=== PATIENT | female | born 1940 | race Caucasian/White ===

== ENCOUNTER 2022-10-02 09:31 | Emergency (ER) | payer MEDICARE, SELFPAY ==
[2022-10-02 09:56] VITALS: BP 177/88; PULSE 92; RESP 18; TEMP 36.1; O2SAT 98; BMI 34.9
[2022-10-02 13:45] VITALS: BP 218/84; PULSE 88; RESP 18; O2SAT 98
[2022-10-02 15:19] VITALS: BP 207/90; PULSE 72; RESP 17; O2SAT 97
--- NOTE | 2022-10-02 15:29 | ED.EXTPRO ---
HPI - Extremity Problem General Chief complaint: Extremity Problem Stated complaint: left foot injury Time Seen by Provider: 10/02/22 12:32 Source: patient and RN notes reviewed Mode of arrival: ambulatory Limitations: no limitations History of Present Illness HPI Narrative: This is a 82-year-old female presenting to the emergency department for evaluation of left foot pain since yesterday. Patient had a slip and fall and landed onto her left leg. Patient denies hitting head or LOC. she was able to weightbear however reports weight-bearing is extremely painful. She was unable to sleep secondary to the pain. Denies history of foot fractures or ankle problems in the past. Patient denies any fevers, chills She has been taking Tylenol at home without any relief. No other complaints or concerns at this time. MD Complaint: extremity pain and extremity swelling Onset (ago): day(s) Pain Consistency: constant Location: left Quality: aching Radiation: none Relieving factors: nothing Exacerbating factors: nothing Associated symptoms: denies other symptoms Related Data Previous Rx's Medication Instructions Recorded tramadol 50 mg tablet 25 mg PO Q6H PRN pain #10 tabs 10/02/22 Allergies Allergy/AdvReac Type Severity Reaction Status Date / Time No Known Allergies Allergy Verified 10/02/22 09:56 Review of Systems Review of Systems: Yes all other systems are reviewed and are negative Physical Exam Vital Signs: Vital Signs: Last Vital Signs Temp 97 F 10/02/22 09:56 Pulse 72 10/02/22 15:19 Resp 17 10/02/22 15:19 BP 207/90 H 10/02/22 15:19 Pulse Ox 97 10/02/22 15:19 O2 Del Method Room Air 10/02/22 15:19 BMI result Body Mass Index 34.9 General: Awake, alert, and oriented X3. No acute distress. HEENT: Normal inspection CVS: Normal heart rate and rhythm. Pulses normal. Respiratory: No respiratory distress Skin: Warm, dry, no rashes noted to exposed skin. Normal skin color. Normal skin turgor. Extremities: Left dorsal aspect is edematous, with exquisite tenderness along the left 3rd, 4th, 5th metatarsals. There is also tenderness along 3rd 4th and 5th tarsals. DP pulses 2+. Patient has mild tenderness palpation along the anterior left knee, pain with valgus strain. No patellar step-off or deformity. Neuro: Oriented X 3. No motor deficit. No sensory deficit. Medications Administered Discontinued Medications Generic Name Dose Route Start Last Admin Trade Name Phillip PRN Reason Stop Dose Admin Acetaminophen 975 mg 10/02/22 15:21 10/02/22 15:47 Acetaminophen 325 Mg Tablet PO 10/02/22 15:22 Not Given ONCE ONE Metoprolol Tartrate 12.5 mg 10/02/22 13:56 10/02/22 14:03 Metoprolol Tartrate 12.5 Mg Halftab PO 10/02/22 13:57 12.5 mg ONCE ONE Administration Protocol Tramadol HCl 25 mg 10/02/22 15:30 10/02/22 15:33 Tramadol Hcl 50 Mg Tablet PO 10/02/22 15:31 25 mg ONCE ONE Administration Medical Decision Making Medical Decision Making MDM Narrative: This is a 82-year-old female presenting to the emergency department with complaints of left foot pain since yesterday. Patient had a slip and fall at home and landed onto her foot. X-rays were obtained revealing an acute nondisplaced intra-articular fracture of the lateral base of the 5th proximal phalanx, acute avulsion fracture of the dorsal talar head, as well as a linear focus of ossification. Symptoms consistent with multiple fractures, patient was placed in a short-leg splint, advised to non-weight bear per orthopedic SID Carpenter, and to follow-up outpatient. Patient with hypertension, patient given metoprolol dose as she did not take her medication at home, patient is asymptomatic without any chest pain or shortness of breath, denies headaches or blurred vision. Patient hypertension likely due to pain as well. Patient medicated with tramadol and department, advised to continue with Tylenol. Patient understands and agrees with plan. Patient stable for discharge. Differential Diagnosis Differential Diagnoses: The differential diagnosis associated with the presentation includes Fracture, contusion, dislocation, sprain Consult Healthcare Provider Management of the patient was discussed with: Real Estate Paralegal Stacy Carpenter PA-C, orthopedics. Radiology Impression Discussion of test interpretation with radiology: I have reviewed the radiologist's reading. Radiologist Impression: [address] [address] XRay Report Signed Patient: Dorinda Gale MR#: [id number] : 1940 Acct:[id number] Age/Sex: 82 / F ADM Date: 10/02/22 Loc: HO.ED Attending Dr: Ordering Physician: Clarissa Cramer Date of Service: 10/02/22 Procedure(s): XR knee LT 2V Accession Number(s): [id number] cc: Clarissa Cramer~ Examination: Left ankle and left knee. Clinical indications: Pain. COMPARISON: None. TECHNIQUE: Left knee 2 views and left ankle 3 views. FINDINGS: Left knee: There is mild reduction in patellofemoral and medial compartment joint space with mild anterior superior patellar enthesophytes. No joint effusion or loose body seen. Mild chondrocalcinosis of the menisci is noted. Left ankle: There is moderate bimalleolar and left lower leg soft tissue edema. No visible acute fracture or dislocation seen. Ankle mortise and subtalar joints are normal. XR/XR knee LT 2V IMPRESSION: 1.? Mild degenerative changes medial and patellofemoral compartment left knee. No visible acute fracture or dislocation seen. 2.? Moderate bimalleolar soft tissue and lower leg edema. No acute fracture or dislocation seen. ? Dictated By: Bennie Walsh EXAMINATION: XR FOOT, LEFT CLINICAL INFORMATION: Pain at heel and top of foot, status post fall? COMPARISON: None available.? TECHNIQUE: 3 views of the left foot. FINDINGS: Bones are diffusely osteopenic. There are enthesophytes of the calcaneus. Also, there is a linear, 1.2 cm long focus of ossific density near region of plantar aponeurosis insertion. Query if there is any history of plantar fasciitis. The chronicity of this abnormality is uncertain. There are no comparison exams. Given history of pain at the heel, correlation with specific site of pain may be helpful. This could represent a recent avulsion fracture. An ossific density of 0.4 cm thickness projecting dorsal to the talar head is suspicious for acute avulsion fracture. Soft tissues of the foot are swollen. A curvilinear calcification lateral to the fifth metatarsophalangeal joint likely represents chronic capsular calcification. An acute intra-articular fracture of the lateral base of the fifth proximal phalanx is present. There appears to be chronic truncation of the tuft of the 5th distal phalanx. Mild osteoarthrosis of multiple interphalangeal joints. There are peripheral vascular calcifications. XR/XR foot LT 2V IMPRESSION: *? Acute, nondisplaced intra-articular fracture of the lateral base of the 5th proximal phalanx. *? Acute avulsion fracture of the dorsal talar head. *? The linear focus of ossification near region of calcaneal insertion of the plantar aponeurosis is of uncertain chronicity. If there is any significant acute pain in this location, then recent avulsion fracture would be suspected. Dictated By: Giacomo Irene MD Prescription Management I considered prescription management with: Pain Medication Chronic Conditions Patient?s care impacted by: Diabetes Discharge Plan Discharge Clinical Impression: Closed fracture of phalanx of fifth toe, Closed fracture of head of left talus Patient Disposition: Home, Self-Care Instructions: Foot Fracture in Adults (ED) Additional Instructions: You have multiple fractures in your foot. Please stay in splint until you are seen by Orthopedics. Call tomorrow to make an appointment. Please take prescribed medication as directed. Please be advised that this can cause drowsiness, do not drink alcohol or drive while taking this. Only take for severe pain. If any new or worsening symptoms occur please return for re-evaluation. Prescriptions: New tramadol 50 mg tablet 25 mg PO Q6H PRN (Reason: pain) Qty: 10 0RF Referrals: [facility] [place] [facility] Sur[facility] [Provider Group] Discharge Date/Time: 10/02/22 15:49
== END 2022-10-02 15:49 | disposition home or self-care (01) ==
PROVIDERS: Emergency Provider Emergency Medicine; PCP Registered Nurse
DX: S92.502A Displaced unspecified fracture of left lesser toe(s), initial encounter for closed fracture (principal); S92.122A Displaced fracture of body of left talus, initial encounter for closed fracture; M79.605 Pain in left leg; W01.10XA Fall on same level from slipping, tripping and stumbling with subsequent striking against unspecified object, initial encounter; Y93.9 Activity, unspecified; Y92.9 Unspecified place or not applicable; Y99.9 Unspecified external cause status
CPT/HCPCS: 29515; 73560; 73610; 73620; 99283

== ENCOUNTER 2022-10-13 15:02 | Outpatient (REF) | payer MEDICARE, SELFPAY ==
--- NOTE | ~2022-10-13 | XR_ITS ---
EXAMINATION: XR ANKLE RIGHT CLINICAL INFORMATION: Pain in unspecified ankle and joints of unspecified right foot. COMPARISON: Left knee and ankle 10/02/2022. TECHNIQUE: Right tibia/fibula 2 views and left ankle 3 views. FINDINGS: Right ankle: Eudqsjel-wr-lsvnrw soft tissue swelling and edema involving the right lower leg and ankle. Bones are diffusely demineralized. Ankle mortise is unremarkable. There is a large plantar calcaneal spur. Vascular calcifications at the plantar aspect of the foot. Moderate degenerative changes in the midfoot. Tiny calcific/ossific fragment medial to the medial malleolus of indeterminate age and etiology. Right lower leg: Yirblogs-op-otqkoj soft tissue swelling and edema involving the right lower leg and ankle. Bones are diffusely demineralized. No displaced fracture of the tibia/fibula. Moderate degenerative changes with chondrocalcinosis in the medial and lateral compartments of the knee. Moderate medial knee joint space narrowing and small marginal osteophytes. Small posterior patellar osteophytes and quadriceps enthesophyte. XR/XR tibia fibula RT 2V IMPRESSION: Moderate degenerative changes, right knee. Large right plantar calcaneal spur. Moderate degenerative changes in the midfoot. Tiny calcific/ossific fragment medial to the medial malleolus of indeterminate age and etiology. Recommend follow-up imaging in 10-14 days if fracture is suspected.
--- NOTE | ~2022-10-13 | XR_ITS ---
EXAMINATION: XR ANKLE RIGHT CLINICAL INFORMATION: Pain in unspecified ankle and joints of unspecified right foot. COMPARISON: Left knee and ankle 10/02/2022. TECHNIQUE: Right tibia/fibula 2 views and left ankle 3 views. FINDINGS: Right ankle: Ogiqapuo-zc-kmlrkt soft tissue swelling and edema involving the right lower leg and ankle. Bones are diffusely demineralized. Ankle mortise is unremarkable. There is a large plantar calcaneal spur. Vascular calcifications at the plantar aspect of the foot. Moderate degenerative changes in the midfoot. Tiny calcific/ossific fragment medial to the medial malleolus of indeterminate age and etiology. Right lower leg: Wxuejrqr-bi-paanel soft tissue swelling and edema involving the right lower leg and ankle. Bones are diffusely demineralized. No displaced fracture of the tibia/fibula. Moderate degenerative changes with chondrocalcinosis in the medial and lateral compartments of the knee. Moderate medial knee joint space narrowing and small marginal osteophytes. Small posterior patellar osteophytes and quadriceps enthesophyte. XR/XR ankle RT min 3V IMPRESSION: Moderate degenerative changes, right knee. Large right plantar calcaneal spur. Moderate degenerative changes in the midfoot. Tiny calcific/ossific fragment medial to the medial malleolus of indeterminate age and etiology. Recommend follow-up imaging in 10-14 days if fracture is suspected.
== END 2022-10-13 15:03 | disposition home or self-care (01) ==
LOC: HO.HOSX 15:02
PROVIDERS: PCP Registered Nurse; Visit Provider Physician Assistant
DX: S90.01XA Contusion of right ankle, initial encounter (principal); S93.402A Sprain of unspecified ligament of left ankle, initial encounter; S92.352A Displaced fracture of fifth metatarsal bone, left foot, initial encounter for closed fracture; Z91.81 History of falling
CPT/HCPCS: 73590; 73610; 99202

== ENCOUNTER 2022-10-13 15:02 | Outpatient (AMB) | payer MEDICARE, SELFPAY ==
--- NOTE | 2022-10-13 15:07 | A.OFFVIS_ITS ---
Intake Intake Visit Reasons: FC - Closed phalanx of the fifth toe Intake Note: Dorinda is a 82 year old female who presents today for a fracture care for her - Patient had a slip and fall and landed onto her left leg. Allergies No Known Allergies Allergy (Verified 10/02/22 09:56) HPI FC - Closed phalanx of the fifth toe HPI Details 82-year-old female who presents in the office today, as a new patient, for an evaluation of left foot pain. The patient presented to the ED on 10/02/2022 status post a slip and fall. X-rays were obtained. She was placed in a splint and referred to orthopedics. She states she went down to check her new drive way after soaking her feet, when on the way back she stopped on her la nding and fell. She states she injured the left ankle and foot. She also injured the right lower extremity at the area of the tibia/fibia and right ankle. She was found to have a left 5th toe fracture and possible avulsion fracture of the lateral malleolus. She was placed in a posterior splint. The right lower extremity was not examined at that time due to her not having any complaints of pain. Patient has a history of Rheumatoid arthritis. Review of Systems Const All systems reviewed & are unremarkable except as noted in HPI and below Physical Exam Const General: cooperative and no acute distress Orientation/consciousness: patient oriented x3 HEENT Head: Yes normal to inspection, Yes normocephalic and Yes atraumatic Eyes General: appearance normal, both eyes and all related structures Resp Effort & Inspection: normal respiratory effort and able to speak in complete sentences Cardio Rate: regular rate Peripheral pulses: Peripheral pulses 2+ throughout GI Palpation (GI): Soft to palpation Skin Lesions: no lesions Rashes: no rashes Neuro General: patient oriented x3 Extrem Other: Left foot: Resolving ecchymosis at the base of the toes. Able to dorsiflex and plantarflex. Slight difficulty with pronation and supinate due to stiffness. No tenderness to palpation lateral malleolus. Slight tenderness to palpation medial malleolus. Negative anterior drawer. Sensation intact. Pedal pulse intact. Right ankle: Pain with tibia/fibula squeeze. Notable ecchymosis proximal 3rd of the anterior aspect of the tibia. Roughly the size of a golf ball with mild ecchymosis. Patient is able to demonstrate dorsiflexion, plantar flexion, pronation and supination. Negative anterior drawer. Sensation intact. Pedal Pulse intact. Psych Mental Status: mental status grossly normal Assessment & Plan Assessment & Plan (1) Contusion of right ankle: Code(s): S90.01XA - Contusion of right ankle, initial encounter (2) Left ankle sprain: Code(s): S93.402A - Sprain of unspecified ligament of left ankle, initial encounter (3) Fracture of fifth metatarsal bone of left foot: Code(s): S92.352A - Displaced fracture of fifth metatarsal bone, left foot, initial encounter for closed fracture Plan Ms. Gale is a 82-year-old female who presents in the office today, as a new patient, for an evaluation of left foot pain. The patient presented to the ED on 10/02/2022 status post a slip and fall. X-rays were obtained. She was placed in a splint and referred to orthopedics. She states she went down to check her new drive way after soaking her feet, when on the way back she stopped on her landing and fell. She states she injured the left ankle and foot. She also injured the right lower extremity at the area of the tibia/fibia and right ankle. She was found to have a left 5th toe fracture and possible avulsion fracture of the lateral malleolus. She was placed in a posterior splint. The right lower extremity was not examined at that time due to her not having any complaints of pain. Patient has a history of Rheumatoid arthritis. She will discontinue the use of the splint. She will be placed in short walking boot, off the shelf. She can weight bear as tolerated. She can take the boot off while sitting down and when she goes to bed. After 2 weeks she needs to come out of the boot. She will be referred to physical therapy to work on ROM and strengthening. She can take OTC Tylenol for the pain. She will follow up in 4 weeks, or sooner if needed. X-rays of the right tib/fib which were obtained while in the office today and were reviewed by , Shilpa Hernandez PA-C, revealed no acute fracture or dislocation. X-rays of the right ankle which were obtained while in the office today and were reviewed by , Shilpa Hernandez PA-C, revealed no acute fracture or dislocation. X-rays of the left foot, obtained on 10/03/2022, revealed: * Acute, nondisplaced intra-articular fracture of the lateral base of the 5th proximal phalanx. * Acute avulsion fracture of the dorsal talar head. * The linear focus of ossification near region of calcaneal insertion of the plantar aponeurosis is of uncertain chronicity. If there is any significant acute pain in this location, then recent avulsion fracture would be suspected. Orders: Orders XR tibia fibula RT 2V Today S80.10XA - Contusion of unspecified lower leg, initial encounter XR ankle RT min 3V Today M25.579 - Pain in unspecified ankle and joints of unspecified foot Patient Instructions: Scribed for Shilpa Hernandez PA-C by Rizwana Taylor medical director of hospice, on 10/13/2022 at 3:26 pm, EST. Your attestation Coding Level of Care Code New Pt Level 4 (92539) Diagnoses Contusion of right ankle S90.01XA Left ankle sprain S93.402A Fracture of fifth metatarsal bone of left foot S92.352A
== END 2022-10-13 16:05 | disposition home or self-care (01) ==
PROVIDERS: PCP Registered Nurse; Visit Provider Physician Assistant
DX: S90.01XA Contusion of right ankle, initial encounter (principal); S93.402A Sprain of unspecified ligament of left ankle, initial encounter; S92.355A Nondisplaced fracture of fifth metatarsal bone, left foot, initial encounter for closed fracture
CPT/HCPCS: 99204

== ENCOUNTER 2022-11-10 10:32 | Outpatient (REF) | payer MEDICARE, SELFPAY | END 2022-11-10 10:33 | disposition home or self-care (01) | LOC: HO.HOSX 10:32 | PROVIDERS: Visit Provider Physician Assistant | DX: Z13.89 Encounter for screening for other disorder (principal) ==

== ENCOUNTER 2022-11-22 07:21 | Outpatient (REF) | payer MEDICARE, SELFPAY | END 2022-11-22 07:22 | disposition home or self-care (01) | LOC: HO.HOSX 07:21 | PROVIDERS: Visit Provider Physician Assistant | DX: Z13.89 Encounter for screening for other disorder (principal) ==

== ENCOUNTER 2023-02-27 14:42 | Outpatient (AMB) | payer MEDICARE, SELFPAY ==
[2023-02-27 15:08] VITALS: BP 180/80; PULSE 81; BMI 36.2
--- NOTE | 2023-02-27 15:08 | HO.NEPHOV_ITS ---
HPI HPI Comments History of Present Illness Details I had the privilege of seeing Dorinda in follow-up of her chronic kidney disease, hypertension and hypercalcemia. She has been followed by me for at least 15 years but happened to see 1 and other physician in another office recently. She wants me to take over her care. Her medications were changed by that provider which she was unhappy about. She does not want to take any other new medications given. She feels she has side effects from it and does not understand why the changes were made. She does not have any chest pain, shortness of breath, nausea, vomiting, diarrhea, pedal edema, urinary symptoms. She is avoiding nonsteroidal anti-inflammatory medications and is trying to keep up with good hydration. [facility] Medical History (Updated 03/06/23 @ 09:30 by Aldo Bush MD) Hypertension Chronic kidney disease Surgical History (Updated 02/27/23 @ 15:19 by Kathleen Ghosh MA) History of tubal ligation History of kidney removal Status post carotid surgery Family History Brother Cancer Mother Heart attack Social History (Updated 02/27/23 @ 15:20 by Kathleen Ghosh MA) Alcohol intake: former Patient Tobacco Use Status: Former Tobacco user Vital Signs 02/27/23 15:08 Height 5 ft 5 in Weight 217 lb 8 oz BMI 36.2 BP 180/80 H Blood Pressure Location Rt brachial Position Sitting Pulse 81 Pulse Source Pulse Oximeter Physical Exam Vital Signs: Last Vital Signs Pulse 81 02/27/23 15:08 BP 180/80 H 02/27/23 15:08 BMI result Body Mass Index 36.2 Const General: comfortable and no acute distress Orientation/consciousness: patient oriented x3 HEENT Head: Yes normocephalic Mouth: Normal oral and palatal mucosa present Eyes EOM: EOMs intact bilaterally Neck Neck: Yes supple Resp Auscultation: clear to auscultation bilaterally Cardio Jugular venous distension: no JVD Rate: regular rate GI Palpation (GI): Soft to palpation Auscultation: normal bowel sounds General: Yes no CVA tenderness Back/Spine/Pelvis Back: no CVA tenderness Skin General skin exam: no rashes or lesions noted Neuro General: patient oriented x3 and moves all extremities Extrem General: Yes no pedal edema Assessment & Plan Assessment & Plan (1) CKD (chronic kidney disease) stage 3, GFR 30-59 ml/min: Code(s): N18.30 - Chronic kidney disease, stage 3 unspecified (2) Hypertension: Code(s): I10 - Essential (primary) hypertension Qualifiers: Hypertension type: primary hypertension Qualified Code(s): I10 - Essential (primary) hypertension (3) Hypercalcemia: Code(s): E83.52 - Hypercalcemia (4) Primary hyperparathyroidism: Code(s): E21.0 - Primary hyperparathyroidism Plan Dorinda has chronic kidney disease and longstanding hypertension. Blood pressure recheck in my office by me was at goal. Her volume status is optimal. She was prescribed cinacalcet which she does not want to take. She had experienced some side effects from it. Some of her blood pressure medications were changed including initiation of doxazosin which she does not want to continue. I agreed to the decision and put her back on her old medication regimen. I however s tarted repeat blood work.. All her questions and concerns were addressed promptly. She is going to follow-up with me in a week. Time spent retrieving data, documentation and patient encounter 23 minutes. Follow-up given. Coding Level of Care Code Est Pt Level 4 (31040) Diagnoses CKD (chronic kidney disease) stage 3, GFR 30-59 ml/min N18.30 Primary hypertension I10 Hypertension type: primary hypertension Hypercalcemia E83.52 Primary hyperparathyroidism E21.0 Results Reviewed Nephrology Results: No Data to Display
== END 2023-02-27 15:48 | disposition home or self-care (01) ==
PROVIDERS: PCP Registered Nurse; Visit Provider Internal Medicine Nephrology
DX: I12.9 Hypertensive chronic kidney disease with stage 1 through stage 4 chronic kidney disease, or unspecified chronic kidney disease (principal); N18.30 Chronic kidney disease, stage 3 unspecified; E21.0 Primary hyperparathyroidism
CPT/HCPCS: 99214

== ENCOUNTER → 2023-02-27 14:42 | Outpatient (BNVA) | payer MEDICARE, SELFPAY | PROVIDERS: PCP Registered Nurse; Visit Provider Internal Medicine Nephrology | DX: I12.9 Hypertensive chronic kidney disease with stage 1 through stage 4 chronic kidney disease, or unspecified chronic kidney disease (principal); N18.30 Chronic kidney disease, stage 3 unspecified; E83.52 Hypercalcemia | CPT/HCPCS: 99212 ==

== ENCOUNTER 2023-03-09 11:06 | Outpatient (AMB) | payer MEDICARE, SELFPAY ==
[2023-03-09 11:11] VITALS: BP 150/80; PULSE 88; O2SAT 98; BMI 36.1
--- NOTE | 2023-03-09 11:11 | HO.NEPHOV ---
HPI HPI Comments History of Present Illness Details I had the privilege of seeing Dorinda in follow-up of her chronic kidney disease, hypertension and hypercalcemia. She is currently not taking doxazosin or cinacalcet. Side effects she felt from these medications have gone now. She has been having increased tiredness and sleepiness when she takes hydralazine and metoprolol. As a result she had been cutting back on the dose of metoprolol. She does not have any chest pain, shortness of breath, nausea, vomiting, diarrhea, pedal edema, urinary symptoms. She is avoiding nonsteroidal anti-inflammatory medications and is trying to keep up with good hydration [facility] Medical History (Updated 03/09/23 @ 19:16 by Aldo Bush MD) Hypertension Chronic kidney disease Surgical History History of tubal ligation History of kidney removal Status post carotid surgery Family History Brother Cancer Mother Heart attack Social History Alcohol intake: former Patient Tobacco Use Status: Former Tobacco user Vital Signs 03/09/23 11:11 Height 5 ft 5 in Weight 217 lb 2 oz BMI 36.1 BP 150/80 H Blood Pressure Location Lt brachial Position Sitting Pulse 88 Pulse Source Pulse Oximeter Pulse Oximetry (%) 98 Oxygen Delivery Method Room Air Physical Exam Vital Signs: Last Vital Signs Pulse 88 03/09/23 11:11 BP 150/80 H 03/09/23 11:11 Pulse Ox 98 03/09/23 11:11 Oxygen Delivery Method Room Air 03/09/23 11:11 BMI result Body Mass Index 36.1 Const General: comfortable and no acute distress Orientation/consciousness: patient oriented x3 HEENT Head: Yes normocephalic Mouth: Normal oral and palatal mucosa present Eyes EOM: EOMs intact bilaterally Neck Neck: Yes supple Resp Auscultation: clear to auscultation bilaterally Cardio Jugular venous distension: no JVD Rate: regular rate GI Palpation (GI): Soft to palpation Auscultation: normal bowel sounds General: Yes no CVA tenderness Back/Spine/Pelvis Back: no CVA tenderness Skin General skin exam: no rashes or lesions noted Neuro General: patient oriented x3 and moves all extremities Extrem General: Yes no pedal edema Assessment & Plan Assessment & Plan (1) CKD (chronic kidney disease) stage 3, GFR 30-59 ml/min: Code(s): N18.30 - Chronic kidney disease, stage 3 unspecified Qualifiers: Chronic kidney disease stage 3 subtype: stage 3b (GFR 30-44) Qualified Code(s): N18.32 - Chronic kidney disease, stage 3b (2) Primary hyperparathyroidism: Code(s): E21.0 - Primary hyperparathyroidism (3) Hypercalcemia: Code(s): E83.52 - Hypercalcemia (4) Hypertension: Code(s): I10 - Essential (primary) hypertension Qualifiers: Hypertension type: primary hypertension Qualified Code(s): I10 - Essential (primary) hypertension Plan Dorinda has chronic kidney disease and longstanding hypertension. Blood pressure recheck in my office by me was at goal. Her volume status is optimal. I asked her to hold hydralazine given her symptoms suggestive of hypotensive episodes. She should continue to take metoprolol for now. She has a follow up with Dr Jean. She is going to reach out to me with her BP readings. She is on Jardiance. I did not change any other medications today but ordered repeat blood work.. All her questions and concerns were addressed promptly. She is going to follow-up with me in a few weeks. Follow-up given Orders: Orders Electrolytes Today E21.0 - Primary hyperparathyroidism, E83.52 - Hypercalcemia, I10 - Essential (primary) hypertension, N18.30 - Chronic kidney disease, stage 3 unspecified Blood Urea Nitrogen Today E21.0 - Primary hyperparathyroidism, E83.52 - Hypercalcemia, I10 - Essential (primary) hypertension, N18.30 - Chronic kidney disease, stage 3 unspecified Creatinine Today E21.0 - Primary hyperparathyroidism, E83.52 - Hypercalcemia, I10 - Essential (primary) hypertension, N18.30 - Chronic kidney disease, stage 3 unspecified Calcium Today E21.0 - Primary hyperparathyroidism, E83.52 - Hypercalcemia, I10 - Essential (primary) hypertension, N18.30 - Chronic kidney disease, stage 3 unspecified Coding Level of Care Code Est Pt Level 3 (93073) Diagnoses Stage 3b chronic kidney disease N18.32 Chronic kidney disease stage 3 subtype: stage 3b (GFR 30-44) Primary hyperparathyroidism E21.0 Hypercalcemia E83.52 Primary hypertension I10 Hypertension type: primary hypertension Results Reviewed Nephrology Results: No Data to Display
== END 2023-03-09 11:53 | disposition home or self-care (01) ==
PROVIDERS: PCP Registered Nurse; Visit Provider Internal Medicine Nephrology
DX: I12.9 Hypertensive chronic kidney disease with stage 1 through stage 4 chronic kidney disease, or unspecified chronic kidney disease (principal); N18.32 Chronic kidney disease, stage 3b; E21.0 Primary hyperparathyroidism
CPT/HCPCS: 99213

== ENCOUNTER → 2023-03-09 11:06 | Outpatient (BNVA) | payer MEDICARE, SELFPAY | PROVIDERS: PCP Registered Nurse; Visit Provider Internal Medicine Nephrology | DX: I12.9 Hypertensive chronic kidney disease with stage 1 through stage 4 chronic kidney disease, or unspecified chronic kidney disease (principal); N18.32 Chronic kidney disease, stage 3b; E21.0 Primary hyperparathyroidism; E83.52 Hypercalcemia | CPT/HCPCS: 99212 ==

== ENCOUNTER 2023-04-20 14:17 | Outpatient (AMB) | payer MEDICARE, SELFPAY ==
--- NOTE | 2023-04-20 14:40 | HO.NEPHOV ---
HPI HPI Comments History of Present Illness Details I had the privilege of seeing Dorinda in follow-up of her chronic kidney disease, hypertension and hypercalcemia. She is currently not taking doxazosin or cinacalcet. Side effects she felt from these medications have gone now. She had been having increased tiredness and sleepiness when she takes hydralazine and metoprolol. As a result she had cut back on the dose of metoprolol. She does not have any chest pain, shortness of breath, nausea, vomiting, diarrhea, pedal edema, urinary symptoms. She is avoiding nonsteroidal anti-inflammatory medications and is trying to keep up with good hydration. She has been having cough and upper respiratory symptoms which had been productive. [facility] Medical History (Updated 05/01/23 @ 20:40 by Aldo Bush MD) Hypertension Chronic kidney disease Surgical History History of tubal ligation History of kidney removal Status post carotid surgery Family History Brother Cancer Mother Heart attack Social History Alcohol intake: former Patient Tobacco Use Status: Former Tobacco user Vital Signs 04/20/23 14:45 04/20/23 15:36 Height 5 ft 5 in Weight 217 lb 6 oz BMI 36.2 BP 150/98 H 128/80 Blood Pressure Location Lt brachial Position Sitting Pulse 70 Pulse Source Pulse Oximeter Pulse Oximetry (%) 97 Oxygen Delivery Method Room Air Physical Exam Vital Signs: Last Vital Signs Pulse 70 04/20/23 14:45 BP 128/80 04/20/23 15:36 Pulse Ox 97 04/20/23 14:45 Oxygen Delivery Method Room Air 04/20/23 14:45 BMI result Body Mass Index 36.2 Const General: comfortable and no acute distress Orientation/consciousness: patient oriented x3 HEENT Head: Yes normocephalic Mouth: Normal oral and palatal mucosa present Eyes EOM: EOMs intact bilaterally Neck Neck: Yes supple Resp Auscultation: clear to auscultation bilaterally Cardio Jugular venous distension: no JVD Rate: regular rate GI Palpation (GI): Soft to palpation Auscultation: normal bowel sounds General: Yes no CVA tenderness Back/Spine/Pelvis Back: no CVA tenderness Skin General skin exam: no rashes or lesions noted Neuro General: patient oriented x3 and moves all extremities Extrem General: Yes no pedal edema Assessment & Plan Assessment & Plan (1) Primary hyperparathyroidism: Code(s): E21.0 - Primary hyperparathyroidism (2) CKD (chronic kidney disease) stage 3, GFR 30-59 ml/min: Code(s): N18.30 - Chronic kidney disease, stage 3 unspecified Qualifiers: Chronic kidney disease stage 3 subtype: stage 3b (GFR 30-44) Qualified Code(s): N18.32 - Chronic kidney disease, stage 3b (3) Hypercalcemia: Code(s): E83.52 - Hypercalcemia (4) Hypertension: Code(s): I10 - Essential (primary) hypertension Qualifiers: Hypertension type: primary hypertension Qualified Code(s): I10 - Essential (primary) hypertension (5) LRTI (lower respiratory tract infection): Code(s): J22 - Unspecified acute lower respiratory infection Plan Dorinda has chronic kidney disease and longstanding hypertension. Blood pressure recheck in my office by me was at goal. Her volume status is optimal. I asked her to hold hydralazine given her symptoms suggestive of hypotensive episodes in the past when she takes it. She should continue to take metoprolol for now. She has a follow up with Dr Jean. She is going to reach out to me with her BP readings. She is on Jardiance. I took the liberty to prescribe her Augmentin for 7 days. I did not change any other medications today but ordered repeat blood work.. All her questions and concerns were addressed promptly. She is going to follow-up with me . Follow-up given Orders: Orders Electrolytes 04/20/23 N18.30 - Chronic kidney disease, stage 3 unspecified, E83.52 - Hypercalcemia, I10 - Essential (primary) hypertension, E21.0 - Primary hyperparathyroidism Blood Urea Nitrogen 04/20/23 N18.30 - Chronic kidney disease, stage 3 unspecified, E83.52 - Hypercalcemia, I10 - Essential (primary) hypertension, E21.0 - Primary hyperparathyroidism Creatinine 04/20/23 N18.30 - Chronic kidney disease, stage 3 unspecified, E83.52 - Hypercalcemia, I10 - Essential (primary) hypertension, E21.0 - Primary hyperparathyroidism Phosphorus 04/20/23 N18.30 - Chronic kidney disease, stage 3 unspecified, E83.52 - Hypercalcemia, I10 - Essential (primary) hypertension, E21.0 - Primary hyperparathyroidism Calcium 04/20/23 N18.30 - Chronic kidney disease, stage 3 unspecified, E83.52 - Hypercalcemia, I10 - Essential (primary) hypertension, E21.0 - Primary hyperparathyroidism Vitamin D 25-OH Total 04/20/23 N18.30 - Chronic kidney disease, stage 3 unspecified, E83.52 - Hypercalcemia, I10 - Essential (primary) hypertension, E21.0 - Primary hyperparathyroidism Parathyroid Hormone Intact 04/20/23 N18.30 - Chronic kidney disease, stage 3 unspecified, E83.52 - Hypercalcemia, I10 - Essential (primary) hypertension, E21.0 - Primary hyperparathyroidism Medications: New amoxicillin-pot clavulanate 500-125 mg (Augmentin) 1 tab PO BID 14 tabs 0RF 7 days Coding Level of Care Code Est Pt Level 4 (37122) Diagnoses Primary hyperparathyroidism E21.0 Stage 3b chronic kidney disease N18.32 Chronic kidney disease stage 3 subtype: stage 3b (GFR 30-44) Hypercalcemia E83.52 Primary hypertension I10 Hypertension type: primary hypertension LRTI (lower respiratory tract infection) J22 Results Reviewed Nephrology Results: No Data to Display
[2023-04-20 14:45] VITALS: BP 150/98; PULSE 70; O2SAT 97; BMI 36.2
[2023-04-20 15:36] VITALS: BP 128/80
== END 2023-04-20 15:38 | disposition home or self-care (01) ==
PROVIDERS: PCP Registered Nurse; Visit Provider Internal Medicine Nephrology
DX: E21.0 Primary hyperparathyroidism (principal); N18.32 Chronic kidney disease, stage 3b; E83.52 Hypercalcemia; I10 Essential (primary) hypertension; J22 Unspecified acute lower respiratory infection
CPT/HCPCS: 99214

== ENCOUNTER → 2023-04-20 14:17 | Outpatient (BNVA) | payer MEDICARE, SELFPAY | PROVIDERS: PCP Registered Nurse; Visit Provider Internal Medicine Nephrology | DX: I12.9 Hypertensive chronic kidney disease with stage 1 through stage 4 chronic kidney disease, or unspecified chronic kidney disease (principal); N18.32 Chronic kidney disease, stage 3b; E21.0 Primary hyperparathyroidism; E83.52 Hypercalcemia; J22 Unspecified acute lower respiratory infection | CPT/HCPCS: 99212 ==

== ENCOUNTER 2023-07-27 10:30 | Outpatient (REF) | payer MEDICARE, SELFPAY ==
[2023-07-27 17:43] LABS: Anion Gap 15 (12-20); Blood Urea Nitrogen 37 mg/dL (9-16); Calcium 10.9 mg/dL (8.4-10.2); Carbon Dioxide 16 mmol/L (22-29); Chloride 111 mmol/L (96-108); Estimated Glomerular Filt Rate 22; Phosphorus 3.3 mg/dL (2.7-4.5); Potassium 4.4 mmol/L (3.3-5.1); Sodium 138 mmol/L (135-145)
[2023-07-27 17:51] LABS: Vitamin D 25-OH Total 33.4 ng/mL (>30)
[2023-07-28 06:11] LABS: Parathyroid Hormone Intact 669.9 pg/mL (8.7-77.1)
== END 2023-07-27 10:31 | disposition home or self-care (01) ==
LOC: HO.HKASLDS 10:30
PROVIDERS: PCP Registered Nurse; Visit Provider Internal Medicine Nephrology
DX: E21.0 Primary hyperparathyroidism (principal); I12.9 Hypertensive chronic kidney disease with stage 1 through stage 4 chronic kidney disease, or unspecified chronic kidney disease; N18.32 Chronic kidney disease, stage 3b
CPT/HCPCS: 36415; 80051; 82306; 82310; 82565; 83970; 84100; 84520; 99212

== ENCOUNTER 2023-07-27 10:30 | Outpatient (AMB) | payer MEDICARE, SELFPAY ==
[2023-07-27 10:46] VITALS: BP 150/88; PULSE 79; O2SAT 96; BMI 37.1
--- NOTE | 2023-07-27 10:46 | HO.NEPHOV_ITS ---
Vital Signs 07/27/23 10:46 Height 5 ft 5 in Weight 223 lb BMI 37.1 BP 150/88 H Blood Pressure Location Rt brachial Position Sitting Pulse 79 Pulse Source Pulse Oximeter Pulse Oximetry (%) 96 Oxygen Delivery Method Room Air Intake Visit Reasons: 3 mon follow up/ Confirmed Regional Marketing Director Required: No Accompanied by: Self / Same As Patient Allergies No Known Allergies Allergy (Verified 07/27/23 10:49) HPI Comments Details: I had the privilege of seeing Dorinda in follow-up of her chronic kidney disease, hypertension and hypercalcemia. She had been having increased tiredness and sleepiness when she takes hydralazine and metoprolol. As a result she had cut back on the dose of metoprolol. She has restarted hydralazine 10 mg bid. She does not have any chest pain, shortness of breath, nausea, vomiting, diarrhea, pedal edema, urinary symptoms. She is avoiding nonsteroidal anti-inflammatory medications and is trying to keep up with good hydration. [facility] Medical History (Updated 05/01/23 @ 20:40 by Aldo Bush MD) Hypertension Chronic kidney disease Surgical History History of tubal ligation History of kidney removal Status post carotid surgery Family History Brother Cancer Mother Heart attack Social History Alcohol intake: former Patient Tobacco Use Status: Former Tobacco user Physical Exam Vital Signs: Last Vital Signs Pulse 79 07/27/23 10:46 BP 150/88 H 07/27/23 10:46 Pulse Ox 96 07/27/23 10:46 Oxygen Delivery Method Room Air 07/27/23 10:46 BMI result Body Mass Index 37.1 Const General: comfortable and no acute distress Orientation/consciousness: patient oriented x3 HEENT Head: Yes normocephalic Mouth: Normal oral and palatal mucosa present Eyes EOM: EOMs intact bilaterally Neck Neck: Yes supple Resp Auscultation: clear to auscultation bilaterally Cardio Jugular venous distension: no JVD Rate: regular rate GI Palpation (GI): Soft to palpation Auscultation: normal bowel sounds General: Yes no CVA tenderness Back/Spine/Pelvis Back: no CVA tenderness Skin General skin exam: no rashes or lesions noted Neuro General: patient oriented x3 and moves all extremities Results Reviewed Nephrology Results: No Data to Display Assessment & Plan Assessment & Plan (1) Primary hyperparathyroidism: Code(s): E21.0 - Primary hyperparathyroidism Category: Medical (2) Hypercalcemia: Code(s): E83.52 - Hypercalcemia Category: Medical (3) Hypertension: Code(s): I10 - Essential (primary) hypertension Category: Medical Qualifiers: Hypertension type: primary hypertension Qualified Code(s): I10 - Essential (primary) hypertension (4) CKD (chronic kidney disease) stage 3, GFR 30-59 ml/min: Code(s): N18.30 - Chronic kidney disease, stage 3 unspecified Category: Medical Qualifiers: Chronic kidney disease stage 3 subtype: stage 3b (GFR 30-44) Qualified Code(s): N18.32 - Chronic kidney disease, stage 3b Plan Dorinda has chronic kidney disease and longstanding hypertension. She should continue to take metoprolol for now. I asked her to c/w hydralazine. I started Imdur 30 mg daily. She is on Jardiance. She may need more diuretics. I did not change any other medications today. All her questions and concerns were addressed promptly. She is going to follow-up with me . Follow-up given Medications: New isosorbide mononitrate ER 30 mg PO QAM 30 tabs 1RF Coding Level of Care Code Est Pt Level 4 (05901) Diagnoses Primary hyperparathyroidism E21.0 Hypercalcemia E83.52 Primary hypertension I10 Hypertension type: primary hypertension Stage 3b chronic kidney disease N18.32 Chronic kidney disease stage 3 subtype: stage 3b (GFR 30-44)
== END 2023-07-27 11:19 | disposition home or self-care (01) ==
PROVIDERS: PCP Registered Nurse; Visit Provider Internal Medicine Nephrology
DX: I12.9 Hypertensive chronic kidney disease with stage 1 through stage 4 chronic kidney disease, or unspecified chronic kidney disease (principal); N18.32 Chronic kidney disease, stage 3b; E83.52 Hypercalcemia
CPT/HCPCS: 99214

== ENCOUNTER 2023-08-10 10:18 | Outpatient (AMB) | payer MEDICARE, SELFPAY ==
--- NOTE | 2023-08-10 10:21 | HO.NEPHOV ---
Vital Signs 08/10/23 10:28 Height 5 ft 5 in Weight 222 lb 4 oz BMI 37.0 BP 144/50 H Blood Pressure Location Rt brachial Position Sitting Pulse 73 Pulse Source Pulse Oximeter Pulse Oximetry (%) 96 Oxygen Delivery Method Room Air Intake Visit Reasons: 2 wks follow up/ Confirmed Mobility Architect Required: No Accompanied by: Self / Same As Patient Allergies No Known Allergies Allergy (Verified 08/10/23 10:30) HPI Comments Details: I had the privilege of seeing Dorinda in follow-up of her chronic kidney disease, hypertension and hypercalcemia. Her BP medications were adjusted recently. She does not have any chest pain, shortness of breath, nausea, vomiting, diarrhea, worsening pedal edema, urinary symptoms. She is avoiding nonsteroidal anti-inflammatory medications and is trying to keep up with good hydration. [facility] Medical History (Updated 08/10/23 @ 10:56 by Aldo Bush MD) Hypertension Chronic kidney disease Surgical History History of tubal ligation History of kidney removal Status post carotid surgery Family History Brother Cancer Mother Heart attack Social History Alcohol intake: former Patient Tobacco Use Status: Former Tobacco user Physical Exam Const General: comfortable and no acute distress Orientation/consciousness: patient oriented x3 HEENT Head: Yes normocephalic Mouth: Normal oral and palatal mucosa present Eyes EOM: EOMs intact bilaterally Neck Neck: Yes supple Resp Auscultation: clear to auscultation bilaterally Cardio Jugular venous distension: no JVD Rate: regular rate GI Palpation (GI): Soft to palpation Auscultation: normal bowel sounds General: Yes no CVA tenderness Back/Spine/Pelvis Back: no CVA tenderness Skin General skin exam: no rashes or lesions noted Neuro General: patient oriented x3 and moves all extremities Extrem General: Yes edema Results Reviewed Nephrology Results: Sodium 138 mmol/L (135-145) 07/27/23 Potassium 4.4 mmol/L (3.3-5.1) 07/27/23 Chloride 111 mmol/L (96-108) H 07/27/23 Carbon Dioxide 16 mmol/L (22-29) L 07/27/23 BUN 37 mg/dL (9-16) H 07/27/23 Creatinine 2.15 mg/dL (0.5-1.4) H 07/27/23 Calcium 10.9 mg/dL (8.4-10.2) H 07/27/23 Phosphorus 3.3 mg/dL (2.7-4.5) 07/27/23 PTH Intact 669.9 pg/mL (8.7-77.1) H 07/27/23 Assessment & Plan Assessment & Plan (1) CKD (chronic kidney disease) stage 3, GFR 30-59 ml/min: Code(s): N18.30 - Chronic kidney disease, stage 3 unspecified Category: Medical Qualifiers: Chronic kidney disease stage 3 subtype: stage 3b (GFR 30-44) Qualified Code(s): N18.32 - Chronic kidney disease, stage 3b (2) Hypertension: Code(s): I10 - Essential (primary) hypertension Category: Medical Qualifiers: Hypertension type: primary hypertension Qualified Code(s): I10 - Essential (primary) hypertension (3) Hypercalcemia: Code(s): E83.52 - Hypercalcemia Category: Medical (4) Primary hyperparathyroidism: Code(s): E21.0 - Primary hyperparathyroidism Category: Medical (5) Metabolic acidosis: Code(s): E87.20 - Acidosis, unspecified Category: Medical Plan Dorinda has chronic kidney disease and longstanding hypertension. She should continue to take metoprolol for now. I asked her to c/w hydralazine. I increased her Imdur to 60 mg daily. I started her on NaHCO3 650 mg bid. She is on Jardiance. She may need more diuretics. I will add sensipar with time. I did not change any other medications today. All her questions and concerns were addressed promptly. She is going to follow-up with me . Follow-up given Orders: Orders Creatinine Today E21.0 - Primary hyperparathyroidism, E83.52 - Hypercalcemia, E87.20 - Acidosis, unspecified, I10 - Essential (primary) hypertension, N18.32 - Chronic kidney disease, stage 3b Electrolytes Today E21.0 - Primary hyperparathyroidism, E83.52 - Hypercalcemia, E87.20 - Acidosis, unspecified, I10 - Essential (primary) hypertension, N18.32 - Chronic kidney disease, stage 3b Blood Urea Nitrogen Today E21.0 - Primary hyperparathyroidism, E83.52 - Hypercalcemia, E87.20 - Acidosis, unspecified, I10 - Essential (primary) hypertension, N18.32 - Chronic kidney disease, stage 3b Medications: Changed From sodium bicarbonate 650 mg PO DAILY 30 tabs 1RF stomach upset To sodium bicarbonate 650 mg PO BID 30 days 60 tabs 1RF stomach upset Coding Level of Care Code Est Pt Level 4 (91309) Diagnoses Stage 3b chronic kidney disease N18.32 Chronic kidney disease stage 3 subtype: stage 3b (GFR 30-44) Primary hypertension I10 Hypertension type: primary hypertension Hypercalcemia E83.52 Primary hyperparathyroidism E21.0 Metabolic acidosis E87.20
[2023-08-10 10:28] VITALS: BP 144/50; PULSE 73; O2SAT 96; BMI 37.0
== END 2023-08-10 11:01 | disposition home or self-care (01) ==
PROVIDERS: PCP Registered Nurse; Visit Provider Internal Medicine Nephrology
DX: N18.32 Chronic kidney disease, stage 3b (principal); I10 Essential (primary) hypertension; E83.52 Hypercalcemia; E21.0 Primary hyperparathyroidism; E87.20 Acidosis, unspecified
CPT/HCPCS: 99214

== ENCOUNTER → 2023-08-10 10:18 | Outpatient (BNVA) | payer MEDICARE, SELFPAY | PROVIDERS: PCP Registered Nurse; Visit Provider Internal Medicine Nephrology | DX: I12.9 Hypertensive chronic kidney disease with stage 1 through stage 4 chronic kidney disease, or unspecified chronic kidney disease (principal); N18.32 Chronic kidney disease, stage 3b; E83.52 Hypercalcemia; E21.0 Primary hyperparathyroidism; E87.20 Acidosis, unspecified; Z79.899 Other long term (current) drug therapy | CPT/HCPCS: 99212 ==

== ENCOUNTER 2023-09-07 10:27 | Outpatient (AMB) | payer MEDICARE, SELFPAY ==
[2023-09-07 10:38] VITALS: BP 128/70; PULSE 89; O2SAT 97; BMI 36.5
--- NOTE | 2023-09-07 10:38 | HO.NEPHOV_ITS ---
Vital Signs 09/07/23 10:38 Height 5 ft 5 in Weight 219 lb 6 oz BMI 36.5 BP 128/70 Blood Pressure Location Lt brachial Position Sitting Pulse 89 Pulse Source Pulse Oximeter Pulse Oximetry (%) 97 Oxygen Delivery Method Room Air Intake Visit Reasons: 2 wks follow up/ Conf Neurosurgery Spine Physician Required: No Accompanied by: Self / Same As Patient Allergies No Known Allergies Allergy (Verified 09/07/23 10:40) HPI Comments Details: I had the privilege of seeing Dorinda in follow-up of her chronic kidney disease, hypertension and hypercalcemia. Her BP medications were adjusted recently. She had intra articular injection in her left knee. She does not have any chest pain, shortness of breath, nausea, vomiting, diarrhea, worsening pedal edema, urinary symptoms. She is avoiding nonsteroidal anti-inflammatory medications and is trying to keep up with good hydration. [facility] Medical History (Updated 08/10/23 @ 10:56 by Aldo Bush MD) Hypertension Chronic kidney disease Surgical History History of tubal ligation History of kidney removal Status post carotid surgery Family History Brother Cancer Mother Heart attack Social History Alcohol intake: former Patient Tobacco Use Status: Former Tobacco user Review of Systems Const All systems reviewed & are unremarkable except as noted in HPI and below Physical Exam Vital Signs: Last Vital Signs Pulse 89 09/07/23 10:38 BP 152/70 H 09/07/23 10:38 Pulse Ox 97 09/07/23 10:38 Oxygen Delivery Method Room Air 09/07/23 10:38 BMI result Body Mass Index 36.5 Const General: comfortable and no acute distress Orientation/consciousness: patient oriented x3 HEENT Head: Yes normocephalic Mouth: Normal oral and palatal mucosa present Eyes EOM: EOMs intact bilaterally Neck Neck: Yes supple Resp Auscultation: clear to auscultation bilaterally Cardio Jugular venous distension: no JVD Rate: regular rate GI Palpation (GI): Soft to palpation Auscultation: normal bowel sounds General: Yes no CVA tenderness Back/Spine/Pelvis Back: no CVA tenderness Skin General skin exam: no rashes or lesions noted Neuro General: patient oriented x3 and moves all extremities Extrem General: Yes no pedal edema Results Reviewed Nephrology Results: Sodium 138 mmol/L (135-145) 07/27/23 Potassium 4.4 mmol/L (3.3-5.1) 07/27/23 Chloride 111 mmol/L (96-108) H 07/27/23 Carbon Dioxide 16 mmol/L (22-29) L 07/27/23 BUN 37 mg/dL (9-16) H 07/27/23 Creatinine 2.15 mg/dL (0.5-1.4) H 07/27/23 Calcium 10.9 mg/dL (8.4-10.2) H 07/27/23 Phosphorus 3.3 mg/dL (2.7-4.5) 07/27/23 PTH Intact 669.9 pg/mL (8.7-77.1) H 07/27/23 Assessment & Plan Assessment & Plan (1) Metabolic acidosis: Code(s): E87.20 - Acidosis, unspecified Category: Medical (2) Primary hyperparathyroidism: Code(s): E21.0 - Primary hyperparathyroidism Category: Medical (3) Hypercalcemia: Code(s): E83.52 - Hypercalcemia Category: Medical (4) Hypertension: Code(s): I10 - Essential (primary) hypertension Category: Medical Qualifiers: Hypertension type: primary hypertension Qualified Code(s): I10 - Essential (primary) hypertension (5) CKD (chronic kidney disease) stage 3, GFR 30-59 ml/min: Code(s): N18.30 - Chronic kidney disease, stage 3 unspecified Category: Medical Qualifiers: Chronic kidney disease stage 3 subtype: stage 3b (GFR 30-44) Qualified Code(s): N18.32 - Chronic kidney disease, stage 3b Plan Dorinda has chronic kidney disease and longstanding hypertension. She should continue to take metoprolol for now. I asked her to c/w hydralazine and Imdur . I increased her NaHCO3 to 650 mg bid. She is on Jardiance. I will add sensipar with time. I did not change any other medications today. All her questions and concerns were addressed promptly. She is going to follow-up with me . Follow-up given Orders: Orders Electrolytes Today E21.0 - Primary hyperparathyroidism, E83.52 - Hypercalcemia, E87.20 - Acidosis, unspecified, I10 - Essential (primary) hypertension, N18.32 - Chronic kidney disease, stage 3b Creatinine Today E21.0 - Primary hyperparathyroidism, E83.52 - Hypercalcemia, E87.20 - Acidosis, unspecified, I10 - Essential (primary) hypertension, N18.32 - Chronic kidney disease, stage 3b Blood Urea Nitrogen Today E21.0 - Primary hyperparathyroidism, E83.52 - Hypercalcemia, E87.20 - Acidosis, unspecified, I10 - Essential (primary) hypertension, N18.32 - Chronic kidney disease, stage 3b Coding Level of Care Code Est Pt Level 4 (53999) Diagnoses Metabolic acidosis E87.20 Primary hyperparathyroidism E21.0 Hypercalcemia E83.52 Primary hypertension I10 Hypertension type: primary hypertension Stage 3b chronic kidney disease N18.32 Chronic kidney disease stage 3 subtype: stage 3b (GFR 30-44)
== END 2023-09-07 11:17 | disposition home or self-care (01) ==
PROVIDERS: PCP Registered Nurse; Visit Provider Internal Medicine Nephrology
DX: I12.9 Hypertensive chronic kidney disease with stage 1 through stage 4 chronic kidney disease, or unspecified chronic kidney disease (principal); N18.32 Chronic kidney disease, stage 3b; E21.0 Primary hyperparathyroidism; E87.21 Acute metabolic acidosis
CPT/HCPCS: 99214

== ENCOUNTER → 2023-09-07 10:27 | Outpatient (BNVA) | payer MEDICARE, SELFPAY | PROVIDERS: PCP Registered Nurse; Visit Provider Internal Medicine Nephrology | DX: I12.9 Hypertensive chronic kidney disease with stage 1 through stage 4 chronic kidney disease, or unspecified chronic kidney disease (principal); N18.32 Chronic kidney disease, stage 3b; E83.52 Hypercalcemia; E87.20 Acidosis, unspecified | CPT/HCPCS: 99212 ==

== ENCOUNTER 2023-11-09 10:43 | Outpatient (AMB) | payer MEDICARE, SELFPAY ==
[2023-11-09 11:29] VITALS: BP 130/80; BMI 37.1
--- NOTE | 2023-11-09 11:29 | HO.NEPHOV_ITS ---
Vital Signs 11/09/23 11:29 Height 5 ft 5 in Weight 223 lb 2 oz BMI 37.1 BP 130/80 Blood Pressure Location Lt brachial Position Sitting Intake Visit Reasons: 2 mon follow up/ Conf Surgical Coder Required: No Accompanied by: Self / Same As Patient Allergies No Known Allergies Allergy (Verified 11/09/23 11:31) HPI Comments Details: I had the privilege of seeing Dorinda in follow-up of her chronic kidney disease, hypertension and hypercalcemia. Her BP medications were adjusted recently. She does not have any chest pain, shortness of breath, nausea, vomiting, diarrhea, worsening pedal edema, urinary symptoms. She is avoiding nonsteroidal anti- inflammatory medications and is trying to keep up with good hydration. She had light headedness and diarrhea yesterday. She has been having edema since she is taking increase in NaHCO3. [facility] Medical History (Updated 08/10/23 @ 10:56 by Aldo Bush MD) Hypertension Chronic kidney disease Surgical History History of tubal ligation History of kidney removal Status post carotid surgery Family History Brother Cancer Mother Heart attack Social History Alcohol intake: former Patient Tobacco Use Status: Former Tobacco user Physical Exam Const General: comfortable and no acute distress Orientation/consciousness: patient oriented x3 HEENT Head: Yes normocephalic Mouth: Normal oral and palatal mucosa present Eyes EOM: EOMs intact bilaterally Neck Neck: Yes supple Resp Auscultation: clear to auscultation bilaterally Cardio Jugular venous distension: no JVD Rate: regular rate GI Palpation (GI): Soft to palpation Auscultation: normal bowel sounds General: Yes no CVA tenderness Back/Spine/Pelvis Back: no CVA tenderness Skin General skin exam: no rashes or lesions noted Neuro General: patient oriented x3 and moves all extremities Extrem General: Yes no pedal edema Results Reviewed Nephrology Results: Sodium 138 mmol/L (135-145) 07/27/23 Potassium 4.4 mmol/L (3.3-5.1) 07/27/23 Chloride 111 mmol/L (96-108) H 07/27/23 Carbon Dioxide 16 mmol/L (22-29) L 07/27/23 BUN 37 mg/dL (9-16) H 07/27/23 Creatinine 2.15 mg/dL (0.5-1.4) H 07/27/23 Calcium 10.9 mg/dL (8.4-10.2) H 07/27/23 Phosphorus 3.3 mg/dL (2.7-4.5) 07/27/23 PTH Intact 669.9 pg/mL (8.7-77.1) H 07/27/23 Assessment & Plan Assessment & Plan (1) Primary hyperparathyroidism: Code(s): E21.0 - Primary hyperparathyroidism Category: Medical (2) Hypercalcemia: Code(s): E83.52 - Hypercalcemia Category: Medical (3) Hypertension: Code(s): I10 - Essential (primary) hypertension Category: Medical Qualifiers: Hypertension type: primary hypertension Qualified Code(s): I10 - Essential (primary) hypertension (4) CKD (chronic kidney disease) stage 3, GFR 30-59 ml/min: Code(s): N18.30 - Chronic kidney disease, stage 3 unspecified Category: Medical Qualifiers: Chronic kidney disease stage 3 subtype: stage 3b (GFR 30-44) Qualified Code(s): N18.32 - Chronic kidney disease, stage 3b Magi Seth has chronic kidney disease and longstanding hypertension. She should continue to take metoprolol for now. I asked her to c/w hydralazine and Imdur . I increased her NaHCO3 to 1300 mg bid. She is on Jardiance. I started sensipar 30 mg three times a week. I did increase her lasix to 80 mg alternating with 40 mg every other day.I did not change any other medications today. All her questions and concerns were addressed promptly. She is going to follow-up with me . Follow-up given Orders: Orders Creatinine Today E21.0 - Primary hyperparathyroidism, E83.52 - Hypercalcemia, I10 - Essential (primary) hypertension, N18.32 - Chronic kidney disease, stage 3b Blood Urea Nitrogen Today E21.0 - Primary hyperparathyroidism, E83.52 - Hyper calcemia, I10 - Essential (primary) hypertension, N18.32 - Chronic kidney disease, stage 3b Electrolytes Today E21.0 - Primary hyperparathyroidism, E83.52 - Hypercalcemia, I10 - Essential (primary) hypertension, N18.32 - Chronic kidney disease, stage 3b Calcium Today E21.0 - Primary hyperparathyroidism, E83.52 - Hypercalcemia, I10 - Essential (primary) hypertension, N18.32 - Chronic kidney disease, stage 3b Parathyroid Hormone Intact Today E21.0 - Primary hyperparathyroidism, E83.52 - Hypercalcemia, I10 - Essential (primary) hypertension, N18.32 - Chronic kidney disease, stage 3b Medications: New cinacalcet (Sensipar) 30 mg orally three times a week; 14 tabs 4RF Changed From sodium bicarbonate 650 mg PO BID 30 days 60 tabs 5RF stomach upset To sodium bicarbonate 1,300 mg (2 x 650 mg) PO TID 30 days 180 tabs 5RF stomach upset Coding Level of Care Code Est Pt Level 4 (36524) Diagnoses Primary hyperparathyroidism E21.0 Hypercalcemia E83.52 Primary hypertension I10 Hypertension type: primary hypertension Stage 3b chronic kidney disease N18.32 Chronic kidney disease stage 3 subtype: stage 3b (GFR 30-44)
== END 2023-11-09 11:51 | disposition home or self-care (01) ==
PROVIDERS: PCP Registered Nurse; Visit Provider Internal Medicine Nephrology
DX: I12.9 Hypertensive chronic kidney disease with stage 1 through stage 4 chronic kidney disease, or unspecified chronic kidney disease (principal); N18.32 Chronic kidney disease, stage 3b; E21.0 Primary hyperparathyroidism
CPT/HCPCS: 99214

== ENCOUNTER → 2023-11-09 10:43 | Outpatient (BNVA) | payer MEDICARE, SELFPAY | PROVIDERS: PCP Registered Nurse; Visit Provider Internal Medicine Nephrology | DX: I12.9 Hypertensive chronic kidney disease with stage 1 through stage 4 chronic kidney disease, or unspecified chronic kidney disease (principal); N18.32 Chronic kidney disease, stage 3b; E21.0 Primary hyperparathyroidism; E83.52 Hypercalcemia; Z79.899 Other long term (current) drug therapy | CPT/HCPCS: 99212 ==

== ENCOUNTER 2023-11-20 10:54 | Emergency (ER) | payer MEDICARE, SELFPAY ==
[2023-11-20] VITALS (11 sets, daily range): BP systolic 192–226; BP diastolic 60–88; PULSE 25–38; RESP 12–19; TEMP 36.3–36.8; O2SAT 92–95; BMI 41.6
--- NOTE | ~2023-11-20 | XR_ITS ---
EXAMINATION: XR CHEST CLINICAL INFORMATION: Dyspnea on exertion. COMPARISON: None available. TECHNIQUE: Frontal view of the chest was obtained. FINDINGS: EKG leads overlie the chest. Cardiac silhouette is borderline enlarged. No consolidation, pneumothorax, or pleural effusion. Mild pulmonary venous congestion. Bones are osteopenic. Osteoarthritis is present in the acromioclavicular and glenohumeral joints. Degenerative disc disease in the thoracic spine. XR/XR chest 1V IMPRESSION: Mild pulmonary venous congestion. No acute pulmonary findings. Electronically signed by: Lino León MD 11/20/2023 03:26 PM EDT
--- NOTE | 2023-11-20 11:11 | ED.GENADULT ---
HPI - General Adult General Chief complaint: General Medical Stated complaint: high bp pain all over bs over 300 Time Seen by Provider: 11/20/23 11:19 History of Present Illness ED Provider: Toni MCNAMARA narrative: The patient is an 83-year-old woman with chronic kidney disease. Recently she has had outpatient blood work that shows a metabolic acidosis with a low carbon dioxide on her basic metabolic panel. Her filter press operator, Dr. Sharif, has prescribed sodium carbonate. The patient has had an elevated calcium and an elevated PTH and has been started on Sensipar. Over the past 2 weeks the patient has been feeling episodes of weakness and has been experiencing worsening peripheral edema and dyspnea on exertion. Yesterday she was able to walk with a walker but today she seemed very weak and her son drove her to the hospital. No fever, sweats, chills. The patient has recently been increased furosemide dosage. She is taking alternating doses of 40 mg daily and 80 mg daily. Related Data Home Medications ?Medication ?Instructions ?Recorded ?Confirmed albuterol sulfate 90 mcg/actuation 2 puff inhalation Q6H PRN 02/27/23 aerosol inhaler aspirin 81 mg tablet,delayed 81 mg PO DAILY 02/27/23 release cholecalciferol (vitamin D3) 25 25 mcg PO DAILY 02/27/23 mcg (1,000 unit) capsule empagliflozin 10 mg tablet 10 mg PO QAM 02/27/23 (Jardiance) ezetimibe 10 mg tablet 10 mg PO DAILY 02/27/23 furosemide 40 mg tablet 40 mg PO DAILY 02/27/23 glipizide 10 mg tablet, extended 10 mg PO BID 02/27/23 release 24 hr metoprolol tartrate 25 mg tablet 12.5 mg PO BID 02/27/23 repaglinide 1 mg tablet 1 mg PO DAILY 02/27/23 umeclidinium 62.5 mcg/actuation 1 inh inhalation DAILY 02/27/23 blister powder for inhalation (Incruse Ellipta) vitamin B complex 1 tab PO DAILY 02/27/23 docusate sodium 100 mg capsule 200 mg PO DAILY 07/27/23 hydralazine 25 mg tablet 25 mg PO BID 08/10/23 Previous Rx's ?Medication ?Instructions ?Recorded isosorbide mononitrate 30 mg 60 mg (2 x 30 mg) PO QAM 90 days 09/18/23 tablet,extended release 24 hr #180 tabs cinacalcet 30 mg tablet (Sensipar) 30 mg PO .COMPLEX #14 tabs 11/09/23 sodium bicarbonate 650 mg tablet 1,300 mg (2 x 650 mg) PO TID 11/09/23 stomach upset 30 days #180 tabs Allergies Allergy/AdvReac Type Severity Reaction Status Date / Time No Known Allergies Allergy Verified 11/20/23 11:15 [facility] Past Medical History Medical History (Updated 11/20/23 @ 16:08 by Haroldo Muñoz MD) Hypertension Chronic kidney disease Surgical History History of tubal ligation History of kidney removal Status post carotid surgery Family History Family History Brother Cancer Mother Heart attack Social History Social History Alcohol intake: former Patient Tobacco Use Status: Former Tobacco user Smoked in Last 30 Days: No Use of substances other than those prescribed or required for medical reasons: No Advance Directives: Yes Advance Directives Information Provided: No Advance Directives on File: No Do you have a plan to hurt others: No Plan Physical Exam ED Vital Signs: Vital Signs - 24 hr 11/20/23 11:10 11/20/23 11:38 11/20/23 12:00 Temperature 97.3 F Pulse Rate 30 L 30 L 28 L Respiratory Rate 18 18 19 Blood Pressure 226/60 H Pulse Oximetry 95 93 94 Oxygen Delivery Method Room Air Room Air Room Air 11/20/23 13:28 11/20/23 14:19 11/20/23 14:53 Temperature Pulse Rate 25 L 26 L Respiratory Rate 18 15 Blood Pressure 210/68 H 210/68 H 198/88 H Pulse Oximetry 95 94 Oxygen Delivery Method Room Air Room Air 11/20/23 14:58 11/20/23 16:00 11/20/23 16:15 Temperature Pulse Rate 26 L 31 L 36 L Respiratory Rate Blood Pressure 198/80 H 192/60 H 192/60 H Pulse Oximetry Oxygen Delivery Method 11/20/23 16:25 Temperature Pulse Rate 38 L Respiratory Rate Blood Pressure 192/60 H Pulse Oximetry Oxygen Delivery Method BMI result Body Mass Index 41.6 Const Other: The patient is a large woman (BMI 41) who was awake and alert. With movement she seems short of breath but at rest she seems comfortable. She does not seem in pain. HENMT Other: Face is symmetrical. Mucous membranes moist. Airway clear Eyes General: appearance normal, both eyes and all related structures Conjunctivae: conjunctivae normal EOM: EOMs intact bilaterally Neck Other: No evident JVD. Resp Other: No increased work of breathing at rest. With movement she becomes tachypneic. No definite crackles on exam. Lungs sound clear. Cardio Rate: bradycardic Rhythm: regular rhythm Heart sounds: S1 normal heart sound present and S2 normal heart sound present GI Other: Abdomen is soft and nontender Skin General skin exam: no rashes or lesions noted Neuro Other: The patient is awake and alert, oriented with a normal mental status. Cranial nerves are grossly intact. She moves her extremities normally. Extrem Other: The patient has thick, edematous legs which are only slightly pitting Course Course Course Narrative: RME performed by Becki Lim PA-C. Patient is an 83 year old assigned female at presenting to the emergency department with weakness, elevated blood sugar, and elevated blood pressure. Patient states she has felt generally unwell over the last few days with uncontrolled sugars and blood pressures. Detailed physical exam and review of systems are deferred to the primary mill roller. EKG, labs, imaging, and swabs ordered. wedding day coordinator aware of patient. Medications Administered Generic Name Dose Route Start Last Admin Trade Name Freq PRN Reason Stop Dose Admin Dopamine HCl/Dextrose 400 mg in 250 mls @ 0 mls/hr 11/20/23 14:30 11/20/23 16:25 Dopamine Hcl/D5w IVCONT 5 mcg/kg/min .Q0M DEANDRA 18.71 mls/hr Titration Protocol Per Protocol Discontinued Medications Generic Name Dose Route Start Last Admin Trade Name Freq PRN Reason Stop Dose Admin Furosemide 80 mg 11/20/23 14:06 11/20/23 14:19 Furosemide 100 Mg/10 Ml Vial IVPUSH 11/20/23 14:07 80 mg ONCE ONE Administration Protocol Medical Decision Making Medical Decision Making [facility] Narrative: Patient is an 83-year-old woman with a history of chronic kidney disease who has recently had problems with hypercalcemia. She has had NaHCO3 added to her regimen additionally she has had her furosemide increased and she has been started on Sensipar for hypercalcemia associated with an elevated PTH. It seems as though she has had worsening symptoms over the last 2 weeks of intermittent by private vehicle and was found to be hypertensive and bradycardic. EKG shows complete heart block with a heart rate in the 30s. Patient is hypertensive. She is edematous. I think she is fluid overloaded. Discussed with Dr. Haile of Cardiology who felt that the patient has complete heart block would likely need a dual chamber pacer and therefore contacted [facility] for possible transfer. In the meantime the patient was given 80 mg of furosemide IV and also started on a dopamine drip as her heart rate was going down as low as 22 beats per minute (although she maintained her blood pressure). I also spoke to Dr. Akhtar of cardiology at [facility]. He will be the accepting doctor. The patient will be transferred to the cardiac intensive care unit. Just prior to transport to [facility] the patient became acutely uncomfortable with a sense of inability to void. A bladder scan was done that showed a bladder volume of 575 mL. The patient was persuaded with some difficulty to accept an indwelling urinary catheter. During this period of time she developed some kind of brief idioventricular rhythm with a heart rate of 100-110. This was a transient arrhythmia that resolved after the discomfort of her urinary retention has been relieved with a urinary catheter. Lab Data 11/20/23 11:31 11/20/23 11:30 Labs: Lab Results 11/20/23 11/20/23 11/20/23 Range/Units 11:30 11:31 11:35 WBC 8.3 (4.8-10.8) X10*3/uL RBC 4.09 L (4.20-5.50) X10*6/uL Hgb 12.4 (12.0-16.0) g/dl Hct 37.5 (37.0-47.0) % MCV 91.7 (80.0-98.0) fL MCH 30.3 (27.0-33.0) pg MCHC 33.1 (31.0-35.0) g/dl RDW 13.5 (11.0-16.0) % Plt Count 175 (160-400) X10*3/uL MPV 11.2 (9.4-12.3) fL Immature Gran % (Auto) 0.6 H (0.0-0.4) % Neut % (Auto) 84.3 H (45-73) % Lymph % (Auto) 7.8 L (20-40) % [place] % (Auto) 5.8 (2-11) % Eos % (Auto) 1.3 (0-4) % Baso % (Auto) 0.2 (0-2) % Lymph # (Auto) 0.7 L (1.2-4.9) X10*3/uL [place] # (Auto) 0.5 (0.1-1.2) X10*3/uL Eos # (Auto) 0.1 (0.0-0.4) X10*3/uL Baso # (Auto) 0.0 (0.0-0.2) X10*3/uL Abs Immat Gran (auto) 0.05 H (0.00-0.03) X10*3/uL Absolute Neuts (auto) 7.0 (2.0-8.3) x10*3/uL Absolute Nucleated RBC 0.000 (0.0-0.012) X10*3/uL Nucleated RBC % (auto) 0.0 (0.0-0.2) /100WBC PT 12.8 (11.1-13.3) SEC INR 1.1 (0.9-1.1) VBG pH (7.32-7.43) VBG pCO2 mmHg VBG pO2 mmHg VBG HCO3 (22-26) mmol/L VBG O2 Saturation % VBG Base Excess mmol/L Sodium 141 (135-145) mmol/L Potassium 4.3 (3.3-5.1) mmol/L Chloride 111 H (96-108) mmol/L Carbon Dioxide 18 L (22-29) mmol/L Anion Gap 16 (12-20) BUN 57 H (9-16) mg/dL Creatinine 3.00 H (0.5-1.4) mg/dL Estim Creat Clear Calc 15.6 Estimated GFR 15 Random Glucose 316 H (60-115) mg/dL Calcium 10.8 H (8.4-10.2) mg/dL Magnesium 2.2 (1.6-2.6) mg/dL Total Bilirubin 0.5 (0.0-1.0) mg/dL Direct Bilirubin 0.2 (0.0-0.5) mg/dL AST 12 (5-31) U/L ALT 9 (0-31) U/L Alkaline Phosphatase 113 (39-117) U/L Troponin I High Sens 18.1 H (<3.5-17.0) ng/L C-Reactive Protein 0.45 (< or = 0.50) mg/dL B-Natriuretic Peptide 642 H (<100) pg/mL Total Protein 6.6 (6.5-8.0) g/dL Albumin 4.0 (3.5-5.0) g/dL Ethyl Alcohol < 10 mg/dL Influenza Type A (PCR) NEGATIVE (Negative) Influenza Type B (PCR) NEGATIVE (Negative) RSV RNA Qual (PCR) NEGATIVE (Negative) SARS-CoV-2 RNA (RT-PCR) NEGATIVE (Negative) 11/20/23 Range/Units 11:37 WBC (4.8-10.8) X10*3/uL RBC (4.20-5.50) X10*6/uL Hgb (12.0-16.0) g/dl Hct (37.0-47.0) % MCV (80.0-98.0) fL MCH (27.0-33.0) pg MCHC (31.0-35.0) g/dl RDW (11.0-16.0) % Plt Count (160-400) X10*3/uL MPV (9.4-12.3) fL Immature Gran % (Auto) (0.0-0.4) % Neut % (Auto) (45-73) % Lymph % (Auto) (20-40) % [place] % (Auto) (2-11) % Eos % (Auto) (0-4) % Baso % (Auto) (0-2) % Lymph # (Auto) (1.2-4.9) X10*3/uL [place] # (Auto) (0.1-1.2) X10*3/uL Eos # (Auto) (0.0-0.4) X10*3/uL Baso # (Auto) (0.0-0.2) X10*3/uL Abs Immat Gran (auto) (0.00-0.03) X10*3/uL Absolute Neuts (auto) (2.0-8.3) x10*3/uL Absolute Nucleated RBC (0.0-0.012) X10*3/uL Nucleated RBC % (auto) (0.0-0.2) /100WBC PT (11.1-13.3) SEC INR (0.9-1.1) VBG pH 7.37 (7.32-7.43) VBG pCO2 30 mmHg VBG pO2 44 mmHg VBG HCO3 18 L (22-26) mmol/L VBG O2 Saturation 69.0 % VBG Base Excess -5.8 mmol/L Sodium (135-145) mmol/L Potassium (3.3-5.1) mmol/L Chloride (96-108) mmol/L Carbon Dioxide (22-29) mmol/L Anion Gap (12-20) BUN (9-16) mg/dL Creatinine (0.5-1.4) mg/dL Estim Creat Clear Calc Estimated GFR Random Glucose (60-115) mg/dL Calcium (8.4-10.2) mg/dL Magnesium (1.6-2.6) mg/dL Total Bilirubin (0.0-1.0) mg/dL Direct Bilirubin (0.0-0.5) mg/dL AST (5-31) U/L ALT (0-31) U/L Alkaline Phosphatase (39-117) U/L Troponin I High Sens (<3.5-17.0) ng/L C-Reactive Protein (< or = 0.50) mg/dL B-Natriuretic Peptide (<100) pg/mL Total Protein (6.5-8.0) g/dL Albumin (3.5-5.0) g/dL Ethyl Alcohol mg/dL Influenza Type A (PCR) (Negative) Influenza Type B (PCR) (Negative) RSV RNA Qual (PCR) (Negative) SARS-CoV-2 RNA (RT-PCR) (Negative) Critical Care Time Critical Care Time Critical Care Time: Yes Total Critical Care Time: 60 Attestation: The patient was critically ill with a high probability of imminent or life-threatening deterioration. ?I spent greater than 30 minutes of discontinuous time evaluating the patient, delivering critical care at the bedside, discussing evaluating data with consultants. ?Critical care time does not include time spent performing separately billable procedures or teaching. ?Time spent performing critical care with 60 minutes. Discharge Plan Discharge Clinical Impression: Complete heart block, Hypercalcemia, Bradycardia with less than 30 beats per minute, Anasarca Patient Disposition: [facility] Prescriptions: No Action isosorbide mononitrate 30 mg tablet extended release 24 hr 60 mg PO QAM 90 Days Qty: 180 4RF repaglinide 1 mg tablet 1 mg PO DAILY metoprolol tartrate 25 mg tablet 12.5 mg PO BID Incruse Ellipta 62.5 mcg/actuation blister with device 1 inh inhalation DAILY glipizide 10 mg tablet extended release 24hr 10 mg PO BID ezetimibe 10 mg tablet 10 mg PO DAILY furosemide 40 mg tablet 40 mg PO DAILY albuterol sulfate 90 mcg/actuation HFA aerosol inhaler 2 puff inhalation Q6H PRN Jardiance 10 mg tablet 10 mg PO QAM cholecalciferol (vitamin D3) 25 mcg (1,000 unit) capsule 25 mcg PO DAILY vitamin B complex Tablet 1 tab PO DAILY aspirin 81 mg tablet,delayed release (DR/EC) 81 mg PO DAILY docusate sodium 100 mg capsule 200 mg PO DAILY hydralazine 25 mg tablet 25 mg PO BID sodium bicarbonate 650 mg tablet 1,300 mg PO TID 30 Days Qty: 180 5RF cinacalcet [Sensipar] 30 mg tablet 30 mg PO .COMPLEX Qty: 14 4RF Rx Instructions: 30 mg orally three times a week; Print Language: Swedish
--- NOTE | 2023-11-20 11:12 | ECG_ITS ---
Test Reason : LOW HEART RATE Blood Pressure : / mmHG Vent. Rate : 031 BPM Atrial Rate : 036 BPM P-R Int : 000 ms QRS Dur : 140 ms QT Int : 576 ms P-R-T Axes : 037 -48 000 degrees QTc Int : 413 ms Sinus bradycardia with 2nd degree SA block (Mobitz I) Right bundle branch block Left anterior fascicular block Bifascicular block Minimal voltage criteria for LVH, may be normal variant ( R in aVL ) Abnormal ECG No previous ECGs available Referred By: Becki Lim Electronically Signed By:RAFA PALMER
[2023-11-20 11:37] LABS: MANUAL DIFF FLAG NO
[2023-11-20 11:40] LABS: Basophils Percent Auto 0.2 % (0-2); Eosinophils Absolute Auto 0.1 X10*3/uL (0.0-0.4); Eosinophils Percent Auto 1.3 % (0-4); Hematocrit 37.5 % (37.0-47.0); Hemoglobin 12.4 g/dl (12.0-16.0); Imm Gran Abs Auto 0.05 X10*3/uL (0.00-0.03); Imm Gran Pct Auto 0.6 % (0.0-0.4); Lymphocytes Absolute Auto 0.7 X10*3/uL (1.2-4.9); Lymphocytes Percent Auto 7.8 % (20-40); Mean Corpuscular HGB Conc 33.1 g/dl (31.0-35.0); Mean Corpuscular Hemoglobin 30.3 pg (27.0-33.0); Mean Corpuscular Volume 91.7 fL (80.0-98.0); Mean Platelet Volume 11.2 fL (9.4-12.3); Monocytes Absolute Auto 0.5 X10*3/uL (0.1-1.2); Monocytes Percent Auto 5.8 % (2-11); Neutrophils Percent Auto 84.3 % (45-73); Platelet Count 175 X10*3/uL (160-400); Red Blood Count 4.09 X10*6/uL (4.20-5.50); Red Cell Distribution Width 13.5 % (11.0-16.0); White Blood Count 8.3 X10*3/uL (4.8-10.8)
[2023-11-20 11:41] LABS: Venous Blood Gas Refer to POC result
[2023-11-20 11:41] LABS: VBG Base Excess -5.8 mmol/L; VBG HCO3 18 mmol/L (22-26); VBG pCO2 30 mmHg; VBG pH 7.37 (7.32-7.43); VBG pO2 44 mmHg
[2023-11-20 11:48] LABS: INTERNATIONAL NORM RATIO 1.1 (0.9-1.1); Prothrombin Time 12.8 SEC (11.1-13.3)
--- NOTE | 2023-11-20 11:53 | PC.NURSE ---
Pt presents to ED via home with complaints of low HR, unable to obtain BP, along with bilat leg pain for the past couple of days. HR found to be 30, appears to be in a block. BP taken manually X2 due to being unable to obtain, noted to be significantly hypertensive. Alert and oriented, breathing slightly labored, skin pale. Bilat 18G IV access obtained. Pacer pads placed.
[2023-11-20 11:56] LABS: Alanine Aminotransferase 9 U/L (0-31); Alkaline Phosphatase 113 U/L (39-117); Anion Gap 16 (12-20); Aspartate Amino Transferase 12 U/L (5-31); Bilirubin Direct 0.2 mg/dL (0.0-0.5); Bilirubin Total 0.5 mg/dL (0.0-1.0); Blood Urea Nitrogen 57 mg/dL (9-16); C Reactive Protein 0.45 mg/dL (< or = 0.50); Calcium 10.8 mg/dL (8.4-10.2); Carbon Dioxide 18 mmol/L (22-29); Chloride 111 mmol/L (96-108); Creatinine Clr Calc Pharmacy 15.6; Estimated Glomerular Filt Rate 15; Glucose Random 316 mg/dL (60-115); Potassium 4.3 mmol/L (3.3-5.1); Sodium 141 mmol/L (135-145); Total Protein 6.6 g/dL (6.5-8.0)
[2023-11-20 11:59] LABS: Magnesium 2.2 mg/dL (1.6-2.6)
[2023-11-20 12:00] LABS: B Type Natriuretic Peptide 642 pg/mL (<100)
[2023-11-20 12:03] LABS: Troponin-I High Sensitivity 18.1 ng/L (<3.5-17.0)
[2023-11-20 12:07] LABS: Ethanol < 10 mg/dL
[2023-11-20 12:22] LABS: Influenza A PCR NEGATIVE (Negative); Influenza B PCR NEGATIVE (Negative); Resp Syncy Virus RNA Qual PCR NEGATIVE (Negative); SARS COV2 PCR INHOUSE NEGATIVE (Negative)
[2023-11-20] MEDS: Furosemide 100 MG/10 ML VIAL 80 MG IVPUSH (14:19)
[2023-11-20] MEDS: DOPamine HCL/D5W 400 MG/250 ML PLAST..BAG 18.71 MG IVCONT (14:58)
--- NOTE | 2023-11-20 16:38 | PC.NURSE ---
Pt used call christianson, reports full urinary bladder. Bladder scan per MD orders revealed bladder full with >575 ml urine. Porras catheter ordered, 16 Kiswahili urinary catheter inserted by this RN. Just prior to insertion, pt became acutely distressed and began hyperventilating complaining of chest discomfort. Pulse was initially bradycardic at 20s-30s, but during this episode, increased to 105 bpm with wide QRS complex on monitoring analyst. Pulse oximeter indicated oxygen saturation of 88% on room air. Placed on simple face mask with immediate improvement. 775 ml of clear yellow urine drained into Porras bag. EMS arrived during this episode. RN to RN report given to Alyssa JON at [facility]. Admitting to [place] [id number], Room [address] Akhtar.
== END 2023-11-20 16:51 | disposition short-term general hospital (02) ==
PROVIDERS: Physician Assistant Medical; Emergency Provider Emergency Medicine; PCP Registered Nurse
DX: I44.2 Atrioventricular block, complete (principal); E83.52 Hypercalcemia; R00.1 Bradycardia, unspecified; R06.02 Shortness of breath; R60.1 Generalized edema; R11.0 Nausea; E87.20 Acidosis, unspecified; I45.10 Unspecified right bundle-branch block; E66.9 Obesity, unspecified; I10 Essential (primary) hypertension; I49.9 Cardiac arrhythmia, unspecified; Z03.818 Encounter for observation for suspected exposure to other biological agents ruled out; Z79.899 Other long term (current) drug therapy; Z87.891 Personal history of nicotine dependence; Z51.81 Encounter for therapeutic drug level monitoring; Z68.41 Body mass index [BMI] 40.0-44.9, adult
CPT/HCPCS: 0241U; 36415; 51702; 51798; 71045; 80048; 80076; 80307; 82803; 83735; 83880; 84484; 85025; 85610; 86140; 93005; 96361; 96374; 99285; 99291; J1265; J1940

== ENCOUNTER 2023-12-08 13:15 | Outpatient (AMB) | payer MEDICARE, SELFPAY ==
[2023-12-08 13:30] VITALS: BP 142/68; PULSE 67; BMI 37.8
--- NOTE | 2023-12-08 13:30 | AM.OFFVISNUR ---
Vital Signs 12/08/23 13:30 Height 5 ft 4 in Weight 220 lb 7.396 oz BMI 37.8 Intake Visit Reasons: Wound check post pacer Allergies No Known Allergies Allergy (Verified 11/20/23 11:15)
--- NOTE | 2023-12-08 13:36 | AM.OFFVISNUR ---
Vital Signs 12/08/23 13:30 Height 5 ft 4 in Weight 220 lb 7.396 oz BMI 37.8 BP 142/68 H Blood Pressure Location Lt brachial Position Sitting Pulse 67 Pulse Source Pulse Oximeter Intake Visit Reasons: Wound check post pacer Health Unit Clerk Required: No Accompanied by: Self / Same As Patient Allergies No Known Allergies Allergy (Verified 12/08/23 14:35) Medication List - Last Reconciled 12/08/23 by Olga Rodgers NP albuterol sulfate 90 mcg/actuation 2 puffs inhalation Q6H PRN aspirin 81 mg PO DAILY cholecalciferol (vitamin D3) 25 mcg PO DAILY empagliflozin (Jardiance) 10 mg PO QAM ezetimibe 10 mg PO DAILY PRN furosemide 40 mg PO DAILY furosemide 80 mg PO Q OTHER DAY glipizide ER 10 mg PO ONCE hydralazine 25 mg PO BID isosorbide mononitrate ER 60 mg (2 x 30 mg) PO QAM 90 days metoprolol tartrate 12.5 mg PO BID repaglinide 1 mg PO DAILY sodium bicarbonate 1,300 mg (2 x 650 mg) PO TID 30 days umeclidinium 62.5 mcg/actuation (Incruse Ellipta) 1 inh inhalation DAILY vitamin B complex 1 tab PO DAILY Do you need a note to return to daycare/school/sports/work: No Nursing Note pt will be a new patient for dr blanco pt is here for wound ck Assessment & Plan Assessment & Plan (1) Pacemaker: Comment: Medtronic dual chamber pacemaker. placed 11/21/[address] Silva for complete heart block. Serial number [id number]! Code(s): Z95.0 - Presence of cardiac pacemaker Category: Medical (2) Visit for wound check: Code(s): Z51.89 - Encounter for other specified aftercare Plan Patient has medtronic pacemaker placement on right pectoral. Placed on 11/21/[address] Silva due to complete heart block rate in the 20-30s. She has the remote montior at bedside. She denies any fever, chills, odor, tenderness, or drainage.Site has mild swelling, without erythema, odor, drainage. Reviewed signs and symptoms of infections. Discussed how remote monitoring works. She has bilateral leg edema +1. Has not taken any furosemide due to doctors appts for a few days. Orders: Orders Basic Metabolic Panel Today R60.0 - Localized edema B Type Natriuretic Peptide Today R60.0 - Localized edema
== END 2023-12-08 14:16 | disposition home or self-care (01) ==
PROVIDERS: PCP Registered Nurse; Visit Provider Nurse Practitioner
DX: Z95.0 Presence of cardiac pacemaker (principal); Z51.89 Encounter for other specified aftercare

== ENCOUNTER → 2023-12-08 13:15 | Outpatient (BNVA) | payer MEDICARE, SELFPAY | PROVIDERS: PCP Registered Nurse; Visit Provider Nurse Practitioner | DX: R60.0 Localized edema (principal); Z48.812 Encounter for surgical aftercare following surgery on the circulatory system; Z95.0 Presence of cardiac pacemaker | CPT/HCPCS: 99211 ==

== ENCOUNTER → 2023-12-21 23:59 | Outpatient (BNV) | payer MEDICARE, SELFPAY ==
--- NOTE | 2023-12-26 11:44 | A.OFFVIS_ITS ---
Intake Visit Reasons: Remote device check- Medtronic Allergies No Known Allergies Allergy (Verified 12/08/23 14:35) [facility] Medical History (Updated 12/08/23 @ 14:37 by Olga Rodgers NP) Edema leg Hypertension Chronic kidney disease Surgical History History of tubal ligation History of kidney removal Status post carotid surgery Family History Brother Cancer Mother Heart attack Social History Alcohol intake: former Patient Tobacco Use Status: Former Tobacco user Office Procedures Cardiac Device Check Cardiac Device Check Details: Remote pacemaker report generated 12/21/2023. Pacemaker function is adequate. Patient ventricularly pacer dependent [id number] Cardiac Device Interrogation, pacemaker Procedure code (CPT) selection complete Assessment & Plan Assessment & Plan (1) Pacemaker: Comment: Medtronic dual chamber pacemaker. placed 11/21/[address] Silva for complete heart block. Serial number [id number]! Code(s): Z95.0 - Presence of cardiac pacemaker Category: Medical Plan: See above Coding Level of Care Code Procedure Only Diagnoses Pacemaker Z95.0 CPT Codes Cardiac Device Check - Cardiac Device 12: [id number] Cardiac Device Interrogation, pacemaker ([id number])
== END ==
PROVIDERS: PCP Registered Nurse; Visit Provider Internal Medicine Cardiovascular Disease
DX: I44.2 Atrioventricular block, complete (principal); Z95.0 Presence of cardiac pacemaker
CPT/HCPCS: 93294

== ENCOUNTER 2024-01-02 11:21 | Outpatient (AMB) | payer MEDICARE, SELFPAY ==
--- NOTE | 2024-01-02 11:26 | HO.NEPHOV_ITS ---
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 She recently had hypertensive urgency and complete heart block with development of RADHA. She had permanent pacemaker. Her BP medications were adjusted recently. She does not have any chest pain, shortness of breath, nausea, vomiting, diarrhea, worsening pedal edema, urinary symptoms. She is avoiding nonsteroidal anti-inflammatory medications and is trying to keep up with good hydration. Her serum creatinine had gone up to 3 but improved to 2.6 prior to [place] [facility] [place] [facility] Medical History (Updated 12/08/23 @ 14:37 by Olga Rodgers NP) Edema leg Hypertension Chronic kidney disease Surgical History History of tubal ligation History of kidney removal Status post carotid surgery Family History Brother Cancer Mother Heart attack Social History Alcohol intake: former Patient Tobacco Use Status: Former Tobacco user Review of Systems Const All systems reviewed & are unremarkable except as noted in HPI and below Physical Exam Vital Signs: Last Vital Signs Pulse 75 01/02/24 11:30 BP 140/80 H 01/02/24 11:30 Pulse Ox 97 01/02/24 11:30 Oxygen Delivery Method Room Air 01/02/24 11:30 BMI result Body Mass Index 38.2 Const General: comfortable and no acute distress Orientation/consciousness: patient oriented x3 HEENT Head: Yes normocephalic Mouth: Normal oral and palatal mucosa present Eyes EOM: EOMs intact bilaterally Neck Neck: Yes supple Resp Auscultation: clear to auscultation bilaterally Cardio Jugular venous distension: no JVD Rate: regular rate GI Palpation (GI): Soft to palpation Auscultation: normal bowel sounds General: Yes no CVA tenderness Back/Spine/Pelvis Back: no CVA tenderness Skin General skin exam: no rashes or lesions noted Neuro General: patient oriented x3 and moves all extremities Extrem General: Yes no pedal edema Results Reviewed Nephrology Results: Hgb 12.4 g/dl (12.0-16.0) 11/20/23 WBC 8.3 X10*3/uL (4.8-10.8) 11/20/23 Plt Count 175 X10*3/uL (160-400) 11/20/23 Sodium 141 mmol/L (135-145) 11/20/23 Potassium 4.3 mmol/L (3.3-5.1) 11/20/23 Chloride 111 mmol/L (96-108) H 11/20/23 Carbon Dioxide 18 mmol/L (22-29) L 11/20/23 BUN 57 mg/dL (9-16) H 11/20/23 Creatinine 3.00 mg/dL (0.5-1.4) H 11/20/23 Calcium 10.8 mg/dL (8.4-10.2) H 11/20/23 Phosphorus 3.3 mg/dL (2.7-4.5) 07/27/23 PTH Intact 669.9 pg/mL (8.7-77.1) H 07/27/23 Assessment & Plan Assessment & Plan (1) Metabolic acidosis: Code(s): E87.20 - Acidosis, unspecified Category: Medical (2) Primary hyperparathyroidism: Code(s): E21.0 - Primary hyperparathyroidism Category: Medical (3) Hypercalcemia: Code(s): E83.52 - Hypercalcemia Category: Medical (4) CKD (chronic kidney disease) stage 3, GFR 30-59 ml/min: Code(s): N18.30 - Chronic kidney disease, stage 3 unspecified Category: Medical Qualifiers: Chronic kidney disease stage 3 subtype: stage 3b (GFR 30-44) Qualified Code(s): N18.32 - Chronic kidney disease, stage 3b (5) Hypertension: Code(s): I10 - Essential (primary) hypertension Category: Medical Qualifiers: Hypertension type: primary hypertension Qualified Code(s): I10 - Essential (primary) hypertension Plan Dorinda has chronic kidney disease and longstanding hypertension. She has a new PPM. She is on metoprolol, hydralazine and Imdur . She is not taking amlodipine, she is hypervolemic. I increased her Lasix to 80 mg daily until her swelling has improved. When that happens she can cut back on Lasix to 80 mg alternating with 40 mg every other day. She can continue 650 mg p.o. of NaHCO3 t.i.d.. She is on Jardiance. All her questions and concerns were addressed promptly. She will need initiation of cinacalcet which I am planning to do it 3 times a week with time. Follow-up given Orders: Orders Blood Urea Nitrogen 1 Month E21.0 - Primary hyperparathyroidism, E83.52 - Hypercalcemia, E87.20 - Acidosis, unspecified, I10 - Essential (primary) hypertension, N18.32 - Chronic kidney disease, stage 3b Creatinine 1 Month E21.0 - Primary hyperparathyroidism, E83.52 - Hypercalcemia, E87.20 - Acidosis, unspecified, I10 - Essential (primary) hypertension, N18.32 - Chronic kidney disease, stage 3b Electrolytes 1 Month E21.0 - Primary hyperparathyroidism, E83.52 - Hypercalcemia, E87.20 - Acidosis, unspecified, I10 - Essential (primary) hypertension, N18.32 - Chronic kidney disease, stage 3b Medications: Changed From furosemide 80 mg PO Q OTHER DAY To furosemide 80 mg (2 x 40 mg) PO DAILY 60 tabs 6RF 30 days From sodium bicarbonate 1,300 mg (2 x 650 mg) PO TID 30 days 180 tabs 5RF stomach upset To sodium bicarbonate 650 mg PO TID 90 tabs 5RF stomach upset 30 days Coding Level of Care Code Est Pt Level 4 (67799) Diagnoses Metabolic acidosis E87.20 Primary hyperparathyroidism E21.0 Hypercalcemia E83.52 Stage 3b chronic kidney disease N18.32 Chronic kidney disease stage 3 subtype: stage 3b (GFR 30-44) Primary hypertension I10 Hypertension type: primary hypertension
[2024-01-02 11:30] VITALS: BP 140/80; PULSE 75; O2SAT 97; BMI 38.2
== END 2024-01-02 11:56 | disposition home or self-care (01) ==
PROVIDERS: PCP Registered Nurse; Visit Provider Internal Medicine Nephrology
DX: E87.20 Acidosis, unspecified (principal); E21.0 Primary hyperparathyroidism; N18.32 Chronic kidney disease, stage 3b; I10 Essential (primary) hypertension
CPT/HCPCS: 99214

== ENCOUNTER → 2024-01-02 11:21 | Outpatient (BNVA) | payer MEDICARE, SELFPAY | PROVIDERS: PCP Registered Nurse; Visit Provider Internal Medicine Nephrology | DX: I12.9 Hypertensive chronic kidney disease with stage 1 through stage 4 chronic kidney disease, or unspecified chronic kidney disease (principal); N18.32 Chronic kidney disease, stage 3b; E83.52 Hypercalcemia; E87.20 Acidosis, unspecified; E21.0 Primary hyperparathyroidism | CPT/HCPCS: 99212 ==

== ENCOUNTER 2024-02-06 10:45 | Outpatient (AMB) | payer MEDICARE, SELFPAY ==
--- NOTE | 2024-02-06 11:01 | HO.NEPHOV_ITS ---
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 She has H/O hypertensive urgency and complete heart block with development of RADHA. She had permanent pacemaker. Her BP medications were adjusted . She does not have any chest pain, shortness of breath, nausea, vomiting, diarrhea, worsening pedal edema, urinary symptoms. She is avoiding nonsteroidal anti-inflammatory medications and is trying to keep up with good hydration. Her serum creatinine had gone up to 3 but improved to 2.6 prior to D/C from [facility] [place]. Her lab work from last week not available at the time of this visit [facility] Medical History (Updated 12/08/23 @ 14:37 by Olga Rodgers NP) Edema leg Hypertension Chronic kidney disease Surgical History History of tubal ligation History of kidney removal Status post carotid surgery Family History Brother Cancer Mother Heart attack Social History Alcohol intake: former Patient Tobacco Use Status: Former Tobacco user Review of Systems Const All systems reviewed & are unremarkable except as noted in HPI and below Physical Exam Vital Signs: Last Vital Signs Pulse 94 02/06/24 11:02 BP 132/62 02/06/24 11:02 Pulse Ox 95 02/06/24 11:02 Oxygen Delivery Method Room Air 02/06/24 11:02 BMI result Body Mass Index 37.9 Const General: comfortable and no acute distress Orientation/consciousness: patient oriented x3 HEENT Head: Yes normocephalic Mouth: Normal oral and palatal mucosa present Eyes EOM: EOMs intact bilaterally Neck Neck: Yes supple Resp Auscultation: clear to auscultation bilaterally Cardio Jugular venous distension: no JVD Rate: regular rate GI Palpation (GI): Soft to palpation Auscultation: normal bowel sounds General: Yes no CVA tenderness Back/Spine/Pelvis Back: no CVA tenderness Skin General skin exam: no rashes or lesions noted Neuro General: patient oriented x3 and moves all extremities Extrem General: Yes no pedal edema Results Reviewed Nephrology Results: Hgb 12.4 g/dl (12.0-16.0) 11/20/23 WBC 8.3 X10*3/uL (4.8-10.8) 11/20/23 Plt Count 175 X10*3/uL (160-400) 11/20/23 Sodium 141 mmol/L (135-145) 11/20/23 Potassium 4.3 mmol/L (3.3-5.1) 11/20/23 Chloride 111 mmol/L (96-108) H 11/20/23 Carbon Dioxide 18 mmol/L (22-29) L 11/20/23 BUN 57 mg/dL (9-16) H 11/20/23 Creatinine 3.00 mg/dL (0.5-1.4) H 11/20/23 Calcium 10.8 mg/dL (8.4-10.2) H 11/20/23 Assessment & Plan Assessment & Plan (1) CKD (chronic kidney disease) stage 3, GFR 30-59 ml/min: Code(s): N18.30 - Chronic kidney disease, stage 3 unspecified Category: Medical Qualifiers: Chronic kidney disease stage 3 subtype: stage 3b (GFR 30-44) Qualified Code(s): N18.32 - Chronic kidney disease, stage 3b (2) Hypertension: Code(s): I10 - Essential (primary) hypertension Category: Medical Qualifiers: Hypertension type: primary hypertension Qualified Code(s): I10 - Essential (primary) hypertension (3) Hypercalcemia: Code(s): E83.52 - Hypercalcemia Category: Medical (4) Primary hyperparathyroidism: Code(s): E21.0 - Primary hyperparathyroidism Category: Medical Plan Dorinda has chronic kidney disease and longstanding hypertension. She has a new PPM. She is on metoprolol, hydralazine and Imdur . She is not taking amlodipine, she is hypervolemic. She is on lasix. She can continue 650 mg p.o. of NaHCO3 t.i.d.. She is on Jardiance. All her questions and concerns were addressed promptly. She will need initiation of cinacalcet which I am planning to do it 3 times a week with time. Follow-up given Orders: Orders Blood Urea Nitrogen 1 Month E21.0 - Primary hyperparathyroidism, E83.52 - Hypercalcemia, I10 - Essential (primary) hypertension, N18.32 - Chronic kidney disease, stage 3b Creatinine 1 Month E21.0 - Primary hyperparathyroidism, E83.52 - Hypercalcemia, I10 - Essential (primary) hypertension, N18.32 - Chronic kidney disease, stage 3b Electrolytes 1 Month E21.0 - Primary hyperparathyroidism, E83.52 - Hypercalcemia, I10 - Essential (primary) hypertension, N18.32 - Chronic kidney disease, stage 3b Calcium 1 Month E21.0 - Primary hyperparathyroidism, E83.52 - Hypercalcemia, I10 - Essential (primary) hypertension, N18.32 - Chronic kidney disease, stage 3b Coding Level of Care Code Est Pt Level 4 (82720) Diagnoses Stage 3b chronic kidney disease N18.32 Chronic kidney disease stage 3 subtype: stage 3b (GFR 30-44) Primary hypertension I10 Hypertension type: primary hypertension Hypercalcemia E83.52 Primary hyperparathyroidism E21.0
[2024-02-06 11:02] VITALS: BP 132/62; PULSE 94; O2SAT 95; BMI 37.9
== END 2024-02-06 11:40 | disposition home or self-care (01) ==
PROVIDERS: PCP Registered Nurse; Visit Provider Internal Medicine Nephrology
DX: N18.32 Chronic kidney disease, stage 3b (principal); I10 Essential (primary) hypertension; E21.0 Primary hyperparathyroidism
CPT/HCPCS: 99214

== ENCOUNTER → 2024-02-06 10:45 | Outpatient (BNVA) | payer MEDICARE, SELFPAY | PROVIDERS: PCP Registered Nurse; Visit Provider Internal Medicine Nephrology | DX: I12.9 Hypertensive chronic kidney disease with stage 1 through stage 4 chronic kidney disease, or unspecified chronic kidney disease (principal); N18.32 Chronic kidney disease, stage 3b; E83.52 Hypercalcemia; E21.0 Primary hyperparathyroidism | CPT/HCPCS: 99212 ==

== ENCOUNTER 2024-02-27 11:13 | Outpatient (AMB) | payer MEDICARE, SELFPAY ==
--- NOTE | 2024-02-27 11:14 | A.OFFVIS_ITS ---
Vital Signs 02/27/24 11:16 Height 5 ft 4 in Weight 213 lb 13.574 oz BMI 36.7 BP 160/92 H Blood Pressure Location Lt brachial Position Sitting Pulse 92 Intake Visit Reasons: CAN TESTER/ [facility]/ new Medtronic pacer Intake Note: Follow-up [facility] with New pacermaker Insurance Compliance Analyst Required: No Allergies No Known Allergies Allergy (Verified 02/06/24 11:02) Medication List - Last Reconciled 02/27/24 by Yosvany Haile MD albuterol sulfate 90 mcg/actuation 2 puffs inhalation Q6H PRN aspirin 81 mg PO DAILY cholecalciferol (vitamin D3) 25 mcg PO DAILY empagliflozin (Jardiance) 10 mg PO QAM furosemide 20 mg PO BID glipizide ER 10 mg PO ONCE hydralazine 25 mg PO BID isosorbide mononitrate ER 60 mg (2 x 30 mg) PO QAM 90 days mometasone 50 mcg/actuation 2 sprays intranasal DAILY repaglinide 1 mg PO DAILY sodium bicarbonate 650 mg PO TID 30 days umeclidinium 62.5 mcg/actuation (Incruse Ellipta) 1 inh inhalation BEDTIME vitamin B complex 1 tab PO DAILY HPI Comments Details: Thank you for referring Finn in cardiology consultation today for management of pacemaker. Pleasant 84 year female who presents here with a daughter has prior history of hypertension, chronic kidney disease recently presented emergency room in October with worsening symptoms of dizziness and fatigue and shortness of breath and was noted to have fluid overload diffusely and was noted to be in advanced AV block complete heart block and was referred to [facility]. 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 Silva. She had an echocardiogram done at [facility] which showed low normal LV ejection fraction with moderate to severe LVH without major valvular abnormality. She also had significantly elevated right atrial pressures on echocardiogram. Since then she has been started on Lasix 20 mg b.i.d. as well as Jardiance. She also has been prescribed hydralazine 25 mg b.i.d. for blood pressure control. Despite that she says at home her blood pressure remains elevated. She continues to have leg swelling. However she says her shortness of breath has improved and overall leg swelling has improved. Abdominal distention has improved. She denies any exertional chest pain but he is limited in activity and has exertional shortness of breath. Denies any clear orthopnea, PND. No prolonged palpitation irregular heartbeat. Comes for further evaluation for her pacemaker and what appears to be heart failure syndrome. [facility] Medical History (HFpEF) heart failure with preserved ejection fraction Edema leg Hypertension Chronic kidney disease Surgical History History of tubal ligation History of kidney removal Status post carotid surgery Family History Brother Cancer Mother Heart attack Social History Alcohol intake: former Patient Tobacco Use Status: Former Tobacco user Review of Systems Const Denies chills, Denies daytime sleepiness, Denies fatigue, Denies fever(s), Denies frequent falls, Denies poor appetite, Denies snoring, Denies stops breathing during sleep, Denies weakness, Denies weight gain and Denies weight loss Eyes Denies loss of vision ENT Denies dizziness and Denies hearing loss Card Denies chest pain, Denies claudication, Denies leg edema, Denies lightheadedness, Denies palpitations, Denies dyspnea, Denies dyspnea on exertion and Denies orthopnea Resp Denies cough, Denies excessive phlegm production, Denies dyspnea, Denies dyspnea on exertion, Denies snoring and Denies wheezing GI Denies abdominal pain, Denies hematochezia, Denies change in bowel habits, Denies nausea and Denies vomiting Denies urinary frequency and Denies dysuria Musc Denies arthralgias, Denies muscle weakness, Denies numbness and Denies other (frequent falls) Skin/Breast Denies nail changes and Denies rash Neuro Denies Abnormal speech present, Denies dizziness, Denies frequent falls, Denies loss of vision, Denies memory loss, Denies numbness and Denies weakness Psych Denies depression and Denies memory loss Endo Denies fatigue and Denies palpitations Joseph/Lymph Reports easy bruising and Reports other (anemia) Aller/Immun Denies wheezing Physical Exam Vital Signs: Last Vital Signs Pulse 92 02/27/24 11:16 BP 160/92 H 02/27/24 11:16 BMI result Body Mass Index 36.7 Const General: cooperative, comfortable, no acute distress, alert and awake Nutritional Appearance: obese Orientation/consciousness: patient oriented x3 Limitations: ambulation with walker HEENT Head: Yes normocephalic and Yes atraumatic Neck Neck: Yes trachea midline, Yes supple and Yes JVD Resp Effort & Inspection: normal respiratory effort Auscultation: clear to auscultation bilaterally, no rales and no wheezes Cardio Jugular venous distension: JVD Palpation: normal PMI Rate: regular rate Rhythm: regular rhythm Heart sounds: S1 normal heart sound present, S2 normal heart sound present, no click, no gallops and no murmurs GI Auscultation: normal bowel sounds Skin General skin exam: no rashes or lesions noted Neuro General: patient oriented x3 and no focal motor deficits Speech: No Abnormal speech present Extrem General: No clubbing, No cyanosis and Yes edema Psych Appearance: grossly normal Office Procedures Cardiac Device Check Cardiac Device Check Details: Dual-chamber Medtronic pacemaker in place. Programmed in DDD at 60 beats per minute. Atrial pacing 10% time. Ventricular pacing 100% of the time. Patient activity listed at 03:00 hours a day. No arrhythmias noted. Atrial ventricular sensing is adequate. Pacing lead impedance is adequate. Battery life is at about 10 years. Atrial ventricular pacing thresholds adequate and reprogrammed to enhance battery life. [id number]-[id number] Cardiac Device Check, pacemaker dual lead Procedure code (CPT) selection complete Assessment & Plan Assessment & Plan (1) (HFpEF) heart failure with preserved ejection fraction: Code(s): I50.30 - Unspecified diastolic (congestive) heart failure Category: Medical Plan: Patient with heart failure preserved ejection fraction, currently still appears to be fluid overloaded although she says she has improved significantly. Will recheck BNP and BNP. She was predominantly right heart failure symptoms although appears to be related to significant left ventricular hypertrophy on echocardiogram question infiltrative disease. Will need further workup for the same. Will also need workup for ischemic heart disease given her prior vascular disease with multiple risk factors. For now given that she is still fluid overloaded will change her diuretic to bumetanide 2 mg daily. Daily weight monitoring avoidance of salt loading was discussed. Follow-up blood work in 2 weeks time. Continue Jardiance as neurohormonal modulator. Continue aggressive blood pressure control which is currently not well optimized. At this point time advised to increase hydralazine to 50 mg b.i.d.. Advised to monitor blood pressure at home maintain a log. Goal blood pressure less than 130/84. Low- salt diet was discussed. Advised to maintain activity level as tolerated. Will also suggest a PYP scan to rule out cardiac amyloidosis if she has no significant ischemia on myocardial perfusion imaging. (2) Pacemaker: Comment: Medtronic dual chamber pacemaker. placed 11/21/[address] Silva for complete heart block. Serial number [id number]! Code(s): Z95.0 - Presence of cardiac pacemaker Category: Medical Plan: Cardiac pacemaker in-situ with complete heart block. Etiology of heart block is unclear. Question ischemic heart disease question infiltrative heart disease. Will obtain workup for the same. Pacemaker is working well currently. Will follow remotely here every 3 months. Follow up in the clinic in 6 weeks time (3) Hypertension: Code(s): I10 - Essential (primary) hypertension Category: Medical Qualifiers: Hypertension type: primary hypertension Qualified Code(s): I10 - Essential (primary) hypertension Plan: Hypertension which is currently not well optimized advised to monitor blood pressure at home maintain a log. Increase hydralazine to 50 mg b.i.d.. Advise low-salt diet. Consider renal duplex to rule out renal artery stenosis given her vascular disease predisposition as well as chronic kidney disease. Will follow up in the clinic in 6 weeks time, sooner p.r.n.. Thank you for allowing me to partake in his care Orders: Orders B Type Natriuretic Peptide 02/27/24 I50.30 - Unspecified diastolic (congestive) heart failure Basic Metabolic Panel 02/27/24 I50.30 - Unspecified diastolic (congestive) heart failure Basic Metabolic Panel 02/27/24 I50.30 - Unspecified diastolic (congestive) heart failure NM PYP Card Amyld SPECT w CT 4 Weeks I50.30 - Unspecified diastolic (congestive) heart failure B Type Natriuretic Peptide 02/27/24 I50.30 - Unspecified diastolic (congestive) heart failure CA lexiscan stress w niels 1 Week I50.30 - Unspecified diastolic (congestive) heart failure Medications: New hydralazine 50 mg PO BID 60 tabs 3RF bumetanide 2 mg PO DAILY 40 tabs 4RF Coding Level of Care Code New Pt Level 4 (67741) Complex EM visit Add On G2211 Diagnoses (HFpEF) heart failure with preserved ejection fraction I50.30 Pacemaker Z95.0 Primary hypertension I10 Hypertension type: primary hypertension CPT Codes Cardiac Device Check - Cardiac Device 2: 10171-EV Cardiac Device Check, pacemaker dual lead ([id number])
[2024-02-27 11:16] VITALS: BP 160/92; PULSE 92; BMI 36.7
--- OUTSIDE RECORDS SUMMARY | 2024-03-05 13:20 | XMS_ITS | Continuity of Care Document ---
Author Organization [facility] [address] [place] [address] Phone [phone] Social History Type Date Description Comments Sex Unknown Medical Devices Description No Information Available Encounters Description No Information Available Assessments Description No Information Available Plan of Treatment No Information Available Functional Status Description No Information Available Mental Status Description No Information Available Referrals Description No Information Available
== END 2024-02-27 12:59 | disposition home or self-care (01) ==
PROVIDERS: PCP Registered Nurse; Visit Provider Internal Medicine Cardiovascular Disease
DX: I11.0 Hypertensive heart disease with heart failure (principal); I50.30 Unspecified diastolic (congestive) heart failure; Z95.0 Presence of cardiac pacemaker
CPT/HCPCS: 93280; 99214; G2211

== ENCOUNTER 2024-02-27 11:13 | Outpatient (REF) | payer MEDICARE, SELFPAY ==
[2024-02-27 13:18] LABS: Anion Gap 11 (12-20); Blood Urea Nitrogen 51 mg/dL (9-16); Calcium 10.9 mg/dL (8.4-10.2); Carbon Dioxide 21 mmol/L (22-29); Chloride 113 mmol/L (96-108); Estimated Glomerular Filt Rate 19; Glucose Random 229 mg/dL (60-115); Potassium 4.7 mmol/L (3.3-5.1); Sodium 140 mmol/L (135-145)
[2024-02-27 13:20] LABS: B Type Natriuretic Peptide 206 pg/mL (<100)
[2024-02-27 13:30] LABS: Parathyroid Hormone Intact 693.5 pg/mL (8.7-77.1)
--- OUTSIDE RECORDS SUMMARY | 2024-03-05 13:40 | XMS_ITS | Continuity of Care Document ---
Author Organization [facility] [address] [place] [address] Phone [phone] Social History Type Date Description Comments Sex Unknown Medical Devices Description No Information Available Encounters Description No Information Available Assessments Description No Information Available Plan of Treatment No Information Available Functional Status Description No Information Available Mental Status Description No Information Available Referrals Description No Information Available
== END 2024-02-27 11:14 | disposition home or self-care (01) ==
LOC: HO.LAB 11:13
PROVIDERS: Nurse Practitioner; PCP Registered Nurse; Referring Provider Internal Medicine Nephrology; Visit Provider Internal Medicine Cardiovascular Disease
DX: I50.30 Unspecified diastolic (congestive) heart failure (principal); Z95.0 Presence of cardiac pacemaker; I10 Essential (primary) hypertension; R60.0 Localized edema; E83.52 Hypercalcemia; N18.32 Chronic kidney disease, stage 3b
CPT/HCPCS: 36415; 80048; 83880; 83970; 93280; 99212

== ENCOUNTER 2024-03-05 14:09 | Outpatient (AMB) | payer MEDICARE, SELFPAY ==
--- NOTE | 2024-03-05 14:32 | HO.NEPHOV_ITS ---
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 She has H/O hypertensive urgency and complete heart block with development of RADHA. She had permanent pacemaker. Her BP medications had been adjusted . She does not have any chest pain, shortness of breath, nausea, vomiting, diarrhea, worsening pedal edema, urinary symptoms. She is avoiding nonsteroidal anti-inflammatory medications and is trying to keep up with good hydration. Her serum creatinine had gone up to 3 but improved to 2.3. Her edema improved with Bumex. Her blood sugars are down to 200 PFSH Medical History (HFpEF) heart failure with preserved ejection fraction Edema leg Hypertension Chronic kidney disease Surgical History History of tubal ligation History of kidney removal Status post carotid surgery Family History Brother Cancer Mother Heart attack Social History Alcohol intake: former Patient Tobacco Use Status: Former Tobacco user Review of Systems Const All systems reviewed & are unremarkable except as noted in HPI and below Physical Exam Const General: comfortable and no acute distress Orientation/consciousness: patient oriented x3 HEENT Head: Yes normocephalic Mouth: Normal oral and palatal mucosa present Eyes EOM: EOMs intact bilaterally Neck Neck: Yes supple Resp Auscultation: clear to auscultation bilaterally Cardio Jugular venous distension: no JVD Rate: regular rate GI Palpation (GI): Soft to palpation Auscultation: normal bowel sounds General: Yes no CVA tenderness Back/Spine/Pelvis Back: no CVA tenderness Skin General skin exam: no rashes or lesions noted Neuro General: patient oriented x3 and moves all extremities Extrem General: Yes no pedal edema Results Reviewed Nephrology Results: Hgb 12.4 g/dl (12.0-16.0) 11/20/23 WBC 8.3 X10*3/uL (4.8-10.8) 11/20/23 Plt Count 175 X10*3/uL (160-400) 11/20/23 Sodium 140 mmol/L (135-145) 02/27/24 Potassium 4.7 mmol/L (3.3-5.1) 02/27/24 Chloride 113 mmol/L (96-108) H 02/27/24 Carbon Dioxide 21 mmol/L (22-29) L 02/27/24 BUN 51 mg/dL (9-16) H 02/27/24 Creatinine 2.39 mg/dL (0.5-1.4) H 02/27/24 Calcium 10.9 mg/dL (8.4-10.2) H 02/27/24 PTH Intact 693.5 pg/mL (8.7-77.1) H 02/27/24 Assessment & Plan Assessment & Plan (1) Metabolic acidosis: Code(s): E87.20 - Acidosis, unspecified Category: Medical (2) Primary hyperparathyroidism: Code(s): E21.0 - Primary hyperparathyroidism Category: Medical (3) Hypercalcemia: Code(s): E83.52 - Hypercalcemia Category: Medical (4) Hypertension: Code(s): I10 - Essential (primary) hypertension Category: Medical Qualifiers: Hypertension type: primary hypertension Qualified Code(s): I10 - Essential (primary) hypertension (5) CKD (chronic kidney disease) stage 3, GFR 30-59 ml/min: Code(s): N18.30 - Chronic kidney disease, stage 3 unspecified Category: Medical Qualifiers: Chronic kidney disease stage 3 subtype: stage 3b (GFR 30-44) Qualified Code(s): N18.32 - Chronic kidney disease, stage 3b Magi Seth has chronic kidney disease and longstanding hypertension. She has a new PPM. She is on metoprolol, hydralazine and Imdur . She is not taking amlodipine, she is hypervolemic. She is on bumex. She can continue 650 mg p.o. of NaHCO3 t.i.d.. She is on Jardiance. We have to watch calcium given she is on thiazide ( has primary hyperparathyroidism) All her questions and concerns were addressed promptly. She will need initiation of cinacalcet which I am planning to do it 3 times a week with time. Follow-up given Orders: Orders Blood Urea Nitrogen 6 Weeks E21.0 - Primary hyperparathyroidism, E83.52 - Hypercalcemia, E87.20 - Acidosis, unspecified, I10 - Essential (primary) hypertension, N18.32 - Chronic kidney disease, stage 3b Electrolytes 6 Weeks E21.0 - Primary hyperparathyroidism, E83.52 - Hypercalcemia, E87.20 - Acidosis, unspecified, I10 - Essential (primary) hypertension, N18.32 - Chronic kidney disease, stage 3b Calcium 6 Weeks E21.0 - Primary hyperparathyroidism, E83.52 - Hypercalcemia, E87.20 - Acidosis, unspecified, I10 - Essential (primary) hypertension, N18.32 - Chronic kidney disease, stage 3b Creatinine 6 Weeks E21.0 - Primary hyperparathyroidism, E83.52 - Hypercalcemia, E87.20 - Acidosis, unspecified, I10 - Essential (primary) hypertension, N18.32 - Chronic kidney disease, stage 3b Coding Level of Care Code Est Pt Level 4 (70403) Diagnoses Metabolic acidosis E87.20 Primary hyperparathyroidism E21.0 Hypercalcemia E83.52 Primary hypertension I10 Hypertension type: primary hypertension Stage 3b chronic kidney disease N18.32 Chronic kidney disease stage 3 subtype: stage 3b (GFR 30-44)
[2024-03-05 14:34] VITALS: BP 130/70; BMI 36.8
--- OUTSIDE RECORDS SUMMARY | 2024-03-06 22:01 | XMS_ITS | Continuity of Care Document ---
Author Organization [facility] [address] [facility] [address] [place] [address] Phone [phone] Social History Type Date Description Comments Sex Unknown Medical Devices Description No Information Available Encounters Description No Information Available Assessments Description No Information Available Plan of Treatment No Information Available Functional Status Description No Information Available Mental Status Description No Information Available Referrals Description No Information Available
== END 2024-03-05 14:59 | disposition home or self-care (01) ==
PROVIDERS: PCP Registered Nurse; Visit Provider Internal Medicine Nephrology
DX: E87.20 Acidosis, unspecified (principal); E21.0 Primary hyperparathyroidism; I10 Essential (primary) hypertension; N18.32 Chronic kidney disease, stage 3b
CPT/HCPCS: 99214

== ENCOUNTER → 2024-03-05 14:09 | Outpatient (BNVA) | payer MEDICARE, SELFPAY | PROVIDERS: PCP Registered Nurse; Visit Provider Internal Medicine Nephrology | DX: I12.9 Hypertensive chronic kidney disease with stage 1 through stage 4 chronic kidney disease, or unspecified chronic kidney disease (principal); N18.32 Chronic kidney disease, stage 3b; E87.20 Acidosis, unspecified; E21.0 Primary hyperparathyroidism; E83.52 Hypercalcemia | CPT/HCPCS: 99212 ==

== ENCOUNTER → 2024-03-21 23:59 | Outpatient (BNV) | payer MEDICARE, SELFPAY ==
--- NOTE | 2024-03-25 16:43 | MHC.OFFVIS ---
Intake Visit Reasons: Remote device check- Medtronic Allergies No Known Allergies Allergy (Verified 03/05/24 14:32) [facility] Medical History (HFpEF) heart failure with preserved ejection fraction Edema leg Hypertension Chronic kidney disease Surgical History History of tubal ligation History of kidney removal Status post carotid surgery Family History Brother Cancer Mother Heart attack Social History Alcohol intake: former Patient Tobacco Use Status: Former Tobacco user Office Procedures Cardiac Device Check Cardiac Device Check Details: Remote pacemaker report generated 03/21/2024. Pacemaker function is adequate [id number] Cardiac Device Interrogation, pacemaker Procedure code (CPT) selection complete Assessment & Plan Assessment & Plan (1) Pacemaker: Comment: Medtronic dual chamber pacemaker. placed 11/21/[address] Silva for complete heart block. Serial number [id number]! Code(s): Z95.0 - Presence of cardiac pacemaker Category: Medical Plan: See above Coding Level of Care Code Procedure Only Diagnoses Pacemaker Z95.0 CPT Codes Cardiac Device Check - Cardiac Device 12: [id number] Cardiac Device Interrogation, pacemaker ([id number])
== END ==
PROVIDERS: PCP Registered Nurse; Visit Provider Internal Medicine Cardiovascular Disease
DX: I44.2 Atrioventricular block, complete (principal); Z95.0 Presence of cardiac pacemaker
CPT/HCPCS: 93294

== ENCOUNTER 2024-04-25 12:51 | Outpatient (REF) | payer MEDICARE, SELFPAY ==
[2024-04-25 16:24] LABS: Anion Gap 15 (12-20); Blood Urea Nitrogen 56 mg/dL (9-16); Calcium 10.7 mg/dL (8.4-10.2); Carbon Dioxide 22 mmol/L (22-29); Chloride 106 mmol/L (96-108); Estimated Glomerular Filt Rate 17; Potassium 3.8 mmol/L (3.3-5.1); Sodium 139 mmol/L (135-145)
--- OUTSIDE RECORDS SUMMARY | 2024-04-25 16:38 | XMS_ITS | Encounter Summary ---
Author Organization [facility] Address [address] [facility] [address] [place] [address] Phone Care Team Providers Care Cream Separator Operator Name Role Phone Neida Gabriel DNP Primary Care Provider [phone] Reason for Visit * Reason Comments Med Refill Encounter Details Date Type Department Care Team (Late st Contact Info) Description 05/25/2022 Refill [facility] [address] [place] [id number] Aldo Bush MD Social History Tobacco Use Types Packs/Day Years Used Date Smoking Tobacco: Former Smokeless Tobacco: Never Alcohol Use Standard Drinks/Week Comments No 0 (1 standard drink = 0.6 oz pur e alcohol) Comments Unknown Sex and Gender Information Value Date Recorded Sex Assigned at Not on file Legal Sex Female 5:06 PM EST Gender Identity Not on file Sexual Orientation Not on file documented as of this encounter Plan of Treatment Not on file documented as of this encounter Visit Diagnoses Not on filedocumented in this encounter Care Teams Cream Separator Operator Relationship Specialty Start Date End Date Neida Gabriel DNP [address] [facility] [address] [place] [address] PCP - General Nurse Practitioner 11/22/21 documented as of this encounter
--- OUTSIDE RECORDS SUMMARY | 2024-04-25 16:38 | XMS_ITS ---
Author Organization [facility] Address [address] [place] [phone] Care Team Providers Care Psychotherapist Counselor Name Role Phone SUSANNE STEINER Primary Care Provider [phone] REASON FOR VISIT Rx for Glucometer MEDICATIONS Medication SIG (Take, Route, Frequency, Duration) Notes Start Date End Date Status One Touch/One Touch II Starter - as directed In Vitro for 100 days 04/08/2024 Active One Touch Delica Lancets - as directed for 100 days 04/08/2024 Active Encounters Encounter Location Date Provider Diagnosis [address] [id number] 04/04/2024 SUSANNE STEINER PLAN OF TREATMENT Medication Medication Name Sig Start Date Stop Date Notes One Touch/One Touch II Start er - as directed In Vitro for 100 days 04/08/2024 One Touch Delica Lancets - as directed for 100 days 2024 Next Appt Details Provider Name:SUSANNE Fowler, 06/03/2024 11:00:00 AM, [address] [place] [address], [id number], Provider Name:SUSANNE Fowler, 06/05/2024 01:30:00 PM, [address] [place] [address], [phone], Progress Notes * LEONARD TERANOB:[birth year] (84 yo F)Acc No.[id number]:04/04/2024 Patient:??CHAO TERAN :1940?Age:84 Y?Sex:Fe male Address:[address] [place] [address], [place] [address] * Refills?? Start One Touch/One Touch II Starter Kit, -, 1, as directed In Vitro, 100 days, Refills=0 Start One Touch Delica Lancets Miscellaneous, -, 200, as directed, 100 days, Refills=3 * true * Date:??
--- OUTSIDE RECORDS SUMMARY | 2024-04-25 16:38 | XMS_ITS ---
Author Organization [id number], [facility] Address [address] [place] [address] [phone] Care Team Providers Care Receivable Clerk Name Role Phone SUSANNE GABRIEL Primary Care Provider ALLERGIES Allergen (clinical drug ingredient) Drug/Non Drug Allergy documented on EMR Reaction Allergy Type Onset Date Status Substance with 9-jcftwno-2-methylgluta ryl-coenzyme A reductase inhibitor mechanism of action (substance) Statins gastritis Drug Allergy Active RESULTS Component Value Reference Range Notes HEMOGLOBIN A1c (496) Reviewed date:04/04/2024 12:18:17 PM Interpretation: Performing Lab:NL2, [facility] [id number] Yamile Thakur Notes/Report: FASTING: NO FASTING:NO HEMOGLOBIN A1c 9.7 <5.7 % of total Hgb For someone without known diabetes, a hemoglobin A1c value of 6.5% or greater indicates that they may have diabetes and this should be confirmed with a follow-up test. For someone with known diabetes, a value <7% indicates that their diabetes is well controlled and a value greater than or equal to 7% indicates suboptimal control. A1c targets should be individualized based on duration of diabetes, age, comorbid conditions, and other considerations. Currently, no consensus exists regarding use of hemoglobin A1c for diagnosis of diabetes for children. REASON FOR VISIT f/u meds MEDICATIONS Medication SIG (Take, Route, Frequency, Duration) Notes Start Date End Date Status Clopidogrel Bisulfate 75 MG Oral CLOPIDOGREL 75 MG TABLET 11/30/2020 Not-Taking Estradiol 0.1 MG/GM 1 gram vaginally daily for 14 days, then decrease frequency to twice weekly Vaginal once a day as directed for 90 days 11/30/2022 Not-Taking hydrALAZINE HCl 10 MG 1 tablet with food Orally Twice a day Not-Taking Azelastine-Flutica sone 137-50 MCG/ACT 1 spray in each nostril Nasally Twice a day for 30 days 06/21/2023 Not-Taking Azelastine HCl 137 MCG/SPRAY 1 puff in each nostril Nasally Twice a day for 90 days 06/21/2023 Not-Taking amLODIPine Besylate 10 MG 1 tablet Orally Once a day Not-Taking Ezetimibe 10 MG TAKE 1 TABLET BY MOUTH EVERY DAY for 90 Not-Taking Cinacalcet HCl 30 MG 1 tablet with food or after a meal Orally Once a day Not-Taking Tylenol 325 MG 1 tablet as needed Orally every 4 hrs PRN Not-Taking Metoprolol Tartrate 25 MG 1/2 tab Orally Twice a day for 90 days Not-Taking Jardiance 25 MG 1 tablet Orally Once a day Not-Taking Metoprolol Tartrate 25 MG 1/2 tab Orally Twice a day for 30 days 12/04/2023 Not-Taking cloNIDine HCl 0.1 MG 1 tablet Orally once a day at bedtime for 30 days 12/04/2023 Not-Taking Furosemide 20 MG TAKE 2 TABLETS BY MOUTH EVERY DAY for 90 Active glipiZIDE ER 10 MG 1 tablet daily for 90 days Active Vitamin D 25 MCG (1000 UT) 1 tablet Orally Once a day Active INCRUSE ELLIPTA 62.5MCG ORAL INH 30 INHALE 1 PUFF BY MOUTH EVERY 24 HOURS DOSES SHOULD BE TAKEN AT LEAST 24 HOURS APART INCRUSE ELLIPTA 62.5MCG ORAL INH 30 *Reorder from [facility] for eRx and Interaction Alerts* 11/02/2021 Active hydrALAZINE HCl 25 MG TAKE 1 TABLET BY MOUTH TWICE DAILY WITH FOOD for 90 Active Repaglinide 1 MG TAKE 1 TABLET BY MOUTH DAILY Orally Once a day for 90 days Active Vitamin B Complex - as directed Orally Active Sodium Bicarbonate 650 MG 1 tablet Orally Three times a day Active Aspirin 81 81 MG 1 tablet Orally Once a day Active Albuterol Sulfate HFA 108 (90 Base) MCG/ACT 1 puff as needed Inhalation every 4 hrs Active Lactulose 10 GM/15ML 15 mL Orally once a day for 30 days 04/03/2024 05/03/2024 Active Isosorbide Mononitrate ER 30 MG 1 tablet in the morning Orally Once a day Active PROBLEMS Problem Type ICD Code Onset Dates Problem Status W/U Status Risk SNOMED Code Notes Problem Type 2 diabetes mellitus with diabetic chronic kidney disease (E11.22) Active confirmed Diabetic renal disease (883457839) VITAL SIGNS Blood pressure systolic 142 mm Hg 04/03/19 25 Blood pressure diastolic 78 mm Hg 025 Heart Rate 92 /min 04/03/2024 Oximetry 97 % 04/03/2024 Weight 206.2 lbs 04/03/2024 Weight-kg 93.53 kg 04/03/2024 Height 65 in 04/03/2024 Height-cm 165.10 cm 04/03/2024 BMI 34.31 kg/m2 04/03/2024 Encounters Encounter Location Date Provider Diagnosis [address] [id number] 04/03/2024 SUSANNE GABRIEL Type 2 diabetes mellitus with diabetic chronic kidney disease E11.22 ; Essential (primary) hypertension I10 and Constipation, unspecified constipation type K59.00 ASSESSMENTS Encounter Date Diagnosis Assessment Notes Treatment Notes Treatment Clinical Notes Section Notes 04/03/2024 Type 2 diabetes mellitus with diabetic chronic kidney disease (ICD-10 - E11.22) Jardiance samples given today, doing really well. Notes her kidney function has improved (under care of Dr. Sharif) and will be seeing him beginning of Apr. We will obtain A1C today while here. No changes made today 04/03/2024 Essential (primary) hypertension (ICD-10 - I10) Condition is stable and well controlled on current treatment. No changes made, medication(s) refilled as indicated 04/03/2024 Constipation, unspecified constipation type (ICD-10 - K59.00) Discussed importance of bowel health Increase water and fiber in diet Start Lactulose 15 mL daily until f/u 04/03/2024 Other Total time spen t with patient 44 minutes which includes face to face visit, education and coordination of care. PLAN OF TREATMENT Medication Medication Name Sig Start Date Stop Date Notes Lactulose 10 GM/15ML 15 mL Orally once a day for 30 days 0 04/03/2024 05/03/2024 Treatment Notes Assessment Notes Type 2 diabetes mellitus wit h diabetic chronic kidney disease Jardiance samples given today, doing really well. Notes her kidney function has improved (under care of Dr. Sharif) and will be seeing him beginning of Apr. We will obtain A1C today while here. No changes made today Essential (primary) hypertension Conditi on is stable and well controlled on current treatment. No changes made, medication(s) refilled as indicated Constipation, unspecified constipation t pramodbrock Discussed importance of bowel health Increase water and fiber in diet Start Lactulose 15 mL daily until f/u Other Total time spent wit h patient 44 minutes which includes face to face visit, education and coordination of care. Next Appt Details Follow Up: 2 Months, Reason: f/u meds Provider Name:SUSANNE Fowler, 06/03/2024 11:00:00 AM, [address] [place] [address], [phone], Provider Name:SUSANNE Fowler, 06/05/2024 01:30:00 PM, [address] [place] [address], [phone], Progress Notes * LEONARD TERANOB:[birth year] (84 yo F)Acc No.[id number]:04/03/2024 Progress Notes Patient:??CHAO TERAN Provider:??Susanne Gabriel DNP :1940?Age:84 Y?Sex:Fe male Date:04/03/2024 Address:[address] [place], [place] [id number] Subjective: * Chief Complaints: * ?F/u meds * HPI: ?Patient Care Team:?Assembling Fabricator:??Dr. Yosvany Haile MD.?Overhead Line Worker:??Dr. Sharif...?.?Nuclear Physicist:???[facility]...?.?Surgeon:??Dr. Browne (foot)...?Visit info:? Mehnaz presents today for f/u med review. ? - She is c/o Isosorbide Mononitrate causing light headedness, despite changing dose to PM per Dr. Sharif recommendation. When takes as night, she doesn't get light headed, but is up voiding every 45 min. ? - She also notes taking the Sodium Bicarbonate about twice daily, and when remembers, will take before bed. ? - Requesting FMLA forms for daughter to help w/care/appt. (brought in for completion). ? - Questioning if BS readings are causing the light-headed feeling? She is in need of new glucometer, so hasn't been able to effectively monitor. She was discharged from hospital post Pacemaker and was only given Rx for 1/d, wondering if she should be taking BID? - Difficulty having BM - has tried Dulculax without significant relief. Has tried Miralax, but only temporary relief. Looking for recommendations to keep more regular . ? - Hair loss - falling out all over the place. * ROS:?all systems reviewed and are non-contributory unless specified in the HPI. * Medical History:?? * Fresh Meat Grader History:?Menstrual history: ?Age of Menarche:??13 ?Age of Menopause:??36 * OB History:? History:?Total pregnancies:??4 ?Full-term pregnancies:??4 * Surgical History:??Tubal lig ation Lt kidney removed Pacemaker 10/2023 * Hospitalization/Major Diagno stic Procedure:?? * Family History:??Father: dec eased, Unknown health concerns.??Mother: , Heart Attack .??Brother: , Unknown CA - lower leg.?? * Social History:?Migrated Social History:?Migrated Social History: Smoking Status:Former smoker, [[id number]], 20 yrs ago quit. ?Drugs/Alcohol:?Do you drink alcohol?: No. ?Lives in [place] with daughter. * Medications:??TakingIsosorbi de Mononitrate ER 30 MG Tablet Extended Release 24 Hour 1 tablet in the morning Orally Once a day Sodium Bicarbonate 650 MG Tablet 1 tablet Orally Three times a day 1950mg dailyAspirin 81 81 MG Tablet Delayed Release 1 tablet Orally Once a day Albuterol Sulfate HFA 108 (90 Base) MCG/ACT Aerosol Solution 1 puff as needed Inhalation every 4 hrs Vitamin B Complex - Tablet as directed Orally Vitamin D 25 MCG (1000 UT) Tablet 1 tablet Orally Once a day INCRUSE ELLIPTA 62.5MCG ORAL INH 30 INHALE 1 PUFF BY MOUTH EVERY 24 HOURS DOSES SHOULD BE TAKEN AT LEAST 24 HOURS APART , Notes to Pharmacist: INCRUSE ELLIPTA 62.5MCG ORAL INH 30 *Reorder from [facility] for eRx and Interaction Alerts*hydrALAZINE HCl 25 MG Tablet TAKE 1 TABLET BY MOUTH TWICE DAILY WITH FOOD Repaglinide 1 MG Tablet TAKE 1 TABLET BY MOUTH DAILY Orally Once a day Furosemide 20 MG Tablet TAKE 2 TABLETS BY MOUTH EVERY DAY glipiZIDE ER 10 MG Tablet Extended Release 24 Hour 1 tablet daily Taking Isosorbide Mononitrate ER 30 MG Tablet Extended Release 24 Hour 1 tablet in the morning Orally Once a day Taking Sodium Bicarbonate 650 MG Tablet 1 tablet Orally Three times a day 1950mg dailyTaking Aspirin 81 81 MG Tablet Delayed Release 1 tablet Orally Once a day Taking Albuterol Sulfate HFA 108 (90 Base) MCG/ACT Aerosol Solution 1 puff as needed Inhalation every 4 hrs Taking Vitamin B Complex - Tablet as directed Orally Taking Vitamin D 25 MCG (1000 UT) Tablet 1 tablet Orally Once a day Taking INCRUSE ELLIPTA 62.5MCG ORAL INH 30 INHALE 1 PUFF BY MOUTH EVERY 24 HOURS DOSES SHOULD BE TAKEN AT LEAST 24 HOURS APART , Notes to Pharmacist: INCRUSE ELLIPTA 62.5MCG ORAL INH 30 *Reorder from [facility] for eRx and Interaction Alerts*Taking hydrALAZINE HCl 25 MG Tablet TAKE 1 TABLET BY MOUTH TWICE DAILY WITH FOOD Taking Repaglinide 1 MG Tablet TAKE 1 TABLET BY MOUTH DAILY Orally Once a day Taking Furosemide 20 MG Tablet TAKE 2 TABLETS BY MOUTH EVERY DAY Taking glipiZIDE ER 10 MG Tablet Extended Release 24 Hour 1 tablet daily Not-TakingMetoprolol Tartrate 25 MG Tablet 1/2 tab Orally Twice a day cloNIDine HCl 0.1 MG Tablet 1 tablet Orally once a day at bedtime Jardiance 25 MG Tablet 1 tablet Orally Once a day amLODIPine Besylate 10 MG Tablet 1 tablet Orally Once a day Ezetimibe 10 MG Tablet TAKE 1 TABLET BY MOUTH EVERY DAY Cinacalcet HCl 30 MG Tablet 1 tablet with food or after a meal Orally Once a day Tylenol 325 MG Tablet 1 tablet as needed Orally every 4 hrs , Notes to Pharmacist: PRNMetoprolol Tartrate 25 MG Tablet 1/2 tab Orally Twice a day hydrALAZINE HCl 10 MG Tablet 1 tablet with food Orally Twice a day Azelastine-Fluticasone 137-50 MCG/ACT Suspension 1 spray in each nostril Nasally Twice a day Azelastine HCl 137 MCG/SPRAY Solution 1 puff in each nostril Nasally Twice a day Estradiol 0.1 MG/GM Cream 1 gram vaginally daily for 14 days, then decrease frequency to twice weekly Vaginal once a day as directed Clopidogrel Bisulfate 75 MG Tablet Oral , Notes to Pharmacist: CLOPIDOGREL 75 MG TABLETNot-Taking Metoprolol Tartrate 25 MG Tablet 1/2 tab Orally Twice a day Not-Taking cloNIDine HCl 0.1 MG Tablet 1 tablet Orally once a day at bedtime Not-Taking Jardiance 25 MG Tablet 1 tablet Orally Once a day Not-Taking amLODIPine Besylate 10 MG Tablet 1 tablet Orally Once a day Not-Taking Ezetimibe 10 MG Tablet TAKE 1 TABLET BY MOUTH EVERY DAY Not-Taking Cinacalcet HCl 30 MG Tablet 1 tablet with food or after a meal Orally Once a day Not-Taking Tylenol 325 MG Tablet 1 tablet as needed Orally every 4 hrs , Notes to Pharmacist: PRNNot-Taking Metoprolol Tartrate 25 MG Tablet 1/2 tab Orally Twice a day Not-Taking hydrALAZINE HCl 10 MG Tablet 1 tablet with food Orally Twice a day Not-Taking Azelastine-Fluticasone 137-50 MCG/ACT Suspension 1 spray in each nostril Nasally Twice a day Not-Taking Azelastine HCl 137 MCG/SPRAY Solution 1 puff in each nostril Nasally Twice a day Not-Taking Estradiol 0.1 MG/GM Cream 1 gram vaginally daily for 14 days, then decrease frequency to twice weekly Vaginal once a day as directed Not-Taking Clopidogrel Bisulfate 75 MG Tablet Oral , Notes to Pharmacist: CLOPIDOGREL 75 MG TABLETDiscontinuedFurosemide 40 MG Tablet 1 tablet Orally Twice a day Medication List reviewed and reconciled with the patientDiscontinued Furosemide 40 MG Tablet 1 tablet Orally Twice a day Medication List reviewed and reconciled with the patient * Allergies:??Statins: gastrit is - Allergy Objective: * Vitals:??BP: 142/78 mm Hg, H R: 92 /min, Oxygen sat %: 97 %, Wt: 206.2 lbs, Wt- k.53 kg, Ht: 65 in, Ht-cm: 165.10 cm, BMI: 34.31 Index, Body Surface Area: 2.07. * Examination: ?General Examination: ?General appearance:??alert, pleasant, well-nourished and in no acute distress.?Head:??normocephalic, atraumatic.?Neck / thyroid:??supple, FROM.?Skin:??with no suspicious skin lesions.?Heart:??S1 and S2 are normal and no S3 and S4 gallop.?Lungs:??clear to auscultation bilaterally, with good air movement and no rales, rhonchi or wheezes.?Abdomen:??non-tender no signs of ascites.?Extremities:??full range of motion.?Neurologic:??nonfocal.?Psych:??alert and oriented x 3.? Assessment: * Assessment: 1.??Type 2 diabetes mellitus with diabetic chronic kidney disease - E11.22 (Primary)??2.??Essential (primary) hypertension - I10??3.??Constipation, unspecified constipation type - K59.00?? Plan: * Treatment: 2.??Essential (primary) hype rtension?? Notes: Condition is stable and well controlled on current treatment. No changes made, medication(s) refilled as indicated? 3.??Constipation, unspecifie d constipation type?? Start Lactulose Solution, 10 GM/15ML, 15 mL, Orally, once a day, 30 days, 450 ML, Refills 1.? Notes: Discussed importance of bowel health Increase water and fiber in diet Start Lactulose 15 mL daily until f/u ? 4.??Others?? Notes: Total time spent with patient 44 minutes which includes face to face visit, education and coordination of care.? * Procedure Codes:?? * Preventive Medicine:?Last CPE: 2021 @ [facility] ?DEXA: Yes, 2021 ?Colonoscopy: Yes, [facility] date, Dr Kuo, normal per pt ?Endoscopy: Yes, Dr Kuo ?Covid Vac: Yes & 1 booster ?Flu Vac: Yes ?PV: Yes, within 4 yrs ?Shingles Vac: No. * Follow Up:??2 Months (Reason : f/u meds) * Billing Information: * Visit Code:?? 46094 Office Visit, Est Pt., Level 5. * Procedure Codes:?? * Sign off status: Completed true * Provider:??Susanne Gabriel DNP Date:??0 04/03/2024 History and Physical Notes * HPI (History of Present Illness) Category Sub-Category Detail Notes Category Not es Patient Care Team Assembling Fabricator: Dr. Yosvany Haile MD Surgeon: Dr. Browne (foot).. Overhead Line Worker: Dr. Sharif... Nuclear Physicist: [facility]... Examination Category Sub-Category Detail Notes Category Not es General Examination General appearance: alert, p leasant, well-nourished and in no acute distress Head: normocephalic, atrau matic Neck / thyroid: supple, FROM Heart: S1 and S2 are normal and no S3 and S4 gallop Lungs: clear to auscultatio n bilaterally, with good air movement and no rales, rhonchi or wheezes Abdomen: non-tender no signs of ascites Neurologic: nonfocal Skin: with no suspicious s kin lesions Extremities: full range of motion Psych: alert and oriented x 3
--- OUTSIDE RECORDS SUMMARY | 2024-04-25 16:39 | XMS_ITS | Clinical Summary ---
Author Organization [facility] Address [address] [facility] [address] [place] [address] Phone Care Team Providers Care Price Analyst Name Role Phone Neida Gabriel STEPHANIE Primary Care Provider Allergies Active Allergy Reactions Criticality Noted Date Comments Celecoxib 04/19/2021 Other reaction(s): HEART PALPITATIONS Chocolate 04/19/2021 Ciprofloxacin 04/19/2021 Clindamycin 04/19/2021 Ranitidine 04/19/2021 Statins 11/23/2016 Medications B Complex Vitamins (VITAMIN B COMPLEX PO) Take 1 capsule by mouth 1 (one) time each day Active albuterol HFA (PROVENTIL HFA;VENTOLIN HFA) 108 (90 Base) MCG/ACT inhaler 1 puff by Other route Active glipiZIDE (GLUCOTROL XL) 10 MG 24 hr tablet Take 1 tablet by mouth in the morning and 1 tablet in the evening. Active ezetimibe (ZETIA) 10 MG tablet Take 1 tablet by mouth 1 (one) time each day 08/04/2020 Active repaglinide (PRANDIN) 1 MG tablet Take 1 tablet by mouth 1 (one) time each day 08/19/2020 Active aspirin (ST MARY) 81 MG EC tablet Take 81 mg by mouth 1 (one) time each day Active metoprolol tartrate 25 MG tablet Take 12.5 mg by mouth in the morning and 12.5 mg in the evening. Another half added. Active Empagliflozin (Jardiance) 10 MG tablet Take 1 tablet by mouth 1 (one) time each day Active hydrALAZINE (APRESOLINE) 10 MG tablet Take 5 mg by mouth 1 (one) time each day Another half added Active furosemide (LASIX) 20 MG tablet Take 20 mg by mouth 1 (one) time each day Active Incruse Ellipta 62.5 MCG/ACT aerosol powder INHALE 1 PUFF INTO THE LUNGS EVERY 24 HOURS DOSES SHOULD BE TAKEN AT LEAST 24 HOURS APART 10/30/2022 Active cholecalciferol (VITAMIN D-3) 25 MCG (1000 UT) capsule Take 1,000 Units by mouth 1 (one) time each day Active cinacalcet (Sensipar) 30 MG tablet Take 1 tablet (30 mg total) by mouth 1 (one) time each day 30 tablet 5 02/14/2023 Active doxazosin (Cardura) 2 MG tablet Take 1 tablet (2 mg total) by mouth every night 30 tablet 5 02/14/2023 Active Active Problems Problem Noted Date Diagnosed Date Stage 3b chronic kidney disease 11/15/2022 Anemia 04/19/2021 Chronic kidney disease 04/19/2021 Hypertensive disorder 04/19/2021 Benign essential hypertension 08/20/2020 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 Resolved Problems Problem Noted Date Diagnosed Date Resolved Date Allergic rhinitis 04/19/2021 04/19/2021 Anxiety 04/19/2021 04/19/2021 Asthma 04/19/2021 04/19/2021 Bifascicular block 04/19/2021 Carotid artery stenosis 04/19/202103/28 Chronic obstructive pulmonary disease 04/19/2021 04/19/2021 Ex-cigarette smoker 04/19/2021 04/19/19 22 Hypercalcemia 04/19/2021 04/19/2021 Hyperlipidemia 04/19/2021 04/19/2021 Hypercholesterolemia 04/19/2021 022 Hypertriglyceridemia 04/19/2021 022 Interstitial pulmonary disease 04/19/2021 04/19/2021 Obesity 04/19/2021 04/19/2021 Osteoarthritis 04/19/2021 04/19/2021 Type 2 diabetes mellitus 04/19/2021 Urinary incontinence 04/19/2021 022 Primary hyperparathyroidism 08/20/2020 04/19/2021 Gastrointestinal hemorrhage 11/19/2018 04/19/2021 Pain of knee region 11/30/2016 04/19/19 22 Immunizations Name Administration Dates Next Due Pfizer SARS-COV-2 12/23/2020,05/18/2020,04/29/19 21 Pneumococcal Conjugate 13-Valent 01/22/2019,01/25 Pneumococcal Polysaccharide 02/27/2017, 0 Family History Medical History Relation Comments Hypertension Father Hypertension Mother Relation Status Comments Father Mother Social History Tobacco Use Types Packs/Day Years Used Date Smoking Tobacco: Former Smokeless Tobacco: Never Tobacco Cessation:Counseling Given: Not Answered Alcohol Use Standard Drinks/Week Comments No 0 (1 standard drink = 0.6 oz pur e alcohol) Comments Unknown Sex and Gender Information Value Date Recorded Sex Assigned at Not on file Legal Sex Female 5:06 PM EST Gender Identity Not on file Sexual Orientation Not on file Last Filed Vital Signs Vital Sign Reading Time Taken Comments Blood Pressure 148/90 02/14/2023 4:10 PM EST Pulse 99 02/14/2023 4:10 PM EST Temperature - - Respiratory Rate - - Oxygen Saturation 99% 02/14/2023 4:10 PM EST Inhaled Oxygen Concentration - - Weight 97.5 kg (215 lb) 02/14/2023 4:10 PM EST Height 170.2 cm (5' 7 ) 07/19/2019 12:00 PM EDT Body Mass Index 33.67 07/19/2019 12:00 PM EDT Plan of Treatment Health Maintenance Due Date Last Done Comments Diabetes: Hemoglobin A1C 11/15/2022 Diabetes: Ophthalmology Exam 11/15/2022 Diabetes: Pedal Pulse Checked 11/15/2022 Diabetes: Sensory Foot Exam 11/15/2022 Diabetes: Visual Foot Exam 11/15/2022 Influenza Vaccine (#1) 2023 Pneumococcal Vaccine: 65+ Years Completed 01/22/2019, 02/27/2017, 02/08/2016, Additional history exists Hepatitis B Vaccine Aged Out No longe r eligible based on patient's age to complete this topic Insurance [facility] MEDICARE [facility] MEDICARE Care Teams Price Analyst Relationship Specialty Start Date End Date Neida Gabriel DNP [address] [facility], [place] [address] PCP - General Nurse Practitioner 11/22/21
--- OUTSIDE RECORDS SUMMARY | 2024-04-25 16:39 | XMS_ITS | Clinical Summary ---
Author Organization [facility] Address [address] [place] [address] Care Team Providers Care Qa Lead Name Role Phone Smith Padgett MD Primary Care Provider [phone] Allergies Active Allergy Reactions Criticality Noted Date Comments Statins 11/23/2016 Medications Medication Sig Dispensed Refills Start Date End Date Status lisinopril (PRINIVIL,ZESTRIL) tablet 10 mg Take 10 mg by mouth daily. 0 Active metFORMIN (GLUCOPHAGE) tablet 500 mg Take 500 mg by mouth 2 (two) times a day with meals. 0 Active Mometasone Furoate (ASMANEX HFA IN) Inhale into the lungs. 0 Active MONTELUKAST SODIUM PO Take by mouth. 0 Active albuterol (PROVENTIL HFA;VENTOLIN HFA) 108 (90 BASE) MCG/ACT inhaler Inhale 2 puffs into the lungs every 6 (six) hours as needed for wheezing. 0 Active SITagliptin Phosphate (JANUVIA PO) Take by mouth. 0 Active Active Problems Problem Noted Date Diagnosed Date Chronic pain of left knee 12/07/2016 Chronic pain of left knee 11/30/2016 Resolved Problems Problem Noted Date Diagnosed Date Resolved Date Chronic pain of right upper extremity 12/08/2017 12/08/2017 Family History Medical History Relation Name Comments Hypertension Father Hypertension Mother Relation Name Status Comments Father Mother Social History Tobacco Use Types Packs/Day Years Used Date Smoking Tobacco: Former Alcohol Use Standard Drinks/Week Comments No 0 (1 standard drink = 0.6 oz pur e alcohol) Sex and Gender Information Value Date Recorded Sex Assigned at Not on file Gender Identity Not on file Sexual Orientation Not on file Plan of Treatment Health Maintenance Due Date Last Done Comments COVID-19 Vaccine (#1) 1940 Depression Screening 1953 Preventative Health Evaluation 1959 DTap / Tdap / Td (1 - Tdap) 02/19/1960 Shingrix-Zoster Vaccine (1 of 2) 1991 Fall Risk Assessment 2006 Osteoporosis Screening (DEXA Scan) 2006 Pneumococcal Vaccine (1 of 1 - PCV) 2006 RSV Adult > 60+ Yrs or Pregn ant (1 - 1-dose 75+ series) 02/19/2016 Influenza Vaccine (#1) 2023 Hepatitis B Vaccines Aged Out No long er eligible based on patient's age to complete this topic RSV Ped < 20 months Aged Out No longe r eligible based on patient's age to complete this topic Care Teams Qa Lead Relationship Specialty Start Date End Date Smith Padgett MD [address] [address] PCP - General Internal Medicine 11/04/16
--- OUTSIDE RECORDS SUMMARY | 2024-04-25 16:39 | XMS_ITS | Data Portability ---
Author Organization SID Mendoza camille [address] Address [address] [place] [address] Assessment No assessment recorded. Plan of Treatment Reminders Order Date Submit Date Provider Last Modified By Organization Details Last Modified Time Details Appointments None recorded. Lab None recorded. Referral None recorded. Procedures None recorded. Surgeries None recorded. Imaging None recorded. Medication Orders cephalexin 500 mg capsule 2022 023 [id number], [address], [place], [id number], 18:51:14 Patient TargetsNo targets recorded. Patient Instructions Encounter Date Encounter Id Patient Instructions Last Modified By Organization Details Last Modified Time 04/19/2022 [id number] foot pain: care instructions Not available 04/19/2022 18:51:06 diabetic foot ulcer: care instructions Not available 04/19/2022 18:53:16 Reason for Referral None Reported. Problems Name Problem SNOMED Code Status Onset Date Resolution Date Notes Provider Name and Address Organization Details Recorded Time Diabetes mellitus 74660108 Active 2022 SID Syed [facility] 3 18:22:16 Chronic obstructive pulmonary disease 36329454 Active 2022 EDGARDO mendes PA [facility] 3 18:22:36 Hypertensive disorder 42005740 Active 2022 EDGARDO mendes PA [facility] 3 18:22:59 Heart disease 42064070 Active 2022 SID Syed [facility] 3 18:23:20 Renal failure syndrome 55723118 Active 2022 EDGARDO FERNANDO cinthya [facility] 3 18:23:28 Malignant tumor of kidney 352247499 Active 2022 EDGARDO TRUONGARA cinthya, [facility] 3 18:24:29 Problem Notes None recorded. Procedures Surgical History Date Name Laterality Status Provider Name and Address Organization Details Recorded Time kidney excision completed EDGARDO KING [facility] 04/19/2022 18:24:42 Xcapsl ctrc rmvl cplx wo ecp completed EDGARDO KING [facility] 04/19/2022 18:26:47 Imaging Results None recorded. Procedure Notes None recorded. Medical Equipment None Reported. Medications Name Sig Start Date Stop Date Status Note LastModified by Organization Details LastModified Time hydralazine 10 mg tablet TAKE 1 TABLET BY MOUTH TWICE DAILY active Not Available Not Available No t Available glipizide ER 10 mg tablet, extended release 24 hr TAKE 1 TABLET BY MOUTH TWICE DAILY active Not Available Not Available No t Available ketorolac 0.5 % eye drops active Not Available Not Available Not Available sodium bicarbonate 650 mg tablet active Not Available Not Availabl e Not Available cephalexin 500 mg capsule Take 1 capsule every 8 hours by oral route for 10 days. 2022 active Not Available Not Available Not Avai lable montelukast 10 mg tablet TAKE 1 TABLET BY MOUTH AT BEDTIME active Not Available Not Available No t Available furosemide 20 mg tablet active Not Available Not Available No t Available albuterol sulfate HFA 90 mcg/actuation aerosol inhaler INHALE 2 PUFFS INTO THE LUNGS EVERY 6 HOURS NEEDED FOR WHEEZING AND SHORTNESS OF BREATH active Not Available Not Available No t Available repaglinide 1 mg tablet TAKE 1 TABLET BY MOUTH DAILY active Not Available Not Available No t Available neomycin 3.5 mg/g-polymyxi n B 10,000 unit/g-dexame th 0.1 % eye oint APPLY 1/4 INCH STRIP TO AFFECTED EYELID THREE TIMES DAILY FOR 1 WEEK active Not Available Not Available No t Available ezetimibe 10 mg tablet TAKE 1 TABLET BY MOUTH DAILY active Not Available Not Available No t Available metoprolol tartrate 25 mg tablet TAKE 1/2 TABLET BY MOUTH EVERY AFTERNOON active Not Available Not Available No t Available Flovent Diskus 250 mcg/actuation powder for inhalation INHALE 1 PUFF BY MOUTH TWICE DAILY active Not Available Not Available No t Available Anoro Ellipta 62.5 mcg-25 mcg/actuation powder for inhalation INHALE 1 PUFF INTO THE LUNGS EVERY 24 HOURS active Not Available Not Available No t Available Jardiance 10 mg tablet TAKE 1 TABLET BY MOUTH EVERY DAY active Not Available Not Available No t Available Incruse Ellipta 62.5 mcg/actuation powder for inhalation INHALE 1 PUFF BY MOUTH EVERY 24 HOURS DOSES SHOULD BE TAKEN AT LEAST 24 HOURS APART active Not Available Not Available No t Available BinaxNOW COVID-19 Ag Self Test kit TEST DIRECTED TODAY active Not Available Not Available No t Available Vitals Date Recorded Body height Provider Name an d Address Organization Details Last Updated DateTime 04/19/2022 157.48 cm EDGARDO KING PA - [facility] 04/19/2022 18:24:51 Date Recorded Body mass index (BMI) Body weight Provider Name and Address Organization Details Last Updated DateTime 04/19/2022 39.5 kg/m2 08558.95 g EDGARDO KING PA - [facility] 04/19/2022 18:25:00 Date Recorded Body temperature Provider Name a nd Address Organization Details Last Updated DateTime 04/19/2022 96.4 [degF] EDGARDO KING PA - [facility] 04/19/2022 18:25:52 Date Recorded Respiratory rate Provider Name a nd Address Organization Details Last Updated DateTime 04/19/2022 18 /min EDGARDO KING PA - [facility] 04/19/2022 18:25:55 Date Recorded Heart rate Provider Name an d Address Organization Details Last Updated DateTime 04/19/2022 85 /min EDGARDO KING PA - [facility] 04/19/2022 18:25:58 Date Recorded Oxygen saturation Oxygen saturation in Arterial blood by Pulse oximetry Provider Name and Address Organization Details Last Updated DateTime 04/19/2022 99 % 99 % EDGARDO KING PA - [facility] 04/19/2022 18:26:02 Date Recorded Systolic blood pressure Diastolic blood pressure Provider Name and Address Organization Details Last Updated DateTime 04/19/2022 200 mm[Hg] 99 mm[Hg] EDGARDO KING PA - [facility] 04/19/2022 18:26:39 Date Recorded Systolic blood pressure Diastolic blood pressure Provider Name and Address Organization Details Last Updated DateTime 04/19/2022 185 mm[Hg] 100 mm[Hg] Martha Jacob MD [address] [place], [address], [place] - [facility] 04/19/2022 18:46:36 Social History Question Answer Notes LastModified by Organizat ion Details LastModified Time What Is Your Level Of Alcohol Consumption? None Information not available 04/19/2022 Are You Currently Employed? No Information not available 04/19/2022 Have You Had Direct Contact, Or Contact During Intimacy, With Monkeypox Rash, Scabs, Or Body Fluids From A Person With Monkeypox? No Information not available 04/19/2022 Do You Use Any Illicit Or Recreational Drugs? No Information not available 04/19/2022 Have You Recently Traveled Abroad? No Information not available 04/19/2022 Are You Currently In School? No Information not available 04/19/2022 Do You Or Have You Ever Used Any Other Forms Of Tobacco Or Nicotine? No Information not available 04/19/2022 Sex: Unknown Functional Status None recorded. Mental Status None recorded. Family History Relationship Description Onset Age of this Age Resolved Age Notes LastModified by Organization Details LastModified Time Father No current problems or disability Not available 03/28 18:23:41 Mother No current problems or disability Not available 03/28 18:23:41 Medical History No medical history recorded. Gynecological HistoryNo gynecological history recorded. Obstetrics History GPAL:G 0 P 0 0 0 0 Immunizations Vaccine Type Date Status Note Provider Nam e and Address Organization Details Recorded Time pneumococcal polysaccharide PPV23 7 completed EDGARDO mendes, PA - [facility] 04/19/2022 18:19:20 Influenza, split virus, trivalent, preservative 8 completed EDGARDO ALBERTND null, PA - [facility] 04/19/2022 18:19:20 COVID-19, mRNA, LNP-S, PF, 30 mcg/0.3 mL dose 1 completed EDGARDO ALBERTND null, PA - [facility] 04/19/2022 18:19:20 COVID-19, mRNA, LNP-S, PF, 30 mcg/0.3 mL dose 1 completed EDGARDO ALBERTND null, PA - [facility] 04/19/2022 18:19:20 Influenza, high-dose, quadrivalent, PF 1 completed EDGARDO KING null, PA - [facility] 04/19/2022 18:19:20 Pneumococcal conjugate PCV 13 9 completed EDGARDO ALBERTND null, PA - [facility] 04/19/2022 18:19:20 COVID-19, mRNA, LNP-S, PF, 30 mcg/0.3 mL dose 1 completed EDGARDO KING null, PA - [facility] 04/19/2022 18:19:20 Influenza, adjuvanted, quadrivalent, PF 2 completed EDGARDO ALBERTND null, PA - [facility] 04/19/2022 18:19:20 Influenza, split virus, trivalent, preservative 7 completed EDGARDO KING null, PA - [facility] 04/19/2022 18:19:20 Influenza, split virus, trivalent, preservative 9 completed EDGARDO ALBERTND null, PA - [facility] 04/19/2022 18:19:20 Past Encounters Encounter ID Performer Location Encounter Start Date Encounter Closed Date Diagnosis/Indication Diagnosis SNOMED-CT Code Diagnosis ICD10 Code Diagnosis Note [id number] [address] [address] 07/24/2016 10:36:51 07/24/2016 11:55:48 [id number] [address] [place] [address] 06/05/2016 14:33:22 06/05/2016 15:53:13 [id number] [address] [place] [address] 01/26/2017 10:23:14 01/26/2017 11:17:11 [id number] [address] [facility] [address] 12/03/2015 10:36:54 12/03/2015 11:05:12 [id number] [address] [facility] [address] 07/17/2016 10:40:47 07/17/2016 11:55:10 [id number] [address] [facility] [address] 12/06/2015 11:33:08 12/06/2015 12:41:09 [id number] [address] [facility] [address] 11/30/2016 11:03:47 11/30/2016 12:56:29 [id number] [address] [facility] [address] 05/30/2019 11:33:59 05/30/2019 12:13:40 [id number] Martha Jacob MD [address] [place] [address] 04/19/2022 17:06:03 04/19/2022 18:56:24 Diabetic foot ulcer 006100947 E13.621 There is Callous formation over a foot ulcer and will need to see Podiatry for Debridemen t and assessment for Osteomylet is Essential hypertension 01559440 I10 Patient aware that this is dangerous and signs AMA for ER evaluation . Has appnt for 3 days from now with PCP Health Concerns Section Related Observation LastModified by Organization Detai ls LastModified Time None Recorded Concern Status LastModified by Organization Details LastModified Time None Recorded Advance Directives Directive None Recorded Payers Encounter Date Sequence Insurance Name Policy Number Policy Garza Covered Member ID Garza Member ID Guarantor Name 07/24/2016 1 [place] [facility] Dorinda [address]ati [address] Becky [id number] [address] Becky 07/24/2016 2 [facility] (MEDICARE SUPPLEMENT) Dorinda [address] Becky [id number] Dorinda [address]ati [address] Becky 11/30/2016 1 [place]ARE [place]: [facility] Dorinda [address] Becky [id number] [address] Becky 11/30/2016 2 [facility] (MEDICARE SUPPLEMENT) Dor[address] Becky [id number] Dorinda Prajapati [address] Becky 01/26/2017 1 [place]: [facility] Dorinda [address] Becky [id number] [address] Becky 01/26/2017 2 [facility] (MEDICARE SUPPLEMENT) Dorinda [address] Becky [id number] Dorinda [address]ap[address] Becky 05/30/2019 1 [place]: [facility] Dorinda [address] Becky [id number] [address] Becky 05/30/2019 2 [facility] (MEDICARE SUPPLEMENT) Dor[address] Becky [id number] Dorinda [address] Becky 04/19/2022 [facility] (MEDICARE REPLACEMENT/A DVANTAGE - PPO) [id number] Becky [id number] [address] Becky Notes Date Note Type Note Provider Name and Address Organization Details Recorded Time 04/19/2022 text/html Foot/Ankle UCReported bypatient.Locatio n:right; lateral Problemswelling; pain non traumatic Severity:severe Associated Symptoms:no numbness;swelling ;redness;warmth Martha Jacob MD [address] [facility] [place], [address], [place] - [facility] 04/19/2022 18:53:19 OBGyn Episode No OBEpisode recorded.
== END 2024-04-25 12:52 | disposition home or self-care (01) ==
LOC: HO.HMGCLDS 12:51
PROVIDERS: PCP Registered Nurse; Visit Provider Internal Medicine Nephrology
DX: E87.20 Acidosis, unspecified (principal); E21.0 Primary hyperparathyroidism; E83.52 Hypercalcemia; I10 Essential (primary) hypertension; N18.32 Chronic kidney disease, stage 3b
CPT/HCPCS: 36415; 80051; 82310; 82565; 84520

== ENCOUNTER 2024-05-02 10:56 | Outpatient (AMB) | payer MEDICARE, SELFPAY ==
--- OUTSIDE RECORDS SUMMARY | 2024-05-02 10:57 | XMS_ITS | Clinical Summary ---
Author Organization [facility] Address [address] [facility] [address] [place] [address] Phone Care Team Providers Care Patient Manager Name Role Phone Neida Gabriel STEPHANIE Primary Care Provider [phone] Allergies Active Allergy Reactions Criticality Noted Date [...] patient's age to complete this topic Insurance [facility] MEDICARE [facility] MEDICARE Care Teams Patient Manager Relationship Specialty Start Date End Date Neida Gabriel DNP [address] [facility], [place] [address] PCP - General Nurse Practitioner 11/22/21
--- OUTSIDE RECORDS SUMMARY | 2024-05-02 10:57 | XMS_ITS | Encounter Summary ---
Author Organization [facility] Address [address] [facility] [address] [place] [address] Phone Care Team Providers Care Mogul Operator Name Role Phone Neida Gabriel DNP Primary Care Provider [phone] Reason for Visit * Reason Comments Med Refill Encounter Details Date Type Department Care Team (Late st Contact Info) Description 05/25/2022 Refill [facility] [address] [place] [id number] Aldo Bush MD Social History Tobacco Use [...] on filedocumented in this encounter Care Teams Mogul Operator Relationship Specialty Start Date End Date Neida Gabriel DNP [address] [facility] [address] [place] [address] PCP - General Nurse Practitioner 11/22/21 documented as of this encounter
--- OUTSIDE RECORDS SUMMARY | 2024-05-02 10:58 | XMS_ITS | Clinical Summary ---
Author Organization [facility] Address [address] [place] [address] Care Team Providers Care Quality Analyst Name Role Phone Smith Padgett MD Primary Care Provider [phone] Allergies Active Allergy Reactions Criticality Noted Date [...] age to complete this topic Care Teams Quality Analyst Relationship Specialty Start Date End Date Smith Padgett MD [address] [address] PCP - General Internal Medicine 11/04/16
--- OUTSIDE RECORDS SUMMARY | 2024-05-02 10:58 | XMS_ITS | Data Portability ---
Author Organization SID Mendoza [facility] [address] Address [address] [place] [address] Assessment No assessment recorded. Plan of Treatment Reminders Order Date Submit Date Provider Last Modified By Organization Details Last Modified Time Details Appointments None recorded. Lab None recorded. Referral None recorded. Procedures None recorded. Surgeries None recorded. Imaging None recorded. Medication Orders cephalexin 500 mg capsule 2022 023 [id number], [address] [place], [place], [id number], 18:51:14 Patient TargetsNo targets recorded. Patient Instructions Encounter Date Encounter Id Patient Instructions Last Modified By Organization Details Last Modified Time 04/19/2022 [id number] foot pain: care instructions Not available 04/19/2022 18:51:06 diabetic foot ulcer: care instructions Not available 04/19/2022 18:53:16 Reason for Referral None Reported. Problems Name Problem SNOMED Code Status Onset Date Resolution Date Notes Provider Name and Address Organization Details Recorded Time Diabetes mellitus 87712156 Active 2022 SID Syed [facility] 3 18:22:16 Chronic obstructive pulmonary disease 10400199 Active 2022 EDGARDO mendes PA [facility] 3 18:22:36 Hypertensive disorder 66011574 Active 2022 EDGARDO mendes PA [facility] 3 18:22:59 Heart disease 23189827 Active 2022 SID Syed [facility] 3 18:23:20 Renal failure syndrome 01768525 Active 2022 EDGARDO FERNANDO cinthya [facility] 3 18:23:28 Malignant tumor of kidney 657236725 Active 2022 EDGARDO TRUONGARA cinthya, [facility] 18:24:29 Problem Notes None recorded. Procedures Surgical History Date Name Laterality Status Provider Name and Address Organization Details Recorded Time kidney excision completed EDGARDO KING [facility] 04/19/2022 18:24:42 Xcapsl ctrc rmvl cplx wo ecp completed EDGARDO KING [facility] 04/19/2022 18:26:47 Imaging Results None recorded. [...] t Available Vitals Date Recorded Body height Body mass index (BMI) Body weight Body temperature Respiratory rate Heart rate Oxygen saturation Oxygen saturation in Arterial blood by Pulse oximetry Systolic blood pressure Diastolic blood pressure Provider Name and Address Organization Details Last Updated DateTime 157.48 cm 39.5 kg/m2 84606.9 5 g 96.4 [degF] 18 /min 85 /min 99 % 99 % 200 mm[Hg] 99 mm[Hg] EDGARDO KING PA - [facility] 18:26:39 Date Recorded Systolic blood pressure Diastolic blood pressure Provider Name and Address Organization Details Last Updated DateTime 04/19/2022 185 mm[Hg] 100 mm[Hg] Martha Jacob MD [address] [facility] [place], [address], PA - [facility] 04/19/2022 18:46:36 Social [...] Time pneumococcal polysaccharide PPV23 7 completed EDGARDO KING null, PA - [facility] 04/19/2022 18:19:20 Influenza, split virus, trivalent, preservative 8 completed EDGARDO KING null, PA - [facility] [...] Pneumococcal conjugate PCV 13 9 completed EDGARDO KING null, PA - [facility] 04/19/2022 18:19:20 COVID-19, mRNA, LNP-S, PF, 30 mcg/0.3 mL dose 1 completed EDGARDO KING null, PA - [facility] 04/19/2022 18:19:20 Influenza, adjuvanted, quadrivalent, PF 2 completed EDGARDO KING null, PA - [facility] 04/19/2022 18:19:20 Influenza, split virus, trivalent, preservative 7 completed EDGARDO KING null, PA - [facility] 04/19/2022 18:19:20 Influenza, split virus, trivalent, preservative 9 completed EDGARDO KING null, PA - [facility] 04/19/2022 18:19:20 Past Encounters Encounter ID Performer Location Encounter Start Date Encounter Closed Date Diagnosis/Indication Diagnosis SNOMED-CT Code Diagnosis ICD10 Code Diagnosis Note [id number] [address] [place] [address] 07/24/2016 10:36:51 07/24/2016 11:55:48 [id number] [address] [place] [address] 06/05/2016 14:33:22 06/05/2016 15:53:13 [id number] [address] [place] [address] 01/26/2017 10:23:14 01/26/2017 11:17:11 [id number] [address] [place] [address] 12/03/2015 10:36:54 12/03/2015 11:05:12 [id number] [address] [place] [address] 07/17/2016 10:40:47 07/17/2016 11:55:10 [id number] [address] [place] [address] 12/06/2015 11:33:08 12/06/2015 12:41:09 [id number] [address] [place] [address] 11/30/2016 11:03:47 11/30/2016 12:56:29 [id number] [address] [place] [address] 05/30/2019 11:33:59 05/30/2019 12:13:40 [id number] Martha Jacob MD [address] [place] [address] 04/19/2022 17:06:03 04/19/2022 18:56:24 Diabetic foot ulcer 572957646 E13.621 There is Callous formation over a foot ulcer and will need to see Podiatry for Debridemen t and assessment for Osteomylet is Essential hypertension 35730335 I10 Patient aware that this is dangerous [...] Guarantor Name 07/24/2016 1 [place]: [employer] Dorinda Nelsone [id number] Dorinda [address]japati [address] Becky 07/24/2016 2 [facility] (MEDICARE SUPPLEMENT) Dorinda Nelsone [id number] Dorinda [address] [facility] Becky 11/30/2016 1 MEDIC[place]: [employer] Dorinda Yang Becky [id number] Dorinda [address] Becky 11/30/2016 2 [facility] (MEDICARE SUPPLEMENT) Dorinda [address] [facility] Becky [id number] Dorinda [address]ati [facility] Becky 01/26/2017 1 MEDICARE [place]: [employer] Dorinda [address] [facility] Becky [id number] [address] Becky 01/26/2017 2 [facility] (MEDICARE SUPPLEMENT) Dor[address] [facility] Becky [id number] Dorinda [address]j[facility] Becky 05/30/2019 1 MEDICARE [place]: [employer] Dorinda [address] Becky [id number] [address] Becky 05/30/2019 2 [facility] (MEDICARE SUPPLEMENT) Dorinda Gaviria [id number] Dorinda Gaviria 04/19/2022 [facility] (MEDICARE REPLACEMENT/A DVANTAGE - PPO) [id number] Dorinda Gaviria [id number] Dorinda Gaviria Notes Date Note Type Note Provider Name and Address Organization Details Recorded Time 04/19/2022 text/html Foot/Ankle UCReported bypatient.Locatio n:right; lateral Problemswelling; pain non traumatic Severity:severe Associated Symptoms:no numbness;swelling ;redness;warmth Martha Jacob MD [address] [place], [address], [place] - [facility] 04/19/2022 18:53:19 OBGyn Episode No OBEpisode recorded.
--- NOTE | 2024-05-02 11:04 | HO.NEPHOV ---
Intake Visit Reasons: 2mon follow up w/labs/ Conf Allergies No Known Allergies Allergy (Verified 03/05/24 14:32) PFSH Medical History (HFpEF) heart failure with preserved ejection fraction Edema leg Hypertension Chronic kidney disease Surgical History History of tubal ligation History of kidney removal Status post carotid surgery Family History Brother Cancer Mother Heart attack Social History Alcohol intake: former Patient Tobacco Use Status: Former Tobacco user Results Reviewed Nephrology Results: Sodium 139 mmol/L (135-145) 04/25/24 Potassium 3.8 mmol/L (3.3-5.1) 04/25/24 Chloride 106 mmol/L (96-108) 04/25/24 Carbon Dioxide 22 mmol/L (22-29) 04/25/24 BUN 56 mg/dL (9-16) H 04/25/24 Creatinine 2.73 mg/dL (0.5-1.4) H 04/25/24 Calcium 10.7 mg/dL (8.4-10.2) H 04/25/24 PTH Intact 693.5 pg/mL (8.7-77.1) H 02/27/24 Coding
--- NOTE | 2024-05-02 11:10 | HO.NEPHOV ---
Vital Signs 05/02/24 11:16 Height 5 ft 4 in Weight 211 lb BMI 36.2 BP 140/82 H Blood Pressure Location Lt brachial Position Sitting Pulse 96 Pulse Source Pulse Oximeter Pulse Oximetry (%) 96 Oxygen Delivery Method Room Air Intake Visit Reasons: 2mon follow up w/labs/ Conf Java Spring Developer Required: No Accompanied by: Self / Same As Patient Allergies No Known Allergies Allergy (Verified 05/02/24 11:15) PFSH Medical History (HFpEF) heart failure with preserved ejection fraction Edema leg Hypertension Chronic kidney disease Surgical History History of tubal ligation History of kidney removal Status post carotid surgery Family History Brother Cancer Mother Heart attack Social History Alcohol intake: former Patient Tobacco Use Status: Former Tobacco user Results Reviewed Nephrology Results: Sodium 139 mmol/L (135-145) 04/25/24 Potassium 3.8 mmol/L (3.3-5.1) 04/25/24 Chloride 106 mmol/L (96-108) 04/25/24 Carbon Dioxide 22 mmol/L (22-29) 04/25/24 BUN 56 mg/dL (9-16) H 04/25/24 Creatinine 2.73 mg/dL (0.5-1.4) H 04/25/24 Calcium 10.7 mg/dL (8.4-10.2) H 04/25/24 PTH Intact 693.5 pg/mL (8.7-77.1) H 02/27/24 Coding
[2024-05-02 11:16] VITALS: BP 140/82; PULSE 96; O2SAT 96; BMI 36.2
--- NOTE | 2024-05-02 11:34 | HO.NEPHOV ---
Vital Signs 05/02/24 11:16 Height 5 ft 4 in Weight 211 lb BMI 36.2 BP 140/82 H Blood Pressure Location Lt brachial Position Sitting Pulse 96 Pulse Source Pulse Oximeter Pulse Oximetry (%) 96 Oxygen Delivery Method Room Air Intake Visit Reasons: 2mon follow up w/labs/ Conf Allergies No Known Allergies Allergy (Verified 05/02/24 11:15) Medication List - Last Reconciled 05/02/24 by Aldo Bush MD albuterol sulfate 90 mcg/actuation 2 puffs inhalation Q6H PRN aspirin 81 mg PO DAILY bumetanide 1 mg PO DAILY cholecalciferol (vitamin D3) 25 mcg PO DAILY empagliflozin (Jardiance) 10 mg PO QAM glipizide ER 10 mg PO DAILY hydralazine 50 mg PO BID isosorbide mononitrate ER 60 mg (2 x 30 mg) PO QAM 90 days mometasone 50 mcg/actuation 2 sprays intranasal DAILY repaglinide 1 mg PO DAILY sodium bicarbonate 650 mg PO TID 30 days umeclidinium 62.5 mcg/actuation (Incruse Ellipta) 1 inh inhalation BEDTIME vitamin B complex 1 tab PO DAILY HPI Comments Details: Dorinda was seen in follow-up of her chronic kidney disease, hypertension and hypercalcemia. She has H/O hypertensive urgency and complete heart block with development of RADHA. She had permanent pacemaker. Her BP medications had been adjusted . She does not have any chest pain, shortness of breath, nausea, vomiting, diarrhea, worsening pedal edema, urinary symptoms. She is avoiding nonsteroidal anti-inflammatory medications and is trying to keep up with good hydration. Her serum creatinine had gone up marginally. [facility] Medical History (HFpEF) heart failure with preserved ejection fraction Edema leg Hypertension Chronic kidney disease Surgical History History of tubal ligation History of kidney removal Status post carotid surgery Family History Brother Cancer Mother Heart attack Social History Alcohol intake: former Patient Tobacco Use Status: Former Tobacco user Review of Systems Const All systems reviewed & are unremarkable except as noted in HPI and below Physical Exam Vital Signs: Last Vital Signs Pulse 96 05/02/24 11:16 BP 140/82 H 05/02/24 11:16 Pulse Ox 96 05/02/24 11:16 Oxygen Delivery Method Room Air 05/02/24 11:16 BMI result Body Mass Index 36.2 Const General: comfortable and no acute distress Orientation/consciousness: patient oriented x3 HEENT Head: Yes normocephalic Mouth: Normal oral and palatal mucosa present Eyes EOM: EOMs intact bilaterally Neck Neck: Yes supple Resp Auscultation: clear to auscultation bilaterally Cardio Jugular venous distension: no JVD Rate: regular rate GI Palpation (GI): Soft to palpation Auscultation: normal bowel sounds General: Yes no CVA tenderness Back/Spine/Pelvis Back: no CVA tenderness Skin General skin exam: no rashes or lesions noted Neuro General: patient oriented x3 and moves all extremities Extrem General: Yes no pedal edema Results Reviewed Nephrology Results: Sodium 139 mmol/L (135-145) 04/25/24 Potassium 3.8 mmol/L (3.3-5.1) 04/25/24 Chloride 106 mmol/L (96-108) 04/25/24 Carbon Dioxide 22 mmol/L (22-29) 04/25/24 BUN 56 mg/dL (9-16) H 04/25/24 Creatinine 2.73 mg/dL (0.5-1.4) H 04/25/24 Calcium 10.7 mg/dL (8.4-10.2) H 04/25/24 PTH Intact 693.5 pg/mL (8.7-77.1) H 02/27/24 Assessment & Plan Assessment & Plan (1) Primary hyperparathyroidism: Code(s): E21.0 - Primary hyperparathyroidism Category: Medical (2) Hypercalcemia: Code(s): E83.52 - Hypercalcemia Category: Medical (3) Hypertension: Code(s): I10 - Essential (primary) hypertension Category: Medical Qualifiers: Hypertension type: primary hypertension Qualified Code(s): I10 - Essential (primary) hypertension (4) CKD (chronic kidney disease) stage 3, GFR 30-59 ml/min: Code(s): N18.30 - Chronic kidney disease, stage 3 unspecified Category: Medical Qualifiers: Chronic kidney disease stage 3 subtype: stage 3b (GFR 30-44) Qualified Code(s): N18.32 - Chronic kidney disease, stage 3b (5) Cellulitis: Code(s): L03.90 - Cellulitis, unspecified Category: Medical Qualifiers: Site of cellulitis: extremity Site of cellulitis of extremity: lower extremity Laterality: right Qualified Code(s): L03.115 - Cellulitis of right lower limb Magi Seth has chronic kidney disease and longstanding hypertension. She has a new PPM. She is on metoprolol, hydralazine and Imdur . She is not taking amlodipine, she is hypervolemic. She should continue Bumetanide 1 mg AM. She can continue 650 mg p.o. of NaHCO3 b.i.d.. She is on Jardiance. I started her on cinacalcet 30 mg three times a week. I also prescribed Doxycycline for right leg cellulitis. All her questions and concerns were addressed promptly. Follow-up given Orders: Orders Electrolytes 2 Months E21.0 - Primary hyperparathyroidism, E83.52 - Hypercalcemia, I10 - Essential (primary) hypertension, N18.32 - Chronic kidney disease, stage 3b Parathyroid Hormone Intact 2 Months E21.0 - Primary hyperparathyroidism, E83.52 - Hypercalcemia, I10 - Essential (primary) hypertension, N18.32 - Chronic kidney disease, stage 3b Calcium 2 Months E21.0 - Primary hyperparathyroidism, E83.52 - Hypercalcemia, I10 - Essential (primary) hypertension, N18.32 - Chronic kidney disease, stage 3b Creatinine 2 Months E21.0 - Primary hyperparathyroidism, E83.52 - Hypercalcemia, I10 - Essential (primary) hypertension, N18.32 - Chronic kidney disease, stage 3b Blood Urea Nitrogen 2 Months E21.0 - Primary hyperparathyroidism, E83.52 - Hypercalcemia, I10 - Essential (primary) hypertension, N18.32 - Chronic kidney disease, stage 3b Medications: New cinacalcet 30 mg PO .3 times a week 14 tabs 4RF doxycycline hyclate 100 mg PO BID 14 caps 0RF Changed From bumetanide 1 mg PO DAILY To bumetanide 1 mg PO DAILY 30 tabs 4RF Coding Level of Care Code Est Pt Level 4 (10153) Diagnoses Primary hyperparathyroidism E21.0 Hypercalcemia E83.52 Primary hypertension I10 Hypertension type: primary hypertension Stage 3b chronic kidney disease N18.32 Chronic kidney disease stage 3 subtype: stage 3b (GFR 30-44) Cellulitis of right lower extremity L03.115 Site of cellulitis: extremity Site of cellulitis of extremity: lower extremity Laterality: right
== END 2024-05-02 11:52 | disposition home or self-care (01) ==
LOC: HO.HKAS 10:56
PROVIDERS: PCP Registered Nurse; Visit Provider Internal Medicine Nephrology
DX: E21.0 Primary hyperparathyroidism (principal); I10 Essential (primary) hypertension; N18.32 Chronic kidney disease, stage 3b; L03.115 Cellulitis of right lower limb
CPT/HCPCS: 99214

== ENCOUNTER → 2024-05-02 10:56 | Outpatient (BNVA) | payer MEDICARE, SELFPAY | PROVIDERS: PCP Registered Nurse; Visit Provider Internal Medicine Nephrology | DX: I12.9 Hypertensive chronic kidney disease with stage 1 through stage 4 chronic kidney disease, or unspecified chronic kidney disease (principal); N18.32 Chronic kidney disease, stage 3b; E21.0 Primary hyperparathyroidism; L03.115 Cellulitis of right lower limb; Z95.0 Presence of cardiac pacemaker | CPT/HCPCS: 99212 ==

== ENCOUNTER 2024-06-10 12:17 | Outpatient (AMB) | payer MEDICARE, SELFPAY ==
[2024-06-10 12:25] VITALS: BP 144/80; PULSE 67; TEMP 36.7; O2SAT 96; BMI 36.7
--- NOTE | 2024-06-10 12:25 | MHC.PC.OV ---
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 - EST CARE Intake Note: patient is here to est care Neuropsychology Director Required: No Accompanied by: Self / Same As Patient Allergies No Known Allergies Allergy (Verified 06/10/24 13:09) Medication List - Last Reconciled 06/10/24 by DAVID Grissom- albuterol sulfate 90 mcg/actuation 2 puffs inhalation Q6H PRN aspirin 81 mg PO DAILY blood sugar diagnostic (GITRuch Ultra Test strips) As directed blood-glucose meter (GITRuch Ultra2 Meter) As directed bumetanide 1 mg PO DAILY cholecalciferol (vitamin D3) 25 mcg PO DAILY cinacalcet 30 mg PO .3 times a week empagliflozin (Jardiance) 10 mg PO QAM furosemide 20 mg PO DAILY glipizide ER 10 mg PO DAILY hydralazine 50 mg PO BID isosorbide mononitrate ER 30 mg PO QAM lactulose 15 mL PO DAILY lancets (TapHomeTouch Delica Plus Lancet) As directed linaclotide (Linzess) 72 mcg PO DAILY 30 days mometasone 50 mcg/actuation 2 sprays intranasal DAILY repaglinide 1 mg PO DAILY sodium bicarbonate 650 mg PO BID umeclidinium 62.5 mcg/actuation (Incruse Ellipta) 1 inh inhalation BEDTIME vitamin B complex 1 tab PO DAILY Tobacco use date assessed: 06/10/24 Fall risk assessment: No Falls in past year Last assessed Fall Risk: 06/10/24 Dental Screening Dental Screen Date: 06/10/24 Did you have a dental visit in the last 12 months?: Yes Did you have a dental problem in the last 6 months where you did not have access to dental care?: No Was dental information given to patient?: Patient has dentist HPI ENVIRONMENTAL COMPLIANCE MANAGER - EST CARE HPI Details Chief Complaint History of Present Illness This is a new pt i'm meeting today, with a very complex and extensive HX, with multiple chronic conditions. he patient is an 84-year-old female presenting with uncontrolled Type 2 Diabetes Mellitus, with a current A1c level of 9.7%. The condition has been challenging to manage, prompting consideration of medication adjustments, including increasing glipizide to twice a day and elevating Jardiance to 25 mg daily since previous treatments have been inadequate. She also deals with chronic constipation, not alleviated by MiraLAX or stool softeners, and has not yet tried lactulose as advised. Her medical history includes persistent bilateral lower extremity edema, with various diuretic adjustments having been ineffective; this is complicated by prior use of amlodipine which exacerbated the edema. Social History Health Maintenance Review of Systems denies any CP, increased sob, n/v, FIELDS, N/V, fevers, chills, orthopnea. Physical Exam General: Cooperative, healthy appearing, comfortable, no acute distress and well developed, obese noted, using walker Orientation: Patient oriented x3 Head: Normal to inspection Ears: Hearing grossly normal bilaterally Nose: Normal external nose present Face and sinus: Normal facial exam Eyes: Appearance normal, both eyes and all related structures Neck: Normal visual inspection and Yes full ROM Respiratory: Normal respiratory effort and able to speak in complete sentences. Clear to auscultation bilaterally Cardiovascular: Regular rate and rhythm. Normal S1 and S2 GI: Normal to inspection. Soft to palpation and nontender Neuro: Patient oriented x3 Extremities: Extensive edema to her bilateral lower extremities, probably +2 Results Plan I will optimize her medication regimen by increasing her glipizide ER dosage to twice daily and raising Jardiance to 25 mg daily to address her uncontrolled diabetes mellitus. The patient will begin a trial of Linzess for constipation management, as preceding therapies were unhelpful. Continued use of bumetanide and furosemide is indicated to manage her bilateral lower extremity edema. It's crucial for her to maintain scheduled appointments with both her infection control rn and dispatcher refinery to ensure comprehensive care for her complex health needs. Discussion Notes Patient Instructions - Increase glipizide ER to 10 mg twice daily. - Increase Jardiance dosage to 25 mg daily. - Start taking prescribed Linzess for constipation. - Report any dizziness or unexpected symptoms. - Continue using a walker for mobility. - Maintain current diuretic regimen with bumetanide and furosemide. - Attend follow-up appointments with infection control rn and dispatcher refinery as scheduled. - Monitor for any adverse effects or new symptoms and contact the clinic if needed. - Seek immediate care for any worsening of your symptoms or other urgent concerns. [facility] Medical History (HFpEF) heart failure with preserved ejection fraction Edema leg Hypertension Chronic kidney disease Surgical History History of tubal ligation History of kidney removal Status post carotid surgery Family History Brother Cancer Mother Heart attack Social History Alcohol intake: former Patient Tobacco Use Status: Former Tobacco user e-Cigarette/Vaping Use: Never Used service: No Current occupational status: unemployed and retired Cognitive needs: No Hearing needs: No Vision needs: No Questionnaire PHQ-9 Over the last 2 weeks, how often have you been bothered by any of the following problems? 1. Little interest or pleasure in doing things: nearly every day 2. Feeling down, depressed, or hopeless: not at all 3. Trouble falling or staying asleep, or sleeping too much: several days 4. Feeling tired or having little energy: several days 5. Poor appetite or overeating: not at all 6. Feeling bad about yourself - or that you are a failure or have let yourself or your family down: not at all 7. Trouble concentrating on things, such as reading the newspaper or watching television: not at all 8. Moving or speaking so slowly that other people could have noticed. Or the opposite - being so fidgety or restless that you have been moving around a lot more than usual: not at all 9. Thoughts that you would be better off or of hurting yourself in some way: not at all Total score: 5 Depression Screening Interpretation: Negative Depression Screening Done: Yes 85659 - PHQ-9 Billing: Yes Source: Developed by Drs. Mike Cartagena, Sonal Jensen, Phong Armendariz and colleagues, with an educational amrit from [employer]. Thrive Questionnaire Date Thrive assessed: 06/10/24 I am a: Parent/Caregiver What is your living situation today?: I have a steady place to live Within the past 12 months, did the food you bought not last and you didn't have the money to get more?: Never true Within the past 12 months, did you worry whether your food would run out before you got money to buy more?: Never true Do you have trouble paying for medicines?: No Do you have trouble getting transportation to medical appointments?: No Do you have trouble paying your heating and electricity bill?: No Do you have trouble taking care of your child, family member or friend?: I choose not to answer this question Do you have trouble with day-to-day activities such as bathing, preparing meals, shopping, managing finances, etc.?: No Are you currently unemployed and looking for a job?: No Are you interested in more education?: No Please select the resources that you would like help with: None Currently or been in a relationship where the following occur: No concerns reported THRIVE Score: 0 AUDIT C Alcohol Use Questionnaire (AUDIT-C) 1. How often do you have a drink containing alcohol?: Never 3. How often do you have six or more drinks on one occasion?: Never Total Score: 0 Score Reviewed/Action Taken: Yes DARCI-7 AMB Questionnaire DARCI-7 Date DARCI - 7 assessed: 06/10/24 Feeling nervous, anxious, or on edge: 0 = Not at all Not being able to stop or control worryin = Not at all Worrying too much about different things: 1 = Several days Trouble relaxin = Not at all Being so restless that it is hard to sit still: 0 = Not at all Becoming easily annoyed or irritable: 0 = Not at all Feeling afraid as if something awful might happen: 0 = Not at all Total DARCI-7 score (0-4 normal; 5-9 mild; 10-14 moderate; 15-21 severe): 1 Source: Developed by Drs. Mike Cartagena, Sonal Jensen, Phong Armendariz and colleagues, with an educational amrit from [employer]. DARCI-7 Assessment Billing DARCI-7 Assessment Tool: DARCI-7 Assessment 14820 Physical exam (Primary Care) Vital Signs: Last Vital Signs Temp 98.0 F 06/10/24 12:25 Pulse 67 06/10/24 12:25 BP 144/80 H 06/10/24 12:25 Pulse Ox 96 06/10/24 12:25 BMI result Body Mass Index 36.7 Tobacco/Smoking Status: Tobacco use Status Tobacco use date assessed 06/10/24 06/10/24 12:28 Patient Tobacco Use Status Former Tobacco user 06/10/24 12:28 e-Cigarette/Vaping Use Never Used 06/10/24 12:28 PHQ-9: PHQ-9 Score PHQ-9: Total score 5 06/10/24 12:28 Depression Screening Interpretation: Negative Thrive Assessment: Date of Thrive Assessment Date Thrive assessed 06/10/24 06/10/24 12:28 Currently or been in a relationship where the following occur: No concerns reported Coding Level of Care Code New Pt Level 4 (22208) Diagnoses Uncontrolled diabetes mellitus with hyperglycemia E11.65 (HFpEF) heart failure with preserved ejection fraction I50.30 Constipation K59.00 Additional Codes DARCI-7 Assessment Billing - DARCI-7 Assessment Tool: DARCI-7 Assessment 28767 ([id number]) PHQ-9 - 38411 - PHQ-9 Billing: Yes ([id number]) Assessment & Plan Assessment & Plan (1) Uncontrolled diabetes mellitus with hyperglycemia: Code(s): E11.65 - Type 2 diabetes mellitus with hyperglycemia Category: Medical (2) (HFpEF) heart failure with preserved ejection fraction: Code(s): I50.30 - Unspecified diastolic (congestive) heart failure Category: Medical (3) Constipation: Code(s): K59.00 - Constipation, unspecified Category: Medical Plan . Orders: Orders B Type Natriuretic Peptide Today MENDY Grissom .65 - Type 2 diabetes mellitus with hyperglycemia, I50.30 - Unspecified diastolic (congestive) heart failure Complete Blood Count Auto Diff Today MENDY Grissom .65 - Type 2 diabetes mellitus with hyperglycemia Comprehensive [place]. Panel Fast Today MENDY Grissom .65 - Type 2 diabetes mellitus with hyperglycemia TSH reflex Free T4 Today MENDY Grissom . - Type 2 diabetes mellitus with hyperglycemia UA CC w/rflx Micro + Cult Today MENDY Grissom - Type 2 diabetes mellitus with hyperglycemia Lipid Panel Today MENDY Grissom . - Type 2 diabetes mellitus with hyperglycemia Referrals Endocrinology Referral MENDY Grissom E11.65 - Type 2 diabetes mellitus with hyperglycemia Medications: New furosemide 20 mg PO DAILY MENDY Grissom linaclotide (Linzess) 72 mcg PO DAILY 30 days 30 caps 1RF MENDY Grissom Changed From isosorbide mononitrate ER 60 mg (2 x 30 mg) PO QAM 90 days 180 tabs 4RF To isosorbide mononitrate ER 30 mg PO QAM Aldo Bush MD From sodium bicarbonate 650 mg PO TID 30 days 90 tabs 5RF stomach upset To sodium bicarbonate 650 mg PO BID stomach upset Aldo Bush MD
--- OUTSIDE RECORDS SUMMARY | 2024-06-10 14:25 | XMS_ITS | Encounter Summary ---
Author Organization [facility] Address [address] [facility] [address] [place] [address] Phone Care Team Providers Care Nougat Candy Maker Helper Name Role Phone Neida Gabriel DNP Primary Care Provider [phone] Reason for Visit * Reason Comments Med Refill Encounter Details Date Type Department Care Team (Late st Contact Info) Description 05/25/2022 Refill [facility] [address] [place] [phone] Aldo Bush MD Social History Tobacco Use [...] on filedocumented in this encounter Care Teams Nougat Candy Maker Helper Relationship Specialty Start Date End Date Neida Gabriel DNP [address] [facility] [address] [place] [address] PCP - General Nurse Practitioner 11/22/21 documented as of this encounter
--- OUTSIDE RECORDS SUMMARY | 2024-06-10 14:25 | XMS_ITS ---
Author Organization [facility], [facility] Address [address] [place] [phone] Care Team Providers Care Bush Regenerator Name Role Phone SUSANNE GABIREL Primary Care Provider [phone] REASON FOR VISIT 6/M CPE Encounters Encounter Location Date Provider Diagnosis [facility], [address] [phone] 06/05/2024 SUSANNE GABRIEL PLAN OF TREATMENT No Information Progress Notes * LEONARD TERANOB:[birth year] (84 yo F)Acc No.[id number]:06/05/2024 Progress Note Patient:??CHAO TERAN Provider:??Susanne Gabriel DNP :1940?Age:84 Y?Sex:Fe male Date:06/05/2024 Address:[address] [place], [place] [phone] Subjective: * Chief Complaints: * ?1. 6/M CPE. * Medical History:?? Objective: Assessment: Plan: * Treatment: Care Plan: * Problems:?? * Billing Information: * Visit Code:?? * Procedure Codes:?? * Sign off status: Pending * Provider:??Susanne Gabriel DNP Date:??0 06/05/2024
--- OUTSIDE RECORDS SUMMARY | 2024-06-10 14:25 | XMS_ITS | Continuity of Care Document ---
Author Organization [facility] [address] [facility] [address] [place] [address] Phone [phone] Social History Type Date Description Comments Sex Unknown Medical Devices Description No Information Available Encounters Description No Information Available Assessments Description No Information Available Plan of Treatment No Information Available Functional Status Description No Information Available Mental Status Description No Information Available Referrals Description No Information Available
--- OUTSIDE RECORDS SUMMARY | 2024-06-10 14:26 | XMS_ITS ---
Author Organization [facility], [facility] Address [address] [place] [phone] Care Team Providers Care Embedded Software Manager Name Role Phone SUSANNE STEINER Primary Care Provider REASON FOR VISIT Refills Encounters Encounter Location Date Provider Diagnosis [facility], [address] [phone] 04/08/2024 SUSANNE STEINER PLAN OF TREATMENT No Information Progress Notes * KEYON TERANEDOB:[birth year] (84 yo F)Acc No.[id number]:04/08/2024 Patient:??CHAO TERAN :1940?Age:84 Y?Sex:Fe male Address:[address] [place] [id number] * true * Date:??
--- OUTSIDE RECORDS SUMMARY | 2024-06-10 14:26 | XMS_ITS ---
Author Organization [facility], [facility] Address [address] [place] [phone] Care Team Providers Care Wares Sorter Name Role Phone SUSANNE GABRIEL Primary Care Provider REASON FOR VISIT f/u labs, 2M wellness Encounters Encounter Location Date Provider Diagnosis [facility], [address] [phone] 06/03/2024 SUSANNE GABRIEL PLAN OF TREATMENT No Information Progress Notes * LEONARD TERANOB:[birth year] (84 yo F)Acc No.[id number]:06/03/2024 Progress Notes Patient:??CHAO TERAN Provider:??Susanne Gabriel DNP :1940?Age:84 Y?Sex:Fe male Date:06/03/2024 Address:[address] [place], [place] [phone] Subjective: * Chief Complaints: * ?1. f/u labs, 2M wellne ss. * Medical History:?? Objective: Assessment: Plan: * Treatment: * Billing Information: * Visit Code:?? * Procedure Codes:?? * Sign off status: Pending * Provider:??Susanne Gabriel DNP Date:??0 06/03/2024
--- OUTSIDE RECORDS SUMMARY | 2024-06-10 14:26 | XMS_ITS | Clinical Summary ---
Author Organization [facility] Address [address] [place] [address] Care Team Providers Care Heating And Refrigeration Inspector Name Role Phone Smith Padgett MD Primary Care Provider Allergies Active Allergy Reactions [...] age to complete this topic Care Teams Heating And Refrigeration Inspector Relationship Specialty Start Date End Date Smith Padgett MD [address] [phone] PCP - General Internal Medicine 11/04/16
--- OUTSIDE RECORDS SUMMARY | 2024-06-10 14:26 | XMS_ITS | Data Portability ---
Author Organization [facility]za [facility] [id number] Address [address] [place] [address] Assessment No assessment recorded. Plan of Treatment Reminders Order Date Submit Date Provider Last Modified By Organization Details Last Modified Time Details Appointments None recorded. Lab None recorded. Referral None recorded. Procedures None recorded. Surgeries None recorded. Imaging None recorded. Medication Orders cephalexin 500 mg capsule 2022 023 [id number], [address] [place], [place], [phone], 18:51:14 Patient TargetsNo targets recorded. Patient Instructions Encounter Date Encounter Id Patient Instructions Last Modified By Organization Details Last Modified Time 04/19/2022 [id number] foot pain: care instructions Not available 04/19/2022 18:51:06 diabetic foot ulcer: care instructions Not available 04/19/2022 18:53:16 Reason for Referral None Reported. Problems Name Problem SNOMED Code Status Onset Date Resolution Date Notes Provider Name and Address Organization Details Recorded Time Diabetes mellitus 27807709 Active 2022 SID Syed [facility] 3 18:22:16 Chronic obstructive pulmonary disease 56522141 Active 2022 EDGARDO mendes PA [facility] 3 18:22:36 Hypertensive disorder 68209579 Active 2022 EDGARDO mendes PA [facility] 3 18:22:59 Heart disease 24140800 Active 2022 SID Syed [facility] 3 18:23:20 Renal failure syndrome 96697885 Active 2022 EDGARDO FERNANDO c[facility]ya [facility] 18:23:28 Malignant tumor of kidney 292554180 Active 2022 EDGARDO TRUONGARA cinthya, [facility] 18:24:29 Problem Notes None recorded. Procedures Surgical History Date Name Laterality Status Provider Name and Address Organization Details Recorded Time kidney excision completed EDGARDO KING [facility] 04/19/2022 18:24:42 Xcapsl ctrc rmvl cplx wo ecp completed EDGARDO KING [facility] 04/19/2022 18:26:47 Imaging Results None recorded. [...] Last Updated DateTime 157.48 cm 39.5 kg/m2 25591.9 5 g 96.4 [degF] 18 /min 85 /min 99 % 99 % 200 mm[Hg] 99 mm[Hg] EDGARDO KING PA - [facility] 18:26:39 Date Recorded Systolic blood pressure Diastolic blood pressure Provider Name and Address Organization Details Last Updated DateTime 04/19/2022 185 mm[Hg] 100 mm[Hg] Martha Jacob MD [address] [facility] [place], [address], [place] - [facility] 04/19/2022 18:46:36 Social [...] SNOMED-CT Code Diagnosis ICD10 Code Diagnosis Note [id number] [address] [place] [address] 07/24/2016 10:36:51 07/24/2016 11:55:48 [id number] [address] [place] [address] 06/05/2016 14:33:22 06/05/2016 15:53:13 [id number] [address] [place] [address] 01/26/2017 10:23:14 01/26/2017 11:17:11 [id number] [address] [place] [address] 12/03/2015 10:36:54 12/03/2015 11:05:12 [id number] [address] [place] [address] 07/17/2016 10:40:47 07/17/2016 11:55:10 [id number] [address] [place] [address] 12/06/2015 11:33:08 12/06/2015 12:41:09 [id number] [address] [place] [address] 11/30/2016 11:03:47 11/30/2016 12:56:29 [id number] [address] [place] [address] 05/30/2019 11:33:59 05/30/2019 12:13:40 [id number] Martha Jacob MD [address] [place] [address] 04/19/2022 17:06:03 04/19/2022 18:56:24 Diabetic foot ulcer [id number] E13.621 There is Callous formation over a foot ulcer and will need to see Podiatry for Debridemen t and assessment for Osteomylet is Essential hypertension 70863491 I10 Patient aware that this is dangerous [...] Member ID Guarantor Name 07/24/2016 1 [place] [employer] Dorinda Nelsone [id number] Becky 07/24/2016 2 [facility] (MEDICARE SUPPLEMENT) Dorinda Nelsone [id number] Becky 11/30/2016 1 [place] [employer] Dorinda [address] Becky [id number] [address] Becky 11/30/2016 2 [facility] (MEDICARE SUPPLEMENT) [address] Becky [id number] Becky 01/26/2017 1 [place] [employer] Dorinda Yang Becky [id number] [address] Becky 01/26/2017 2 [facility] (MEDICARE SUPPLEMENT) Dorinda [address] Becky [id number] Dorinda Gaviria 05/30/2019 1 [place] [employer] Dorinda Gaviria [id number] Dorinda Gaviria 05/30/2019 2 [facility] (MEDICARE SUPPLEMENT) Dorinda Gaviria [id number] Dorinda Gaviria 04/19/2022 [facility] (MEDICARE REPLACEMENT/A DVANTAGE - PPO) [id number] Dorinda Gaviria [id number] Dorinda Gaviria Notes Date Note Type Note Provider Name and Address Organization Details Recorded Time 04/19/2022 text/html Foot/Ankle UCReported bypatient.Locatio n:right; lateral Problemswelling; pain non traumatic Severity:severe Associated Symptoms:no numbness;swelling ;redness;warmth Martha Jacob MD [address] [place] [address] [place], [address], [place] - [facility] 04/19/2022 18:53:19 OBGyn Episode No OBEpisode recorded.
--- OUTSIDE RECORDS SUMMARY | 2024-06-10 14:26 | XMS_ITS | Clinical Summary ---
Author Organization [facility] Address [address] [facility] [address] [place] [address] Phone Care Team Providers Care Fur Dresser Name Role Phone Neida Gabriel STEPHANIE Primary Care Provider [phone] Allergies Active Allergy Reactions Criticality Noted Date [...] patient's age to complete this topic Insurance [facility] MEDICARE [facility] MEDICARE Care Teams Fur Dresser Relationship Specialty Start Date End Date Neida Gabriel DNP [address] [facility] [place] [address] PCP - General Nurse Practitioner 11/22/21
== END 2024-06-10 13:50 | disposition home or self-care (01) ==
LOC: HO.HMCC 12:18
PROVIDERS: PCP Registered Nurse; Visit Provider Nurse Practitioner Family
DX: E11.65 Type 2 diabetes mellitus with hyperglycemia (principal); I50.30 Unspecified diastolic (congestive) heart failure; K59.00 Constipation, unspecified; Z13.9 Encounter for screening, unspecified

== ENCOUNTER → 2024-06-10 12:17 | Outpatient (BNVA) | payer MEDICARE, SELFPAY | PROVIDERS: PCP Registered Nurse; Visit Provider Nurse Practitioner Family | DX: E11.65 Type 2 diabetes mellitus with hyperglycemia (principal); I50.30 Unspecified diastolic (congestive) heart failure; K59.00 Constipation, unspecified | CPT/HCPCS: 83036; 96127; 99202 ==

== ENCOUNTER → 2024-06-20 23:59 | Outpatient (BNV) | payer MEDICARE, SELFPAY ==
--- NOTE | 2024-06-26 13:14 | MHC.OFFVIS ---
Intake Visit Reasons: Remote device check- Medtronic Allergies No Known Allergies Allergy (Verified 06/10/24 13:09) [facility] Medical History (HFpEF) heart failure with preserved ejection fraction Edema leg Hypertension Chronic kidney disease Surgical History History of tubal ligation History of kidney removal Status post carotid surgery Family History Brother Cancer Mother Heart attack Social History Alcohol intake: former Patient Tobacco Use Status: Former Tobacco user e-Cigarette/Vaping Use: Never Used service: No Current occupational status: unemployed and retired Cognitive needs: No Hearing needs: No Vision needs: No Office Procedures Cardiac Device Check Cardiac Device Check Details: Remote pacemaker report generated 06/20/2024. Pacemaker function is adequate 64257-Aodqro Cardiac Device Interrogation, pacemaker Procedure code (CPT) selection complete Assessment & Plan Assessment & Plan (1) Pacemaker: Comment: Medtronic dual chamber pacemaker. placed 11/21/[address] Silva for complete heart block. Serial number [id number]! Code(s): Z95.0 - Presence of cardiac pacemaker Category: Medical Plan: See above Coding Level of Care Code Procedure Only Diagnoses Pacemaker Z95.0 CPT Codes Cardiac Device Check - Cardiac Device 12: 12521-Nmhnfq Cardiac Device Interrogation, pacemaker ([id number])
== END ==
PROVIDERS: PCP Nurse Practitioner Family; Visit Provider Internal Medicine Cardiovascular Disease
DX: I44.2 Atrioventricular block, complete (principal); Z95.0 Presence of cardiac pacemaker
CPT/HCPCS: 93294

== ENCOUNTER 2024-06-21 11:42 | Outpatient (REF) | payer MEDICARE, SELFPAY ==
[2024-06-21 13:43] LABS: Anion Gap 14 (12-20); Blood Urea Nitrogen 59 mg/dL (9-16); Calcium 10.4 mg/dL (8.4-10.2); Carbon Dioxide 19 mmol/L (22-29); Chloride 110 mmol/L (96-108); Estimated Glomerular Filt Rate 19; Potassium 3.9 mmol/L (3.3-5.1); Sodium 139 mmol/L (135-145)
[2024-06-21 14:24] LABS: Parathyroid Hormone Intact 617.3 pg/mL (8.7-77.1)
== END 2024-06-21 11:43 | disposition home or self-care (01) ==
LOC: HO.HMGCLDS 11:42
PROVIDERS: PCP Nurse Practitioner Family; Visit Provider Internal Medicine Nephrology
DX: E21.0 Primary hyperparathyroidism (principal); I10 Essential (primary) hypertension; N18.32 Chronic kidney disease, stage 3b
CPT/HCPCS: 36415; 80051; 82310; 82565; 83970; 84520

== ENCOUNTER 2024-07-01 10:37 | Outpatient (AMB) | payer MEDICARE, SELFPAY ==
--- NOTE | 2024-07-01 10:40 | A.OFFVIS_ITS ---
Vital Signs 07/01/24 10:41 Height 5 ft 4 in Weight 211 lb 10.3 oz BMI 36.3 BP 120/82 Blood Pressure Location Lt brachial Position Sitting Pulse 87 Intake Visit Reasons: Follow up post testing Intake Note: Follow-up labs Medtronic check c/o sob with activity refused stress test Director Of Cardiac Rehabilitation Required: No Allergies No Known Allergies Allergy (Verified 06/10/24 13:09) Medication List - Last Reconciled 07/01/24 by Yosvany Haile MD albuterol sulfate 90 mcg/actuation 2 puffs inhalation Q6H PRN aspirin 81 mg PO DAILY blood sugar diagnostic ([employer] Ultra Test strips) As directed blood-glucose meter ([employer] Ultra2 Meter) As directed bumetanide 1 mg PO DAILY cholecalciferol (vitamin D3) 25 mcg PO DAILY cinacalcet 30 mg PO .3 times a week empagliflozin (Jardiance) 10 mg PO QAM furosemide 20 mg PO DAILY glipizide ER 10 mg PO DAILY hydralazine 50 mg PO BID isosorbide mononitrate ER 30 mg PO QAM lactulose 15 mL PO DAILY lancets (The PointTouch Delica Plus Lancet) As directed linaclotide (Linzess) 72 mcg PO DAILY 30 days mometasone 50 mcg/actuation 2 sprays intranasal DAILY repaglinide 1 mg PO DAILY sodium bicarbonate 650 mg PO BID umeclidinium 62.5 mcg/actuation (Incruse Ellipta) 1 inh inhalation BEDTIME vitamin B complex 1 tab PO DAILY HPI Comments Details: Dorinda comes for follow-up. She did not undergo a stress testing and/or testing for amyloidosis since we last saw her. Her blood pressure is better controlled on current medications. She takes diuretics and modifies his as per her daily activities which is fine. She was intubated and lightheadedness. She says leg edema significantly improved. She was no orthopnea, PND or abdominal distension. She was chronic kidney disease, followed by Nephrology. She denies any prolonged palpitation irregular heartbeat. No lightheadedness, syncope. [facility] Medical History (HFpEF) heart failure with preserved ejection fraction Edema leg Hypertension Chronic kidney disease Surgical History History of tubal ligation History of kidney removal Status post carotid surgery Family History Brother Cancer Mother Heart attack Social History Alcohol intake: former Patient Tobacco Use Status: Former Tobacco user e-Cigarette/Vaping Use: Never Used service: No Current occupational status: unemployed and retired Cognitive needs: No Hearing needs: No Vision needs: No Review of Systems Const Denies chills, Denies fatigue, Denies fever(s), Denies frequent falls, Denies weakness, Denies weight gain and Denies weight loss ENT Denies dizziness Card Denies chest pain, Denies leg edema, Denies lightheadedness, Denies palpitations, Reports dyspnea, Reports dyspnea on exertion, Reports orthopnea and Denies other (loss of consciousness) Resp Denies cough, Reports dyspnea and Reports dyspnea on exertion GI Denies hematochezia and Denies change in stool character Musc Denies abnormal gait, Denies muscle weakness, Denies numbness, Denies radiating pain into limb and Denies tingling Neuro Denies Abnormal speech present, Denies abnormal gait, Denies dizziness, Denies frequent falls, Denies numbness, Denies tingling and Denies weakness Endo Denies fatigue and Denies palpitations Physical Exam Vital Signs: Last Vital Signs Pulse 87 07/01/24 10:41 BP 120/82 07/01/24 10:41 BMI result Body Mass Index 36.3 Const General: cooperative, comfortable, no acute distress, alert and awake Nutritional Appearance: obese Orientation/consciousness: patient oriented x3 Limitations: ambulation with walker HEENT Head: Yes normocephalic and Yes atraumatic Neck Neck: Yes trachea midline, Yes supple and Yes JVD Resp Effort & Inspection: normal respiratory effort Auscultation: clear to auscultation bilaterally, no rales and no wheezes Cardio Jugular venous distension: JVD Palpation: normal PMI Rate: regular rate Rhythm: regular rhythm Heart sounds: S1 normal heart sound present, S2 normal heart sound present, no click, no gallops and no murmurs GI Auscultation: normal bowel sounds Skin General skin exam: no rashes or lesions noted Neuro General: patient oriented x3 and no focal motor deficits Speech: No Abnormal speech present Extrem General: No clubbing, No cyanosis and Yes edema Psych Appearance: grossly normal Office Procedures Cardiac Device Check Cardiac Device Check Details: Dual-chamber Medtronic pacemaker in place. Reprogrammed from DDD to DDDR. Battery life is excellent. Atrial sensing is excellent. Ventricular sensing could not be checked. Ventricular pacing 100% time. Atrial ventricular pacing thresholds excellent and reprogrammed to enhance battery life. Pacing lead impedance is stable 56679-CM Cardiac Device Check, pacemaker dual lead Procedure code (CPT) selection complete Assessment & Plan Assessment & Plan (1) (HFpEF) heart failure with preserved ejection fraction: Code(s): I50.30 - Unspecified diastolic (congestive) heart failure Category: Medical Plan: Heart failure with preserved ejection fraction with moderate to severe increase LV wall thickness. Could be hypertensive in nature. She does have multiple comorbidities including advanced age, chronic kidney disease. Clinically she appears to be euvolemic and well compensated current diuretic dose. Importance of diuretic regimen was discussed with her. Daily weight monitoring avoidance salt loading was discussed additional diuretics as need be. Continue Jardiance 10 mg for heart failure management as well as neurohormonal modulation. Continue aggressive blood pressure control which is on today's exam is well optimized. Importance of good blood pressure control was discussed. She does have exertional shortness of breath and advised to pursue ischemic workup as this may alter her prognostic evaluation. Also suggest PYP scan to evaluate for amyloidosis. She will think about it. (2) Pacemaker: Comment: Medtronic dual chamber pacemaker. placed 11/21/[address] Silva for complete heart block. Serial number [id number]! Code(s): Z95.0 - Presence of cardiac pacemaker Category: Medical Plan: Cardiac pacemaker in-situ for complete heart block. Pacemaker is working well. Follow remotely every 3 months. Follow up in the clinic in 6 months time. Follow up in the clinic in 6 months time, sooner p.r.n.. Thank you for allowing me to partake in his care Medications: Changed From bumetanide 1 mg PO DAILY 30 tabs 4RF To bumetanide 1 mg PO DAILY Coding Level of Care Code Est Pt Level 4 (54917) Complex EM visit Add On G2211 Diagnoses (HFpEF) heart failure with preserved ejection fraction I50.30 Pacemaker Z95.0 CPT Codes Cardiac Device Check - Cardiac Device 2: 84238-ED Cardiac Device Check, pacemaker dual lead ([id number])
[2024-07-01 10:41] VITALS: BP 120/82; PULSE 87; BMI 36.3
--- OUTSIDE RECORDS SUMMARY | 2024-07-01 12:33 | XMS_ITS | Patient Health Record ---
Author Organization [facility] [employer] Address [address] [place] [phone] Care Team Providers Care Abattoir Manager Name Role Phone SUSANNE GABRIEL Primary Care Provider ALLERGIES Allergen (clinical drug ingredient) Drug/Non Drug Allergy documented on EMR Reaction Allergy Type Onset Date Status Substance with 0-myzfcdk-0-methylgluta ryl-coenzyme A reductase inhibitor mechanism of action (substance) Statins gastritis Drug Allergy Active RESULTS Component Value Reference Range Notes HEMOGLOBIN A1c (496) Reviewed date:04/04/2024 12:18:17 PM Interpretation: Performing Lab:NL2, [facility] [id number] [place], [place] [id number] Yamile Thakur Notes/Report: FASTING:NO FASTING: NO HEMOGLOBIN A1c 9.7 <5.7 % of total [...] diagnosis of diabetes for children. REASON FOR REFERRAL No Information MEDICATIONS Medication SIG (Take, Route, Frequency, Duration) Notes Start Date End Date Status Metoprolol Tartrate 25 MG 1/2 tab Orally Twice a day for 30 days 12/04/2023 Not-Taking cloNIDine HCl 0.1 MG 1 tablet Orally once a day at bedtime for 30 days 12/04/2023 Not-Taking hydrALAZINE HCl 25 MG TAKE 1 TABLET BY MOUTH TWICE DAILY WITH FOOD for 90 Active Repaglinide 1 MG TAKE 1 TABLET BY MOUTH DAILY Orally Once a day for 90 days Active Furosemide 20 MG TAKE 2 TABLETS BY MOUTH EVERY DAY for 90 Active glipiZIDE ER 10 MG 1 tablet daily for 90 days Active One Touch/One Touch II Starter - as directed In Vitro for 100 days 04/08/2024 Active amLODIPine Besylate 10 MG 1 tablet Orally Once a day Not-Taking Ezetimibe 10 MG TAKE 1 TABLET BY MOUTH EVERY DAY for 90 Not-Taking Cinacalcet HCl 30 MG 1 tablet with food or after a meal Orally Once a day Not-Taking Tylenol 325 MG 1 tablet as needed Orally every 4 hrs PRN Not-Taking Jardiance 25 MG 1 tablet Orally Once a day Not-Taking Sodium Bicarbonate 650 MG 1 tablet Orally Three times a day Active Estradiol 0.1 MG/GM 1 gram vaginally daily for 14 days, then decrease frequency to twice weekly Vaginal once a day as directed for 90 days 11/30/2022 Not-Taking Aspirin 81 81 MG 1 tablet Orally Once a day Active Albuterol Sulfate HFA 108 (90 Base) MCG/ACT 1 puff as needed Inhalation every 4 hrs Active Metoprolol Tartrate 25 MG 1/2 tab Orally Twice a day for 90 days Not-Taking hydrALAZINE HCl 10 MG 1 tablet with food Orally Twice a day Not-Taking Azelastine-Fluticas one 137-50 MCG/ACT 1 spray in each nostril Nasally Twice a day for 30 days 06/21/2023 Not-Taking Isosorbide Mononitrate ER 30 MG 1 tablet in the morning Orally Once a day Active Azelastine HCl 137 MCG/SPRAY 1 puff in each nostril Nasally Twice a day for 90 days 06/21/2023 Not-Taking Vitamin B Complex - as directed Orally Active Vitamin D 25 MCG (1000 UT) 1 tablet Orally Once a day Active One Touch Delica Lancets - as directed for 100 days 04/08/2024 Active INCRUSE ELLIPTA 62.5MCG ORAL INH 30 INHALE 1 PUFF BY MOUTH EVERY 24 HOURS DOSES SHOULD BE TAKEN AT LEAST 24 HOURS APART INCRUSE ELLIPTA 62.5MCG ORAL INH 30 *Reorder from [employer] for eRx and Interaction Alerts* 11/02/2021 Active Clopidogrel Bisulfate 75 MG Oral CLOPIDOGREL 75 MG TABLET 11/30/2020 Not-Taking PROBLEMS Problem Type ICD Code Onset Dates Problem Status W/U Status Risk SNOMED Code Notes Problem Type 2 diabetes mellitus with diabetic chronic kidney disease (E11.22) Active confirmed Diabetic renal disease (154808670) Problem Mixed hyperlipidemia (E78.2) Active confirmed Mixed hyperlipi demia (498601144) Problem Hypercalcemia (E83.52) Active confirmed Hypercalcemia (52103733) Problem Essential (primary) hypertension (I10) Active confirmed Essential hypertension (16183077) Problem Unspecified systolic (congestive) heart failure (I50.20) Active confirmed Systolic he art failure (377908086) Problem Chronic sinusitis, unspecified (J32.9) Active confirmed Chronic sinusitis (28825019) Problem Unspecified asthma, uncomplicated (J45.909) Active confirmed Uncomplicated a sthma (disorder) (273726521) Problem Abnormal metabolic state due to diabetes mellitus (E11.9) Active confirmed Abnormal metabo lic state due to diabetes mellitus (101451356) Problem Hypercholesteremia (E78.00) Active confirmed hypercholestero lemia (disorder) (86512248) Problem Dyspareunia in female (N94.10) Active confirmed Pain in fema le genitalia on intercourse (23871919) Problem Constipation, unspecified constipation type (K59.00) Active confirmed Constipation (64303085) Problem Arthritis (M19.90) Active confirmed Art hritis (0148842) VITAL SIGNS Heart Rate 92 /min 04/03/2024 Height-cm 165.10 cm 04/03/2024 Oximetry 97 % 04/03/2024 Blood pressure diastolic 78 mm Hg 04/03/2024 Weight-kg 93.53 kg 04/03/2024 Height 65 in 04/03/2024 Blood pressure systolic 142 mm Hg 04/03/2024 Weight 206.2 lbs 04/03/2024 BMI 34.31 kg/m2 04/03/2024 Encounters Encounter Location Date Provider Diagnosis [address] [place] [id number] 08/22/2023 SUSANNE GABRIEL [facility], [address] [id number] 12/04/2023 SUSANNE GABRIEL Medicare annual well ness visit, subsequent Z00.00 ; Depression screening Z13.31 ; Encounter for screening examination for mental health and behavioral disorders, unspecified Z13.30 ; Advance directive discussed with patient Z71.89 ; Mixed hyperlipidemia E78.2 ; Edema, peripheral R60.9 ; Essential (primary) hypertension I10 ; Unspecified systolic (congestive) heart failure I50.20 and Abnormal metabolic state due to diabetes mellitus E11.[address] [id number] 02/27/[address] [id number] 06/03/[address] [id number] 06/05/[address] [id number] 07/12/2023 [facility] Essential (primary) hypertension I10 ; Unspecified systolic (congestive) heart failure I50.20 and Constipation, unspecified constipation type K59.[address] [id number] 08/24/2023 [facility] Unspecified systolic (congestive) heart failure I50.20 ; Arthritis M19.90 and Hypercholesteremia E78.[address] [id number] 01/09/2024 [facility] Unspecified systolic (congestive) heart failure I50.20 ; Essential (primary) hypertension I10 and Abnormal metabolic state due to diabetes mellitus E11.[address] [id number] 04/03/2024 [facility] Type 2 diabetes willie itus with diabetic chronic kidney disease E11.22 ; Essential (primary) hypertension I10 and Constipation, unspecified constipation type K59.[address] [id number] 07/05/[address] [id number] 10/02/[address] [id number] 11/14/[address] [id number] 12/04/2023 [facility] [address] [facility] [facility] [place] [id number] 02/09/2024 [address]USANNE [address] [place] [id number] 03/05/2024 [address] [place] [id number] 04/04/2024 SUSANNE [facility], [address] [place], [place] [id number] 04/08/2024 SUSANNE GABRIEL ASSESSMENTS Encounter Date Diagnosis Assessment Notes Treatment Notes Treatment Clinical Notes Section Notes 07/12/2023 Essential (primary) hypertension (ICD-10 - I10) pt only taking 10mg of hydralazine BID. increase hydralazine dose. F/u if pt has worsening muscle/joint aching (history) 07/12/2023 Unspecified systolic (congestive) heart failure (ICD-10 - I50.20) + 2 BLE, rhonchi to LLL. resume furosemide and jardiance together daily. can seperate administration times if pt has appointments/nee ds to leave house. 08/24/2023 Unspecified systolic (congestive) heart failure (ICD-10 - I50.20) just saw Dr. Gallegos's will be following up with him in 6 weeks, will plan on seeing her for CPE shortly thereafter-he did start her on isorsibide and sodium tabs. She will see Dr. Jean as well but not sure she will stay, we will discuss at her CPE 12/04/2023 Medicare annual wellness visit, subsequent (ICD-10 - Z00.00) Recently had pacemaker implanted. Recovering well, did not have a great experience there. We discussed short and terminal computer operator health goals. Exam today was without concerns, states feels safe at home. Reports having working CO2 and Smoke detectors. Encouraged to wear sunscreen. Reports wearing seatbelt when driving or as a passenger. Encourage regular exercise of moderate intensity 30 min 5x/week., Well Visit, Over 65: Care Instructions material was published, Well Visit, Over 65: Care Instructions material was published, Nutrition for Older Adults: Care Instructions material was published 12/04/2023 Depression screening (ICD-10 - Z13.31) PHQ9 Score: 8 moderate risk for major depressive disorder, she states she is at baseline and feels this is acceptable, much of this is related to QOL and her medical conditions She was told she would be referred to 01/09/2024 Unspecified systolic (congestive) heart failure (ICD-10 - I50.20) 04/03/2024 Type 2 diabetes mellitus with diabetic [...] No changes made, medication(s) refilled as indicated 01/09/2024 Essential (primary) hypertension (ICD-10 - I10) 12/04/2023 Encounter for screening examination for mental health and behavioral disorders, unspecified (ICD-10 - Z13.30) CAGE Questions Adapted to Include Drug Use (CAGE-AID) 1. Have you ever felt you ought to cut down on your drinking or drug use? N 2. Have people annoyed you by criticizing your drinking or drug use? N 3. Have you felt bad or guilty about your drinking or drug use? N 4. Have you ever had a drink or used drugs first thing in the morning to steady your nerves or to get rid of a hangover (eye-roof tiler)? N Total Score: 0 Scoring: Item responses on the CAGE questions are scored 0 for no and 1 for yes answers, with a higher score being an indication of alcohol problems. A total score of two or greater is considered clinically significant. 07/12/2023 Constipation, unspecified constipation type (ICD-10 - K59.00) discussed okay to take colace daily, in morning or at night as long as pt is keeping up with PO hydration 08/24/2023 Arthritis (ICD-10 - M19.90) Condition is stable and well controlled on current treatment. No changes made, medication(s) refilled as indicated 08/24/2023 Hypercholesteremia (ICD-10 - E78.00) Condition is stable and well controlled on current treatment. No changes made, medication(s) refilled as indicated 12/04/2023 Advance directive discussed with patient (ICD-10 - Z71.89) Advance Directives: Care Instructions material was published 04/03/2024 Constipation, unspecified constipation type (ICD-10 - K59.00) Discussed importance of bowel health Increase water and fiber in diet Start Lactulose 15 mL daily until f/u 01/09/2024 Abnormal metabolic state due to diabetes mellitus (ICD-10 - E11.9) 12/04/2023 Mixed hyperlipidemia (ICD-10 - E78.2) Condition is stable and well controlled on current treatment. No changes made, medication(s) refilled as indicated, High Cholesterol: Care Instructions material was published 12/04/2023 Edema, peripheral (ICD-10 - R60.9) [place] [facility] [place], they started her on amlodipine but this had already been trialed in the past and caused her edema so we d/c this prior, she states no one asked her about her medications. She will be seeing Dr. Shairf in December with labs, I would like this to be moved up as I don't think she can wait until 12/04/2023 Essential (primary) hypertension (ICD-10 - I10) Was [place] [facility] [place], they d/c'd her metoprolol and started amlodipine. Unfortunately, she had a reaction to amlodipine previously and it was discontinued by this video games storywriter. She will be seeing a new rehabilitation team lead at [facility] on Monday. I will d/c the amlodipine today as she has signficant ankle edema and cannot wear shoes. I will restart the metoprolol 12.5 mg until she sees cardiology on Monday and they can determine if appropriate. Her BP today is elevated and she is taking all of her other medications as prescribed. She did not take her furosemide since she was coming here and would have had to deal with incontinence of urine. This is likely contributing to her edema but given her previous experience with amlodipine this is the best course of action for now. 12/04/2023 Unspecified systolic (congestive) heart failure (ICD-10 - I50.20) 12/04/2023 Abnormal metabolic state due to diabetes mellitus (ICD-10 - E11.9) 12/04/2023 Other Advance Directives: Care Instructions material was published, Learning About [employer] [place] material was published 07/12/2023 Other Keisha PizarroN, TANK BUILDER HELPER student saw the patient and formulated the note under direct supervision of Dr. Susanne Gabriel, DNP. Total time spent with patient 27 minutes which includes face to face visit, education and coordination of care. Total time spent with patient 32 minutes which includes face to face visit, education and coordination of care. 08/24/2023 Other Total time spen t with patient 20 minutes which includes face to face visit, education and coordination of care. 01/09/2024 Other Well controlled, recently saw cardiology for f/u s/p pacemaker implant-healing well no concerns. She sees pulmonary in February Saw Dr. Sharif a couple weeks ago (see note in pt docs), no changes made. Renal function is stable. Dorinda will be seen here every 2 months for f/u Total time spent with patient 40 minutes which includes face to face visit, education and coordination of care. 04/03/2024 Other Total time spen t with patient 44 minutes which includes face to face visit, education and coordination of care. PLAN OF TREATMENT No Information Insurance Providers Payer Name Payer Address Payer Phone Subscriber Number Group Number Insured Name Patient Relationship to Insured Coverage Start Date Coverage End Date [facility] [address] [address] [place] [address] [id number] DORINDA TERAN Self - patient is the insured MEDICAL (GENERAL) HISTORY Medical History History ICD Code Lt kidney CA (removed) Arthritis - hands Dentures - Partial, top Depression HTN Urine Incontinence Cataract - Lt. Sinus infections Type 2 Diabetes Surgical History Surgery Date(Month/Year) Tubal ligation Lt kidney removed Pacemaker 10/2023
--- OUTSIDE RECORDS SUMMARY | 2024-07-01 12:33 | XMS_ITS | Clinical Summary ---
Author Organization [facility] Address [address] [facility] [address] [place] [address] Phone Care Team Providers Care Transit Clerk Name Role Phone Neida Gabriel STEPHANIE Primary [...] Diabetes: Visual Foot Exam 11/15/2022 Influenza Vaccine (Season Ended) 2024 Pneumococcal Vaccine: 65+ Years Completed 01/22/2019, 02/27/2017, 02/08/2016, Additional history exists Hepatitis B Vaccine Aged Out No longe r eligible based on patient's age to complete this topic Insurance [facility] MEDICARE [facility] MEDICARE Care Teams Transit Clerk Relationship Specialty Start Date End Date Neida Gabriel DNP [address] [facility] [place] [address] PCP - General Nurse Practitioner 11/22/21
--- OUTSIDE RECORDS SUMMARY | 2024-07-01 12:33 | XMS_ITS ---
Author Organization [facility], [facility] Address [address] [place] [phone] Care Team Providers Care Poultryman Name Role Phone SUSANNE GABRIEL Primary Care Provider [phone] REASON FOR VISIT f/u labs, 2M wellness Encounters Encounter Location Date Provider Diagnosis [facility], [address] [id number] 06/03/2024 SUSANNE GABRIEL PLAN OF TREATMENT No Information Progress Notes * LEONARD TERANOB:[birth year] (84 yo F)Acc No.[id number]:06/03/2024 Progress Notes Patient:??CHAO TERAN Provider:??Susanne Gabriel DNP :1940?Age:84 Y?Sex:Fe male Date:06/03/2024 Address:[address] [place], [place] [phone] Subjective: * Chief Complaints: * ?1. f/u labs, 2M wellne ss. * Medical History:?? Objective: Assessment: Plan: * Treatment: * Billing Information: * Visit Code:?? * Procedure Codes:?? * Sign off status: Pending * Provider:??Susanne Gabriel DNP Date:??0 06/03/2024
--- OUTSIDE RECORDS SUMMARY | 2024-07-01 12:33 | XMS_ITS | Data Portability ---
Author Organization [facility] [id number] Address [address] [place] [address] Assessment No assessment recorded. Plan of Treatment Reminders Order Date Submit Date Provider Last Modified By Organization Details Last Modified Time Details Appointments None recorded. Lab None recorded. Referral None recorded. Procedures None recorded. Surgeries None recorded. Imaging None recorded. Medication Orders cephalexin 500 mg capsule 2022 0[address] [id number], [address] [place], [place], [id number], 18:51:14 Patient TargetsNo targets recorded. Patient Instructions Encounter Date Encounter Id Patient Instructions Last Modified By Organization Details Last Modified Time 04/19/2022 [id number] foot pain: care instructions Not available 04/19/2022 18:51:06 diabetic foot ulcer: care instructions Not available 04/19/2022 18:53:16 Reason for Referral None Reported. Problems Name Problem SNOMED Code Status Onset Date Resolution Date Notes Provider Name and Address Organization Details Recorded Time Diabetes mellitus 17476833 Active 2022 SID Syed [facility] 3 18:22:16 Chronic obstructive pulmonary disease 84773352 Active 2022 EDGARDO mendes [place] [facility] 3 18:22:36 Hypertensive disorder 53787694 Active 2022 EDGARDO mendes [place] [facility] 3 18:22:59 Heart disease 35697348 Active 2022 SID Syed [facility] 3 18:23:20 Renal failure syndrome 45626805 Active 2022 EDGARDO FERNANDO cinthya [facility] 18:23:28 Malignant tumor of kidney 847026704 Active 2022 EDGARDO TRUONGARA cinthya, [facility] 18:24:29 Problem Notes None recorded. Procedures Surgical History Date Name Laterality Status Provider Name and Address Organization Details Recorded Time kidney excision completed EDGARDO KING [facility] 04/19/2022 18:24:42 Xcapsl ctrc rmvl cplx wo ecp completed EDGARDO KING [facility] 04/19/2022 18:26:47 Imaging Results None recorded. Procedure [...] Last Updated DateTime 157.48 cm 39.5 kg/m2 58070.9 5 g 96.4 [degF] 18 /min 85 /min 99 % 99 % 200 mm[Hg] 99 mm[Hg] EDGARDO KING [place] - [facility] 18:26:39 Date Recorded Systolic blood pressure Diastolic blood pressure Provider Name and Address Organization Details Last Updated DateTime 04/19/2022 185 mm[Hg] 100 mm[Hg] Martha Jacob MD [address] [facility] [place], [address], [place] - [facility] 04/19/2022 18:46:36 Social [...] SNOMED-CT Code Diagnosis ICD10 Code Diagnosis Note [id number] [address] [place] [address] 07/24/2016 10:36:51 07/24/2016 11:55:48 [id number] [address] [place] [address] 06/05/2016 14:33:22 06/05/2016 15:53:13 [id number] [address] [place] [address] 01/26/2017 10:23:14 01/26/2017 11:17:11 [id number] [address] [place] [address] 12/03/2015 10:36:54 12/03/2015 11:05:12 [id number] [address] [place] [address] 07/17/2016 10:40:47 07/17/2016 11:55:10 [id number] [address] [place] [address] 12/06/2015 11:33:08 12/06/2015 12:41:09 [id number] [address] [place] [address] 11/30/2016 11:03:47 11/30/2016 12:56:29 [id number] [address] [place] [address] 05/30/2019 11:33:59 05/30/2019 12:13:40 [id number] Martha Jacob MD [address] [place] [address] 04/19/2022 17:06:03 04/19/2022 18:56:24 Diabetic foot ulcer 352015240 E13.621 There is Callous formation over a foot ulcer and will need to see Podiatry for Debridemen t and assessment for Osteomylet is Essential hypertension 68483301 I10 Patient aware that this is dangerous [...] Member ID Guarantor Name 07/24/2016 1 [place]: [employer] Dorinda Nelsone [id number] Becky 07/24/2016 2 [facility] (MEDICARE SUPPLEMENT) Dorinda Nelsone [id number] Becky 11/30/2016 1 [place] Dor[address] Becky [id number] Becky 11/30/2016 2 [facility] (MEDICARE SUPPLEMENT) [address] Becky [id number] Becky 01/26/2017 1 [place] [employer] Dornida Yang Becky [id number] Becky 01/26/2017 2 [facility] (MEDICARE SUPPLEMENT) [address] Becky [id number] Dorinda Gaviria 05/30/2019 1 [place] Dorinda Gaviria [id number] Dorinda Gaviria 05/30/2019 2 [facility] (MEDICARE SUPPLEMENT) Dorinda Gaviria [id number] Dorinda Gaviria 04/19/2022 [facility] (MEDICARE REPLACEMENT/A DVANTAGE - PPO) [id number] Dorinda Gaviria [id number] Dorinda Gaviria Notes Date Note Type Note Provider Name and Address Organization Details Recorded Time 04/19/2022 text/html Foot/Ankle UCReported bypatient.Locatio n:right; lateral Problemswelling; pain non traumatic Severity:severe Associated Symptoms:no numbness;swelling ;redness;warmth Martha Jacob MD [address] [place] [address] [place], [address], [place] - [facility] 04/19/2022 18:53:19 OBGyn Episode No OBEpisode recorded.
--- OUTSIDE RECORDS SUMMARY | 2024-07-01 12:33 | XMS_ITS | Continuity of Care Document ---
Author Organization [facility] [address] [facility] [address] [place] [address] Phone [phone] Social History Type Date Description Comments Sex Unknown Medical Devices Description No Information Available Encounters Description No Information Available Assessments Description No Information Available Plan of Treatment No Information Available Functional Status Description No Information Available Mental Status Description No Information Available Referrals Description No Information Available
--- OUTSIDE RECORDS SUMMARY | 2024-07-01 12:33 | XMS_ITS ---
Author Organization [facility], [facility] Address [address] [place] [phone] Care Team Providers Care Small Battery Plate Assembler Name Role Phone SUSANNE STEINER Primary Care Provider REASON FOR VISIT Refills Encounters Encounter Location Date Provider Diagnosis [facility], [address] [phone] 04/08/2024 SUSANNE STEINER PLAN OF TREATMENT No Information Progress Notes * KEYON TERANEDOB:[birth year] (84 yo F)Acc No.[id number]:04/08/2024 Patient:??CHAO TERAN :1940?Age:84 Y?Sex:Fe male Address:[address] [place] [id number] * true * Date:??
--- OUTSIDE RECORDS SUMMARY | 2024-07-01 12:33 | XMS_ITS | Clinical Summary ---
Author Organization [facility] Address [address] [place] [address] Care Team Providers Care Pulp Mill Operator Name Role Phone Smith Padgett MD Primary Care Provider [phone] Allergies Active Allergy Reactions Criticality Noted Date [...] age to complete this topic Care Teams Pulp Mill Operator Relationship Specialty Start Date End Date Smith Padgett MD [address] [address] PCP - General Internal Medicine 11/04/16
--- OUTSIDE RECORDS SUMMARY | 2024-07-01 12:33 | XMS_ITS | Encounter Summary ---
Author Organization [facility] Address [address] [facility] [address] [place] [address] Phone Care Team Providers Care Welfare Eligibility Worker Name Role Phone Neida Gabriel DNP Primary Care Provider [phone] Reason for Visit * Reason Comments Med Refill Encounter Details Date Type Department Care Team (Late st Contact Info) Description 05/25/2022 Refill [facility] [address] [place] [phone] Aldo Bush MD Social History Tobacco Use [...] on filedocumented in this encounter Care Teams Welfare Eligibility Worker Relationship Specialty Start Date End Date Neida Gabriel DNP [address] [facility] 3 [place] [address] PCP - General Nurse Practitioner 11/22/21 documented as of this encounter
--- OUTSIDE RECORDS SUMMARY | 2024-07-01 12:33 | XMS_ITS ---
Author Organization [facility], [facility] Address [address] [place] [phone] Care Team Providers Care Machine Coil Assembler Name Role Phone SUSANNE GABRIEL Primary Care Provider [phone] REASON FOR VISIT 6/M CPE Encounters Encounter Location Date Provider Diagnosis [facility], [address] [phone] 06/05/2024 SUSANNE GABRIEL PLAN OF TREATMENT No Information Progress Notes * LEONARD TERANOB:[birth year] (84 yo F)Acc No.[id number]:06/05/2024 Progress Note Patient:??CHAO TERAN Provider:??Susanne Gabriel DNP :1940?Age:84 Y?Sex:Fe male Date:06/05/2024 Address:[address] [place], [place] [phone] Subjective: * Chief Complaints: * ?1. 6/M CPE. * Medical History:?? Objective: Assessment: Plan: * Treatment: Care Plan: * Problems:?? * Billing Information: * Visit Code:?? * Procedure Codes:?? * Sign off status: Pending * Provider:??Susanne Gabriel DNP Date:??0 06/05/2024
== END 2024-07-01 11:18 | disposition home or self-care (01) ==
PROVIDERS: PCP Registered Nurse; Visit Provider Internal Medicine Cardiovascular Disease
DX: I50.30 Unspecified diastolic (congestive) heart failure (principal); Z95.0 Presence of cardiac pacemaker
CPT/HCPCS: 93280; 99214; G2211

== ENCOUNTER → 2024-07-01 10:37 | Outpatient (BNVA) | payer MEDICARE, SELFPAY | PROVIDERS: PCP Registered Nurse; Visit Provider Internal Medicine Cardiovascular Disease | DX: I50.30 Unspecified diastolic (congestive) heart failure (principal); Z45.018 Encounter for adjustment and management of other part of cardiac pacemaker | CPT/HCPCS: 93280; 99212 ==

== ENCOUNTER 2024-07-02 11:42 | Outpatient (AMB) | payer MEDICARE, SELFPAY ==
--- NOTE | 2024-07-02 11:57 | HO.NEPHOV_ITS ---
Vital Signs 07/02/24 11:58 Height 5 ft 11 in Weight 212 lb BMI 29.6 BP 132/60 Blood Pressure Location Lt brachial Position Sitting Pulse 85 Pulse Source Pulse Oximeter Pulse Oximetry (%) 96 Oxygen Delivery Method Room Air Intake Visit Reasons: 2mon follow up w/labs-Conf Accompanied by: Self / Same As Patient Allergies No Known Allergies Allergy (Verified 07/02/24 11:57) HPI Comments Details: Dorinda was seen in follow-up of her chronic kidney disease, hypertension and hypercalcemia. She has H/O hypertensive urgency and complete heart block with development of RADHA which has resolved . She had permanent pacemaker. Her BP is at goal . She does not have any chest pain, shortness of breath, nausea, vomiting, diarrhea, worsening pedal edema, urinary symptoms. She is avoiding nonsteroidal anti-inflammatory medications and is trying to keep up with good hydration. Her serum creatinine is back to baseline. [facility] Medical History (HFpEF) heart failure with preserved ejection fraction Edema leg Hypertension Chronic kidney disease Surgical History History of tubal ligation History of kidney removal Status post carotid surgery Family History Brother Cancer Mother Heart attack Social History Alcohol intake: former Patient Tobacco Use Status: Former Tobacco user e-Cigarette/Vaping Use: Never Used service: No Current occupational status: unemployed and retired Cognitive needs: No Hearing needs: No Vision needs: No Review of Systems Const All systems reviewed & are unremarkable except as noted in HPI and below Physical Exam Vital Signs: Last Vital Signs Pulse 85 07/02/24 11:58 BP 132/60 07/02/24 11:58 Pulse Ox 96 07/02/24 11:58 Oxygen Delivery Method Room Air 07/02/24 11:58 BMI result Body Mass Index 29.6 Const General: comfortable and no acute distress Orientation/consciousness: patient oriented x3 HEENT Head: Yes normocephalic Mouth: Normal oral and palatal mucosa present Eyes EOM: EOMs intact bilaterally Neck Neck: Yes supple Resp Auscultation: clear to auscultation bilaterally Cardio Jugular venous distension: no JVD Rate: regular rate GI Palpation (GI): Soft to palpation Auscultation: normal bowel sounds General: Yes no CVA tenderness Back/Spine/Pelvis Back: no CVA tenderness Skin General skin exam: no rashes or lesions noted Neuro General: patient oriented x3 and moves all extremities Extrem General: Yes no pedal edema Results Reviewed Nephrology Results: Sodium 139 mmol/L (135-145) 06/21/24 Potassium 3.9 mmol/L (3.3-5.1) 06/21/24 Chloride 110 mmol/L (96-108) H 06/21/24 Carbon Dioxide 19 mmol/L (22-29) L 06/21/24 BUN 59 mg/dL (9-16) H 06/21/24 Creatinine 2.39 mg/dL (0.5-1.4) H 06/21/24 Calcium 10.4 mg/dL (8.4-10.2) H 06/21/24 PTH Intact 617.3 pg/mL (8.7-77.1) H 06/21/24 Assessment & Plan Assessment & Plan (1) Metabolic acidosis: Code(s): E87.20 - Acidosis, unspecified Category: Medical (2) Primary hyperparathyroidism: Code(s): E21.0 - Primary hyperparathyroidism Category: Medical (3) Hypercalcemia: Code(s): E83.52 - Hypercalcemia Category: Medical (4) Hypertension: Code(s): I10 - Essential (primary) hypertension Category: Medical Qualifiers: Hypertension type: primary hypertension Qualified Code(s): I10 - Essential (primary) hypertension (5) CKD (chronic kidney disease) stage 3, GFR 30-59 ml/min: Code(s): N18.30 - Chronic kidney disease, stage 3 unspecified Category: Medical Qualifiers: Chronic kidney disease stage 3 subtype: stage 3b (GFR 30-44) Qualified Code(s): N18.32 - Chronic kidney disease, stage 3b Magi Seth has chronic kidney disease and longstanding hypertension. She has a new PPM. She is on metoprolol, hydralazine and Imdur . She should continue Bumetanide 1 mg AM. She can continue 650 mg p.o. of NaHCO3 b.i.d.. She is on Jardiance. She can continue on cinacalcet 60 mg three times a week. All her questions and concerns were addressed promptly. Follow-up given Orders: Orders Creatinine 3 Months E21.0 - Primary hyperparathyroidism, E83.52 - Hypercalcemia, E87.20 - Acidosis, unspecified, I10 - Essential (primary) hypertension, N18.32 - Chronic kidney disease, stage 3b Calcium 3 Months E21.0 - Primary hyperparathyroidism, E83.52 - Hypercalcemia, E87.20 - Acidosis, unspecified, I10 - Essential (primary) hypertension, N18.32 - Chronic kidney disease, stage 3b Parathyroid Hormone Intact 3 Months E21.0 - Primary hyperparathyroidism, E83.52 - Hypercalcemia, E87.20 - Acidosis, unspecified, I10 - Essential (primary) hypertension, N18.32 - Chronic kidney disease, stage 3b Blood Urea Nitrogen 3 Months E21.0 - Primary hyperparathyroidism, E83.52 - Hypercalcemia, E87.20 - Acidosis, unspecified, I10 - Essential (primary) hypertension, N18.32 - Chronic kidney disease, stage 3b Electrolytes 3 Months E21.0 - Primary hyperparathyroidism, E83.52 - Hypercalcemia, E87.20 - Acidosis, unspecified, I10 - Essential (primary) hypertension, N18.32 - Chronic kidney disease, stage 3b Coding Level of Care Code Est Pt Level 4 (30674) Diagnoses Metabolic acidosis E87.20 Primary hyperparathyroidism E21.0 Hypercalcemia E83.52 Primary hypertension I10 Hypertension type: primary hypertension Stage 3b chronic kidney disease N18.32 Chronic kidney disease stage 3 subtype: stage 3b (GFR 30-44)
[2024-07-02 11:58] VITALS: BP 132/60; PULSE 85; O2SAT 96; BMI 29.6
--- OUTSIDE RECORDS SUMMARY | 2024-07-02 14:22 | XMS_ITS ---
Author Organization [facility], [facility] Address [address] [place] [phone] Care Team Providers Care Instructor Business Education Name Role Phone SUSANNE STEINER Primary Care Provider [phone] REASON FOR VISIT Refills Encounters Encounter Location Date Provider Diagnosis [facility], [address] [phone] 04/08/2024 SUSANNE STEINER PLAN OF TREATMENT No Information Progress Notes * KEYON TERANEDOB:[birth year] (84 yo F)Acc No.[id number]:04/08/2024 Patient:??CHAO TERAN :1940?Age:84 Y?Sex:Fe male Address:[address] [place] [phone] * true * Date:??
--- OUTSIDE RECORDS SUMMARY | 2024-07-02 14:22 | XMS_ITS | Encounter Summary ---
Author Organization [facility] Address [address] [facility] 200 [place] [address] Phone Care Team Providers Care Celery Packer Name Role Phone Neida Gabriel DNP Primary Care Provider [phone] Reason for Visit * Reason Comments Med Refill Encounter Details Date Type Department Care Team (Late st Contact Info) Description 05/25/2022 Refill [facility] [address] [place] [phone] Aldo Bush MD Social History Tobacco Use [...] on filedocumented in this encounter Care Teams Celery Packer Relationship Specialty Start Date End Date Neida Gabriel DNP [address] [facility] 3 [place] [address] PCP - General Nurse Practitioner 11/22/21 documented as of this encounter
--- OUTSIDE RECORDS SUMMARY | 2024-07-02 14:22 | XMS_ITS | Clinical Summary ---
Author Organization [facility] Address [address] [place] [address] Care Team Providers Care Insurance Agent Name Role Phone Smith Padgett MD Primary Care Provider [phone] Allergies Active Allergy Reactions Criticality Noted Date [...] age to complete this topic Care Teams Insurance Agent Relationship Specialty Start Date End Date Smith Padgett MD [address] [address] PCP - General Internal Medicine 11/04/16
--- OUTSIDE RECORDS SUMMARY | 2024-07-02 14:22 | XMS_ITS | Data Portability ---
Author Organization [facility] [address] Address [address] [place] [address] Assessment No assessment recorded. Plan of Treatment Reminders Order Date Submit Date Provider Last Modified By Organization Details Last Modified Time Details Appointments None recorded. Lab None recorded. Referral None recorded. Procedures None recorded. Surgeries None recorded. Imaging None recorded. Medication Orders cephalexin 500 mg capsule 2022 023 [id number], [address] [place], [place], [id number], 18:51:14 Patient TargetsNo targets recorded. Patient Instructions Encounter Date Encounter Id Patient Instructions Last Modified By Organization Details Last Modified Time 04/19/2022 [id number] foot pain: care instructions Not available 04/19/2022 18:51:06 diabetic foot ulcer: care instructions Not available 04/19/2022 18:53:16 Reason for Referral None Reported. Problems Name Problem SNOMED Code Status Onset Date Resolution Date Notes Provider Name and Address Organization Details Recorded Time Diabetes mellitus 53727938 Active 2022 SID Syed [facility] 3 18:22:16 Chronic obstructive pulmonary disease 70385611 Active 2022 EDGARDO mendes PA [facility] 3 18:22:36 Hypertensive disorder 77569902 Active 2022 EDGARDO mendes PA [facility] 3 18:22:59 Heart disease 13862504 Active 2022 SID Syed [facility] 3 18:23:20 Renal failure syndrome 30030469 Active 2022 EDGARDO FERNANDO cinthya [facility] 18:23:28 Malignant tumor of kidney 273202373 Active 2022 EDGARDO TRUONGARA cinthya, [facility] 18:24:29 Problem Notes None recorded. Procedures Surgical History Date Name Laterality Status Provider Name and Address Organization Details Recorded Time kidney excision completed EDGARDO KING [facility] 04/19/2022 18:24:42 Xcapsl ctrc rmvl cplx wo ecp completed EDGARDO KING [facility] 04/19/2022 18:26:47 Imaging Results None recorded. [...] Last Updated DateTime 157.48 cm 39.5 kg/m2 53317.9 5 g 96.4 [degF] 18 /min 85 /min 99 % 99 % 200 mm[Hg] 99 mm[Hg] EDGARDO KING [place] - [facility] 18:26:39 Date Recorded Systolic blood pressure Diastolic blood pressure Provider Name and Address Organization Details Last Updated DateTime 04/19/2022 185 mm[Hg] 100 mm[Hg] Martha Jacob MD [address] [facility] [place], [address], [place] - [facility] 04/19/2022 18:46:36 Social [...] SNOMED-CT Code Diagnosis ICD10 Code Diagnosis Note [id number] [address] [place] [address] 07/24/2016 10:36:51 07/24/2016 11:55:48 [id number] [address] [place] [address] 06/05/2016 14:33:22 06/05/2016 15:53:13 [id number] [address] [place] [address] 01/26/2017 10:23:14 01/26/2017 11:17:11 [id number] [address] [place] [address] 12/03/2015 10:36:54 12/03/2015 11:05:12 [id number] [address] [place] [address] 07/17/2016 10:40:47 07/17/2016 11:55:10 [id number] [address] [place] [address] 12/06/2015 11:33:08 12/06/2015 12:41:09 [id number] [address] [place] [address] 11/30/2016 11:03:47 11/30/2016 12:56:29 [id number] [address] [place] [address] 05/30/2019 11:33:59 05/30/2019 12:13:40 [id number] Martha Jacob MD [address] [place] [address] 04/19/2022 17:06:03 04/19/2022 18:56:24 Diabetic foot ulcer 239074179 E13.621 There is Callous formation over a foot ulcer and will need to see Podiatry for Debridemen t and assessment for Osteomylet is Essential hypertension 35837006 I10 Patient aware that this is dangerous [...] Member ID Guarantor Name 07/24/2016 1 [place]: [employer] Dorinda Nelsone [id number] Becky 07/24/2016 2 [facility] (MEDICARE SUPPLEMENT) Dorinda Nelsone [id number] Becky 11/30/2016 1 [place]: [place] [employer] Dorinda [address] Becky [id number] [address] Becky 11/30/2016 2 [facility] (MEDICARE SUPPLEMENT) Dor[address] Becky [id number] Becky 01/26/2017 1 [place] [employer] Dorinda Yang Becky [id number] Becky 01/26/2017 2 [facility] (MEDICARE SUPPLEMENT) Dorinda [address] Becky [id number] Dorinda Gaviria 05/30/2019 1 [place] [employer] Dorinda Gaviria [id number] 94 Dorinda Gaviria 05/30/2019 2 [facility] (MEDICARE SUPPLEMENT) Dorinda Gaviria [id number] Dorinda Gaviria 04/19/2022 [facility] (MEDICARE REPLACEMENT/A DVANTAGE - PPO) [id number] Dorinda Gaviria [id number] Dorinda Gaviria Notes Date Note Type Note Provider Name and Address Organization Details Recorded Time 04/19/2022 text/html Foot/Ankle UCReported bypatient.Locatio n:right; lateral Problemswelling; pain non traumatic Severity:severe Associated Symptoms:no numbness;swelling ;redness;warmth Martha Jacob MD [address] [place] [address] [place], [address], [place] - [facility] 04/19/2022 18:53:19 OBGyn Episode No OBEpisode recorded.
--- OUTSIDE RECORDS SUMMARY | 2024-07-02 14:22 | XMS_ITS | Continuity of Care Document ---
Author Organization [facility] [address] [facility] [address] [place] [address] Phone [phone] Social History Type Date Description Comments Sex Unknown Medical Devices Description No Information Available Encounters Description No Information Available Assessments Description No Information Available Plan of Treatment No Information Available Functional Status Description No Information Available Mental Status Description No Information Available Referrals Description No Information Available
--- OUTSIDE RECORDS SUMMARY | 2024-07-02 14:22 | XMS_ITS ---
Author Organization [facility], [facility] Address [address] [place] [phone] Care Team Providers Care Garage Door Installer Name Role Phone SUSANNE GABRIEL Primary Care Provider REASON FOR VISIT 6/M CPE Encounters Encounter Location Date Provider Diagnosis [facility], [address] [phone] 06/05/2024 SUSANNE GABRIEL PLAN OF TREATMENT No Information Progress Notes * LEONARD TERANOB:[birth year] (84 yo F)Acc No.[id number]:06/05/2024 Progress Note Patient:??CHAO TERAN Provider:??Susanne Gabriel DNP :1940?Age:84 Y?Sex:Fe male Date:06/05/2024 Address:[address] [place], [place] [phone] Subjective: * Chief Complaints: * ?1. 6/M CPE. * Medical History:?? Objective: Assessment: Plan: * Treatment: Care Plan: * Problems:?? * Billing Information: * Visit Code:?? * Procedure Codes:?? * Sign off status: Pending * Provider:??Susanne Gabriel DNP Date:??0 06/05/2024
--- OUTSIDE RECORDS SUMMARY | 2024-07-02 14:22 | XMS_ITS | Clinical Summary ---
Author Organization [facility] Address [address] [facility] [address] [place] [address] Phone Care Team Providers Care Outside Sales Advertising Executive Name Role Phone Neida Gabriel STEPHANIE Primary [...] patient's age to complete this topic Insurance [facility] MEDICARE [facility] MEDICARE Care Teams Outside Sales Advertising Executive Relationship Specialty Start Date End Date Neida Gabriel DNP [address] [facility], [address] [address] PCP - General Nurse Practitioner 11/22/21
--- OUTSIDE RECORDS SUMMARY | 2024-07-02 14:23 | XMS_ITS ---
Author Organization [facility], [facility] Address [address] [place] [phone] Care Team Providers Care Open End Spinning Operator Name Role Phone SUSANNE GABRIEL Primary Care Provider REASON FOR VISIT f/u labs, 2M wellness Encounters Encounter Location Date Provider Diagnosis [facility], [address] [phone] 06/03/2024 SUSANNE GABRIEL PLAN OF TREATMENT No Information Progress Notes * LEONARD TERANOB:[birth year] (84 yo F)Acc No.[id number]:06/03/2024 Progress Notes Patient:??CHAO TERAN Provider:??Susanne Gabriel DNP :1940?Age:84 Y?Sex:Fe male Date:06/03/2024 Address:[address] [place], [place] [phone] Subjective: * Chief Complaints: * ?1. f/u labs, 2M wellne ss. * Medical History:?? Objective: Assessment: Plan: * Treatment: * Billing Information: * Visit Code:?? * Procedure Codes:?? * Sign off status: Pending * Provider:??Susanne Gabriel DNP Date:??0 06/03/2024
== END 2024-07-02 12:20 | disposition home or self-care (01) ==
LOC: HO.HKAS 11:42
PROVIDERS: PCP Nurse Practitioner Family; Visit Provider Internal Medicine Nephrology
DX: E87.20 Acidosis, unspecified (principal); E21.0 Primary hyperparathyroidism; E83.52 Hypercalcemia; I10 Essential (primary) hypertension; N18.32 Chronic kidney disease, stage 3b
CPT/HCPCS: 99214

== ENCOUNTER → 2024-07-02 11:42 | Outpatient (BNVA) | payer MEDICARE, SELFPAY | PROVIDERS: PCP Registered Nurse; Visit Provider Internal Medicine Nephrology | DX: I12.9 Hypertensive chronic kidney disease with stage 1 through stage 4 chronic kidney disease, or unspecified chronic kidney disease (principal); N18.32 Chronic kidney disease, stage 3b; E83.52 Hypercalcemia; E87.20 Acidosis, unspecified; E21.0 Primary hyperparathyroidism; Z79.84 Long term (current) use of oral hypoglycemic drugs; Z79.899 Other long term (current) drug therapy | CPT/HCPCS: 99212 ==

== ENCOUNTER → 2024-07-24 10:19 | Outpatient (BNVA) | payer MEDICARE, SELFPAY | PROVIDERS: PCP Nurse Practitioner Family; Visit Provider Nurse Practitioner Adult Health | DX: E11.65 Type 2 diabetes mellitus with hyperglycemia (principal) | CPT/HCPCS: 82947; 99202; 99211 ==

== ENCOUNTER 2024-07-24 11:12 | Outpatient (AMB) | payer MEDICARE, SELFPAY ==
[2024-07-24 11:14] VITALS: BP 132/78; PULSE 98; O2SAT 97; BMI 29.6
--- NOTE | 2024-07-24 11:14 | A.OFFVIS_ITS ---
Vital Signs 07/24/24 11:14 Height 5 ft 11 in Weight 212 lb BMI 29.6 BP 132/78 Blood Pressure Location Rt brachial Position Sitting Pulse 98 Pulse Source Pulse Oximeter Pulse Oximetry (%) 97 Oxygen Delivery Method Room Air Intake Visit Reasons: Type 2 diabetes mellitus with hyperglycemia Intake Note: Patient presents today to re-establish treatment for Type 2 Diabetes Mellitus: Last Diabetic eye exam was on: DUE Last Podiatry exam was on: Patient does not see a Log Feeder Most recent HbA1c: 9.7%, 06/10/2024 Random Glucose- 142 mg/dL, Today Senior Clinical Study Manager Required: No Accompanied by: Self / Same As Patient Allergies No Known Allergies Allergy (Verified 07/02/24 11:57) HPI Comments Details: 84 YO F who is seen in consultation for T2DM at the request of PCP. Initially diagnosed with T2DM in 20-30 yrs . Never seen endo before Was initially started on treatment with metformin . Current regimen Jardiance 25 mg 1/2 tablet QD Glipizide 10 mg QD . Prandin 1 mg QD Checks blood sugars sporadically Unfortunately did not bring logbook or glucometer to visit No Reports low sugars . Most recent A1C 9.7 , [06/10/2024 No Family history of T2DM Has eyes checked yearly, last eye exam 2 wks ago , denies retinopathy. Denies neuropathy, last foot exam to see Monday , sees podiatry. Has CKD Not Has HLD,Not on statin. Denies CAD. Not Had diabetes education. [facility] Medical History (HFpEF) heart failure with preserved ejection fraction Edema leg Hypertension Chronic kidney disease Surgical History History of tubal ligation History of kidney removal Status post carotid surgery Family History Brother Cancer Mother Heart attack Social History Alcohol intake: former Patient Tobacco Use Status: Former Tobacco user e-Cigarette/Vaping Use: Never Used service: No Current occupational status: unemployed and retired Cognitive needs: No Hearing needs: No Vision needs: No Physical Exam Vital Signs: Last Vital Signs Pulse 98 07/24/24 11:14 BP 132/78 07/24/24 11:14 Pulse Ox 97 07/24/24 11:14 Oxygen Delivery Method Room Air 07/24/24 11:14 BMI result Body Mass Index 29.6 Absence of Cushingoid features. Absence of acromegalic features. Neck exam reveals nl size thyroid about 15 gms. No thyroid nodules palpable. No carotid bruits present. Lungs CTA. Heart S1 S2, Reg R/R. No M/R/ G. Skin exam reveals absence of vitiligo or acanthosis nigricans. Abdominal exam reveals Soft NT/ND with NA BS. No organomegaly present. Neck Other: . Extrem Other: Visual exam of foot performed. # + edema present bilaterally No ulcerations or open lesions. No onchomycosis, no callouses.Pulses 2 + distally Sensation intact to monofilament exam. Vibratory sensation sensed is decreased with 128 Hz tuning fork Assessment & Plan Assessment & Plan (1) Uncontrolled diabetes mellitus with hyperglycemia: Code(s): E11.65 - Type 2 diabetes mellitus with hyperglycemia Category: Medical Plan: This 84-year-old with a history of type 2 diabetes with poor glycemic control with known microvascular complications and macrovascular, namely CKD stage 3 B as well as congestive heart failure and peripheral vascular disease Plan is to check anti-marie 65 antibodies to rule out type 1 diabetes. We will initiate a sensor namely Ruth 3+ today the patient we with community nutrition educator to initiate this. Once we have more information, then can initiate insulin either basal, prandial or both according to Sensor information. We will check lipid profile. We will set up an appointment with mixer dry food products. Went over the the correlation of HbA1c and poor glycemic control to development and progression of complications. Will have patient follow up with Brook Hernandez NP in 3 weeks Orders: Orders Glutamic acid decarboxylase Ab Today E11.65 - Type 2 diabetes mellitus with hyperglycemia Lipid Panel Today E11.65 - Type 2 diabetes mellitus with hyperglycemia Referrals Nutrition/Dietitian Referral E11.65 - Type 2 diabetes mellitus with hyper glycemia Diabetes Education Referral E11.65 - Type 2 diabetes mellitus with hyperglycemia Coding Level of Care Code New Pt Level 5 (86941) Diagnoses Uncontrolled diabetes mellitus with hyperglycemia E11.65
[2024-07-24 11:23] LABS: Glucose, Whole Blood 142 mg/dL (60-115)
--- OUTSIDE RECORDS SUMMARY | 2024-07-24 12:51 | XMS_ITS | Continuity of Care Document ---
Author Organization [facility] [address] [facility] [address] [place] [address] Phone [phone] Social History Type Date Description Comments Sex Unknown Medical Devices Description No Information Available Encounters Description No Information Available Assessments Description No Information Available Plan of Treatment No Information Available Functional Status Description No Information Available Mental Status Description No Information Available Referrals Description No Information Available
--- OUTSIDE RECORDS SUMMARY | 2024-07-24 12:51 | XMS_ITS | Encounter Summary ---
Author Organization [facility] Address [address] [facility] [address] [place] [address] Phone Care Team Providers Care Radiographer Technologist Name Role Phone Neida Gabriel DNP Primary Care Provider [phone] Reason for Visit * Reason Comments Med Refill Encounter Details Date Type Department Care Team (Late st Contact Info) Description 05/25/2022 Refill [facility] [address] [place] [phone] Aldo Bush MD Social History Tobacco Use [...] on filedocumented in this encounter Care Teams Radiographer Technologist Relationship Specialty Start Date End Date Neida Gabriel DNP [address] [facility] 3 [place] [address] PCP - General Nurse Practitioner 11/22/21 documented as of this encounter
--- OUTSIDE RECORDS SUMMARY | 2024-07-24 12:51 | XMS_ITS | Clinical Summary ---
Author Organization [facility] Address [address] [place] [address] Care Team Providers Care Traffic Technician Name Role Phone Smith Padgett MD Primary [...] age to complete this topic Care Teams Traffic Technician Relationship Specialty Start Date End Date Smith Padgett MD [address] [address] PCP - General Internal Medicine 11/04/16
--- OUTSIDE RECORDS SUMMARY | 2024-07-24 12:51 | XMS_ITS | Clinical Summary ---
Author Organization [facility] Address [address] [facility] [address] [place] [address] Phone Care Team Providers Care Electrical Instrument Technician Name Role Phone Neida Gabriel STEPHANIE Primary Care Provider [phone] Allergies Active Allergy Reactions Criticality Noted Date [...] of knee region 11/30/2016 04/19/19 22 Immunizations Immunization Administration Dates Next Due Pfizer SARS-COV-2 12/23/2020,05/18/2020,04/29/19 [...] Influenza Vaccine (Season Ended) 2024 Pneumococcal Vaccine: 50+ Years Completed 01/22/2019, 02/27/2017, 02/08/2016, Additional history exists Pneumococcal Vaccine: Peds (0 to 5 Years) and At-Risk Patients (6 to 49 Years) Discontinued 01/22/2019, 02/27/2017, 02/08/2016, Additional history exists Hepatitis B Vaccine Aged Out No longe r eligible based on patient's age to complete this topic Insurance [facility] [place] [id number] [facility] Medicare Care Teams Electrical Instrument Technician Relationship Specialty Start Date End Date Neida Gabriel DNP [address] [facility] [place] [facility] [place] [address] PCP - General Nurse Practitioner 11/22/21
== END 2024-07-24 12:28 | disposition home or self-care (01) ==
LOC: HO.ENCR 11:12
PROVIDERS: PCP Nurse Practitioner Family; Visit Provider Internal Medicine Endocrinology, Diabetes & Metabolism
DX: E11.65 Type 2 diabetes mellitus with hyperglycemia (principal)
CPT/HCPCS: 99204

== ENCOUNTER 2024-07-24 12:04 | Outpatient (AMB) | payer MEDICARE, SELFPAY ==
--- NOTE | 2024-07-24 12:24 | MHC.AMDMED ---
Intake Intake Visit Reasons: Type 2 diabetes mellitus with hyperglycemia Medical Genetics Director Required: No Accompanied by: Self / Same As Patient Allergies No Known Allergies Allergy (Verified 07/02/24 11:57) HPI Comprehensive Diabetes Asmnt Most Recent Diabetes Results: Creatinine 2.39 mg/dL (0.5-1.4) H 06/21/24 Blood Urea Nitrogen 59 mg/dL (9-16) H 06/21/24 Sodium 139 mmol/L (135-145) 06/21/24 Potassium 3.9 mmol/L (3.3-5.1) 06/21/24 Chloride 110 mmol/L (96-108) H 06/21/24 Carbon Dioxide 19 mmol/L (22-29) L 06/21/24 Calcium 10.4 mg/dL (8.4-10.2) H 06/21/24 AST 12 U/L (5-31) 11/20/23 ALT 9 U/L (0-31) 11/20/23 Total Protein 6.6 g/dL (6.5-8.0) 11/20/23 Albumin 4.0 g/dL (3.5-5.0) 11/20/23 [facility] Medical History (HFpEF) heart failure with preserved ejection fraction Edema leg Hypertension Chronic kidney disease Surgical History History of tubal ligation History of kidney removal Status post carotid surgery Family History Brother Cancer Mother Heart attack Social History Alcohol intake: former Patient Tobacco Use Status: Former Tobacco user e-Cigarette/Vaping Use: Never Used service: No Current occupational status: unemployed and retired Cognitive needs: No Hearing needs: No Vision needs: No Assessment & Plan Assessment & Plan (1) Uncontrolled diabetes mellitus with hyperglycemia: Code(s): E11.65 - Type 2 diabetes mellitus with hyperglycemia Plan: Patient at visit to set up an insert Ruth 3 sample sensor with nina Instructed patient sensors water proof you can shower, or swim do not submerge sensor in water for over 30 minutes Is sensor falls off cannot put back in you need to replace sensor, customer service number given to patient for sensor replacement Sensor placed on the back of Left arm Patient left visit with sensor in warmup Reviewed how to interpret trend arrows Discussed lag time between finger stick and sensor data.? Instructed patient the importance of having blood glucometer for backup testing if needed Reviewed delay of CGM from fingersticks Reminded Pt that if symptoms do not match sensor still needs to check fingersticks. Portions of this note were created using voice recognition software, please excuse any words or phrases that may have been misinterpreted. Patient Instructions: Patient instruction: CGM provides information on blood glucose control throughout the day, including hyperglycemia and hypoglycemia. ? Continue to monitor blood glucose as instructed. Follow nutrition guidelines provided. Report any discomfort promptly to health care provider. ?Stay well-hydrated. You can bathe ,shower, swim and exercise while wearing the glucose sensor. Do not submerge glucose sensor in water for more than 30 minutes. Coding Level of Care Code Est Pt Level 1 (62129) Diagnoses Uncontrolled diabetes mellitus with hyperglycemia E11.65
--- OUTSIDE RECORDS SUMMARY | 2024-07-24 13:32 | XMS_ITS | Clinical Summary ---
Author Organization [facility] Address [address] [place] [address] Care Team Providers Care Gold Marker Name Role Phone Smith Padgett MD Primary [...] age to complete this topic Care Teams Gold Marker Relationship Specialty Start Date End Date Smith Padgett MD [address] [address] PCP - General Internal Medicine 11/04/16
--- OUTSIDE RECORDS SUMMARY | 2024-07-24 13:32 | XMS_ITS | Clinical Summary ---
Author Organization [facility] Address [address] [facility] [address] [place] [address] Phone Care Team Providers Care Station Engineer Name Role Phone Neida Gabriel STEPHANIE Primary [...] patient's age to complete this topic Insurance [facility] [place] [id number] [facility] Medicare Care Teams Station Engineer Relationship Specialty Start Date End Date Neida Gabriel DNP [address] [facility] [place] 3 [facility] [place] [address] PCP - General Nurse Practitioner 11/22/21
--- OUTSIDE RECORDS SUMMARY | 2024-07-24 13:32 | XMS_ITS | Continuity of Care Document ---
Author Organization [facility] [address] [facility] [address] [place] [address] Phone [phone] Social History Type Date Description Comments Sex Unknown Medical Devices Description No Information Available Encounters Description No Information Available Assessments Description No Information Available Plan of Treatment No Information Available Functional Status Description No Information Available Mental Status Description No Information Available Referrals Description No Information Available
--- OUTSIDE RECORDS SUMMARY | 2024-07-24 13:32 | XMS_ITS | Encounter Summary ---
Author Organization [facility] Address [address] [facility] [address] [place] [address] Phone Care Team Providers Care Border Guard Name Role Phone Neida Gabriel DNP Primary Care Provider [phone] Reason for Visit * Reason Comments Med Refill Encounter Details Date Type Department Care Team (Late st Contact Info) Description 05/25/2022 Refill [facility] [address] [place] [phone] Aldo Bush MD Social History Tobacco Use [...] on filedocumented in this encounter Care Teams Border Guard Relationship Specialty Start Date End Date Neida Gabriel DNP [address] [facility] 3 [place] [address] PCP - General Nurse Practitioner 11/22/21 documented as of this encounter
== END 2024-07-24 12:29 | disposition home or self-care (01) ==
LOC: HO.ENCR 12:04
PROVIDERS: PCP Nurse Practitioner Family; Visit Provider Registered Nurse Diabetes Educator
DX: E11.65 Type 2 diabetes mellitus with hyperglycemia (principal)

== ENCOUNTER 2024-08-06 13:40 | Outpatient (AMB) | payer MEDICARE, SELFPAY ==
--- NOTE | 2024-08-06 14:37 | A.OFFVIS_ITS ---
Intake Intake Visit Reasons: DM Scalping Machine Operator Required: No Accompanied by: Self / Same As Patient Allergies No Known Allergies Allergy (Verified 07/02/24 11:57) HPI Comprehensive Diabetes Asmnt Most Recent Diabetes Results: 2 Creatinine 2.39 mg/dL (0.5-1.4) H 06/21/24 Blood Urea Nitrogen 59 mg/dL (9-16) H 06/21/24 Sodium 139 mmol/L (135-145) 06/21/24 Potassium 3.9 mmol/L (3.3-5.1) 06/21/24 Chloride 110 mmol/L (96-108) H 06/21/24 Carbon Dioxide 19 mmol/L (22-29) L 06/21/24 Calcium 10.4 mg/dL (8.4-10.2) H 06/21/24 AST 12 U/L (5-31) 11/20/23 ALT 9 U/L (0-31) 11/20/23 Total Protein 6.6 g/dL (6.5-8.0) 11/20/23 Albumin 4.0 g/dL (3.5-5.0) 11/20/23 [facility] Medical History (HFpEF) heart failure with preserved ejection fraction Edema leg Hypertension Chronic kidney disease Surgical History History of tubal ligation History of kidney removal Status post carotid surgery Family History Brother Cancer Mother Heart attack Social History Alcohol intake: former Patient Tobacco Use Status: Former Tobacco user e-Cigarette/Vaping Use: Never Used service: No Current occupational status: unemployed and retired Cognitive needs: No Hearing needs: No Vision needs: No Assessment & Plan Assessment & Plan (1) Uncontrolled diabetes mellitus with hyperglycemia: Code(s): E11.65 - Type 2 diabetes mellitus with hyperglycemia Plan: Diabetes self-management education and support participation record Assessment/scale: 1= needs instructed? 2= needs review? 3= comprehend keep point? 4= demonstrates understanding/ competent? NC= Not Covered Topics Learning Objective: Initial visit Initial or post srvc Initial or post srvc Initial or post srvc Initial or post srvc Initial or post srvc Post srvc Comments Pre Edu-assessment/plan Outcome or reassess O utcome or reassess Outcome or reassess Outcome or reassess Outcome or reassess Outcome or reassess Diabetes pathophysiology 1 Healthy eating 1 Being active 1 Taking medication 2 Monitoring glucose 1 Acute complication 1 Chronic complicated 1 Lifestyle and healthy coping 1 Diabetes distress in support 1 ?Diabetes pathophysiology: ?Defined diabetes med identify own type of diabetes; list 3 options for treating diabetes Healthy eating: ?Described effect of type, amount and ?timing of food on blood glucose; list 3 methods for planning meal Being active: ?State effect of exercise on blood glucose level Taking medication: ?State effect of diabetes medications on diabetes; name diabetes medications taking, action and side effects Monitoring glucose: ?Identify recommended blood glucose targets and personal target Acute complication: ?List symptoms and treatment of hyper and hypoglycemia, DKA, sick day guidelines and guidelines for severe weather or situations of crisis and diabetes supply manage Chronic complication: ?To find the relationship of blood glucose levels to long- term complications of diabetes in screening and preventative measures Lifestyle and healthy coping: ?Described lifestyle and healthy coping strategies to rule out diabetes self-management Diabetes to stress and support: ?Recognize Diabetes to stress and be able to identified support options Learning objectives: The patient was provided with verbal and written education on the following topics as outlined below. The patient met all learning objectives and was able to verbalize understanding and provide teach back of education topics discussed . The patient was provided with the opportunity to ask questions and all questions were answered. Patient Assessment Assess patient education level/literacy/barriers, retired [employer]. Lives with 3 of her children. Last A1c on 05/2024 9.7% Patient questions/concerns portion size, states I do not know what to eat Patient wearing sample Ruth 3+ sensor, using smart phone nina. patient has follow-up appointment with endocrine BOTTLING ROOM WORKER on 08/14/2024. Patient given additional sample sensor to wear until that appointment Patient is currently on: Jardiance 25 mg, reports she is cutting tabs in half Glipizide ER 10 mg, reports she takes b.i.d. Repaglinide 1 mg daily What is Diabetes? Pathophysiology How the body produces and uses insulin Identify type of DM Risk factors Signs of Diabetes Brief overview of Diabetes Management Monitoring blood sugar Following a meal plan Regular exercise Maintaining a healthy weight Taking medication as needed Members of the care team (PCP, RN, MA, RD, CDE, squeak rattle and leak repairer) Blood glucose monitoring When/how often to test Target blood sugar ranges Introduction to Nutrition Importance of healthy diet in managing DM Diet is personalized to individual preference Review patient?s regular diet/food preferences Who prepares meals/does food shopping/ Dining out?/ Barriers? How diet effects glucose Eating 3 balanced meals a day with small, healthy snacks between meals Review food groups Carbohydrates: What is a carbohydrate/Which food/food groups are considered carbohydrates Effect of carbohydrates on blood glucose Portion sizes Reading food labels Basic carb counting (if applicable per nursing assessment) Plate method Meal planning Recommendations: Follow plate method, consistent carbs and read nutritional labels. Smart Goal: Patient will keep carbohydrate portion of meals 30-45 g per meal Educational Materials: The patient was provided with the following written educational materials: Planning Healthy Meals, Low carb snack list Handout Patient Response to instructions: Comprehension of Instructions: Fair Readiness to make changes: Contemplation How confident they feel about making changes: Positive Portions of this note were created using voice recognition software, please excuse any words or phrases that may have been misinterpreted. Patient Instructions: Include regular daily activity. ADA recommends 30 minutes of exercise 5 days a week. Weight loss talk to PCP or Primary Health Care Nurse before starting new plan. Test blood sugar as directed; Fasting and 2hpp largest meal. Watch trends in results. Utilize results and to assess how food, physical activity and medications affect blood sugar results. Bring glucometer or CGM to next visit. Be knowledgeable about diabetes medication, its action, side effects, efficacy, toxicity, prescribed dosage, appropriate timing and frequency of administration, effect of missed and delayed doses and instructions for storage, travel and safety. Problem solving techniques to monitor hypo/hyperglycemia episodes and treatments. Reduce risk reduction behaviors, smoking cessation, regular eye, foot and dental examinations. Follow-up with breastfeeding educator in 2 months Coding Level of Care Code Est Pt Level 1 (31569) Diagnoses Uncontrolled diabetes mellitus with hyperglycemia E11.65
--- OUTSIDE RECORDS SUMMARY | 2024-08-06 14:49 | XMS_ITS | Data Portability ---
Author Organization [facility] [address] Address [address] [place] [address] Assessment No assessment recorded. Plan of Treatment Reminders Order Date Submit Date Provider Last Modified By Organization Details Last Modified Time Details Appointments None recorded. Lab None recorded. Referral None recorded. Procedures None recorded. Surgeries None recorded. Imaging None recorded. Medication Orders cephalexin 500 mg capsule 2022 023 [id number], [address] [place], [place], [id number], 18:51:14 Patient TargetsNo targets recorded. Patient Instructions Encounter Date Encounter Id Patient Instructions Last Modified By Organization Details Last Modified Time 04/19/2022 [id number] foot pain: care instructions Not available 04/19/2022 18:51:06 diabetic foot ulcer: care instructions Not available 04/19/2022 18:53:16 Reason for Referral None Reported. Problems Name Problem SNOMED Code Status Onset Date Resolution Date Notes Provider Name and Address Organization Details Recorded Time Diabetes mellitus 70701719 Active 2022 SID Syed [facility] 3 18:22:16 Chronic obstructive pulmonary disease 30279584 Active 2022 EDGARDO mendes PA [facility] 3 18:22:36 Hypertensive disorder 65287050 Active 2022 EDGARDO mendes PA [facility] 3 18:22:59 Heart disease 22923926 Active 2022 SID Syed [facility] 3 18:23:20 Renal failure syndrome 72996906 Active 2022 EDGARDO FERNANDO cinthya [facility] 18:23:28 Malignant tumor of kidney 097154827 Active 2022 EDGARDO TRUONGARA cinthya, [facility] 18:24:29 Problem Notes None recorded. Procedures Surgical History Date Name Laterality Status Provider Name and Address Organization Details Recorded Time kidney excision completed EDGARDO KING [facility] 04/19/2022 18:24:42 Xcapsl ctrc rmvl cplx wo ecp completed EDGARDO KING [facility] 04/19/2022 18:26:47 Imaging Results None recorded. [...] Last Updated DateTime 157.48 cm 39.5 kg/m2 46123.9 5 g 96.4 [degF] 18 /min 85 /min 99 % 99 % 200 mm[Hg] 99 mm[Hg] EDGARDO KING PA - [facility] 18:26:39 Date Recorded Systolic blood pressure Diastolic blood pressure Provider Name and Address Organization Details Last Updated DateTime 04/19/2022 185 mm[Hg] 100 mm[Hg] Martha Jacob MD [address] [facility] [place], [address], [place] - [facility] 04/19/2022 18:46:36 Social History Question Answer Notes LastModified by Organization D etails LastModified Time Have You Had Direct Contact, Or Contact During Intimacy, With Monkeypox Rash, Scabs, Or Body Fluids From A Person With Monkeypox? No Information not available 04/19/2022 Have You Recently Traveled Abroad? No Information not available 04/19/2022 Are You Currently In School? No Information not available 04/19/2022 Sex: Unknown Functional Status Question Answer Note LastModified by Organizat ion Details LastModified Time Do you use any illicit or recreational drugs? No Information not available 04/19/2022 Do you or have you ever used any other forms of tobacco or nicotine? No Information not available 04/19/2022 What is your level of alcohol consumption? None Information not available 04/19/2022 Are you currently employed? No Information not available 04/19/2022 Mental Status None recorded. Family History Relationship [...] Recorded Time pneumococcal polysaccharide PPV23 7 completed EDAGRDO KING null, [place] - [facility] 04/19/2022 [...] SNOMED-CT Code Diagnosis ICD10 Code Diagnosis Note [id number] [address] [place] [address] 07/24/2016 10:36:51 07/24/2016 11:55:48 [id number] [address] [place] [address] 06/05/2016 14:33:22 06/05/2016 15:53:13 [id number] [address] [address] [place] [address] 01/26/2017 10:23:14 01/26/2017 11:17:11 [id number] [address] [place] [address] 12/03/2015 10:36:54 12/03/2015 11:05:12 [id number] [address] [place] [address] 07/17/2016 10:40:47 07/17/2016 11:55:10 [id number] [address] [place] [address] 12/06/2015 11:33:08 12/06/2015 12:41:09 [id number] [address] [place] [address] 11/30/2016 11:03:47 11/30/2016 12:56:29 [id number] [address] [place] [address] 05/30/2019 11:33:59 05/30/2019 12:13:40 [id number] Martha Jacob MD [address] [place] [address] 04/19/2022 17:06:03 04/19/2022 18:56:24 Diabetic foot ulcer 645972416 E13.621 There is Callous formation over a foot ulcer and will need to see Podiatry for Debridemen t and assessment for Osteomylet is Essential hypertension 22228396 I10 Patient aware that this is dangerous and signs AMA for ER evaluation . Has appnt for 3 days from now with PCP Health Concerns Section Related Observation LastModified by Organization Detai ls LastModified Time None Recorded Concern Status LastModified by Organization Details LastModified Time None Recorded Advance Directives Directive None Recorded Payers Insurance Date Sequence Insurance Name Policy Number Policy Garza Covered Member ID Garza Member ID Guarantor Name 04/20/2022 [facility] (MEDICARE REPLACEMENT/A DVANTAGE - PPO) [id number] Dorinda Gaviria [id number] Dorinda Gaviria 04/20/2022 1 [place]ICARE [place]: [employer] Dorinda Gaviria [id number] Becky 05/17/2022 2 [facility] (MEDICARE SUPPLEMENT) Dorinda Gaviria [id number] Dorinda Prajapati Becky Notes Date Note Type Note Provider Name and Address Organization Details Recorded Time 04/19/2022 text/html Foot/Ankle UCReported bypatient.Locatio n:right; lateral Problemswelling; pain non traumatic Severity:severe Associated Symptoms:no numbness;swelling ;redness;warmth Martha Jacob MD [address] [place], [address], [place] - [facility] 04/19/2022 18:53:19 OBGyn Episode No OBEpisode recorded.
--- OUTSIDE RECORDS SUMMARY | 2024-08-06 14:49 | XMS_ITS | Encounter Summary ---
Author Organization [facility] Address [address] [facility] [address] [place] [address] Phone Care Team Providers Care Dietician Name Role Phone Neida Gabriel DNP Primary Care Provider [phone] Reason for Visit * Reason Comments Med Refill Encounter Details Date Type Department Care Team (Late st Contact Info) Description 05/25/2022 Refill [facility] [address] [place] [phone] Aldo Bush MD Social History Tobacco Use [...] on filedocumented in this encounter Care Teams Dietician Relationship Specialty Start Date End Date Neida Gabriel DNP [address] [facility] 3 [place] [address] PCP - General Nurse Practitioner 11/22/21 documented as of this encounter
--- OUTSIDE RECORDS SUMMARY | 2024-08-06 14:49 | XMS_ITS | Clinical Summary ---
Author Organization [facility] Address [address] [place] [address] Care Team Providers Care Assistant Track Coach Name Role Phone Smith Padgett MD Primary Care Provider [phone] Allergies Active Allergy Reactions Criticality Noted Date [...] age to complete this topic Care Teams Assistant Track Coach Relationship Specialty Start Date End Date Smith Padgett MD [address] [address] PCP - General Internal Medicine 11/04/16
--- OUTSIDE RECORDS SUMMARY | 2024-08-06 14:49 | XMS_ITS | Clinical Summary ---
Author Organization [facility] Address [address] [facility] [address] [place] [address] Phone Care Team Providers Care Motor Tune Up Specialist Name Role Phone Neida Gabriel STEPHANIE Primary [...] patient's age to complete this topic Insurance [facility] [place] [id number] [facility] Medicare Care Teams Motor Tune Up Specialist Relationship Specialty Start Date End Date Neida Gabriel DNP [address] [facility] [place]. 3 [facility] [place] [address] PCP - General Nurse Practitioner 11/22/21
--- OUTSIDE RECORDS SUMMARY | 2024-08-06 14:49 | XMS_ITS | Continuity of Care Document ---
Author Organization [facility] [address] [place] [address] Phone [phone] Social History Type Date Description Comments Sex Unknown Medical Devices Description No Information Available Encounters Description No Information Available Assessments Description No Information Available Plan of Treatment No Information Available Functional Status Description No Information Available Mental Status Description No Information Available Referrals Description No Information Available
== END 2024-08-06 14:44 | disposition home or self-care (01) ==
LOC: HO.ENCR 13:41
PROVIDERS: PCP Nurse Practitioner Family; Visit Provider Registered Nurse Diabetes Educator
DX: E11.65 Type 2 diabetes mellitus with hyperglycemia (principal)

== ENCOUNTER → 2024-08-06 13:40 | Outpatient (BNVA) | payer MEDICARE, SELFPAY | PROVIDERS: PCP Nurse Practitioner Family; Visit Provider Registered Nurse Diabetes Educator | DX: E11.65 Type 2 diabetes mellitus with hyperglycemia (principal) | CPT/HCPCS: 99211 ==

== ENCOUNTER 2024-08-14 09:47 | Outpatient (AMB) | payer MEDICARE, SELFPAY ==
--- NOTE | 2024-08-14 07:28 | A.OFFVIS_ITS ---
Vital Signs 08/14/24 09:57 08/14/24 10:37 Height 5 ft 11 in Weight 210 lb 13.204 oz BMI 29.4 BP 184/80 H 170/80 H Blood Pressure Location Rt brachial Lt brachial Position Sitting Pulse 96 Pulse Source Pulse Oximeter Pulse Oximetry (%) 98 Oxygen Delivery Method Room Air Intake Visit Reasons: 45 min Intake Note: Patient presents today for a follow-up on Type 2 Diabetes Mellitus: Last Diabetic eye exam was on: DUE Last Podiatry exam was on: Patient does not see a Child Care Attendant Most recent HbA1c: 9.7%, 06/10/2024 Random Glucose- 190 mg/dL, Today L Soil Field Technician Required: No Accompanied by: Self / Same As Patient Allergies No Known Allergies Allergy (Verified 07/02/24 11:57) HPI Comments Details: 84 YO F who is seen in f/u T2DM she was seen as a new consult by Dr. Gayle 07/24/2024 and was started on a glucose sensor. She has been seen by Anita PUCKETT for initial evaluation of learning needs and has follow up in 2 months. She has an initial appointment scheduled with the Kaylyn Waters RD scheduled. Initially diagnosed with T2DM approx 1999. He has not been seen by Endocrine in the past. Was initially started on treatment with metformin . Current regimen Jardiance 25 mg 1/2 tablet QD Chart indicates 10mg tablet but she is taking 1/2 of the 25 Glipizide 10 mg QD . Prandin 1 mg QD Freestyle brian sensor 3 average glucose: 170 14 day continuous glucose sensor report reviewed Glucose Management indicator 7.4 % TIme in ranges: 6 % very high (above 250) 32 % high (181-250) 62 % in range (70-180] 0 % low (69-55) 0 % very low (below 54) Interpretation of CGMS: Does have transient lows around 12:00 No Reports low sugars . Most recent A1C 9.7 06/10/2024 No Family history of T2DM Has eyes checked yearly, last eye exam 06/2024 , denies retinopathy. Denies neuropathy, last foot exam today in the office , sees podiatry. Has nephropathy followed by Dr. Bush. 11/01/2023 EGFR 22 Does not have HLD, Not on statin. Has history of heart failure Denies CAD. followed by cardiology . [facility] Medical History (HFpEF) heart failure with preserved ejection fraction Edema leg Hypertension Chronic kidney disease Surgical History History of tubal ligation History of kidney removal Status post carotid surgery Family History Brother Cancer Mother Heart attack Social History Alcohol intake: former Patient Tobacco Use Status: Former Tobacco user e-Cigarette/Vaping Use: Never Used service: No Current occupational status: unemployed and retired Cognitive needs: No Hearing needs: No Vision needs: No Physical Exam Vital Signs: Last Vital Signs Pulse 96 08/14/24 09:57 BP 170/80 H 08/14/24 10:37 Pulse Ox 98 08/14/24 09:57 Oxygen Delivery Method Room Air 08/14/24 09:57 BMI result Body Mass Index 29.4 Const Other: Absence of Cushingoid features. Absence of acromegalic features. Neck exam reveals nl size thyroid about 15 gms. No thyroid nodules palpable. Heart S1 S2, Reg R/R. No M/R G. Skin exam reveals absence of vitiligo or acanthosis nigricans. Visual exam of foot performed. No ulcerations or open lesions. No inter digit maceration or fissuring. No onychomycosis, no callouses. Sensation intact to monofilament exam. Vibratory sensation is absent with 128 Hz tuning fork. Bilateral great toes removed. Nails well trimmed Results Reviewed Results Reviewed: Laboratory Last Values Glucose (Clinic) 190 mg/dL (60-115) H 08/14/24 10:03 Assessment & Plan Assessment & Plan (1) Uncontrolled diabetes mellitus with hyperglycemia: Code(s): E11.65 - Type 2 diabetes mellitus with hyperglycemia Category: Medical Plan: This 84-year-old with a history of type 2 diabetes with poor glycemic control with known microvascular complications and macrovascular, namely CKD stage 3 B as well as congestive heart failure and peripheral vascular disease. She is having some lows in the afternoon with glipizide and I would recommend discontinuing this. With her low EGFR of 22 glipizide is not the best choice for her. We will add Tradjenta 5 mg once daily Continue Jardiance 25 mg half tablet Continue Prandin 1 mg 1/2 hour before breakfast She will look into the [facility] patient assistance portal for both Tradjenta and Jardiance (2) Hypertension: Code(s): I10 - Essential (primary) hypertension Category: Medical Qualifiers: Hypertension type: primary hypertension Qualified Code(s): I10 - Essential (primary) hypertension Plan: She is on multiple agents and reports that her blood pressure is typically in good control when she checks it at home. She was asked to check her blood pressure several times that is week and if it remains elevated she can contact either her rehab physician or PCP She will follow up with me in 6 weeks Medications: New linagliptin (Tradjenta) 5 mg PO DAILY 30 tabs 11RF 30 days Coding Level of Care Code Est Pt Level 4 (97105) Complex EM visit Add On G2211 Diagnoses Uncontrolled diabetes mellitus with hyperglycemia E11.65 Primary hypertension I10 Hypertension type: primary hypertension Time Spent (min) 30 Comment Time spent reviewing labs/provider notes, face to face, chart doc
[2024-08-14 09:57] VITALS: BP 184/80; PULSE 96; O2SAT 98; BMI 29.4
[2024-08-14 10:10] LABS: Glucose, Whole Blood 190 mg/dL (60-115)
[2024-08-14 10:37] VITALS: BP 170/80
--- OUTSIDE RECORDS SUMMARY | 2024-08-14 11:09 | XMS_ITS | Encounter Summary ---
Author Organization [facility] Address [address] [facility] [address] [place] [address] Phone Care Team Providers Care Md Urologist Name Role Phone Neida Gabriel DNP Primary Care Provider [phone] Reason for Visit * Reason Comments Med Refill Encounter Details Date Type Department Care Team (Late st Contact Info) Description 05/25/2022 Refill [facility] [address] [place] [phone] Aldo Bush MD Social History Tobacco Use [...] on filedocumented in this encounter Care Teams Md Urologist Relationship Specialty Start Date End Date Neida Gabriel DNP [address] [facility] [address] [place] [address] PCP - General Nurse Practitioner 11/22/21 documented as of this encounter
--- OUTSIDE RECORDS SUMMARY | 2024-08-14 11:09 | XMS_ITS | Continuity of Care Document ---
Author Organization [facility] [address] [facility] [address] [place] [address] Phone [phone] Social History Type Date Description Comments Sex Unknown Medical Devices Description No Information Available Encounters Description No Information Available Assessments Description No Information Available Plan of Treatment No Information Available Functional Status Description No Information Available Mental Status Description No Information Available Referrals Description No Information Available
--- OUTSIDE RECORDS SUMMARY | 2024-08-14 11:09 | XMS_ITS | Clinical Summary ---
Author Organization [facility] Address [address] [facility] [address] [place] [address] Phone Care Team Providers Care Scientific Database Curator Name Role Phone Neida Gabriel STEPHANIE Primary [...] patient's age to complete this topic Insurance [facility] [place] [id number] [facility] Medicare Care Teams Scientific Database Curator Relationship Specialty Start Date End Date Neida Gabriel DNP [address] [facility] [place]. 3 [facility] [place] [address] PCP - General Nurse Practitioner 11/22/21
--- OUTSIDE RECORDS SUMMARY | 2024-08-14 11:10 | XMS_ITS | Clinical Summary ---
Author Organization [facility] Address [address] [place] [address] Care Team Providers Care Acute Care Registered Nurse Name Role Phone Smith Padgett MD Primary Care Provider [phone] Allergies Active Allergy Reactions Criticality Noted Date [...] age to complete this topic Care Teams Acute Care Registered Nurse Relationship Specialty Start Date End Date Smith Padgett MD [address] [address] PCP - General Internal Medicine 11/04/16
--- OUTSIDE RECORDS SUMMARY | 2024-08-14 11:10 | XMS_ITS | Data Portability ---
Author Organization [facility] [id number] Address [address] [place] [address] Assessment No assessment recorded. Plan of Treatment Reminders Order Date Submit Date Provider Last Modified By Organization Details Last Modified Time Details Appointments None recorded. Lab None recorded. Referral None recorded. Procedures None recorded. Surgeries None recorded. Imaging None recorded. Medication Orders cephalexin 500 mg capsule 2022 023 [id number], [address] [place], [place], [id number], 18:51:14 Patient TargetsNo targets recorded. Patient Instructions Encounter Date Encounter Id Patient Instructions Last Modified By Organization Details Last Modified Time 04/19/2022 [id number] foot pain: care instructions Not available 04/19/2022 18:51:06 diabetic foot ulcer: care instructions Not available 04/19/2022 18:53:16 Reason for Referral None Reported. Problems Name Problem SNOMED Code Status Onset Date Resolution Date Notes Provider Name and Address Organization Details Recorded Time Diabetes mellitus 10982870 Active 2022 SID Syed [facility] 3 18:22:16 Chronic obstructive pulmonary disease 81330630 Active 2022 EDGARDO mendes PA [facility] 3 18:22:36 Hypertensive disorder 31077415 Active 2022 EDGARDO mendes PA [facility] 3 18:22:59 Heart disease 60985604 Active 2022 SID Syed [facility] 3 18:23:20 Renal failure syndrome 78018827 Active 2022 EDGARDO FERNANDO cinthya [facility] 18:23:28 Malignant tumor of kidney 994252106 Active 2022 EDGARDO TRUONGARA cinthya, [facility] 18:24:29 Problem Notes None recorded. Procedures Surgical History Date Name Laterality Status Provider Name and Address Organization Details Recorded Time kidney excision completed EDGARDO KING [facility] 04/19/2022 18:24:42 Xcapsl ctrc rmvl cplx wo ecp completed EDGARDO KING [facility] 04/19/2022 18:26:47 Imaging Results None [...] Last Updated DateTime 157.48 cm 39.5 kg/m2 63327.9 5 g 96.4 [degF] 18 /min 85 /min 99 % 99 % 200 mm[Hg] 99 mm[Hg] EDGARDO KING [place] - [facility] 18:26:39 Date Recorded Systolic blood pressure Diastolic blood pressure Provider Name and Address Organization Details Last Updated DateTime 04/19/2022 185 mm[Hg] 100 mm[Hg] Martha Jacob MD [address] [facility] [place], [address], [place] - [facility] 04/19/2022 18:46:36 Social [...] SNOMED-CT Code Diagnosis ICD10 Code Diagnosis Note [id number] [address] [place] [address] 07/24/2016 10:36:51 07/24/2016 11:55:48 [id number] [address] [place] [address] 06/05/2016 14:33:22 06/05/2016 15:53:13 [id number] [address] [place] [address] 01/26/2017 10:23:14 01/26/2017 11:17:11 [id number] [address] [place] [address] 12/03/2015 10:36:54 12/03/2015 11:05:12 [id number] [address] [place] [address] 07/17/2016 10:40:47 07/17/2016 11:55:10 [id number] [address] [place] [address] 12/06/2015 11:33:08 12/06/2015 12:41:09 [id number] [address] [place] [address] 11/30/2016 11:03:47 11/30/2016 12:56:29 [id number] [address] [place] [address] 05/30/2019 11:33:59 05/30/2019 12:13:40 [id number] Martha Jacob MD [address] [place] [address] 04/19/2022 17:06:03 04/19/2022 18:56:24 Diabetic foot ulcer 137140119 E13.621 There is Callous formation over a foot ulcer and will need to see Podiatry for Debridemen t and assessment for Osteomylet is Essential hypertension 31250726 I10 Patient aware that this is dangerous [...] ID Garza Member ID Guarantor Name 04/20/2022 [facility] (MEDICARE REPLACEMENT/A DVANTAGE - PPO) [id number] Dorinda Gaviria [id number] Dorinda Gaviria 04/20/2022 1 MEDICARE B-[place]: [employer] Dorinda Gaviria [id number] Becky 05/17/2022 2 [facility] (MEDICARE SUPPLEMENT) Dorinda Gaviria [id number] Dorinda Prajapati Becky Notes Date Note Type Note Provider Name and Address Organization Details Recorded Time 04/19/2022 text/html Foot/Ankle UCReported bypatient.Locatio n:right; lateral Problemswelling; pain non traumatic Severity:severe Associated Symptoms:no numbness;swelling ;redness;warmth Martha Jacob MD [address] [place], [address], [place] - [facility] 04/19/2022 18:53:19 OBGyn Episode No OBEpisode recorded.
== END 2024-08-14 10:36 | disposition home or self-care (01) ==
LOC: HO.ENCR 09:48
PROVIDERS: PCP Nurse Practitioner Family; Visit Provider Nurse Practitioner Adult Health
DX: E11.65 Type 2 diabetes mellitus with hyperglycemia (principal); I10 Essential (primary) hypertension
CPT/HCPCS: 99214; G2211

== ENCOUNTER → 2024-08-14 09:47 | Outpatient (BNVA) | payer MEDICARE, SELFPAY | PROVIDERS: PCP Nurse Practitioner Family; Visit Provider Nurse Practitioner Adult Health | DX: E11.65 Type 2 diabetes mellitus with hyperglycemia (principal); I10 Essential (primary) hypertension | CPT/HCPCS: 82947; 99212 ==

== ENCOUNTER 2024-09-02 14:36 | Outpatient (REF) | payer MEDICARE, SELFPAY ==
--- NOTE | ~2024-09-02 | XR_ITS ---
EXAMINATION: XR CHEST CLINICAL INFORMATION: R05.9 - Cough, unspecified COMPARISON: 11/20/2023. TECHNIQUE: 2 views of the chest were obtained. FINDINGS: Left-sided dual-lead pacer device in place with leads extending into the right atrium and right ventricle. There is cardiac enlargement. Mediastinal and hilar contours appear normal. Aortic mural calcifications. The lungs are mildly hyperaerated, with mild pulmonary vascular congestion with subtle Stacie B lines in the lung bases. There is no pneumothorax or pleural effusion. There is no focal osseous or soft tissue abnormality. There are degenerative changes throughout the spine. There are surgical clips in the epigastric region. XR/XR chest 2V IMPRESSION: 1. Dual-lead pacer device in place. Cardiac enlargement. 2. Mild pulmonary venous congestion. 3. Otherwise, no active disease. Electronically signed by: Lino Rodgers MD 09/02/2024 04:08 PM EDT
[2024-09-03 12:10] LABS: Influenza A PCR NEGATIVE (Negative); Influenza B PCR NEGATIVE (Negative); Resp Syncy Virus RNA Qual PCR NEGATIVE (Negative); SARS COV2 PCR INHOUSE NEGATIVE (Negative)
== END 2024-09-02 14:37 | disposition home or self-care (01) ==
LOC: HO.HMGCX 14:36
PROVIDERS: PCP Nurse Practitioner Family; Visit Provider Physician Assistant Medical
DX: R09.89 Other specified symptoms and signs involving the circulatory and respiratory systems (principal); R05.1 Acute cough
CPT/HCPCS: 0241U; 71046

== ENCOUNTER 2024-09-02 14:36 | Outpatient (AMB) | payer MEDICARE, SELFPAY ==
--- NOTE | 2024-09-02 15:09 | AM.OFFWIN_ITS ---
Intake Vital Signs 09/02/24 15:14 Height 5 ft 11 in BMI Reason not done Patient refused/unable BP 140/80 H Blood Pressure Location Rt brachial Position Sitting Respiration 24 H Pulse 103 H Pulse Source Pulse Oximeter Temp 98 F Temp Source Oral Pulse Oximetry (%) 93 Oxygen Delivery Method Room Air Intake Visit Reasons: EP-upper respiratory infection,sob Intake Note: Pt has SOB, wattery eyes, headache, runny nose and sore throat, chest hurts from coughing. Patient Tobacco Use Status: Former Tobacco user Allergies No Known Allergies Allergy (Verified 09/02/24 15:12) HPI HPI Comments History of Present Illness Details History of Present Illness - The patient is an 84-year-old female p resenting with cough, congestion, and sore throat. - She has been congested and has a runny nose. - She states that she has not felt like eating and this is the worst she has felt in years. - Symptoms commenced four days ago, with complaints of eyes feeling itchy and leaking. - Sore throat is present, worsening upon coughing, and producing scant, yellowish phlegm. - Patient noted no fever but has been me dicating with Tylenol and cough syrup as needed. - No significant recent exposure to illn ess; however, environmental factors noted from a car outing two weeks prior. - Patient has a history of COPD without recent exacerbations and denies smoking. - She denies abd pain, n/v/d, ear pain, FIELDS, dizziness. She has weakness. Physical Exam General: Cooperative, healthy appearing, comfortable, no acute distress and well developed Orientation: Patient oriented x3 Head: Normal to inspection Ears: Hearing grossly normal bilaterally. TMs bilaterally are normal. Nose: Normal external nose present Face and sinus: Normal facial exam, no sinus tenderness noted. Eyes: Appearance normal, both eyes and all related structures, redness to the sclera bilaterally. Neck: Normal visual inspection and Yes full ROM. No lymphadenopathy noted. Respiratory: Normal respiratory effort. Able to speak in complete sentences. Clear to auscultation bilaterally, no wheezing noted. Cardiovascular: Regular rate and rhythm. Normal S1 and S2 GI: Normal to inspection. Soft to palpation and nontender Skin: No rashes or lesions noted Neuro: Patient oriented x3 Extremities: Normal to inspection, no edema noted. Patient was informed and verbally consented to the use of an ambient scribe for clinic note documentation during this visit. [facility] Medical History (HFpEF) heart failure with preserved ejection fraction Edema leg Hypertension Chronic kidney disease Surgical History History of tubal ligation History of kidney removal Status post carotid surgery Family History Brother Cancer Mother Heart attack Social History Alcohol intake: former Patient Tobacco Use Status: Former Tobacco user e-Cigarette/Vaping Use: Never Used service: No Current occupational status: unemployed and retired Cognitive needs: No Hearing needs: No Vision needs: No Review of Systems Const All systems reviewed & are unremarkable except as noted in HPI and below Physical Exam Vital Signs: Last Vital Signs Temp 98 F 09/02/24 15:14 Pulse 103 H 09/02/24 15:14 Resp 24 H 09/02/24 15:14 BP 140/80 H 09/02/24 15:14 Pulse Ox 93 09/02/24 15:14 Oxygen Delivery Method Room Air 09/02/24 15:14 Assessment & Plan Assessment & Plan (1) Cough: Code(s): R05.9 - Cough, unspecified Qualifiers: Cough type: acute Qualified Code(s): R05.1 - Acute cough Plan Most likely CAP vs URI vs covid vs flu Plan - Initiating chest X-ray to assess any potential pneumonia or pulmonary complications. - Performed swabs for COVID-19 and influenza as an investigative measure. - Continue with inhalers. - Tessalon perles as needed for cough. - Z-sebas as directed. - Tylenol or Motrin as needed - Drink lots of fluids. - Diet as tolerated. - follow up with PCP. Orders: Orders XR chest 2V Today R05.9 - Cough, unspecified SARS-CoV2/FLU/RSV Today R09.89 - Other specified symptoms and signs involving the circulatory and respiratory systems Medications: New benzonatate 100 mg PO bid-tid 7 days PRN 21 caps 0RF Cough azithromycin For 250 mg dose pack: take 500 mg today (day 1), then 250 mg for 4 days (days 2-5) PO 6 tabs 0RF Coding Level of Care Code Est Pt Level 4 (74157) Diagnoses Acute cough R05.1 Cough type: acute
[2024-09-02 15:14] VITALS: BP 140/80; PULSE 103; RESP 24; TEMP 36.6; O2SAT 93
--- OUTSIDE RECORDS SUMMARY | 2024-09-02 16:26 | XMS_ITS | Encounter Summary ---
Author Organization [facility] Address [address] [facility] [address] [place] [address] Phone Care Team Providers Care Hand Assembler Name Role Phone Neida Gabriel DNP Primary Care Provider [phone] Reason for Visit * Reason Comments Med Refill Encounter Details Date Type Department Care Team (Late st Contact Info) Description 05/25/2022 Refill [facility] [address] [place] [phone] Aldo Bush MD Social History Tobacco Use [...] on filedocumented in this encounter Care Teams Hand Assembler Relationship Specialty Start Date End Date Neida Gabriel DNP [address] [facility] [address] [place] [address] PCP - General Nurse Practitioner 11/22/21 documented as of this encounter
== END 2024-09-02 16:12 | disposition home or self-care (01) ==
PROVIDERS: PCP Nurse Practitioner Family; Visit Provider Physician Assistant Medical
DX: R05.1 Acute cough (principal)

== ENCOUNTER → 2024-09-02 15:43 | Outpatient (BNV) | payer MEDICARE, SELFPAY | PROVIDERS: PCP Nurse Practitioner Family; Visit Provider Radiology Diagnostic Radiology | DX: I51.7 Cardiomegaly (principal); Z95.0 Presence of cardiac pacemaker | CPT/HCPCS: 71046 ==

== ENCOUNTER 2024-09-18 08:51 | Outpatient (REF) | payer MEDICARE, SELFPAY ==
--- NOTE | ~2024-09-18 | XR_ITS ---
EXAMINATION: XR CHEST CLINICAL INFORMATION: R05.9 - Cough, unspecified COMPARISON: September 02, 2024 TECHNIQUE: 2 views of the chest were obtained. FINDINGS: Pacemaker generator projects over the left chest. Leads terminating in the right atrium and right ventricle. There are clips in the left upper abdomen, just left of midline. Cardiac size is enlarged. Coarse markings in the lung bases have decreased. There is no pleural effusion. Curvilinear calcific density projects in the region of supraspinatus tendon on the right. XR/XR chest 2V IMPRESSION: Cardiomegaly, no acute disease. Possible right supraspinatus calcific tendinitis. Electronically signed by: Pee Peralta MD 09/18/2024 12:09 PM EDT
--- OUTSIDE RECORDS SUMMARY | 2024-09-18 09:27 | XMS_ITS | Encounter Summary ---
Author Organization [facility] Address [address] [facility] [address] [place] [address] Phone Care Team Providers Care Timers Inspector Name Role Phone Neida Gabriel DNP Primary Care Provider [phone] Reason for Visit * Reason Comments Med Refill Encounter Details Date Type Department Care Team (Late st Contact Info) Description 05/25/2022 Refill [facility] [address] [place] [phone] Aldo Bush MD Social History Tobacco Use [...] on filedocumented in this encounter Care Teams Timers Inspector Relationship Specialty Start Date End Date Neida Gabriel DNP [address] [facility] [address] [place] [address] PCP - General Nurse Practitioner 11/22/21 documented as of this encounter
[2024-09-18 13:18] LABS: Appearance Urine Clear; Color Urine Yellow; Glucose Urine UA >=1000 mg/dL (Negative); Leukocyte Esterase Urine Trace (Negative); Nitrite Urine Negative (Negative); Specific Gravity - Urine <= 1.005 (1.005-1.025); UMIC TRIGGER UACC YES; Urine Blood Negative (Negative); Urine Ketones Negative (Negative); Urine Protein 30 (1+) mg/dL (Neg-Trace)
[2024-09-18 13:31] LABS: B Type Natriuretic Peptide 232 pg/mL (<100)
[2024-09-18 13:32] LABS: MANUAL DIFF FLAG NO
[2024-09-18 13:36] LABS: Basophils Percent Auto 0.4 % (0-2); Eosinophils Absolute Auto 0.1 X10*3/uL (0.0-0.4); Eosinophils Percent Auto 1.2 % (0-4); Hematocrit 32.9 % (37.0-47.0); Imm Gran Abs Auto 0.06 X10*3/uL (0.00-0.03); Imm Gran Pct Auto 0.7 % (0.0-0.4); Lymphocytes Absolute Auto 0.6 X10*3/uL (1.2-4.9); Lymphocytes Percent Auto 7.1 % (20-40); Mean Corpuscular HGB Conc 33.4 g/dl (31.0-35.0); Mean Corpuscular Hemoglobin 29.9 pg (27.0-33.0); Mean Corpuscular Volume 89.4 fL (80.0-98.0); Mean Platelet Volume 10.7 fL (9.4-12.3); Monocytes Absolute Auto 0.5 X10*3/uL (0.1-1.2); Monocytes Percent Auto 6.3 % (2-11); Neutrophils Absolute Auto 6.9 x10*3/uL (2.0-8.3); Neutrophils Percent Auto 84.3 % (45-73); Platelet Count 213 X10*3/uL (160-400); Red Blood Count 3.68 X10*6/uL (4.20-5.50); Red Cell Distribution Width 13.3 % (11.0-16.0); White Blood Count 8.2 X10*3/uL (4.8-10.8)
[2024-09-18 14:16] LABS: Anion Gap 17 (12-20); Blood Urea Nitrogen 61 mg/dL (9-16); Calcium 10.7 mg/dL (8.4-10.2); Carbon Dioxide 21 mmol/L (22-29); Chloride 106 mmol/L (96-108); Estimated Glomerular Filt Rate 18; Glucose Random 237 mg/dL (60-115); Parathyroid Hormone Intact 806.3 pg/mL (8.7-77.1); Potassium 3.6 mmol/L (3.3-5.1); Sodium 140 mmol/L (135-145)
[2024-09-18 14:18] LABS: TSH reflex Free T4 1.68 uIU/mL (0.32-4.0)
[2024-09-18 14:23] LABS: Alanine Aminotransferase 8 U/L (0-31); Albumin Level 4.3 g/dL (3.5-5.0); Alkaline Phosphatase 103 U/L (39-117); Anion Gap 17 (12-20); Aspartate Amino Transferase 20 U/L (5-31); Bilirubin Total 0.4 mg/dL (0.0-1.0); Blood Urea Nitrogen 61 mg/dL (9-16); Calcium 10.6 mg/dL (8.4-10.2); Carbon Dioxide 20 mmol/L (22-29); Chloride 106 mmol/L (96-108); Cholesterol 237 mg/dL (<200); Estimated Glomerular Filt Rate 18; Glucose Fasting 239 mg/dL (60-99); HDL Cholesterol 41 mg/dL (>40); LDL Cholesterol Calculated 156 mg/dL (<100); Potassium 3.6 mmol/L (3.3-5.1); Sodium 139 mmol/L (135-145); Total Protein 6.9 g/dL (6.5-8.0); Triglycerides 201 mg/dL (<150)
[2024-09-18 15:02] LABS: Bacteria Urine None Seen (None Seen); Hyaline Casts Urine 0-2 /LPF (0-2); RBC Urine 0-2 /HPF (0-2); WBC Urine 0-5 /HPF (0-5)
[2024-09-22 19:23] LABS: Glutamic acid decarboxylase Ab <5 IU/mL (<5)
== END 2024-09-18 08:52 | disposition home or self-care (01) ==
LOC: HO.HMGCX 08:51
PROVIDERS: Internal Medicine Endocrinology, Diabetes & Metabolism; PCP Nurse Practitioner Family; Referring Provider Internal Medicine Nephrology; Visit Provider Nurse Practitioner Family
DX: I13.0 Hypertensive heart and chronic kidney disease with heart failure and stage 1 through stage 4 chronic kidney disease, or unspecified chronic kidney disease (principal); E11.22 Type 2 diabetes mellitus with diabetic chronic kidney disease; N18.32 Chronic kidney disease, stage 3b; I50.30 Unspecified diastolic (congestive) heart failure; E11.65 Type 2 diabetes mellitus with hyperglycemia; E83.52 Hypercalcemia; R05.9 Cough, unspecified; R09.89 Other specified symptoms and signs involving the circulatory and respiratory systems
CPT/HCPCS: 36415; 71046; 80048; 80053; 80061; 81001; 83880; 83970; 84443; 85025; 86341; 99212

== ENCOUNTER 2024-09-18 09:04 | Outpatient (AMB) | payer MEDICARE, SELFPAY ==
[2024-09-18 09:20] VITALS: BP 138/82; PULSE 110; TEMP 36.7; O2SAT 94; BMI 27.5
--- NOTE | 2024-09-18 09:20 | A.OFFPC_ITS ---
Vital Signs 09/18/24 09:20 Height 5 ft 11 in Weight 197 lb BMI 27.5 BP 138/82 Blood Pressure Location Lt brachial Position Sitting Pulse 110 H Pulse Source Pulse Oximeter Temp 98.0 F Temp Source Oral Pulse Oximetry (%) 94 Oxygen Delivery Method Room Air Intake Visit Reasons: 3m follow up Allergies No Known Allergies Allergy (Verified 09/18/24 09:22) Tobacco use date assessed: 06/10/24 Fall risk assessment: No Falls in past year Last assessed Fall Risk: 09/18/24 Dental Screening Dental Screen Date: 06/10/24 HPI 3m follow up HPI Details Chief Complaint The patient presents with a chronic cough. History of Present Illness The patient is an 84-year-old female presenting with a ongoing cough. The cough has persisted for over a month, and she was seen at the walk-in clinic earlier this month. A chest X-ray was performed, ruling out COVID-19, influenza, and RSV (swab). She was prescribed azithromycin and tessalon perles, but reports minimal relief. The patient experiences shortness of breath and cannot lie flat due to the cough. She has a history of COPD and heart failure with reduced ejection fraction. Lab work, including a BNP test, was advised but not yet completed. Her previous chest X-ray showed mild pulmonary congestion, consistent with heart failure. She reports dyspnea on exertion and is noted to be obese. Additionally, the patient reports constipation and is taking linaclotide. Social History Health Maintenance Review of Systems - Respiratory: Reports chronic cough and dyspnea on exertion. - Gastrointestinal: Reports constipation , currently managed with linaclotide. denies any fevers, n/v. She does get some Chest discomfort, but it is usually relieved with coughing (mucous up), denies any wheezing, does get SOB with exertion Physical Exam General: Cooperative, healthy appearing, comfortable, no acute distress and well developed, obese, using walker Orientation: Patient oriented x3 Limitations: Cannot get into the flat position due to cough Head: Normal to inspection Ears: Hearing grossly normal bilaterally Nose: Normal external nose present Face and sinus: Normal facial exam Eyes: Appearance normal, both eyes and all related structures Neck: Normal visual inspection and Yes full ROM Respiratory: Fairly clear on exam, normal respiratory effort but gets some shortness of breath with minimal exertion Cardiovascular: Normal S1 and S2 GI: Normal to inspection. Soft to palpation and nontender, reports some constip ation Skin: No rashes or lesions noted Neuro: Patient oriented x3 Extremities: Normal to inspection, patient is obese Results - Imaging: Previous chest X-ray showed m ild pulmonary congestion. Plan The patient will have an EKG and a repeat chest X-ray to evaluate her chronic cough and monitor for any changes. She is advised to complete pending lab work, including a BNP test, to aid in managing her heart failure. Follow-up with her pharmacy buyer and restaurant district manager is recommended for comprehensive management of COPD and heart failure. For constipation, she will continue with linaclotide, though will send prn lactulose. Lifestyle modifications, including weight management and symptom monitoring, are encouraged. Discussion Notes I discussed with the patient the importance of completing her lab work, including the BNP test, to better manage her heart failure. We also talked about the need for follow-up with her pharmacy buyer and primary care provider to ensure her COPD and heart failure are well-managed. I emphasized the benefits of lifestyle modifications, such as weight management, to improve her health outcomes. Patient Instructions - Complete all pending lab work, includi ng the BNP test, as soon as possible. - Schedule follow-up appointments with y our pharmacy buyer and primary care provider. - Continue taking linaclotide for fuentes clement as it is effective. - Focus on weight management and monitor symptoms regularly. [facility] Medical History (HFpEF) heart failure with preserved ejection fraction Edema leg Hypertension Chronic kidney disease Surgical History History of tubal ligation History of kidney removal Status post carotid surgery Family History Brother Cancer Mother Heart attack Social History Alcohol intake: former Patient Tobacco Use Status: Former Tobacco user e-Cigarette/Vaping Use: Never Used service: No Current occupational status: unemployed and retired Cognitive needs: No Hearing needs: No Vision needs: No Questionnaire Thrive Questionnaire Date Thrive assessed: 06/10/24 I am a: Parent/Caregiver What is your living situation today?: I have a steady place to live Within the past 12 months, did the food you bought not last and you didn't have the money to get more?: Never true Within the past 12 months, did you worry whether your food would run out before you got money to buy more?: Never true Do you have trouble paying for medicines?: No Do you have trouble getting transportation to medical appointments?: No Do you have trouble paying your heating and electricity bill?: No Do you have trouble taking care of your child, family member or friend?: I choose not to answer this question Do you have trouble with day-to-day activities such as bathing, preparing meals, shopping, managing finances, etc.?: No Are you currently unemployed and looking for a job?: No Are you interested in more education?: No Please select the resources that you would like help with: None Currently or been in a relationship where the following occur: No concerns reported THRIVE Score: 0 DARCI-7 AMB Questionnaire DARCI-7 Date DARCI - 7 assessed: 06/10/24 Source: Developed by Drs. Mike Cartagena, Sonal Jensen, Phong Armendariz and colleagues, with an educational amrit from [employer]. Physical exam (Primary Care) Vital Signs: Last Vital Signs Temp 98.0 F 09/18/24 09:20 Pulse 110 H 09/18/24 09:20 BP 138/82 09/18/24 09:20 Pulse Ox 94 09/18/24 09:20 Oxygen Delivery Method Room Air 09/18/24 09:20 BMI result Body Mass Index 27.5 Tobacco/Smoking Status: Tobacco use Status Tobacco use date assessed 06/10/24 09/18/24 09:25 Patient Tobacco Use Status Former Tobacco user 09/18/24 09:25 e-Cigarette/Vaping Use Never Used 09/18/24 09:25 Thrive Assessment: Date of Thrive Assessment Date Thrive assessed 06/10/24 09/18/24 09:25 Currently or been in a relationship where the following occur: No concerns reported Coding Level of Care Code Est Pt Level 4 (33183) Diagnoses Cough R05.9 (HFpEF) heart failure with preserved ejection fraction I50.30 Pulmonary congestion R09.89 Assessment & Plan Assessment & Plan (1) Cough: Code(s): R05.9 - Cough, unspecified Category: Medical (2) (HFpEF) heart failure with preserved ejection fraction: Code(s): I50.30 - Unspecified diastolic (congestive) heart failure Category: Medical (3) Pulmonary congestion: Code(s): R09.89 - Other specified symptoms and signs involving the circulatory and respiratory systems Category: Medical Plan . Orders: Orders XR chest 2V Today I50.30 - Unspecified diastolic (congestive) heart failure, R05.9 - Cough, unspecified Medications: New lactulose 20 grams (30 mL) PO BID PRN 300 mL 0RF constipation 10 days
== END 2024-09-18 10:53 | disposition home or self-care (01) ==
LOC: HO.HMCC 09:05
PROVIDERS: PCP Registered Nurse; Visit Provider Nurse Practitioner Family
DX: R05.9 Cough, unspecified (principal); I50.30 Unspecified diastolic (congestive) heart failure; R09.89 Other specified symptoms and signs involving the circulatory and respiratory systems

== ENCOUNTER → 2024-09-18 10:38 | Outpatient (BNV) | payer MEDICARE, SELFPAY | PROVIDERS: PCP Nurse Practitioner Family; Referring Provider Internal Medicine Nephrology; Visit Provider Radiology Diagnostic Radiology | DX: I51.7 Cardiomegaly (principal) | CPT/HCPCS: 71046 ==

== ENCOUNTER → 2024-09-19 23:59 | Outpatient (BNV) | payer MEDICARE, SELFPAY ==
--- NOTE | 2024-09-23 11:56 | MHC.OFFVIS ---
Intake Visit Reasons: Remote device check- Medtronic Allergies No Known Allergies Allergy (Verified 09/18/24 09:22) [facility] Medical History (HFpEF) heart failure with preserved ejection fraction Edema leg Hypertension Chronic kidney disease Surgical History History of tubal ligation History of kidney removal Status post carotid surgery Family History Brother Cancer Mother Heart attack Social History Alcohol intake: former Patient Tobacco Use Status: Former Tobacco user e-Cigarette/Vaping Use: Never Used service: No Current occupational status: unemployed and retired Cognitive needs: No Hearing needs: No Vision needs: No Office Procedures Cardiac Device Check Cardiac Device Check Details: Remote pacemaker report generated 09/19/2024. Pacemaker function is adequate. Patient ventricularly pacer dependent [id number] Cardiac Device Interrogation, pacemaker Procedure code (CPT) selection complete Assessment & Plan Assessment & Plan (1) Pacemaker: Comment: Medtronic dual chamber pacemaker. placed 11/21/[address] Silva for complete heart block. Serial number [id number]! Code(s): Z95.0 - Presence of cardiac pacemaker Category: Medical Plan: See above Coding Level of Care Code Procedure Only Diagnoses Pacemaker Z95.0 CPT Codes Cardiac Device Check - Cardiac Device 12: [id number] Cardiac Device Interrogation, pacemaker ([id number])
== END ==
PROVIDERS: PCP Registered Nurse; Visit Provider Internal Medicine Cardiovascular Disease
DX: Z45.018 Encounter for adjustment and management of other part of cardiac pacemaker (principal)
CPT/HCPCS: 93294

== ENCOUNTER 2024-10-29 10:53 | Outpatient (REF) | payer MEDICARE, SELFPAY ==
--- OUTSIDE RECORDS SUMMARY | 2024-10-29 11:39 | XMS_ITS | Encounter Summary ---
Author Organization [facility] Address [address] [facility] [address] [place] [address] Phone Care Team Providers Care Medical Information Officer Name Role Phone Neida Gabriel DNP Primary Care Provider [phone] Reason for Visit * Reason Comments Med Refill Encounter Details Date Type Department Care Team (Late st Contact Info) Description 05/25/2022 Refill [facility] [address] [place] [phone] Aldo Bush MD Social History Tobacco Use [...] on filedocumented in this encounter Care Teams Medical Information Officer Relationship Specialty Start Date End Date Neida Gabriel DNP [address] [facility] [address] [place] [address] PCP - General Nurse Practitioner 11/22/21 documented as of this encounter
--- OUTSIDE RECORDS SUMMARY | 2024-10-29 11:39 | XMS_ITS | Continuity of Care Document ---
Author Organization [facility] [address] [facility] [address] [place] [address] Phone [phone] Social History Type Date Description Comments Sex Female Sex Unknown Medical Devices Description No Information Available Encounters Description No Information Available Assessments Description No Information Available Plan of Treatment No Information Available Functional Status Description No Information Available Mental Status Description No Information Available Referrals Description No Information Available
--- OUTSIDE RECORDS SUMMARY | 2024-10-29 11:40 | XMS_ITS | Clinical Summary ---
Author Organization [facility] Address [address] [place] [address] Care Team Providers Care It Administrative Assistant Name Role Phone Smith Padgett MD Primary Care Provider [phone] Allergies Active Allergy Reactions Criticality Noted Date [...] 1-dose 75+ series) 02/19/2016 Influenza Vaccine (#1) 2024 Hepatitis B Vaccines Aged Out No long er eligible based on patient's age to complete this topic RSV Ped < 20 months Aged Out No longe r eligible based on patient's age to complete this topic Care Teams It Administrative Assistant Relationship Specialty Start Date End Date Smith Padgett MD [address] [address] PCP - General Internal Medicine 11/04/16
[2024-10-29 14:20] LABS: Anion Gap 16 (12-20); Blood Urea Nitrogen 63 mg/dL (9-16); Calcium 9.8 mg/dL (8.4-10.2); Carbon Dioxide 18 mmol/L (22-29); Chloride 112 mmol/L (96-108); Estimated Glomerular Filt Rate 16; Potassium 3.9 mmol/L (3.3-5.1); Sodium 142 mmol/L (135-145)
== END 2024-10-29 10:54 | disposition home or self-care (01) ==
LOC: HO.HMGCLDS 10:53
PROVIDERS: PCP Nurse Practitioner Family; Visit Provider Internal Medicine Nephrology
DX: I12.9 Hypertensive chronic kidney disease with stage 1 through stage 4 chronic kidney disease, or unspecified chronic kidney disease (principal); N18.32 Chronic kidney disease, stage 3b; E87.20 Acidosis, unspecified; E21.0 Primary hyperparathyroidism
CPT/HCPCS: 36415; 80051; 82310; 82565; 84520

== ENCOUNTER 2024-11-07 10:20 | Outpatient (AMB) | payer MEDICARE, SELFPAY ==
[2024-11-07 10:23] VITALS: BMI 27.5
--- NOTE | 2024-11-07 10:23 | A.OFFVIS_ITS ---
VS Expanded 11/07/24 10:23 Height 5 ft 11 in Weight 196 lb 13.965 oz BMI 27.5 Intake Visit Reasons: DM Allergies No Known Allergies Allergy (Verified 09/18/24 09:22) Nutrition Presentation Details: Pt presents for MNT for T2DM Pt reports having 3 meals per day and choosing a variety of foods Pt reports keeping hydrated, having water with meals/snacks Pt has questions regarding starches and protein and its relationship to BG Pt reports making meals at home, has support from her daughter sometimes has a baked good instead of skipping a meal food frequency fruits: 0-1/d dairy: 3+/d fish : 0-1/m etoh: denies smoking denies physical activity: ADL BG: not monitoring BS Monitoring Most Recent Diabetes Results: Cholesterol, (<200) 237 mg/dL H 09/18/24 HDL Cholesterol, (>40) 41 mg/dL 09/18/24 Triglycerides, (<150) 201 mg/dL H 09/18/24 Creatinine, (0.5-1.4) 2.75 mg/dL H 10/29/24 BUN, (9-16) 63 mg/dL H 10/29/24 Sodium, (135-145) 142 mmol/L 10/29/24 Potassium, (3.3-5.1) 3.9 mmol/L 10/29/24 Chloride, (96-108) 112 mmol/L H 10/29/24 Carbon Dioxide, (22-29) 18 mmol/L L 10/29/24 Calcium, (8.4-10.2) 9.8 mg/dL Δ 10/29/24 AST, (5-31) 20 U/L 09/18/24 ALT, (0-31) 8 U/L 09/18/24 Total Protein, (6.5-8.0) 6.9 g/dL 09/18/24 Albumin, (3.5-5.0) 4.3 g/dL 09/18/24 [id number] Equation Height: 5 ft 11 in Weight: 197 lb Resting Metabolic Rate: 1450.45 Calculated Activity Level: Sedentary Calories Needed to Maintain Weight: 1740.54 [facility] Medical History (Updated 09/25/24 @ 14:29 by Moshe Romero [facility]) Diabetic retinopathy (HFpEF) heart failure with preserved ejection fraction Edema leg Hypertension Chronic kidney disease Surgical History History of tubal ligation History of kidney removal Status post carotid surgery Family History Brother Cancer Mother Heart attack Social History Alcohol intake: former Patient Tobacco Use Status: Former Tobacco user e-Cigarette/Vaping Use: Never Used service: No Current occupational status: unemployed and retired Cognitive needs: No Hearing needs: No Vision needs: No Assessment & Plan Assessment & Plan (1) Uncontrolled diabetes mellitus with hyperglycemia: Code(s): E11.65 - Type 2 diabetes mellitus with hyperglycemia Category: Medical Plan: Wt: 98.5 Kg ( 11/18 ) Est kcal needs as per MSJ: 4680-9792 (40% carb, 30% protein/fat) Est fluid needs as per 25-30 ml/d:2500- 2700 Est prot per day as per 1 g/kg bw: 80- 100 Recommend fiber intake : 8-10 g per day and gradually increase to 25-28 g per day for women and 35-38 g for men or as tolerated Recommend sodium intake per day : less than 2300 mg Educated patient on: ( R = reviewed V = verbalizes understanding N/R = needs review N/A = not applicable * Food sources of carbohydrate, adequate serving sizes and its role in various health conditions: R * Differences between complex carbohydrates a simple carbohydrates, role of fiber in diet: R * Lean protein sources of foods: R V * hydration: R * Differences between types of fats and role in diet (mono on saturated fat fatty acids, saturated fatty acids, trans fats): R V N/R * Food sources of sodium in salt and healthy modifications for heart health in kidney health: R * Vitamins and minerals: R V N/R * Healthy plate method concept: R V N/R * Physical activity: Benefits a precaution: R V N/R * Hypoglycemia protocol (rule of 15): R V N/R * Dietary prevention of Hyperglycemia: R Patient Instructions: Follow healthy plate method Have a meal replacement instead of skipping a meal - see ideas (yogurt/fruit or meal replacement shake as example monitor blood sugar fasting state and whenever not feeling like self, if blood sugar is below 70 then treat by having 1/2 cup of juice or 3-4 glucose tablets, wait 15 minutes and recheck your blood sugar, repeat treatment if blood sugar continues below 70 , notify your doctor of any low blood sugar levels for further asessment Coding Level of Care Code Nutr Indiv Intake (22239) Diagnoses Uncontrolled diabetes mellitus with hyperglycemia E11.65 Time Spent (min) 30
--- OUTSIDE RECORDS SUMMARY | 2024-11-07 11:07 | XMS_ITS | Clinical Summary ---
Author Organization [facility] Address [address] [place] [address] Care Team Providers Care Cardiothoracic Anesthesia Technician Name Role Phone Smith Padgett MD Primary Care Provider [phone] Allergies Active Allergy Reactions Criticality Noted Date [...] age to complete this topic Care Teams Cardiothoracic Anesthesia Technician Relationship Specialty Start Date End Date Smith Padgett MD [address] [address] PCP - General Internal Medicine 11/04/16
--- OUTSIDE RECORDS SUMMARY | 2024-11-07 11:07 | XMS_ITS ---
Continuity of Care Document (CCD) Created on: November 07, 2024 Dorinda Gale External Reference #: [id number] : [id number] Sex: Female Author Organization [facility] [address] [facility] [address] [place] [address] Phone [phone] Social History Type Date Description Comments Sex Female Sex Unknown Medical Devices Description No Information Available Encounters Description No Information Available Assessments Description No Information Available Plan of Treatment No Information Available Functional Status Description No Information Available Mental Status Description No Information Available Referrals Description No Information Available
--- OUTSIDE RECORDS SUMMARY | 2024-11-07 11:07 | XMS_ITS | Encounter Summary ---
Author Organization [facility] Address [address] [facility] [address] [place] [address] Phone Care Team Providers Care Putty Mixer Name Role Phone Neida Gabriel DNP Primary Care Provider [phone] Reason for Visit * Reason Comments Med Refill Encounter Details Date Type Department Care Team (Late st Contact Info) Description 05/25/2022 Refill [facility] [address] [place] [phone] Aldo Bush MD Social History Tobacco Use [...] on filedocumented in this encounter Care Teams Putty Mixer Relationship Specialty Start Date End Date Neida Gabriel DNP [address] [facility] [address] [place] [address] PCP - General Nurse Practitioner 11/22/21 documented as of this encounter
[2024-11-12 09:43] VITALS: BMI 27.5
== END 2024-11-07 11:46 | disposition home or self-care (01) ==
PROVIDERS: PCP Nurse Practitioner Family; Visit Provider Dietitian, Registered
DX: E11.65 Type 2 diabetes mellitus with hyperglycemia (principal)

== ENCOUNTER → 2024-11-07 10:20 | Outpatient (BNVA) | payer MEDICARE, SELFPAY | PROVIDERS: PCP Nurse Practitioner Family; Visit Provider Dietitian, Registered | DX: E11.65 Type 2 diabetes mellitus with hyperglycemia (principal); Z71.3 Dietary counseling and surveillance | CPT/HCPCS: 97802 ==

== ENCOUNTER 2024-11-12 10:25 | Outpatient (AMB) | payer MEDICARE, SELFPAY ==
--- NOTE | 2024-11-12 10:36 | HO.NEPHOV_ITS ---
Vital Signs 11/12/24 10:38 Height 5 ft 11 in Weight 195 lb 6 oz BMI 27.2 BP 150/64 H Blood Pressure Location Lt brachial Position Sitting Pulse 96 Pulse Source Pulse Oximeter Pulse Oximetry (%) 98 Oxygen Delivery Method Room Air Intake Visit Reasons: Oct follow-up w/labs-No Voicemail Condemnation Engineer Required: No Accompanied by: Self / Same As Patient Allergies No Known Allergies Allergy (Verified 11/12/24 10:38) HPI Comments Details: Dorinda was seen in follow-up of her chronic kidney disease, hypertension and hypercalcemia. She has H/O hypertensive urgency and complete heart block with development of RADHA which has resolved . She had permanent pacemaker. Her BP is at goal . She does not have any chest pain, shortness of breath, nausea, vomiting, diarrhea, worsening pedal edema, urinary symptoms. She is avoiding nonsteroidal anti-inflammatory medications and is trying to keep up with good hydration. Her serum creatinine is stable [facility] Medical History (Updated 09/25/24 @ 14:29 by Moshe Romero, [facility]) Diabetic retinopathy (HFpEF) heart failure with preserved ejection fraction Edema leg Hypertension Chronic kidney disease Surgical History History of tubal ligation History of kidney removal Status post carotid surgery Family History Brother Cancer Mother Heart attack Social History Alcohol intake: former Patient Tobacco Use Status: Former Tobacco user e-Cigarette/Vaping Use: Never Used service: No Current occupational status: unemployed and retired Cognitive needs: No Hearing needs: No Vision needs: No Review of Systems Const All systems reviewed & are unremarkable except as noted in HPI and below Physical Exam Const General: comfortable and no acute distress Orientation/consciousness: patient oriented x3 HEENT Head: Yes normocephalic Mouth: Normal oral and palatal mucosa present Eyes EOM: EOMs intact bilaterally Neck Neck: Yes supple Resp Auscultation: clear to auscultation bilaterally Cardio Jugular venous distension: no JVD Rate: regular rate GI Palpation (GI): Soft to palpation Auscultation: normal bowel sounds General: Yes no CVA tenderness Back/Spine/Pelvis Back: no CVA tenderness Skin General skin exam: no rashes or lesions noted Neuro General: patient oriented x3 and moves all extremities Extrem General: Yes no pedal edema Results Reviewed Nephrology Results: Hgb, (12.0-16.0) 11.0 g/dl L 09/18/24 WBC, (4.8-10.8) 8.2 X10*3/uL 09/18/24 Plt Count, (160-400) 213 X10*3/uL 09/18/24 Sodium, (135-145) 142 mmol/L 10/29/24 Potassium, (3.3-5.1) 3.9 mmol/L 10/29/24 Chloride, (96-108) 112 mmol/L H 10/29/24 Carbon Dioxide, (22-29) 18 mmol/L L 10/29/24 BUN, (9-16) 63 mg/dL H 10/29/24 Creatinine, (0.5-1.4) 2.75 mg/dL H 10/29/24 Calcium, (8.4-10.2) 9.8 mg/dL Δ 10/29/24 PTH Intact, (8.7-77.1) 806.3 pg/mL H 09/18/24 Urine Protein, (Neg-Trace) 30 (1+) mg/dL H 09/18/24 Assessment & Plan Assessment & Plan (1) Hypertension: Code(s): I10 - Essential (primary) hypertension Category: Medical Qualifiers: Hypertension type: primary hypertension Qualified Code(s): I10 - Essential (primary) hypertension (2) Primary hyperparathyroidism: Code(s): E21.0 - Primary hyperparathyroidism Category: Medical (3) CKD (chronic kidney disease) stage 3, GFR 30-59 ml/min: Code(s): N18.30 - Chronic kidney disease, stage 3 unspecified Category: Medical Qualifiers: Chronic kidney disease stage 3 subtype: stage 3b (GFR 30-44) Qualified Code(s): N18.32 - Chronic kidney disease, stage 3b (4) Hypercalcemia: Code(s): E83.52 - Hypercalcemia Category: Medical (5) Metabolic acidosis: Code(s): E87.20 - Acidosis, unspecified Category: Medical Plan Dorinda has chronic kidney disease and longstanding hypertension. She has a new PPM. She is on metoprolol, hydralazine and Imdur . She should continue Bumetanide 1 mg AM. She can continue 650 mg p.o. of NaHCO3 b.i.d.. She is on Jardiance. She can continue on cinacalcet 60 mg three times a week. All her questions and concerns were addressed promptly. Follow-up given Orders: Orders Electrolytes 3 Months E21.0 - Primary hyperparathyroidism, I10 - Essential (primary) hypertension, N18.32 - Chronic kidney disease, stage 3b Creatinine 3 Months E21.0 - Primary hyperparathyroidism, I10 - Essential (primary) hypertension, N18.32 - Chronic kidney disease, stage 3b Parathyroid Hormone Intact 3 Months E21.0 - Primary hyperparathyroidism, I10 - Essential (primary) hypertension, N18.32 - Chronic kidney disease, stage 3b Blood Urea Nitrogen 3 Months E21.0 - Primary hyperparathyroidism, I10 - Essential (primary) hypertension, N18.32 - Chronic kidney disease, stage 3b Coding Level of Care Code Est Pt Level 4 (20874) Diagnoses Primary hypertension I10 Hypertension type: primary hypertension Primary hyperparathyroidism E21.0 Stage 3b chronic kidney disease N18.32 Chronic kidney disease stage 3 subtype: stage 3b (GFR 30-44) Hypercalcemia E83.52 Metabolic acidosis E87.20
[2024-11-12 10:38] VITALS: BP 150/64; PULSE 96; O2SAT 98; BMI 27.2
--- OUTSIDE RECORDS SUMMARY | 2024-11-12 11:45 | XMS_ITS | Clinical Summary ---
Author Organization [facility] Address [address] [place] [address] Care Team Providers Care Stock Repairer Name Role Phone Smith Padgett MD Primary Care Provider [phone] Allergies Active Allergy Reactions Criticality Noted Date [...] age to complete this topic Care Teams Stock Repairer Relationship Specialty Start Date End Date Smith Padgett MD [address] [address] PCP - General Internal Medicine 11/04/16
--- OUTSIDE RECORDS SUMMARY | 2024-11-12 11:45 | XMS_ITS | Continuity of Care Document ---
Author Organization [facility] [address] [facility] [address] [place] [address] Phone [phone] Social History Type Date Description Comments Sex Female Sex Unknown Medical Devices Description No Information Available Encounters Description No Information Available Assessments Description No Information Available Plan of Treatment No Information Available Functional Status Description No Information Available Mental Status Description No Information Available Referrals Description No Information Available
--- OUTSIDE RECORDS SUMMARY | 2024-11-12 11:45 | XMS_ITS | Encounter Summary ---
Author Organization [facility] Address [address] [facility] [address] [place] [address] Phone Care Team Providers Care Line Locator Name Role Phone Neida Gabriel DNP Primary Care Provider [phone] Reason for Visit * Reason Comments Med Refill Encounter Details Date Type Department Care Team (Late st Contact Info) Description 05/25/2022 Refill [facility] [address] [place] [id number] Aldo Bush MD Social History Tobacco Use [...] on filedocumented in this encounter Care Teams Line Locator Relationship Specialty Start Date End Date Neida Gabriel DNP [address] [facility] [address] [place] [address] PCP - General Nurse Practitioner 11/22/21 documented as of this encounter
== END 2024-11-12 10:53 | disposition home or self-care (01) ==
LOC: HO.HKAS 10:26
PROVIDERS: PCP Registered Nurse; Visit Provider Internal Medicine Nephrology
DX: I12.9 Hypertensive chronic kidney disease with stage 1 through stage 4 chronic kidney disease, or unspecified chronic kidney disease (principal); N18.32 Chronic kidney disease, stage 3b; E21.0 Primary hyperparathyroidism; Z95.0 Presence of cardiac pacemaker; E87.21 Acute metabolic acidosis; E83.52 Hypercalcemia
CPT/HCPCS: 99214

== ENCOUNTER → 2024-11-12 10:25 | Outpatient (BNVA) | payer MEDICARE, SELFPAY | PROVIDERS: PCP Registered Nurse; Visit Provider Internal Medicine Nephrology | DX: I12.9 Hypertensive chronic kidney disease with stage 1 through stage 4 chronic kidney disease, or unspecified chronic kidney disease (principal); N18.30 Chronic kidney disease, stage 3 unspecified; E21.0 Primary hyperparathyroidism; E83.52 Hypercalcemia; E87.20 Acidosis, unspecified | CPT/HCPCS: 99212 ==

== ENCOUNTER 2024-11-26 09:51 | Outpatient (AMB) | payer MEDICARE, SELFPAY ==
--- NOTE | 2024-11-26 09:53 | A.OFFVIS_ITS ---
Vital Signs 11/26/24 09:54 Height 5 ft 11 in Weight 194 lb 0.108 oz BMI 27.1 BP 150/70 H Blood Pressure Location Lt brachial Position Sitting Pulse 95 Pulse Source Pulse Oximeter Pulse Oximetry (%) 95 Oxygen Delivery Method Room Air Intake Visit Reasons: T2DM Intake Note: Patient present today to follow up on Type 2 Diabetes Mellitus. Last seen by Brook Hoskins on 08/14/24. Last Diabetic Eye exam: 09/25/2024 [facility] Last Podiatry Visit: Does not see a Cobol Developer Random Glucose: 168 mg/dL Hgb A1C: 7.2%, 11/26/2024 Manager Budget Required: No Accompanied by: Self / Same As Patient Allergies No Known Allergies Allergy (Verified 11/26/24 09:57) HPI Comments Details: This is an 84-year-old female with a past medical history of type 2 diabetes, heart failure, primary hyperparathyroidism and CKD presenting for diabetic management. It is my 1st visit with the patient. She last saw my colleague in endocrinology on 08/14/2024. She was initially diagnosed with type 2 diabetes in 1999. Hemoglobin A1c 7.2% today 11/26/24. Current medication: Jardiance 10 mg, Tradjenta 5 mg, repaglinide 1 mg daily Tradjenta was started at her last visit in July. Patient reports she gets lightheaded immediately after taking it. She tried changing the time that she administers the medications since she also gets lightheaded from her blood pressure pills, but it has not alleviated the side effect. Past medication: Glipizide discontinued due to hypoglycemia. Complications: Nephropathy followed by Dr. Bush. OU nonproliferative retinopathy - [facility]. Denies neuropathy. Followed by Podiatry. She is followed by Cardiology. Hypoglycemia: none Diet: improved diet Exercise: cleans house daily Reports being treated recently for an upper respiratory infection. She was on steroids and antibiotics. Reports cough is better though airways still feel a bit raw. Denies chest pain, shortness of breath, fevers or chills. ROS: Constitutional: No fevers or chills Respiratory: No shortness of breath Cardiovascular: No chest pain Gastrointestinal: No abdominal pain Neurologic: No numbness or tingling in the extremities. Denies syncope. Lightheadedness as noted above after administration of Tradjenta. Endocrine: No cold or heat intolerance. No polyuria or polydipsia. Physical exam: Constitutional: Alert, in no distress. Neck: Supple, Full range of motion. No lymphadenopathy. No palpable thyroid masses. Respiratory: Clear to auscultation. Cardiovascular: S1 S2 regular. No murmurs. Neurologic: No focal neurological deficits. Extremities: Warm and well perfused. Bilateral lower extremity edema noted (baseline per patient). [facility] Medical History (Updated 11/26/24 @ 12:48 by SID Finnegan) Type 2 diabetes with nephropathy Diabetic retinopathy (HFpEF) heart failure with preserved ejection fraction Edema leg Hypertension Chronic kidney disease Surgical History History of tubal ligation History of kidney removal Status post carotid surgery Family History Brother Cancer Mother Heart attack Social History Alcohol intake: former Patient Tobacco Use Status: Former Tobacco user e-Cigarette/Vaping Use: Never Used service: No Current occupational status: unemployed and retired Cognitive needs: No Hearing needs: No Vision needs: No Physical Exam Vital Signs: Last Vital Signs Pulse 95 11/26/24 09:54 BP 150/70 H 11/26/24 09:54 Pulse Ox 95 11/26/24 09:54 Oxygen Delivery Method Room Air 11/26/24 09:54 BMI result Body Mass Index 27.1 Results AMB Hemoglobin A1c AMB Hemoglobin A1c 7.2 % Last Edit by MARIA Celeste on 11/26/24 10:09 Results Reviewed Results Reviewed: Laboratory Last Values Glucose (Clinic) 168 mg/dL (60-115) H 11/26/24 10:00 Hgb A1c (Clinic) 7.2 % (4.0-6.0) H 11/26/24 10:04 Laboratory Tests 09/18/24 10/29/24 10:30 11:00 Creatinine 2.52 H 2.75 H Estimated GFR 18 16 AST 20 ALT 8 Triglycerides 201 H Cholesterol 237 H LDL Cholesterol, Calc 156 H HDL Cholesterol 41 TSH 1.68 DARCI Antibody <5 Assessment & Plan Assessment & Plan (1) Type 2 diabetes with nephropathy: Code(s): E11.21 - Type 2 diabetes mellitus with diabetic nephropathy Category: Medical Plan In summary this is an 84-year-old female with type 2 diabetes with complications including chronic kidney disease as well as congestive heart failure and peripheral vascular disease. Hemoglobin A1c is acceptable given age and comorbidities. Discontinue Tradjenta due to lightheadedness after administration. Replace with Januvia 25 mg daily. She will try taking this around noon. Continue Jardiance 10 mg daily and repaglinide 1 mg 30 minutes before breakfast. Reviewed treatment of low blood sugars with the patient. Glucose tablets sent to the pharmacy. Advised patient it is important to carry glucometer with her and check blood sugars regularly. Advised patient her blood pressure is elevated today. She has a blood pressure cuff. She will check it at home and contact her primary care or waiter/waitress formal if blood pressure remains elevated. Follow up in 1 month for a diabetic medication review. The patient says she has a lot of appointments so if she is not having side effects she can cancel this and follow up in 3 months. Orders: Orders AMB Hemoglobin A1c Today E11.65 - Type 2 diabetes mellitus with hyperglycemia Medications: New sitagliptin phosphate (Januvia) Replaces Tradjenta 25 mg PO DAILY 90 tabs 0RF glucose (Dex4 Glucose) until blood sugar is >70 16 grams (4 x 4 gram) PO Q15M PRN 10 tabs 3RF hypoglycemia Discontinued linagliptin (Tradjenta) Discontinued Reason: Doctor's Order 5 mg PO DAILY 30 days 30 tabs 11RF Patient Instructions: Continue Jardiance 10 mg and repaglinide 1 mg daily Stop Tradjenta 5 mg daily. Start Januvia 25 mg daily. If you experience low blood sugar, treat this by eating a chewable fruit candy like skittles or jelly beans (about 8 pieces), 4 ounces (1/2 cup) of fruit juice (not diet), 1 tablespoon of honey or 4 glucose tablets. If your blood sugar is under 50, take double the amount of one of the above. Recheck your blood sugar in 15 minutes. Coding Level of Care Code Est Pt Level 4 (28481) Complex EM visit Add On G2211 Diagnoses Type 2 diabetes with nephropathy E11.21
[2024-11-26 09:54] VITALS: BP 150/70; PULSE 95; O2SAT 95; BMI 27.1
[2024-11-26 10:05] LABS: Glucose, Whole Blood 168 mg/dL (60-115)
--- OUTSIDE RECORDS SUMMARY | 2024-11-26 11:05 | XMS_ITS | Continuity of Care Document ---
Author Organization [facility] [address] [facility] [address] [place] [address] Phone [phone] Social History Type Date Description Comments Sex Female Sex Unknown Medical Devices Description No Information Available Encounters Description No Information Available Assessments Description No Information Available Plan of Treatment No Information Available Functional Status Description No Information Available Mental Status Description No Information Available Referrals Description No Information Available
--- OUTSIDE RECORDS SUMMARY | 2024-11-26 11:05 | XMS_ITS | Encounter Summary ---
Author Organization [facility] Address [address] [facility] [address] [place] [address] Phone Care Team Providers Care Community Health Coordinator Name Role Phone Neida Gabriel DNP Primary Care Provider [phone] Reason for Visit * Reason Comments Med Refill Encounter Details Date Type Department Care Team (Late st Contact Info) Description 05/25/2022 Refill [facility] [address] [place] [phone] Aldo Bush MD Social History Tobacco Use [...] on filedocumented in this encounter Care Teams Community Health Coordinator Relationship Specialty Start Date End Date Neida Gabriel DNP [address] [facility] 3 [place] [address] PCP - General Nurse Practitioner 11/22/21 documented as of this encounter
--- OUTSIDE RECORDS SUMMARY | 2024-11-26 11:05 | XMS_ITS | Clinical Summary ---
Author Organization [facility] Address [address] [facility] [address] [place] [address] Phone Care Team Providers Care Brush Cleaner Name Role Phone Neida Gabriel SETPHANIE Primary Care Provider Allergies Active Allergy Reactions [...] Visual Foot Exam 11/15/2022 Influenza Vaccine (#1) 2024 Pneumococcal Vaccine: 50+ Years Completed 01/22/2019, 02/27/2017, 02/08/2016, Additional history exists Pneumococcal Vaccine: Peds (0 to 5 Years) and At-Risk Patients (6 to 49 Years) Discontinued 01/22/2019, 02/27/2017, 02/08/2016, Additional history exists Hepatitis B Vaccine Aged Out No longe r eligible based on patient's age to complete this topic Insurance [facility] [place] [id number] [facility] Medicare Care Teams Brush Cleaner Relationship Specialty Start Date End Date Neida Gabriel DNP [address] [facility] [place]. [address] [facility] [place] [address] PCP - General Nurse Practitioner 11/22/21
--- OUTSIDE RECORDS SUMMARY | 2024-11-26 11:05 | XMS_ITS | Clinical Summary ---
Author Organization [facility] Address [address] [place] [address] Care Team Providers Care Caterpillar Tractor Operator Name Role Phone Smith Padgett MD Primary Care Provider [phone] Allergies Active Allergy Reactions Criticality Noted Date [...] age to complete this topic Care Teams Caterpillar Tractor Operator Relationship Specialty Start Date End Date Smith Padgett MD [address] [address] PCP - General Internal Medicine 11/04/16
== END 2024-11-26 10:41 | disposition home or self-care (01) ==
LOC: HO.ENCR 09:52
PROVIDERS: Visit Provider Physician Assistant Medical
DX: E11.21 Type 2 diabetes mellitus with diabetic nephropathy (principal); E11.65 Type 2 diabetes mellitus with hyperglycemia

== ENCOUNTER → 2024-11-26 09:51 | Outpatient (BNVA) | payer MEDICARE, SELFPAY | PROVIDERS: Visit Provider Physician Assistant Medical | DX: E11.21 Type 2 diabetes mellitus with diabetic nephropathy (principal); E11.65 Type 2 diabetes mellitus with hyperglycemia; Z79.84 Long term (current) use of oral hypoglycemic drugs | CPT/HCPCS: 82947; 83036; 99212 ==

== ENCOUNTER 2024-12-16 11:39 | Outpatient (AMB) | payer MEDICARE, SELFPAY ==
--- NOTE | 2024-12-16 12:13 | AM.OFFWIN_ITS ---
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 Last week she purchased a Sponge from [employer] and used it to scrub her dry skin on right LE. [facility]. Reports Redness and tenderness on right Lower Leg by the Ankle area. [facility] Medical History (Updated 12/16/24 @ 13:25 by Treasure Butcher NP) Cellulitis of skin Type 2 diabetes with nephropathy Diabetic retinopathy (HFpEF) heart failure with preserved ejection fraction Edema leg Hypertension Chronic kidney disease Surgical History History of tubal ligation History of kidney removal Status post carotid surgery Family History Brother Cancer Mother Heart attack Social History Alcohol intake: former Patient Tobacco Use Status: Former Tobacco user e-Cigarette/Vaping Use: Never Used service: No Current occupational status: unemployed and retired Cognitive needs: No Hearing needs: No Vision needs: No Review of Systems Const All systems reviewed & are unremarkable except as noted in HPI and below Physical Exam Vital Signs: Last Vital Signs Temp 97.5 F 12/16/24 12:17 Pulse 95 12/16/24 12:17 Resp 18 12/16/24 12:17 BP 150/90 H 12/16/24 12:17 Pulse Ox 96 12/16/24 12:17 Const General: no acute distress Nutritional Appearance: obese morbidly obese Orientation/consciousness: patient oriented x3 Skin General skin exam: dry skin and erythema Full body images: 2 1. Redness, tenderness to palpation and open skin draining mucoid discharge. Neuro General: patient oriented x3, gait normal (Walks with a Cane) and moves all extremities Psych Speech and movement: Normal speech and movement present Assessment & Plan Assessment & Plan (1) Cellulitis of skin: Code(s): L03.90 - Cellulitis, unspecified Plan: Ordered Keflex for 7 days. Clean the wound and applied clean dressing (Xeroform, 4x4 gauze and wrap with Kerlix roll). Keep area clean and dry Advised to use moisturizing Lotion for dry skin and increase water intake. Medications: New 2 cephalexin 500 mg PO BID 14 caps 0RF 7 days L03.90 - Cellulitis, unspecified Coding Level of Care Code Est Pt Level 4 (58215) Diagnoses Cellulitis of skin L03.90 Time Spent (min) 20
[2024-12-16 12:17] VITALS: BP 150/90; PULSE 95; RESP 18; TEMP 36.4; O2SAT 96
--- OUTSIDE RECORDS SUMMARY | 2024-12-16 14:21 | XMS_ITS | Clinical Summary ---
Author Organization [facility] Address [address] [place] [address] Care Team Providers Care Spa Experience Coordinator Name Role Phone Smith Padgett MD Primary Care Provider [phone] Allergies Active Allergy Reactions Criticality Noted Date [...] age to complete this topic Care Teams Spa Experience Coordinator Relationship Specialty Start Date End Date Smith Padgett MD [address] [address] PCP - General Internal Medicine 11/04/16
--- OUTSIDE RECORDS SUMMARY | 2024-12-16 14:21 | XMS_ITS | Encounter Summary ---
Author Organization [facility] Address [address] [facility] [address] [place] [address] Phone Care Team Providers Care Dealer Analyst Name Role Phone Neida Gabriel DNP Primary Care Provider [phone] Reason for Visit * Reason Comments Med Refill Encounter Details Date Type Department Care Team (Late st Contact Info) Description 05/25/2022 Refill [facility] [address] [place] [phone] Aldo Bush MD Social History Tobacco Use [...] on filedocumented in this encounter Care Teams Dealer Analyst Relationship Specialty Start Date End Date Neida Gabriel DNP [address] [facility] 3 [place] [address] PCP - General Nurse Practitioner 11/22/21 documented as of this encounter
--- OUTSIDE RECORDS SUMMARY | 2024-12-16 14:21 | XMS_ITS | Clinical Summary ---
Author Organization [facility] Address [address] [facility] [address] [place] [address] Phone Care Team Providers Care Scrap Drop Engineer Name Role Phone Neida Gabriel STEPHANIE [...] patient's age to complete this topic Insurance [facility] [place] [id number] [facility] Medicare Care Teams Scrap Drop Engineer Relationship Specialty Start Date End Date Neida Gabriel DNP [address] [facility] [place]. 3 [facility] [place] [address] PCP - General Nurse Practitioner 11/22/21
--- OUTSIDE RECORDS SUMMARY | 2024-12-16 14:21 | XMS_ITS | Continuity of Care Document ---
Author Organization [facility] [address] [facility] [address] [place] [address] Phone [phone] Social History Type Date Description Comments Sex Female Sex Unknown Medical Devices Description No Information Available Encounters Description No Information Available Assessments Description No Information Available Plan of Treatment No Information Available Functional Status Description No Information Available Mental Status Description No Information Available Referrals Description No Information Available
== END 2024-12-16 13:35 | disposition home or self-care (01) ==
PROVIDERS: PCP Nurse Practitioner Family; Visit Provider Nurse Practitioner Family
DX: L03.90 Cellulitis, unspecified (principal)

== ENCOUNTER → 2024-12-16 11:39 | Outpatient (BNVA) | payer MEDICARE, SELFPAY | PROVIDERS: PCP Nurse Practitioner Family; Visit Provider Nurse Practitioner Family | DX: L03.115 Cellulitis of right lower limb (principal) | CPT/HCPCS: 99212 ==

== ENCOUNTER → 2024-12-19 23:59 | Outpatient (BNV) | payer MEDICARE, SELFPAY ==
--- NOTE | 2024-12-30 09:24 | MHC.OFFVIS ---
Intake Visit Reasons: Remote device check- Medtronic Allergies No Known Allergies Allergy (Verified 12/16/24 12:22) [facility] Medical History (Updated 12/16/24 @ 13:25 by Treasure Butcher NP) Cellulitis of skin Type 2 diabetes with nephropathy Diabetic retinopathy (HFpEF) heart failure with preserved ejection fraction Edema leg Hypertension Chronic kidney disease Surgical History History of tubal ligation History of kidney removal Status post carotid surgery Family History Brother Cancer Mother Heart attack Social History Alcohol intake: former Patient Tobacco Use Status: Former Tobacco user e-Cigarette/Vaping Use: Never Used service: No Current occupational status: unemployed and retired Cognitive needs: No Hearing needs: No Vision needs: No Office Procedures Cardiac Device Check Cardiac Device Check Details: Remote pacemaker report generated 12/19/2024. Pacemaker function is adequate [id number] Cardiac Device Interrogation, pacemaker Procedure code (CPT) selection complete Assessment & Plan Assessment & Plan (1) Pacemaker: Comment: Medtronic dual chamber pacemaker. placed 11/21/[address] Silva for complete heart block. Serial number [id number]! Code(s): Z95.0 - Presence of cardiac pacemaker Category: Medical Plan: See above Coding Level of Care Code Procedure Only Diagnoses Pacemaker Z95.0 CPT Codes Cardiac Device Check - Cardiac Device 12: [id number] Cardiac Device Interrogation, pacemaker ([id number])
== END ==
PROVIDERS: PCP Nurse Practitioner Family; Visit Provider Internal Medicine Cardiovascular Disease
DX: I44.2 Atrioventricular block, complete (principal); Z95.0 Presence of cardiac pacemaker
CPT/HCPCS: 93294

== ENCOUNTER 2025-01-23 15:48 | Outpatient (AMB) | payer MEDICARE, SELFPAY ==
[2025-01-23 15:49] VITALS: BP 128/58; PULSE 96; RESP 18; O2SAT 96; BMI 27.9
--- NOTE | 2025-01-23 15:49 | A.OFFPC_ITS ---
Vital Signs 01/23/25 15:49 Height 5 ft 11 in Weight 200 lb BMI 27.9 BP 128/58 L Blood Pressure Location Lt brachial Position Sitting Respiration 18 Pulse 96 Pulse Source Pulse Oximeter Pulse Oximetry (%) 96 Oxygen Delivery Method Room Air Intake Visit Reasons: 4 months f/up Refining Still Operator Required: No Accompanied by: Self / Same As Patient Allergies No Known Allergies Allergy (Verified 12/16/24 12:22) Medication List - Last Reconciled 01/23/25 by [facility] albuterol sulfate 90 mcg/actuation 2 puffs inhalation Q6H PRN aspirin 81 mg PO DAILY blood sugar diagnostic (TheReadingRoomTouch Ultra Test strips) As directed blood-glucose meter (AuditionBoothuch Ultra2 Meter) As directed bumetanide 1 mg PO DAILY cephalexin 500 mg PO BID 7 days cetirizine (All Day Allergy (cetirizine)) 10 mg PO DAILY 30 days cholecalciferol (vitamin D3) 25 mcg PO DAILY cinacalcet 60 mg (2 x 30 mg) PO .3 times a week empagliflozin (Jardiance) 10 mg PO DAILY glucose (Dex4 Glucose) 16 grams (4 x 4 gram) PO Q15M PRN hydralazine 50 mg PO BID isosorbide mononitrate ER 60 mg (2 x 30 mg) PO QAM 90 days lactulose 20 grams (30 mL) PO BID PRN 10 days lancets (OneTouch Delica Plus Lancet) As directed linaclotide (Linzess) 72 mcg PO DAILY 30 days mometasone 50 mcg/actuation 2 sprays intranasal DAILY repaglinide 1 mg PO DAILY sitagliptin phosphate (Januvia) 25 mg PO DAILY sodium bicarbonate 650 mg PO BID umeclidinium 62.5 mcg/actuation (Incruse Ellipta) 1 inh inhalation BEDTIME vitamin B complex 1 tab PO DAILY Tobacco use date assessed: 01/23/25 Fall risk assessment: No Falls in past year Last assessed Fall Risk: 01/23/25 Dental Screening Dental Screen Date: 01/23/25 Did you have a dental visit in the last 12 months?: Yes Did you have a dental problem in the last 6 months where you did not have access to dental care?: No HPI 4 months f/up HPI Details Chief Complaint The patient presents for a follow-up visit for diabetes. History of Present Illness The patient is an 84-year-old female presenting for a follow-up visit for di abetes. Her most recent A1c was 7.2, and she reports having regular eye exams. She follows regularly with both a service parts driver and a financial specialist. The patient reports that her constipation has been getting much worse. She also reports some dizziness, which has lessened since she her blood pressure medications. She reports increased sinus symptoms, chest congestion, and chest discomfort upon inhalation. She was seen at an urgent care not too long ago for a respiratory infection and was given antibiotics. Social History - Functional Status: The patient is ambu latory with the use of a cane and is doing quite well. Health Maintenance - Diabetes management: The patient's A1c was most recently 7.2. - Ophthalmology: Reports regular eye exa ms. - Nephrology: Follows up regularly with a service parts driver. - Cardiology: Follows up regularly with a financial specialist. Review of Systems - General: Denies fevers or chills. Karen ent is in great spirits. - Respiratory: Reports sinus symptoms, c hest congestion, and chest discomfort on inhalation. - Gastrointestinal: Reports worsening co nstipation. - Neurological: Reports lightheadedness , which has improved after her blood pressure medications. Physical Exam General: Cooperative, healthy appearing, comfortable, no acute distress and well developed, obese Orientation: Patient oriented x3 Limitations: No limitations Head: Normal to inspection Ears: Hearing grossly normal bilaterally Nose: Normal external nose present Face and sinus: Normal facial exam Eyes: Appearance normal, both eyes and all related structures Neck: Normal visual inspection and Yes full ROM Respiratory: Normal respiratory effort, fairly Clear to auscultation bilaterally Cardiovascular: Regular rate and rhythm. Normal S1 and S2 GI: Normal to inspection. Soft to palpation and nontender, but patient reports worsening constipation Skin: No rashes or lesions noted Neuro: Patient oriented x3, Extremities: Normal to inspection, feet intact with positive sensation using monofilament Results - Labs: Most recent A1c was 7.2. -orthostatic vitals benign, will have he r monitor her lightheadedness and send me BPs from home. She will keep me posted Plan 1. Diabetes Mellitus The patient's most recent A1c was 7.2, which is considered fairly good. We will continue to monitor her condition and obtain more labs in the near future. 2. Constipation The patient reports worsening constipation. Her Linzess will be increased from 72 mcg to 145 mcg to see if that helps. 3. Chest Congestion And Discomfort The patient reports sinus symptoms, chest congestion, and chest discomfort on inhalation, which does not appear to be cardiac in nature. She denies any fevers or chills. A chest X-ray will be ordered, and she was advised to have it done as soon as possible. any worsening symptoms, ER 4. Dizziness The patient reported dizziness, which has improved since she her blood pressure medications. Orthostatic blood pressures performed in the office showed no significant changes. She will send home blood pressure readings through the portal for further monitoring. 5. Follow-Up I will see the patient for a follow-up in another four months. Discussion Notes I discussed with the patient that her recent A1c of 7.2 is good, and we will continue monitoring with more labs soon. We addressed her worsening constipation by increasing her Linzess dosage from 72 mcg to 145 mcg. Regarding her chest congestion and discomfort on inhalation, I explained that it does not sound cardiac, but we will order a chest x-ray for further evaluation, which I advised her to get done as soon as possible. We also discussed her dizziness, noting its improvement since she started her blood pressure medications, and reviewed her stable orthostatic pressures taken in the office. I requested she send home blood pressure readings through the portal. A follow-up visit is scheduled for four months. Patient Instructions - Increase your Linzess medication to 14 5 mcg as prescribed for constipation. - Please get a chest X-ray as soon as yo u can to check on your chest congestion. - Continue your blood pressur e medications to help with the dizziness. - Please send me some of your blood pres sure readings from home through the patient portal. - Schedule a follow-up appointment to se brock chavez again in about four months. [facility] Medical History Cellulitis of skin Type 2 diabetes with nephropathy Diabetic retinopathy (HFpEF) heart failure with preserved ejection fraction Edema leg Hypertension Chronic kidney disease Surgical History History of tubal ligation History of kidney removal Status post carotid surgery Family History Brother Cancer Mother Heart attack Social History Alcohol intake: former Patient Tobacco Use Status: Former Tobacco user e-Cigarette/Vaping Use: Never Used service: No Current occupational status: unemployed and retired Cognitive needs: No Hearing needs: No Vision needs: No Questionnaire PHQ-9 Over the last 2 weeks, how often have you been bothered by any of the following problems? 1. Little interest or pleasure in doing things: nearly every day 2. Feeling down, depressed, or hopeless: not at all 3. Trouble falling or staying asleep, or sleeping too much: several days 4. Feeling tired or having little energy: several days 5. Poor appetite or overeating: not at all 6. Feeling bad about yourself - or that you are a failure or have let yourself or your family down: not at all 7. Trouble concentrating on things, such as reading the newspaper or watching television: not at all 8. Moving or speaking so slowly that other people could have noticed. Or the opposite - being so fidgety or restless that you have been moving around a lot more than usual: not at all 9. Thoughts that you would be better off or of hurting yourself in some way: not at all Total score: 5 Depression Screening Interpretation: Negative Depression Screening Done: Yes 99565 - PHQ-9 Billing: Yes Source: Developed by Drs. Mike Cartagena, Sonal Jensen, Phong Armendariz and colleagues, with an educational amrit from [employer]. Thrive Questionnaire Date Thrive assessed: 06/10/24 I am a: Parent/Caregiver What is your living situation today?: I have a steady place to live Within the past 12 months, did the food you bought not last and you didn't have the money to get more?: Never true Within the past 12 months, did you worry whether your food would run out before you got money to buy more?: Never true Do you have trouble paying for medicines?: No Do you have trouble getting transportation to medical appointments?: No Do you have trouble paying your heating and electricity bill?: No Do you have trouble taking care of your child, family member or friend?: I choose not to answer this question Do you have trouble with day-to-day activities such as bathing, preparing meals, shopping, managing finances, etc.?: No Are you currently unemployed and looking for a job?: No Are you interested in more education?: No Please select the resources that you would like help with: None Currently or been in a relationship where the following occur: No concerns reported THRIVE Score: 0 DARCI-7 AMB Questionnaire DARCI-7 Date DARCI - 7 assessed: 01/23/25 Feeling nervous, anxious, or on edge: 0 = Not at all Not being able to stop or control worryin = Not at all Worrying too much about different things: 0 = Not at all Trouble relaxin = Not at all Being so restless that it is hard to sit still: 0 = Not at all Becoming easily annoyed or irritable: 0 = Not at all Feeling afraid as if something awful might happen: 0 = Not at all Total DARCI-7 score (0-4 normal; 5-9 mild; 10-14 moderate; 15-21 severe): 0 Source: Developed by Drs. Mike Cartagena, Sonal Jensen, Phong Armendariz and colleagues, with an educational amrit from [employer]. DARCI-7 Assessment Billing DARCI-7 Assessment Tool: DARCI-7 Assessment 86479 Physical exam (Primary Care) Vital Signs: Last Vital Signs Pulse 96 01/23/25 15:49 Resp 18 01/23/25 15:49 BP 128/58 L 01/23/25 15:49 Pulse Ox 96 01/23/25 15:49 Oxygen Delivery Method Room Air 01/23/25 15:49 BMI result Body Mass Index 27.9 Tobacco/Smoking Status: Tobacco use Status Tobacco use date assessed 01/23/25 01/23/25 15:51 Patient Tobacco Use Status Former Tobacco user 01/23/25 15:51 e-Cigarette/Vaping Use Never Used 01/23/25 15:51 PHQ-9: PHQ-9 Score PHQ-9: Total score 5 01/23/25 17:58 Depression Screening Interpretation: Negative Thrive Assessment: Date of Thrive Assessment Date Thrive assessed 06/10/24 01/23/25 15:51 Currently or been in a relationship where the following occur: No concerns reported Coding Level of Care Code Est Pt Level 4 (74825) Diagnoses Chest discomfort R07.89 Type 2 diabetes with nephropathy E11.21 Additional Codes DARCI-7 Assessment Billing - DARCI-7 Assessment Tool: DARCI-7 Assessment 69521 ([id number]) PHQ-9 - 73452 - PHQ-9 Billing: Yes ([id number]) Assessment & Plan Assessment & Plan (1) Chest discomfort: Comment: with inhalation only, recent respiratory illness, chest XR ordered, worsening symptoms, ER Code(s): R07.89 - Other chest pain Category: Medical (2) Type 2 diabetes with nephropathy: Code(s): E11.21 - Type 2 diabetes mellitus with diabetic nephropathy Category: Medical Plan . Orders: Orders Complete Blood Count Auto Diff Today E11.21 - Type 2 diabetes mellitus with diabetic nephropathy TSH reflex Free T4 Today E11.21 - Type 2 diabetes mellitus with diabetic nephropathy UA CC w/rflx Micro + Cult Today E11.21 - Type 2 diabetes mellitus with diabetic nephropathy Lipid Panel Today E11.21 - Type 2 diabetes mellitus with diabetic nephropathy XR chest 2V Today R07.89 - Other chest pain Comprehensive [place]. Panel Fast Today E11.21 - Type 2 diabetes mellitus with diabetic nephropathy Medications: New mometasone 50 mcg/actuation administer into each nostril 2 sprays intranasal DAILY 17 grams 3RF Changed From linaclotide (Linzess) 72 mcg PO DAILY 30 days 30 caps 1RF To linaclotide 145 mcg PO DAILY 30 caps 1RF 30 days
--- OUTSIDE RECORDS SUMMARY | 2025-01-23 18:11 | XMS_ITS | Clinical Summary ---
Author Organization [facility] Address [address] [place] [address] Care Team Providers Care Natural Gas Engineer Name Role Phone Smith Padgett MD Primary Care Provider [phone] Allergies Active Allergy Reactions Criticality Noted Date [...] age to complete this topic Care Teams Natural Gas Engineer Relationship Specialty Start Date End Date Smith Padgett MD [address] [address] PCP - General Internal Medicine 11/04/16
--- OUTSIDE RECORDS SUMMARY | 2025-01-23 18:11 | XMS_ITS | Encounter Summary ---
Author Organization [facility] Address [address] [facility] [address] [place] [address] Phone Care Team Providers Care Net Application Support Specialist Name Role Phone Neida Gabriel DNP Primary Care Provider [phone] Reason for Visit * Reason Comments Med Refill Encounter Details Date Type Department Care Team (Late st Contact Info) Description 05/25/2022 Refill [facility] [address] [place] [phone] Aldo Bush MD Social History Tobacco Use [...] on filedocumented in this encounter Care Teams Net Application Support Specialist Relationship Specialty Start Date End Date Neida Gabriel DNP [address] [facility] [address] [place] [address] PCP - General Nurse Practitioner 11/22/21 documented as of this encounter
--- OUTSIDE RECORDS SUMMARY | 2025-01-23 18:11 | XMS_ITS | Continuity of Care Document ---
Author Organization [facility] [address] [facility] [address] [place] [address] Phone [phone] Social History Type Date Description Comments Sex Female Sex Unknown Medical Devices Description No Information Available Encounters Description No Information Available Assessments Description No Information Available Plan of Treatment No Information Available Functional Status Description No Information Available Mental Status Description No Information Available Referrals Description No Information Available
--- OUTSIDE RECORDS SUMMARY | 2025-01-23 18:11 | XMS_ITS | Clinical Summary ---
Author Organization [facility] Address [address] [facility] [address] [place] [address] Phone Care Team Providers Care Evening Or Night Nurse Supervisor Name Role Phone Neida Gabriel STEPHANIE Primary [...] patient's age to complete this topic Insurance [facility] [place] [address] [facility] Medicare Care Teams Evening Or Night Nurse Supervisor Relationship Specialty Start Date End Date Neida Gabriel DNP [address] [facility] [place] [address] [facility] [place] [address] PCP - General Nurse Practitioner 11/22/21
--- OUTSIDE RECORDS SUMMARY | 2025-01-23 18:11 | XMS_ITS | Data Portability ---
Author Organization [facility] [id number] Address [address] [place] [address] Assessment No assessment recorded. Plan of Treatment Reminders Order Date Submit Date Provider Last Modified By Organization Details Last Modified Time Details Appointments None recorded. Lab None recorded. Referral None recorded. Procedures None recorded. Surgeries None recorded. Imaging None recorded. Medication Orders cephalexin 500 mg capsule 2022 023 [id number], [address] [place], [place], [id number], 18:51:14 Patient TargetsNo targets recorded. Patient Instructions Encounter Date Encounter Id Patient Instructions Last Modified By Organization Details Last Modified Time 04/19/2022 [id number] foot pain: care instructions Not available 04/19/2022 18:51:06 diabetic foot ulcer: care instructions Not available 04/19/2022 18:53:16 Reason for Referral None Reported. Problems Name Problem SNOMED Code Status Onset Date Resolution Date Notes Provider Name and Address Organization Details Recorded Time Diabetes mellitus 08151973 Active 2022 SID Syed [facility] 3 18:22:16 Chronic obstructive pulmonary disease 18301347 Active 2022 SID Syed [facility] 3 18:22:36 Hypertensive disorder 45876317 Active 2022 EDGARDO mendes [place] [facility] 18:22:59 Heart disease 34521086 Active 2022 SID Syed [facility] 18:23:20 Renal failure syndrome 98758163 Active 2022 EDGARDO mendes [facility] 3 18:23:28 Malignant neoplasm of kidney 058582136 Active 2022 EDGARDO mendes [facility] 3 18:24:29 Problem Notes None recorded. Procedures Surgical History Date Name Laterality Status Provider Name and Address Organization Details Recorded Time kidney excision completed EDGARDO ALBERTELDER [facility] 04/19/2022 18:24:42 Xcapsl ctrc rmvl cplx wo ecp completed EDGARDO TRUONGMAGEDELDER [facility] 04/19/2022 18:26:47 Imaging Results None recorded. Procedure [...] Available No t Available Vitals Date Recorded Systolic And Diastolic Provider Name and Address Organization Details Last Updated DateTime 04/19/2022 185/100 mm[Hg] Martha Jacob MD [address] [place] [address] [place], [address], [place] [facility] 04/19/2022 18:46:36 Date Recorded Body height Body mass index (BMI) Body weight Body temperature Respiratory rate Heart rate Oxygen saturation Oxygen saturation in Arterial blood by Pulse oximetry Systolic And Diastolic Provider Name and Address Organization Details Last Updated DateTime 3 157.48 cm 39.5 kg/m2 46351.9 5 g 96.4 [degF] 18 /min 85 /min 99 % 99 % 200/99 mm[Hg] EDGARDO KING PA [place] [facility] 3 18:26:39 Social History Question Answer Notes LastModified by [...] Diagnosis SNOMED-CT Code Diagnosis ICD10 Code Diagnosis IMO Codes Diagnosis Note [id number] [address] [place] [address] 07/24/2016 10:36:51 07/24/2016 11:55:48 [id number] [address] [place] [address] 06/05/2016 14:33:22 06/05/2016 15:53:13 [id number] [address] [address] [place] [address] 01/26/2017 10:23:14 01/26/2017 11:17:11 [id number] [address] [place] [address] 12/03/2015 10:36:54 12/03/2015 11:05:12 [id number] [address] [place] [address] 07/17/2016 10:40:47 07/17/2016 11:55:10 [id number] [address] [place] [address] 12/06/2015 11:33:08 12/06/2015 12:41:09 [id number] [address] [place] [address] 11/30/2016 11:03:47 11/30/2016 12:56:29 [id number] [address] [place] [address] 05/30/2019 11:33:59 05/30/2019 12:13:40 [id number] Martha Jacob MD [address] [place] [address] 04/19/2022 17:06:03 04/19/2022 18:56:24 Diabetic foot ulcer 732242083 E13.621 There is Callous formation over a foot ulcer and will need to see Podiatry for Debridemen t and assessment for Osteomylet is Essential hypertension 07243969 I10 Patient aware that this is dangerous [...] ID Garza Member ID Guarantor Name 04/20/2022 [facility] (MEDICARE REPLACEMENT/A DVANTAGE - PPO) [id number] Dorinda Gaviria [id number] Dorinda Gaviria 04/20/2022 1 MEDICARE B-[place]: [employer] Dorinda Gaviria [id number] Dorinda Nelsone 05/17/2022 2 [facility] (MEDICARE SUPPLEMENT) Dorinda Gaviria [id number] Dorinda Prajapati Becky Notes Date Note Type Note Provider Name and Address Organization Details Recorded Time 3 text/html Foot/Ankle UCReported by PatientHPIFor associated symptoms, patient reportsswelling,redness, andwarmthbut reportsno numbness. For location, patient reportsrightandlateral. For problem, patient reportsswellingandpain non traumatic. For severity, patient reportssevere. Martha Jacob MD [address] [place], [address], [place] - [facility] 04/19/2022 18:53:19 OBGyn Episode No OBEpisode recorded.
== END 2025-01-23 17:00 | disposition home or self-care (01) ==
LOC: HO.HMCC 15:48
PROVIDERS: PCP Nurse Practitioner Family; Visit Provider Nurse Practitioner Family
DX: R07.89 Other chest pain (principal); E11.21 Type 2 diabetes mellitus with diabetic nephropathy

== ENCOUNTER → 2025-01-23 15:48 | Outpatient (BNVA) | payer MEDICARE, SELFPAY | PROVIDERS: PCP Nurse Practitioner Family; Visit Provider Nurse Practitioner Family | DX: R07.89 Other chest pain (principal); E11.21 Type 2 diabetes mellitus with diabetic nephropathy | CPT/HCPCS: 96127; 99212 ==

== ENCOUNTER → 2025-01-29 09:54 | Outpatient (REF) | payer MEDICARE, SELFPAY ==
--- NOTE | ~2025-01-29 | NM_ITS ---
Lexiscan Myocardial perfusion study Indication: Heart failure with preserved ejection fraction to evaluate for myocardial ischemia Technique: The patient was brought in for a Lexiscan perfusion study on 01/29/2025 and was injected 0.4 mg of Lexiscan intravenously. Within a minute of this injection 30 mCi of sestamibi was given intravenously. Images were obtained using the SPECT gamma camera interlaced with the gating device. Images were obtained in supine position. Resting perfusion study was performed on 02/06/2025. Patient was administered 30 mCi of sestamibi intravenously at rest. Images were then obtained in supine position. Images were processed with the software and compared side to side in short axis, horizontal long axis and vertical long axis views. Images obtained without without CT attenuation. Total DLP 157 mGy-cm. Findings: The stress perfusion study showed nonattenuated images show large area severely reduced uptake in the inferolateral as well as lateral wall of the LV myocardium as well as moderately reduced uptake in the inferior wall of the LV myocardium. Attenuated corrected images show moderately reduced uptake in the inferolateral as well as lateral wall of the LV myocardium is severely reduced uptake and inferoapical wall of the LV myocardium.. The gated study shows normal LV systolic function with calculated LVEF of 38%. LV cavity is severely dilated in size. The gated study shows reduced wall thickening and contraction of lateral segments. Resting study shows normal lites uptake and inferolateral and lateral wall as well as inferior wall of the LV myocardium. Gating at rest reveals lateral wall motion abnormality with ejection fraction at 43%. The findings are consistent with large area of moderate to severe ischemia of the lateral, inferolateral as well as inferior wall of the LV myocardium suggestive of ischemia in RCA/circumflex distribution. NM/NM niels perf SPECT rest & str Impression: 1. Myocardial perfusion imaging study shows large area of moderate to severe ischemia in the RCA/circumflex distribution 2. Gated LVEF is 38% with stress and 43% with rest 3. Transient ischemic dilatation present Nondiagnostic changes on EKG. Electronically signed by: Yosvany Haile MD 02/06/2025 03:48 [facility]
--- NOTE | 2025-01-29 09:58 | CA_ITS ---
Acquisition Time: 2025-01-29 10:38:30 Total Exercise Time: 00:02:00 Test Indications: I50.30 Medications: SEE H&P Protocol: LEXISCAN Max HR: 100 BPM 72% of Pred: 137 BPM Max BP: 142/66 mmHG Max Work Load: 1.0 METS Pharmacological stress test with Lexiscan while pt marches in chair, with reports of SOB, no chest pain, without any arrythmias, with normotensive response to injection. Nondiagnostic EKG for ischemia. In recovery, pt treated with IVP Aminophylline 75 mg to reverse Lexiscan after which pt slowly feeling back to baseline. Nuclear images pending. Test reviewed with Dr. Markham. Referred By: Yosvany Haile Electronically Signed By: Niko Park
--- OUTSIDE RECORDS SUMMARY | 2025-01-29 11:18 | XMS_ITS | Continuity of Care Document ---
Author Organization [facility] [address] [facility] [address] [place] [address] Phone [phone] Social History Type Date Description Comments Sex Female Sex Unknown Medical Devices Description No Information Available Encounters Description No Information Available Assessments Description No Information Available Plan of Treatment No Information Available Functional Status Description No Information Available Mental Status Description No Information Available Referrals Description No Information Available
--- OUTSIDE RECORDS SUMMARY | 2025-01-29 11:18 | XMS_ITS | Data Portability ---
Author Organization SID Mendoza [facility] [id number] Address [address] [place] [address] Assessment No assessment recorded. Plan of Treatment Reminders Order Date Submit Date Provider Last Modified By Organization Details Last Modified Time Details Appointments None recorded. Lab None recorded. Referral None recorded. Procedures None recorded. Surgeries None recorded. Imaging None recorded. Medication Orders cephalexin 500 mg capsule 2022 023 [id number], [address] [place], [place], [id number], 18:51:14 Patient TargetsNo targets recorded. Patient Instructions Encounter Date Encounter Id Patient Instructions Last Modified By Organization Details Last Modified Time 04/19/2022 [id number] foot pain: care instructions Not available 04/19/2022 18:51:06 diabetic foot ulcer: care instructions Not available 04/19/2022 18:53:16 Reason for Referral None Reported. Problems Name Problem SNOMED Code Status Onset Date Resolution Date Notes Provider Name and Address Organization Details Recorded Time Diabetes mellitus 39072284 Active 2022 SID Syed [facility] 3 18:22:16 Chronic obstructive pulmonary disease 78761423 Active 2022 SID Syed [facility] 3 18:22:36 Hypertensive disorder 29639374 Active 2022 EDGARDO mendes PA [facility] 3 18:22:59 Heart disease 46393101 Active 2022 SID [facility]ed [email or web address] 18:23:20 Renal failure syndrome 23421540 Active 2022 EDGARDO mendes [facility] 3 18:23:28 Malignant neoplasm of kidney 247902200 Active 2022 EDGARDO mendes [facility] 3 18:24:29 Problem Notes None recorded. Procedures Surgical History Date Name Laterality Status Provider Name and Address Organization Details Recorded Time kidney excision completed EDGARDO ALBERTELDER [facility] 04/19/2022 18:24:42 Xcapsl ctrc rmvl cplx wo ecp completed EDGARDO TRUONGMAGEDELDER [facility] 04/19/2022 18:26:47 Imaging Results None [...] DateTime 04/19/2022 185/100 mm[Hg] Martha Jacob MD [address] [place] [address] [place], [address], [place] [employer] 04/19/2022 18:46:36 Date Recorded Body height Body mass index (BMI) Body weight Body temperature Respiratory rate Heart rate Oxygen saturation Oxygen saturation in Arterial blood by Pulse oximetry Systolic And Diastolic Provider Name and Address Organization Details Last Updated DateTime 3 157.48 cm 39.5 kg/m2 90983.9 5 g 96.4 [degF] 18 /min 85 /min 99 % 99 % 200/99 mm[Hg] EDGARDO KING PA [employer] [facility] 3 18:26:39 Social History Question [...] ICD10 Code Diagnosis IMO Codes Diagnosis Note [id number] [address] [place] [address] 07/24/2016 10:36:51 07/24/2016 11:55:48 [id number] [address] [place] [address] 06/05/2016 14:33:22 06/05/2016 15:53:13 [id number] [address] [place] [address] 01/26/2017 10:23:14 01/26/2017 11:17:11 [id number] [address] [place] [address] 12/03/2015 10:36:54 12/03/2015 11:05:12 [id number] [address] [place] [address] 07/17/2016 10:40:47 07/17/2016 11:55:10 [id number] [address] [place] [address] 12/06/2015 11:33:08 12/06/2015 12:41:09 [id number] [address] [place] [address] 11/30/2016 11:03:47 11/30/2016 12:56:29 [id number] [address] [place] [address] 05/30/2019 11:33:59 05/30/2019 12:13:40 [id number] Martha Jacob MD [address] [place] [address] 04/19/2022 17:06:03 04/19/2022 18:56:24 Diabetic foot ulcer 443333592 E13.621 There is Callous formation over a foot ulcer and will need to see Podiatry for Debridemen t and assessment for Osteomylet is Essential hypertension 47089462 I10 Patient aware that this is dangerous [...] [facility] (MEDICARE REPLACEMENT/A DVANTAGE - PPO) [id number] Dorinda Gaviria [id number] Dorinda Gaviria 04/20/2022 1 [place]IC[place] B-[place]: [place] [employer]MENT [employer] Dorinda Gaviria [id number] Dorinda Nelsone 05/17/2022 2 [facility] (MEDICARE SUPPLEMENT) Dorinda Gaviria [id number] Dorinda Prajapati Becky Notes Date Note Type Note Provider Name and Address Organization Details Recorded Time 3 text/html Foot/Ankle UCReported by PatientHPIFor associated symptoms, patient reportsswelling,redness, andwarmthbut reportsno numbness. For location, patient reportsrightandlateral. For problem, patient reportsswellingandpain non traumatic. For severity, patient reportssevere. Martha Jacob MD [address] [place], [address], [place] - [facility] 04/19/2022 18:53:19 OBGyn Episode No OBEpisode recorded.
--- OUTSIDE RECORDS SUMMARY | 2025-01-29 11:18 | XMS_ITS | Clinical Summary ---
Author Organization [facility] Address [address] [place] [address] Care Team Providers Care Polymerization Kettle Operator Name Role Phone Smith Padgett MD Primary Care Provider [phone] Allergies Active Allergy Reactions Criticality Noted Date [...] age to complete this topic Care Teams Polymerization Kettle Operator Relationship Specialty Start Date End Date Smith Padgett MD [address] [address] PCP - General Internal Medicine 11/04/16
== END ==
LOC: HO.CARD 09:54
PROVIDERS: PCP Nurse Practitioner Family; Visit Provider Internal Medicine Cardiovascular Disease
DX: I50.30 Unspecified diastolic (congestive) heart failure (principal)
CPT/HCPCS: 78452; 93017; A9500; J0280; J2785

== ENCOUNTER → 2025-01-29 09:58 | Outpatient (BNV) | payer MEDICARE, SELFPAY | PROVIDERS: PCP Nurse Practitioner Family | DX: R06.02 Shortness of breath (principal); I50.30 Unspecified diastolic (congestive) heart failure | CPT/HCPCS: 78452; 93016; 93018 ==

== ENCOUNTER 2025-02-14 11:10 | Outpatient (REF) | payer MEDICARE, SELFPAY ==
--- OUTSIDE RECORDS SUMMARY | 2025-02-14 12:02 | XMS_ITS | Encounter Summary ---
Author Organization [facility] Address [address] [facility] [address] [place] [address] Phone Care Team Providers Care Fisherman Helper Name Role Phone Neida Gabriel DNP Primary Care Provider [phone] Reason for Visit * Reason Comments Med Refill Encounter Details Date Type Department Care Team (Late st Contact Info) Description 05/25/2022 Refill [facility] [address] [facility] [address] [place] [id number] Aldo Bush MD [address] [place] [address] Social History Tobacco Use Types Packs/Day Years [...] on filedocumented in this encounter Care Teams Fisherman Helper Relationship Specialty Start Date End Date Neida Gabriel DNP [address] [facility] [address] [place] [address] PCP - General Nurse Practitioner 11/22/21 documented as of this encounter
--- OUTSIDE RECORDS SUMMARY | 2025-02-14 12:02 | XMS_ITS | Clinical Summary ---
Author Organization [facility] Address [address] [place] [address] Care Team Providers Care It Communications Specialist Name Role Phone Smith Padgett MD Primary Care Provider [phone] Allergies Active Allergy Reactions Criticality Noted Date [...] to complete this topic Care Teams It Communications Specialist Relationship Specialty Start Date End Date Smith Padgett MD [address] [address] PCP - General Internal Medicine 11/04/16
--- OUTSIDE RECORDS SUMMARY | 2025-02-14 12:02 | XMS_ITS | Continuity of Care Document ---
Author Organization [facility] [address] [facility] [address] [place] [address] Phone [phone] Social History Type Date Description Comments Sex Female Sex Unknown Medical Devices Description No Information Available Encounters Description No Information Available Assessments Description No Information Available Plan of Treatment No Information Available Functional Status Description No Information Available Mental Status Description No Information Available Referrals Description No Information Available
--- OUTSIDE RECORDS SUMMARY | 2025-02-14 12:02 | XMS_ITS | Clinical Summary ---
Author Organization [facility] Address [address] [facility] [address] [place] [address] Phone Care Team Providers Care Drilling Engineer Name Role Phone Neida Gabriel STEPHANIE [...] patient's age to complete this topic Insurance [facility] [place] [id number] [facility] Medicare Care Teams Drilling Engineer Relationship Specialty Start Date End Date Neida Gabriel DNP [address] [facility] [place] [facility] [place] [place] [address] PCP - General Nurse Practitioner 11/22/21
--- OUTSIDE RECORDS SUMMARY | 2025-02-14 12:02 | XMS_ITS | Data Portability ---
Author Organization [facility] [id number] Address [address] [place] [address] Assessment No assessment recorded. Plan of Treatment Reminders Order Date Submit Date Provider Last Modified By Organization Details Last Modified Time Details Appointments None recorded. Lab None recorded. Referral None recorded. Procedures None recorded. Surgeries None recorded. Imaging None recorded. Medication Orders cephalexin 500 mg capsule 2022 023 [id number], [address] [place], [place], [id number], 18:51:14 Patient TargetsNo targets recorded. Patient Instructions Encounter Date Encounter Id Patient Instructions Last Modified By Organization Details Last Modified Time 04/19/2022 [id number] foot pain: care instructions Not available 04/19/2022 18:51:06 diabetic foot ulcer: care instructions Not available 04/19/2022 18:53:16 Reason for Referral None Reported. Problems Name Problem SNOMED Code Status Onset Date Resolution Date Notes Provider Name and Address Organization Details Recorded Time Diabetes mellitus 37727818 Active 2022 SID Syed [facility] 3 18:22:16 Chronic obstructive pulmonary disease 34888609 Active 2022 SID Syed [facility] 3 18:22:36 Hypertensive disorder 49751024 Active 2022 EDGARDO mendes [place] [facility] 3 18:22:59 Heart disease 07602563 Active 2022 [facility]ed [facility] 18:23:20 Renal failure syndrome 68380484 Active 2022 EDGARDO mendes [facility] 3 18:23:28 Malignant neoplasm of kidney 077498349 Active 2022 EDGARDO mendes [facility] 3 18:24:29 Problem Notes None recorded. Procedures Surgical History Date Name Laterality Status Provider Name and Address Organization Details Recorded Time kidney excision completed EDGARDO ALBERTELDER [facility] 04/19/2022 18:24:42 Xcapsl ctrc rmvl cplx wo ecp completed EDGARDO TRUONGMAGEDELDER [facility] 04/19/2022 18:26:47 Imaging Results None [...] DateTime 04/19/2022 185/100 mm[Hg] Martha Jacob MD [address] [place] [address] [place], [address], [place] - [facility] 04/19/2022 18:46:36 Date Recorded Body height Body mass index (BMI) Body weight Body temperature Respiratory rate Heart rate Oxygen saturation Systolic And Diastolic Provider Name and Address Organization Details Last Updated DateTime 3 157.48 cm 39.5 kg/m2 61574.9 5 g 96.4 [degF] 18 /min 85 /min 99 % 200/99 mm[Hg] EDGARDO KING PA - [facility] 3 18:26:39 Social History Question [...] LNP-S, PF, 30 mcg/0.3 mL dose 1 michael mendes, [place] - [facility] 04/19/2022 18:19:20 [...] ICD10 Code Diagnosis IMO Codes Diagnosis Note [id number] [address] [place] [address] 07/24/2016 10:36:51 07/24/2016 11:55:48 [id number] [address] [place] [address] 06/05/2016 14:33:22 06/05/2016 15:53:13 [id number] [address] [place] [address] 01/26/2017 10:23:14 01/26/2017 11:17:11 [id number] [address] [place] [address] 12/03/2015 10:36:54 12/03/2015 11:05:12 [id number] [address] [place] [address] 07/17/2016 10:40:47 07/17/2016 11:55:10 [id number] [address] [facility] [place] [address] 12/06/2015 11:33:08 12/06/2015 12:41:09 [id number] [address] [facility] [place] [address] 11/30/2016 11:03:47 11/30/2016 12:56:29 [id number] [address] [facility] [place] [address] 05/30/2019 11:33:59 05/30/2019 12:13:40 [id number] Martha Jacob MD [address] [facility] [place] [address] 04/19/2022 17:06:03 04/19/2022 18:56:24 Diabetic foot ulcer 113205357 E13.621 There is Callous formation over a foot ulcer and will need to see Podiatry for Debridemen t and assessment for Osteomylet is Essential hypertension 86524672 I10 Patient aware that this is dangerous [...] ID Garza Member ID Guarantor Name 04/20/2022 [facility] (MEDICARE REPLACEMENT/A DVANTAGE - PPO) [id number] Dorinda Gaviria [id number] Dorinda Gaviria 04/20/2022 1 MED[place] B-[place] [employer] [place] Dorinda Gaviria [id number] Dorinda Gaviria 05/17/2022 2 [facility] (MEDICARE SUPPLEMENT) Dorinda Gaviria [id number] Dorinda Gaviria Notes Date Note Type Note Provider Name and Address Organization Details Recorded Time 3 text/html Foot/Ankle UCReported by PatientHPIFor associated symptoms, patient reportsswelling,redness, andwarmthbut reportsno numbness. For location, patient reportsrightandlateral. For problem, patient reportsswellingandpain non traumatic. For severity, patient reportssevere. Martha Jacob MD [address] [facility] [[email or web address], [address], [place] - [facility] 04/19/2022 18:53:19 OBGyn Episode No OBEpisode recorded.
[2025-02-14 14:37] LABS: Anion Gap 10 (12-20); Blood Urea Nitrogen 55 mg/dL (9-16); Carbon Dioxide 19 mmol/L (22-29); Chloride 116 mmol/L (96-108); Estimated Glomerular Filt Rate 17; Potassium 4.2 mmol/L (3.3-5.1); Sodium 141 mmol/L (135-145)
[2025-02-14 14:44] LABS: Parathyroid Hormone Intact 1008.5 pg/mL (8.7-77.1)
== END 2025-02-14 11:11 | disposition home or self-care (01) ==
LOC: HO.HMGCLDS 11:10
PROVIDERS: PCP Nurse Practitioner Family; Visit Provider Internal Medicine Nephrology
DX: I12.9 Hypertensive chronic kidney disease with stage 1 through stage 4 chronic kidney disease, or unspecified chronic kidney disease (principal); N18.32 Chronic kidney disease, stage 3b; E21.0 Primary hyperparathyroidism
CPT/HCPCS: 36415; 80051; 82565; 83970; 84520

== ENCOUNTER 2025-02-25 10:50 | Outpatient (AMB) | payer MEDICARE, SELFPAY ==
--- NOTE | 2025-02-25 10:54 | HO.NEPHOV_ITS ---
Vital Signs 02/25/25 10:57 Height 5 ft 11 in Weight 195 lb 8 oz BMI 27.3 BP 160/70 H Blood Pressure Location Lt brachial Position Sitting Pulse 82 Pulse Source Pulse Oximeter Pulse Oximetry (%) 98 Oxygen Delivery Method Room Air Intake Visit Reasons: 3mon f/u w/labs-Conf Assembly Supervisor Required: No Accompanied by: Self / Same As Patient Allergies No Known Allergies Allergy (Verified 02/25/25 10:56) HPI Comments Details: Doirnda was seen in follow-up of her chronic kidney disease, hypertension and hypercalcemia. She has H/O hypertensive urgency and complete heart block with development of RADHA which has resolved . She had permanent pacemaker. Her BP is at goal . She does not have any chest pain, shortness of breath, nausea, vomiting, diarrhea, worsening pedal edema, urinary symptoms. She is avoiding nonsteroidal anti-inflammatory medications and is trying to keep up with good hydration. Her serum creatinine is stable. Her BP at home is close to goal [facility] Medical History (Updated 02/25/25 @ 10:57 by Aldo Bush MD) COPD (chronic obstructive pulmonary disease) Cellulitis of skin Type 2 diabetes with nephropathy Diabetic retinopathy (HFpEF) heart failure with preserved ejection fraction Edema leg Hypertension Chronic kidney disease Surgical History History of tubal ligation History of kidney removal Status post carotid surgery Family History Brother Cancer Mother Heart attack Social History Alcohol intake: former Patient Tobacco Use Status: Former Tobacco user e-Cigarette/Vaping Use: Never Used service: No Current occupational status: unemployed and retired Cognitive needs: No Hearing needs: No Vision needs: No Review of Systems Const All systems reviewed & are unremarkable except as noted in HPI and below Physical Exam Const General: comfortable and no acute distress Orientation/consciousness: patient oriented x3 HEENT Head: Yes normocephalic Mouth: Normal oral and palatal mucosa present Eyes EOM: EOMs intact bilaterally Neck Neck: Yes supple Resp Auscultation: clear to auscultation bilaterally Cardio Jugular venous distension: no JVD Rate: regular rate GI Palpation (GI): Soft to palpation Auscultation: normal bowel sounds General: Yes no CVA tenderness Back/Spine/Pelvis Back: no CVA tenderness Skin General skin exam: no rashes or lesions noted Neuro General: patient oriented x3 and moves all extremities Extrem General: Yes no pedal edema Results Reviewed Nephrology Results: Sodium, (135-145) 141 mmol/L 02/14/25 Potassium, (3.3-5.1) 4.2 mmol/L 02/14/25 Chloride, (96-108) 116 mmol/L H 02/14/25 Carbon Dioxide, (22-29) 19 mmol/L L 02/14/25 BUN, (9-16) 55 mg/dL H 02/14/25 Creatinine, (0.5-1.4) 2.65 mg/dL H 02/14/25 PTH Intact, (8.7-77.1) 1008.5 pg/mL H 02/14/25 Assessment & Plan Assessment & Plan (1) Hypertension: Code(s): I10 - Essential (primary) hypertension Category: Medical Qualifiers: Hypertension type: primary hypertension Qualified Code(s): I10 - Essential (primary) hypertension (2) Type 2 diabetes with nephropathy: Code(s): E11.21 - Type 2 diabetes mellitus with diabetic nephropathy Category: Medical (3) Primary hyperparathyroidism: Code(s): E21.0 - Primary hyperparathyroidism Category: Medical (4) Metabolic acidosis: Code(s): E87.20 - Acidosis, unspecified Category: Medical (5) Chronic kidney disease (CKD), stage 4: Code(s): N18.4 - Chronic kidney disease, stage 4 (severe) Category: Medical Plan Dorinda has chronic kidney disease and longstanding hypertension. She has a new PPM. She is on metoprolol, hydralazine and Imdur . She likely need coronary angio and PCI. She should continue Bumetanide 1 mg AM. She can continue 650 mg p.o. of NaHCO3 b.i.d.. She is on Jardiance. I increased her cinacalcet to 60 mg daily. She may need repeat Sestamibi and ablation . All her questions and concerns were addressed promptly. Follow-up given Orders: Orders Parathyroid Hormone Intact 2 Months E11.21 - Type 2 diabetes mellitus with diabetic nephropathy, E21.0 - Primary hyperparathyroidism, E87.20 - Acidosis, unspecified, I10 - Essential (primary) hypertension, N18.4 - Chronic kidney disease, stage 4 (severe) Phosphorus 2 Months E11.21 - Type 2 diabetes mellitus with diabetic nephropathy, E21.0 - Primary hyperparathyroidism, E87.20 - Acidosis, unspecified, I10 - Essential (primary) hypertension, N18.4 - Chronic kidney disease, stage 4 (severe) Electrolytes 2 Months E11.21 - Type 2 diabetes mellitus with diabetic nephropathy, E21.0 - Primary hyperparathyroidism, E87.20 - Acidosis, unspecified, I10 - Essential (primary) hypertension, N18.4 - Chronic kidney disease, stage 4 (severe) Calcium 2 Months E11.21 - Type 2 diabetes mellitus with diabetic nephropathy, E21.0 - Primary hyperparathyroidism, E87.20 - Acidosis, unspecified, I10 - Essential (primary) hypertension, N18.4 - Chronic kidney disease, stage 4 (severe) Blood Urea Nitrogen 2 Months E11.21 - Type 2 diabetes mellitus with diabetic nephropathy, E21.0 - Primary hyperparathyroidism, E87.20 - Acidosis, unspecified, I10 - Essential (primary) hypertension, N18.4 - Chronic kidney disease, stage 4 (severe) Creatinine 2 Months E11.21 - Type 2 diabetes mellitus with diabetic nephropathy, E21.0 - Primary hyperparathyroidism, E87.20 - Acidosis, unspecified, I10 - Essential (primary) hypertension, N18.4 - Chronic kidney disease, stage 4 (severe) Coding Level of Care Code Est Pt Level 4 (27959) Diagnoses Primary hypertension I10 Hypertension type: primary hypertension Type 2 diabetes with nephropathy E11.21 Primary hyperparathyroidism E21.0 Metabolic acidosis E87.20 Chronic kidney disease (CKD), stage 4 N18.4
[2025-02-25 10:57] VITALS: BP 160/70; PULSE 82; O2SAT 98; BMI 27.3
--- OUTSIDE RECORDS SUMMARY | 2025-02-25 12:45 | XMS_ITS | Data Portability ---
Author Organization [facility] [id number] Address [address] [place] [address] Assessment No assessment recorded. Plan of Treatment Reminders Order Date Submit Date Provider Last Modified By Organization Details Last Modified Time Details Appointments None recorded. Lab None recorded. Referral None recorded. Procedures None recorded. Surgeries None recorded. Imaging None recorded. Medication Orders cephalexin 500 mg capsule 2022 023 [id number], [address] [place], [place], [id number], 18:51:14 Patient TargetsNo targets recorded. Patient Instructions Encounter Date Encounter Id Patient Instructions Last Modified By Organization Details Last Modified Time 04/19/2022 [id number] foot pain: care instructions Not available 04/19/2022 18:51:06 diabetic foot ulcer: care instructions Not available 04/19/2022 18:53:16 Reason for Referral None Reported. Problems Name Problem SNOMED Code Status Onset Date Resolution Date Notes Provider Name and Address Organization Details Recorded Time Diabetes mellitus 86434346 Active 2022 SID Syed [facility] 3 18:22:16 Chronic obstructive pulmonary disease 18063317 Active 2022 SID Syed [facility] 3 18:22:36 Hypertensive disorder 06466951 Active 2022 EDGARDO mendes PA [facility] 3 18:22:59 Heart disease 68291267 Active 2022 [facility] 18:23:20 Renal failure syndrome 34484853 Active 2022 EDGARDO mendes [facility] 3 18:23:28 Malignant neoplasm of kidney 709586518 Active 2022 EDGARDO mendes [facility] 3 18:24:29 Problem Notes None recorded. Procedures Surgical History Date Name Laterality Status Provider Name and Address Organization Details Recorded Time kidney excision completed EDGARDO ALBERTELDER [facility] 04/19/2022 18:24:42 Xcapsl ctrc rmvl cplx wo ecp completed EDGARDO TRUONGMAGEDELDER [facility] 04/19/2022 18:26:47 Imaging Results [...] DateTime 04/19/2022 185/100 mm[Hg] Martha Jacob MD [address] [place] [address] [place], [address], [place] - [employer] [facility] 04/19/2022 18:46:36 Date Recorded Body height Body mass index (BMI) Body weight Body temperature Respiratory rate Heart rate Oxygen saturation Systolic And Diastolic Provider Name and Address Organization Details Last Updated DateTime 3 157.48 cm 39.5 kg/m2 10628.9 5 g 96.4 [degF] 18 /min 85 [...] ICD10 Code Diagnosis IMO Codes Diagnosis Note [id number] [address] [address] [place] [address] 07/24/2016 10:36:51 07/24/2016 11:55:48 [id number] [address] [place] [address] 06/05/2016 14:33:22 06/05/2016 15:53:13 [id number] [address] [place] [address] 01/26/2017 10:23:14 01/26/2017 11:17:11 [id number] [address] [place] [address] 12/03/2015 10:36:54 12/03/2015 11:05:12 [id number] [address] [place] [address] 07/17/2016 10:40:47 07/17/2016 11:55:10 [id number] [address] [facility] [place] [address] 12/06/2015 11:33:08 12/06/2015 12:41:09 [id number] [address] [place] [address] 11/30/2016 11:03:47 11/30/2016 12:56:29 [id number] [address] [facility] [place] [address] 05/30/2019 11:33:59 05/30/2019 12:13:40 [id number] Martha Jacob MD [address] [facility] [place] [address] 04/19/2022 17:06:03 04/19/2022 18:56:24 Diabetic foot ulcer 654779931 E13.621 There is Callous formation over a foot ulcer and will need to see Podiatry for Debridemen t and assessment for Osteomylet is Essential hypertension 14685886 I10 Patient aware that this is dangerous [...] ID Garza Member ID Guarantor Name 04/20/2022 [facility] (MEDICARE REPLACEMENT/A DVANTAGE - PPO) [id number] Dorinda Gaviria [id number] Dorinda Gaviria 04/20/2022 1 MEDICARE B-[place]: [employer] Dorinda Gaviria [id number] Dorinda Gaviria 05/17/2022 2 [facility] (MEDICARE SUPPLEMENT) Dorinda Gaviria [id number] Dorinda Gaviria Notes Date Note Type Note Provider Name and Address Organization Details Recorded Time 3 text/html Foot/Ankle UCReported by PatientHPIFor associated symptoms, patient reportsswelling,redness, andwarmthbut reportsno numbness. For location, patient reportsrightandlateral. For problem, patient reportsswellingandpain non traumatic. For severity, patient reportssevere. Martha Jacob MD [address] [place], [address], [place] - [facility] 04/19/2022 18:53:19 OBGyn Episode No OBEpisode recorded.
--- OUTSIDE RECORDS SUMMARY | 2025-02-25 12:45 | XMS_ITS | Clinical Summary ---
Author Organization [facility] Address [address] [place] [address] Care Team Providers Care B2B Account Executive Name Role Phone Smith Padgett MD Primary Care Provider [phone] Allergies Active Allergy Reactions Criticality Noted Date [...] age to complete this topic Care Teams B2B Account Executive Relationship Specialty Start Date End Date Smith Padgett MD [address] [address] PCP - General Internal Medicine 11/04/16
--- OUTSIDE RECORDS SUMMARY | 2025-02-25 12:45 | XMS_ITS | Continuity of Care Document ---
Author Organization [facility] [address] [facility] [address] [place] [address] Phone [phone] Social History Type Date Description Comments Sex Female Sex Unknown Medical Devices Description No Information Available Encounters Description No Information Available Assessments Description No Information Available Plan of Treatment No Information Available Functional Status Description No Information Available Mental Status Description No Information Available Referrals Description No Information Available
== END 2025-02-25 11:16 | disposition home or self-care (01) ==
LOC: HO.HKAS 10:51
PROVIDERS: PCP Nurse Practitioner Family; Visit Provider Internal Medicine Nephrology
DX: I12.9 Hypertensive chronic kidney disease with stage 1 through stage 4 chronic kidney disease, or unspecified chronic kidney disease (principal); E11.21 Type 2 diabetes mellitus with diabetic nephropathy; E21.0 Primary hyperparathyroidism; E87.20 Acidosis, unspecified; N18.4 Chronic kidney disease, stage 4 (severe)
CPT/HCPCS: 99214

== ENCOUNTER → 2025-02-25 10:50 | Outpatient (BNVA) | payer MEDICARE, SELFPAY | PROVIDERS: PCP Nurse Practitioner Family; Visit Provider Internal Medicine Nephrology | DX: I12.9 Hypertensive chronic kidney disease with stage 1 through stage 4 chronic kidney disease, or unspecified chronic kidney disease (principal); N18.4 Chronic kidney disease, stage 4 (severe); E11.21 Type 2 diabetes mellitus with diabetic nephropathy; Z79.84 Long term (current) use of oral hypoglycemic drugs; E21.0 Primary hyperparathyroidism; Z87.891 Personal history of nicotine dependence; Z95.0 Presence of cardiac pacemaker | CPT/HCPCS: 99212 ==

== ENCOUNTER 2025-03-10 09:57 | Outpatient (AMB) | payer MEDICARE, SELFPAY ==
[2025-03-10 10:01] VITALS: BP 148/62; PULSE 92; BMI 27.1
--- NOTE | 2025-03-10 10:01 | A.OFFVIS_ITS ---
Vital Signs 03/10/25 10:01 Height 5 ft 11 in Weight 194 lb 0.108 oz BMI 27.1 BP 148/62 H Blood Pressure Location Rt brachial Position Sitting Pulse 92 Pulse Source Pulse Oximeter Intake Visit Reasons: f/u- testing Last Waxer Required: No Carbon Coating Machine Operator: Carbon Coating Machine Operator Present Allergies Grlmpab-BJC-EcW Reductase Inhibitor Allergy (Verified 03/10/25 10:06) Rash Medication List - Last Reconciled 03/10/25 by ARTHUR Desir albuterol sulfate 90 mcg/actuation 2 puffs inhalation Q6H PRN aspirin 81 mg PO DAILY blood sugar diagnostic (Unutility Electricuch Ultra Test strips) As directed blood-glucose meter (evlyTouch Ultra2 Meter) As directed bumetanide 1 mg PO DAILY cholecalciferol (vitamin D3) 25 mcg PO DAILY cinacalcet 60 mg PO DAILY 90 days empagliflozin (Jardiance) 10 mg PO DAILY glucose (Dex4 Glucose) 16 grams (4 x 4 gram) PO Q15M PRN hydralazine 50 mg PO BID isosorbide mononitrate ER 60 mg (2 x 30 mg) PO QAM 90 days lactulose 20 grams (30 mL) PO BID PRN 10 days lancets (OneTouch Delica Plus Lancet) As directed linaclotide 145 mcg PO DAILY 30 days mometasone 50 mcg/actuation 2 sprays intranasal DAILY repaglinide 1 mg PO DAILY sitagliptin phosphate (Januvia) 25 mg PO DAILY sodium bicarbonate 650 mg PO BID umeclidinium 62.5 mcg/actuation (Incruse Ellipta) 1 inh inhalation BEDTIME vitamin B complex 1 tab PO DAILY HPI HPI f/u- testing: Details: The patient is an 85-year-old female presenting for a follow-up visit for abnormal nuclear stress test. She is also followed for heart failure with preserved ejection fraction and cardiac pacemaker with last office visit was on 07/01/2024. A nuclear stress test on 01/29/2025 revealed a large area of moderate to severe ischemia in the RCA and circumflex territory. Correspondingly, she reports symptoms of an uncomfortable feeling in her chest and shortness of breath when she overdoes it, such as by walking too far, which resolves with rest. She states this has been occurring for a while , less than a year, and she has consequently reduced her activities. She denies palpitations, dizzy spells or significant leg swelling, though she does note some mild swelling after high salt intake. Her pertinent past medical history includes hypertension, stage 4 chronic kidney disease with a single kidney, and diabetes mellitus. She has a cardiac pacemaker, placed on 11/21/2023 for complete heart block. An echocardiogram from 11/21/2023 showed an ejection fraction of 50-55% with no regional wall motion or significant valvular abnormalities. Current cardiac medications include aspirin, Bumex, hydralazine, and isosorbide. She follows with Dr Bush for nephrology. Daughter is present. [facility] Medical History COPD (chronic obstructive pulmonary disease) Cellulitis of skin Type 2 diabetes with nephropathy Diabetic retinopathy (HFpEF) heart failure with preserved ejection fraction Edema leg Hypertension Chronic kidney disease Surgical History History of tubal ligation History of kidney removal Status post carotid surgery Family History Brother Cancer Mother Heart attack Social History Alcohol intake: former Patient Tobacco Use Status: Former Tobacco user e-Cigarette/Vaping Use: Never Used service: No Current occupational status: unemployed and retired Cognitive needs: No Hearing needs: No Vision needs: No Review of Systems Const All systems reviewed & are unremarkable except as noted in HPI and below ENT Denies dizziness Card Reports chest pain, Denies chest pain at rest, Reports chest pain with activity, Denies rapid heart rate, Denies pedal edema, Denies edema, Denies leg edema, Denies lightheadedness, Denies palpitations, Denies dyspnea, Reports dyspnea on exertion and Denies orthopnea Resp Denies cough, Denies dyspnea and Reports dyspnea on exertion GI Denies hematochezia and Denies change in stool character Musc Reports abnormal gait (uses cane), Denies limited range of motion, Denies muscle cramps, Denies muscle weakness, Denies numbness, Denies radiating pain into limb, Denies stiffness and Denies tingling Neuro Reports abnormal gait (uses cane), Denies dizziness, Denies numbness and Denies tingling Endo Denies palpitations Physical Exam Vital Signs: Last Vital Signs Pulse 92 03/10/25 10:01 BP 148/62 H 03/10/25 10:01 BMI result Body Mass Index 27.1 Const General: cooperative, healthy appearing, comfortable and no acute distress Orientation/consciousness: patient oriented x3 Neck Neck: Yes normal visual inspection and Yes no JVD Chest Chest palpation & inspection: normal inspection of the chest Resp Effort & Inspection: normal respiratory effort Auscultation: clear to auscultation bilaterally, no rales, no rhonchi and no wheezes Cardio Rate: regular rate Rhythm: regular rhythm Heart sounds: S1 normal heart sound present, S2 normal heart sound present, no gallops, no murmurs and no rubs Neuro General: patient oriented x3 Extrem Other: soft nonpitting puffiness to lower legs General: Yes normal to inspection, No no pedal edema and No calf tenderness Psych Appearance: grossly normal Mental Status: mental status grossly normal Speech and movement: Normal speech and movement present Assessment & Plan Assessment & Plan (1) Abnormal nuclear stress test: Code(s): R94.39 - Abnormal result of other cardiovascular function study Category: Medical Plan: Recent nuclear stress test showing moderate to large area of severe ischemia in the RCA and left circumflex distribution. She does report exertional symptoms indicating stable angina. Presumed obstructive coronary artery disease reviewed with her. Plan for cardiac catheterization discussed. Recommended staged procedure to limit contrast exposure and she is more inclined to proceed with single procedure. She will discuss this further with her cigarette maker and get back to us. Will forward this note to Nephrology for review. Will start on metoprolol XL 25 mg daily. Continue isosorbide, hydralazine, aspirin. She is not on statin at this time in his reluctant to start additional medications. Cardiology follow-up 4-6 weeks which may be post catheterization. (2) Chest discomfort: Comment: with inhalation only, recent respiratory illness, chest XR ordered, worsening symptoms, ER Code(s): R07.89 - Other chest pain Category: Medical Plan: Exertional, relieves with rest. (3) (HFpEF) heart failure with preserved ejection fraction: Code(s): I50.30 - Unspecified diastolic (congestive) heart failure Category: Medical Plan: History of heart failure with preserved EF. Her last echo was showing EF 50- 55%, no wall motion abnormalities, unable to assess diastolic function. She is on Bumex 1 mg daily. Labs done 02/14/2025 shows creatinine 2.65. Follows closely with Nephrology. She is not fluid overloaded on exam today. She admits to some salt intake yesterday, had . Low-salt diet reviewed (4) Hypertension: Code(s): I10 - Essential (primary) hypertension Category: Medical Qualifiers: Hypertension type: primary hypertension Qualified Code(s): I10 - Essential (primary) hypertension Plan: pressure goal less than 130/80. Mildly elevated at this visit. Admitted to salt intake yesterday. Continue hydralazine, isosorbide and adding metoprolol. (5) Chronic kidney disease (CKD), stage 4: Code(s): N18.4 - Chronic kidney disease, stage 4 (severe) Category: Medical Plan: As above. Follows with Dr. Bush Plan I discussed with the patient and her daughter the results of her recent nuclear stress test, which showed a significant area of moderately to severely impaired blood flow to the heart muscle, likely indicating a blocked or nearly blocked artery. I explained that this is the likely cause of her exertional chest discomfort and shortness of breath. I recommended a cardiac catheterization to visualize the arteries. We had an extensive discussion regarding the risks, specifically the nephrotoxic effects of the contrast dye on her stage 4 chronic kidney disease and single kidney, including the worst-case scenario of requiring temporary dialysis. Two procedural options were presented to mitigate this risk: a staged procedure (diagnostic cath first, then a separate intervention if needed) to minimize contrast exposure per session, or a single combined procedure which carries a higher renal risk but avoids a second procedure. The patient understands she needs to consult her cigarette maker, Dr. Sharif, to determine the safest approach. I also explained the plan to start metoprolol for cardiac protection, and she agreed to try the medication. We will follow up in 4-6 weeks after she has spoken with Dr. Sharif to finalize the procedural plan. Patient Instructions: - Start taking the new medication, metoprolol, as prescribed to help protect your heart. If you feel lightheaded or have problems with it, please stop taking it and contact our office. - You will need a procedure called a cardiac catheterization to look at the arteries of your heart. This is recommended because your stress test showed there might be a blockage. - Please contact your kidney specialist, Dr. Sharif, to discuss the best and safest way to do this procedure, as the contrast dye used can be hard on your kidneys. - After you speak with Dr. Sharif, please call our office to let us know what was decided so we can schedule your procedure. - You can schedule this procedure for a time that is convenient for you, even after the holidays. - Please schedule a follow-up appointment in our office in about 4 to 6 weeks. Patient was informed and verbally consented to the use of an ambient scribe for clinic note documentation during this visit. Visit time spent on chart review, interview, assessment, orders, documentation. Coding Level of Care Code Est Pt Level 4 (24436) Add On Problem Visit Only Diagnoses Abnormal nuclear stress test R94.39 Chest discomfort R07.89 (HFpEF) heart failure with preserved ejection fraction I50.30 Primary hypertension I10 Hypertension type: primary hypertension Chronic kidney disease (CKD), stage 4 N18.4 Time Spent (min) 36
== END 2025-03-10 10:49 | disposition home or self-care (01) ==
LOC: HO.HCS 09:58
PROVIDERS: PCP Nurse Practitioner Family; Visit Provider Nurse Practitioner Family
DX: R94.39 Abnormal result of other cardiovascular function study (principal); R07.89 Other chest pain; I50.30 Unspecified diastolic (congestive) heart failure; I12.9 Hypertensive chronic kidney disease with stage 1 through stage 4 chronic kidney disease, or unspecified chronic kidney disease; N18.4 Chronic kidney disease, stage 4 (severe)
CPT/HCPCS: 99214; G2211

== ENCOUNTER → 2025-03-10 09:57 | Outpatient (BNVA) | payer MEDICARE, SELFPAY | PROVIDERS: PCP Nurse Practitioner Family; Visit Provider Nurse Practitioner Family | DX: R94.39 Abnormal result of other cardiovascular function study (principal); R07.89 Other chest pain; I13.0 Hypertensive heart and chronic kidney disease with heart failure and stage 1 through stage 4 chronic kidney disease, or unspecified chronic kidney disease; I50.30 Unspecified diastolic (congestive) heart failure; N18.4 Chronic kidney disease, stage 4 (severe); Z95.0 Presence of cardiac pacemaker; Z87.891 Personal history of nicotine dependence | CPT/HCPCS: 99212 ==

== ENCOUNTER 2025-03-18 09:52 | Outpatient (AMB) | payer MEDICARE, SELFPAY ==
[2025-03-18 09:54] VITALS: BP 150/66; PULSE 99; O2SAT 97; BMI 27.1
--- NOTE | 2025-03-18 09:54 | MHC.OFFVIS ---
Vital Signs 03/18/25 09:54 Height 5 ft 11 in Weight 194 lb 10.691 oz BMI 27.1 BP 150/66 H Blood Pressure Location Lt brachial Position Sitting Pulse 99 Pulse Source Pulse Oximeter Pulse Oximetry (%) 97 Oxygen Delivery Method Room Air Intake Visit Reasons: T2DM Intake Note: Patient present today to follow up on Type 2 Diabetes Mellitus. Last Diabetic Eye exam: 09/25/2024 [facility] Last Podiatry Visit: Does not see a Code Enforcement Inspector Random Glucose: 142 mg/dL Hgb A1C: 6.9% Manager Of It Required: No Accompanied by: Self / Same As Patient Allergies Acwhiay-HJB-XwV Reductase Inhibitor Allergy (Verified 03/18/25 10:01) Rash HPI Comments Details: This is an 85-year-old female with a past medical history of type 2 diabetes, heart failure, primary hyperparathyroidism and CKD presenting for diabetic management. She was initially diagnosed with type 2 diabetes in 1999. Hemoglobin A1c 6.9% today 03/18/2025. Current medication: Jardiance 10 mg, Januvia 25 mg daily, repaglinide 1 mg before breakfast Past medication: Glipizide discontinued due to hypoglycemia. Tradjenta discontinued due to dizziness. Complications: Nephropathy followed by Dr. Bush. OU nonproliferative retinopathy - [facility]. Denies neuropathy. Followed by Podiatry. She is followed by Cardiology. She had a positive nuclear stress test, and she is moving forward with diagnostic catheterization plus intervention if needed during the same procedure. Hypoglycemia: none Diet: improved diet. She decrease carbohydrates. Exercise: cleans house daily She does not check blood sugars, but she has a working glucometer. Patient says she is not able to monitor glucose due to carpal tunnel syndrome in the left wrist, arthritis in both of her hands and neuropathy in her hands. ROS: Constitutional: No fevers or chills or weight loss Respiratory: Denies shortness of breath Cardiovascular: Denies chest pain Gastrointestinal: No abdominal pain. She has chronic constipation which has been evaluated. She was prescribed Linzess. She uses Colace. Neurologic: No numbness or tingling in the extremities. Denies syncope. Endocrine: No cold or heat intolerance. No polyuria or polydipsia. Physical exam: Constitutional: Alert, in no distress. Neck: Supple, Full range of motion. No lymphadenopathy. No palpable thyroid masses. Respiratory: Clear to auscultation. Cardiovascular: S1 S2 regular. No murmurs. Neurologic: No focal neurological deficits. Extremities: Warm and well perfused. Bilateral lower extremity edema noted (baseline per patient). Dry skin on the feet but no open wounds or ulcerations. Handgrip strength 3/5 on the right, 4/5 on the left. She is not able to completely bend the right 1st and 4th fingers. There is decreased sensation of the fingers bilaterally. The finger joints are tender to palpation bilaterally. [facility] Medical History COPD (chronic obstructive pulmonary disease) Cellulitis of skin Type 2 diabetes with nephropathy Diabetic retinopathy (HFpEF) heart failure with preserved ejection fraction Edema leg Hypertension Chronic kidney disease Surgical History History of tubal ligation History of kidney removal Status post carotid surgery Family History Brother Cancer Mother Heart attack Social History Alcohol intake: former Patient Tobacco Use Status: Former Tobacco user e-Cigarette/Vaping Use: Never Used service: No Current occupational status: unemployed and retired Cognitive needs: No Hearing needs: No Vision needs: No Physical Exam Vital Signs: Last Vital Signs Pulse 99 03/18/25 09:54 BP 150/66 H 03/18/25 09:54 Pulse Ox 97 03/18/25 09:54 Oxygen Delivery Method Room Air 03/18/25 09:54 BMI result Body Mass Index 27.1 Results AMB Hemoglobin A1c AMB Hemoglobin A1c 6.9 % Last Edit by MARIA Davidson on 03/18/25 10:16 Results Reviewed Results Reviewed: Laboratory Last Values Glucose (Clinic) 142 mg/dL (60-115) H 03/18/25 10:04 Hgb A1c (Clinic) 6.9 % (4.0-6.0) H 03/18/25 10:07 Laboratory Tests 02/14/25 11:13 Creatinine 2.65 H Estimated GFR 17 Laboratory Tests 09/18/24 10/29/24 10:30 11:00 Creatinine 2.52 H 2.75 H Estimated GFR 18 16 AST 20 ALT 8 Triglycerides 201 H Cholesterol 237 H LDL Cholesterol, Calc 156 H HDL Cholesterol 41 TSH 1.68 DARCI Antibody <5 Assessment & Plan Assessment & Plan (1) Type 2 diabetes with nephropathy: Code(s): E11.21 - Type 2 diabetes mellitus with diabetic nephropathy Category: Medical Plan In summary this is an 85-year-old female with type 2 diabetes with complications including chronic kidney disease as well as congestive heart failure and peripheral vascular disease. Type 2 diabetes is controlled. Continue Jardiance 10 mg daily, repaglinide 1 mg 30 minutes before breakfast, Januvia 25 mg daily. Reviewed treatment of low blood sugars with the patient. The patient has a working glucometer, but she is not able to monitor her blood sugars due to osteoarthritis, carpal tunnel syndrome and neuropathy. Prescribed Ruth 3 plus CGM. Patient says she did have this in the past and knows how to use this device, and she declined a referral to the staff development educator or appointment to set it up. I advised her that she does need to confirm high and low readings on CGM with a fingerstick. Treatment of hypoglycemia reviewed. She will follow up in 3 months for type 2 diabetes. Orders: Orders AMB Hemoglobin A1c Today E11.21 - Type 2 diabetes mellitus with diabetic nephropathy, Z13.9 - Encounter for screening, unspecified Medications: New blood-glucose sensor (FreeStyle Ruth 3 Plus Sensor device) Apply 1 new sensor every 15 days as directed to monitor blood glucose continuously. 2 ea 11RF blood-glucose,pacu nurse,cont (FreeStyle Ruth 3 [place]) Use daily to monitor blood glucose levels continuously. 1 ea 0RF Coding Level of Care Code Est Pt Level 4 (17132) Add On Problem Visit Only Diagnoses Type 2 diabetes with nephropathy E11.21
[2025-03-18 10:08] LABS: Glucose, Whole Blood 142 mg/dL (60-115)
--- OUTSIDE RECORDS SUMMARY | 2025-03-18 10:42 | XMS_ITS | Encounter Summary ---
Author Organization [facility] Address [address] [facility] [address] [address] [place] [address] Phone Care Team Providers Care Life Specialist Name Role Phone Neida Gabriel DNP Primary Care Provider Reason for Visit * Reason Comments Med Refill Encounter Details Date Type Department Care Team (Late st Contact Info) Description 05/25/2022 Refill [facility] [address] [facility] [address] [place] [id number] Aldo Bush MD [address] [place] [id number] Social History Tobacco Use Types Packs/Day Years [...] on filedocumented in this encounter Care Teams Life Specialist Relationship Specialty Start Date End Date Neida Gabriel DNP [address] [facility] [address] [place] [address] PCP - General Nurse Practitioner 11/22/21 documented as of this encounter
--- OUTSIDE RECORDS SUMMARY | 2025-03-18 10:42 | XMS_ITS | Clinical Summary ---
Author Organization [facility] Address [address] [facility] [address] [place] [address] Phone Care Team Providers Care Snaker Driving Horses Name Role Phone Neida Gabriel STEPHANIE Primary [...] patient's age to complete this topic Insurance [facility] [place] [id number] [facility] Medicare Care Teams Snaker Driving Horses Relationship Specialty Start Date End Date Neida Gabriel DNP [address] [facility] [place] [address] [facility] [place] [address] PCP - General Nurse Practitioner 11/22/21
--- OUTSIDE RECORDS SUMMARY | 2025-03-18 10:42 | XMS_ITS | Continuity of Care Document ---
Author Organization [facility] [address] [facility] [address] [place] [address] Phone [phone] Social History Type Date Description Comments Sex Female Sex Unknown Medical Devices Description No Information Available Encounters Description No Information Available Assessments Description No Information Available Plan of Treatment No Information Available Functional Status Description No Information Available Mental Status Description No Information Available Referrals Description No Information Available
--- OUTSIDE RECORDS SUMMARY | 2025-03-18 10:42 | XMS_ITS | Clinical Summary ---
Author Organization [facility] Prior to 08/24/[address] [place], [place] [id number] Care Team Providers Care Tourist Information Officer Name Role Phone Smith Padgett MD Primary Care Provider [phone] Allergies Active Allergy Reactions Criticality Noted Date [...] age to complete this topic Care Teams Tourist Information Officer Relationship Specialty Start Date End Date Smith Padgett MD [address] [address] PCP - General Internal Medicine 11/04/16
== END 2025-03-18 10:36 | disposition home or self-care (01) ==
LOC: HO.ENCR 09:53
PROVIDERS: PCP Nurse Practitioner Family; Visit Provider Physician Assistant Medical
DX: Z13.9 Encounter for screening, unspecified (principal); E11.21 Type 2 diabetes mellitus with diabetic nephropathy

== ENCOUNTER → 2025-03-18 09:52 | Outpatient (BNVA) | payer MEDICARE, SELFPAY | PROVIDERS: PCP Nurse Practitioner Family; Visit Provider Physician Assistant Medical | DX: E11.21 Type 2 diabetes mellitus with diabetic nephropathy (principal) | CPT/HCPCS: 82947; 83036; 99212 ==